=== PATIENT | male | born 1955 | race Caucasian/White ===

== ENCOUNTER 2020-06-04 16:42 | Outpatient (REF) | payer MEDICARE, SELFPAY ==
[2020-06-04 21:40] LABS: ALT 60 U/L (16-63); AST 30 U/L (15-37); Albumin 3.8 g/dL (3.4-5.0); Alkaline Phosphatase 73 U/L (46-116); Anion Gap 7.9 mmol/L (3-11); BUN 15 mg/dL (7-18); Bilirubin, Total 0.4 mg/dL (0.2-1.0); CO2 26.1 mmol/L (21.0-32.0); CREATININE 0.85 mg/dL (0.70-1.30); Chloride 105 mmol/L (98-107); Glucose 88 mg/dL (74-106); Sodium 139 mmol/L (136-145); Total Protein 7.4 g/dL (6.4-8.2)
[2020-06-04 21:50] LABS: Hemoglobin A1C 5.8 % (<5.7)
== END 2020-06-04 17:02 ==
LOC: NCHCN 16:42
PROVIDERS: Visit Provider Nurse Practitioner Family
DX: I10 Essential (primary) hypertension (principal); R73.09 Other abnormal glucose; E66.9 Obesity, unspecified
CPT/HCPCS: 80053; 83036

== ENCOUNTER 2020-06-18 21:37 | Outpatient (REF) | payer MEDICARE, SELFPAY ==
[2020-06-18 21:44] LABS: Anion Gap 5.4 mmol/L (3-11); BUN 19 mg/dL (7-18); CO2 28.6 mmol/L (21.0-32.0); CREATININE 0.93 mg/dL (0.70-1.30); Calcium 8.7 mg/dL (8.5-10.1); Chloride 105 mmol/L (98-107); Glucose 97 mg/dL (74-106); Potassium 4.4 mmol/L (3.5-5.1); Sodium 139 mmol/L (136-145)
== END 2020-06-18 21:57 ==
LOC: NCHCN 21:37
PROVIDERS: Visit Provider Nurse Practitioner Family
DX: I10 Essential (primary) hypertension (principal)
CPT/HCPCS: 80048

== ENCOUNTER 2020-10-01 17:34 | Outpatient (REF) | payer MEDICARE, SELFPAY ==
[2020-10-01 21:33] LABS: BUN 12 mg/dL (7-18); CREATININE 0.7 mg/dL (0.70-1.30); Calcium 8.8 mg/dL (8.5-10.1); Chloride 105 mmol/L (98-107); Glucose 83 mg/dL (74-106); Potassium 3.8 mmol/L (3.5-5.1); Sodium 141 mmol/L (136-145)
[2020-10-02 13:10] LABS: Vitamin D 25 Total 20.4 ng/ml (30-100)
== END 2020-10-01 17:35 | disposition home or self-care (01) ==
LOC: NCHCN 17:34
PROVIDERS: PCP Nurse Practitioner Family; Visit Provider Nurse Practitioner Family
DX: I10 Essential (primary) hypertension (principal); R53.83 Other fatigue
CPT/HCPCS: 80048; 82306

== ENCOUNTER 2020-10-22 16:46 | Outpatient (REF) | payer MEDICARE, SELFPAY ==
[2020-10-22 19:55] LABS: BUN 17 mg/dL (7-18); CREATININE 0.8 mg/dL (0.70-1.30); Chloride 102 mmol/L (98-107); Glucose 100 mg/dL (74-106); Sodium 137 mmol/L (136-145)
== END 2020-10-22 16:47 | disposition home or self-care (01) ==
LOC: NCHCN 16:46
PROVIDERS: PCP Nurse Practitioner Family; Visit Provider Nurse Practitioner Family
DX: I10 Essential (primary) hypertension (principal)
CPT/HCPCS: 80048

== ENCOUNTER 2020-11-16 16:15 | Outpatient (REF) | payer MEDICARE, SELFPAY ==
[2020-11-16 22:16] LABS: Vitamin D 25 Total 31.5 ng/ml (30-100)
== END 2020-11-16 16:16 | disposition home or self-care (01) ==
LOC: NCHCN 16:15
PROVIDERS: PCP Nurse Practitioner Family; Visit Provider Family Medicine
DX: E55.9 Vitamin D deficiency, unspecified (principal)
CPT/HCPCS: 82306

== ENCOUNTER 2020-12-08 18:16 | Outpatient (REF) | payer MEDICARE, SELFPAY ==
[2020-12-09 17:30] LABS: PSA, Screening 0.6 ng/mL (0.0-4.5)
[2020-12-10 09:53] LABS: HIV-1/2 Ag & Ab Screen Negative (Negative)
[2020-12-10 10:12] LABS: Hepatitis C Ab w Rflx HCV PCR Negative (Negative)
== END 2020-12-08 18:17 | disposition home or self-care (01) ==
LOC: NCHCN 18:16
PROVIDERS: PCP Nurse Practitioner Family; Visit Provider Nurse Practitioner Family
DX: Z11.3 Encounter for screening for infections with a predominantly sexual mode of transmission (principal); Z11.4 Encounter for screening for human immunodeficiency virus [HIV]; Z11.59 Encounter for screening for other viral diseases; Z12.5 Encounter for screening for malignant neoplasm of prostate
CPT/HCPCS: 84153; 86803; 87389

== ENCOUNTER 2021-07-13 15:52 | Outpatient (REF) | payer MEDICARE, SELFPAY ==
[2021-07-13 21:26] LABS: HCT 36.9 % (40.0-50.0); MCH 32.4 pg (27.0-33.0); MCHC 32.5 % (32.0-36.0); MCV 99.7 fL (80-95); Platelet Count 168 10^3/uL (130-400); RDW 13.1 % (11.8-14.1); RDW-SD 47.9 fL; WBC 5.59 10^3/uL (4.4-10.8)
[2021-07-14 09:55] LABS: Calculated LDL 155 mg/dL (<100); Cholesterol 216 mg/dL (<200); HDL Cholesterol 47 mg/dL (40-60); Triglyceride 70 mg/dL (<150)
[2021-07-15 00:55] LABS: Vitamin D 25 Total 35.1 ng/mL (30-100)
[2021-07-15 13:32] LABS: Ferritin 121 ng/mL (26-388)
[2021-07-15 22:38] LABS: Folate 13.2 ng/mL (See Note); Vitamin B12 441 pg/mL (211-911)
== END 2021-07-13 15:53 | disposition home or self-care (01) ==
LOC: NCHCN 15:52
PROVIDERS: PCP Nurse Practitioner Family; Visit Provider Nurse Practitioner Family
DX: R53.83 Other fatigue (principal); E78.5 Hyperlipidemia, unspecified; E55.9 Vitamin D deficiency, unspecified; D64.9 Anemia, unspecified
CPT/HCPCS: 80061; 82306; 85027; 82607; 82728; 82746

== ENCOUNTER 2022-02-03 16:32 | Outpatient (REF) | payer MEDICARE, SELFPAY ==
[2022-02-03 20:19] LABS: HCT 38.5 % (40.0-50.0); HGB 12.9 g/dL (13.5-17.5); MCH 32.5 pg (27.0-33.0); MCHC 33.5 % (32.0-36.0); MCV 97 fL (80-95); MPV 10.2 fL (8.0-11.0); Platelet Count 212 10^3/uL (130-400); RBC 3.97 10^6/uL (4.36-5.78); RDW 12.8 % (11.8-14.1); RDW-SD 46.2 fL; WBC 6.95 10^3/uL (4.4-10.8)
[2022-02-03 20:29] LABS: Iron 56 ug/dL (65-175); Total Iron Binding Capacity 311 ug/dL (250-450); Transferrin Sat 18 % (20-55)
[2022-02-03 20:56] LABS: Ferritin 203 ng/mL (26-388); Vitamin B12 474 pg/mL (193-986)
[2022-02-03 20:58] LABS: Folate > 20.0 ng/mL (8.6-20.0)
== END 2022-02-03 16:33 | disposition home or self-care (01) ==
LOC: NCHCN 16:32
PROVIDERS: PCP Nurse Practitioner Family; Visit Provider Nurse Practitioner Family
DX: D64.9 Anemia, unspecified (principal); R53.83 Other fatigue
CPT/HCPCS: 85027; 82607; 82728; 82746; 83540; 83550

== ENCOUNTER 2022-03-01 16:38 | Outpatient (REF) | payer MEDICARE, SELFPAY ==
[2022-03-01 21:03] LABS: Abs Immature Grans 0.01 10^3/uL (0.0-0.06); Absolute Basophil Count 0.06 10^3/uL (0.0-0.2); Absolute Eosinophil Count 0.26 10^3/uL (0.0-0.7); Absolute Lymphocyte Count 1.92 10^3/uL (1.2-3.4); Absolute Monocyte Count 0.54 10^3/uL (0.1-0.8); Absolute Neutrophil Count 2.11 10^3/uL (1.2-6.7); Basophils % 1.2; Eosinophils % 5.3; HCT 36.6 % (40.0-50.0); HGB 12.3 g/dL (13.5-17.5); Immature Grans % 0.2; Lymphocytes % 39.2; MCH 32.8 pg (27.0-33.0); MCHC 33.6 % (32.0-36.0); MCV 98 fL (80-95); MPV 10.7 fL (8.0-11.0); Neutrophils % 43.1; Platelet Count 170 10^3/uL (130-400); RBC 3.75 10^6/uL (4.36-5.78); RDW 13.2 % (11.8-14.1); RDW-SD 47.3 fL
[2022-03-01 21:09] LABS: Iron 67 ug/dL (65-175); Total Iron Binding Capacity 284 ug/dL (250-450); Transferrin Sat 24 % (20-55)
[2022-03-01 21:23] LABS: Ferritin 141 ng/mL (26-388)
[2022-03-02 10:44] LABS: Reticulocyte 1.5 % (0.5-2.4)
[2022-03-02 11:27] LABS: Folate 19.7 ng/mL (8.6-20.0); Vitamin B12 481 pg/mL (193-986)
== END 2022-03-01 16:39 | disposition home or self-care (01) ==
LOC: NCHCN 16:38
PROVIDERS: PCP Nurse Practitioner Family; Visit Provider Nurse Practitioner Family
DX: R53.83 Other fatigue (principal); D64.9 Anemia, unspecified
CPT/HCPCS: 85045; 82607; 82728; 82746; 83540; 83550; 85025

== ENCOUNTER 2022-05-05 21:13 | Outpatient (REF) | payer MEDICARE, SELFPAY ==
[2022-05-05 21:51] LABS: Abs Immature Grans 0.01 10^3/uL (0.0-0.06); Absolute Basophil Count 0.05 10^3/uL (0.0-0.2); Absolute Eosinophil Count 0.27 10^3/uL (0.0-0.7); Absolute Monocyte Count 0.59 10^3/uL (0.1-0.8); Absolute Neutrophil Count 3.18 10^3/uL (1.2-6.7); Basophils % 0.8; Eosinophils % 4.6; HCT 36.7 % (40.0-50.0); HGB 12.4 g/dL (13.5-17.5); Immature Grans % 0.2; Lymphocytes % 30.5; MCHC 33.8 % (32.0-36.0); MCV 98 fL (80-95); MPV 10.8 fL (8.0-11.0); Neutrophils % 53.9; Platelet Count 147 10^3/uL (130-400); RBC 3.76 10^6/uL (4.36-5.78); RDW 12.4 % (11.8-14.1); RDW-SD 44.8 fL
[2022-05-05 22:39] LABS: ALT 29 U/L (16-63); AST 25 U/L (15-37); Albumin 3.8 g/dL (3.4-5.0); Alkaline Phosphatase 63 U/L (46-116); Anion Gap 6.6 mmol/L (3-11); BUN 15 mg/dL (7-18); Bilirubin, Total 0.4 mg/dL (0.2-1.0); CO2 29.4 mmol/L (21.0-32.0); CREATININE 0.8 mg/dL (0.70-1.30); Calcium 8.6 mg/dL (8.5-10.1); Calculated LDL 145 mg/dL (<100); Chloride 106 mmol/L (98-107); Cholesterol 217 mg/dL (<200); Ferritin 298 ng/mL (26-388); Folate > 20.0 ng/mL (8.6-20.0); Glucose 84 mg/dL (74-106); HDL Cholesterol 52 mg/dL (40-60); Potassium 3.9 mmol/L (3.5-5.1); Sodium 142 mmol/L (136-145); Total Protein 7.7 g/dL (6.4-8.2); Triglyceride 104 mg/dL (<150); Vitamin B12 561 pg/mL (193-986)
== END 2022-05-05 21:14 | disposition home or self-care (01) ==
LOC: NCHCN 21:13
PROVIDERS: PCP Nurse Practitioner Family; Visit Provider Nurse Practitioner Family
DX: E78.5 Hyperlipidemia, unspecified (principal); D64.9 Anemia, unspecified
CPT/HCPCS: 80053; 80061; 82607; 82728; 82746; 85025

== ENCOUNTER 2022-12-26 12:41 | Outpatient (REF) | payer MEDICARE, SELFPAY ==
[2022-12-26 15:00] LABS: HCT 38.8 % (40.0-50.0); HGB 12.9 g/dL (13.5-17.5); MCH 32.7 pg (27.0-33.0); MCHC 33.2 % (32.0-36.0); MCV 99 fL (80-95); Platelet Count 185 10^3/uL (130-400); RBC 3.94 10^6/uL (4.36-5.78); RDW 12.5 % (11.8-14.1); RDW-SD 45.1 fL; WBC 4.37 10^3/uL (4.4-10.8)
[2022-12-26 15:20] LABS: ALT 44 U/L (16-63); AST 21 U/L (15-37); Albumin 3.7 g/dL (3.4-5.0); Alkaline Phosphatase 68 U/L (46-116); Anion Gap 4.8 mmol/L (3-11); BUN 20 mg/dL (7-18); Bilirubin, Total 0.3 mg/dL (0.2-1.0); CO2 32.2 mmol/L (21.0-32.0); Calcium 9.2 mg/dL (8.5-10.1); Calculated LDL 170 mg/dL (<100); Chloride 104 mmol/L (98-107); Cholesterol 242 mg/dL (<200); Estimated GFR 81.98 (mL/min/1.73m2); Glucose 136 mg/dL (74-106); HDL Cholesterol 57 mg/dL (40-60); Potassium 4.3 mmol/L (3.5-5.1); Sodium 141 mmol/L (136-145); TSH (W/Ref FT4) 2.26 uIU/mL (0.36-3.74); Total Protein 7.9 g/dL (6.4-8.2); Triglyceride 77 mg/dL (<150)
== END 2022-12-26 12:42 | disposition home or self-care (01) ==
LOC: NCHCN 12:41
PROVIDERS: PCP Nurse Practitioner Family; Visit Provider Family Medicine
DX: I10 Essential (primary) hypertension (principal); E78.5 Hyperlipidemia, unspecified; R53.83 Other fatigue; E66.9 Obesity, unspecified; F10.10 Alcohol abuse, uncomplicated; D64.9 Anemia, unspecified
CPT/HCPCS: 80053; 80061; 85027; 84443

== ENCOUNTER 2023-07-25 08:10 | Outpatient (REF) | payer MEDICARE, SELFPAY ==
--- OUTSIDE RECORDS SUMMARY | 2023-07-25 08:14 | XMS_ITS | CCD ---
Author Name Unknown Address [address] [place] [address] [id number] Organization Unknown Address [address] [place] [address] [phone] Care Team Providers Care Coding Machine Operator Name Role Phone INEZ MARTIN Attending Physician [phone] Vital Signs Unknown or Not Available. Allergies Unknown or Not Available. Procedures Unknown or Not Available. History of Immunizations Unknown or Not Available. Problems Unknown or Not Available. Results [facility] COVID RHEONIX* - Jennifer ect Date/Time: 12/17/2021 09:48 Test Name Code Test Result Test Units Test Ref Rang e Tier- 40361-9 SYMPTOMS N/A SARS COV2 RNA: 60951-8 NEGATIVE N/A REFERENCE RANGE: NEGAT Active Medications Unknown or Not Available. Medications Administered During Visit Unknown or Not Available. Encounters Encounter Diagnosis Diagnosis Code Start Date Exposure to SARS-CoV-2 [id number] Social History Smoking Status Code Start Date End Date Former smoker [id number] Patient Decision Aids Unknown or Not Available. Discharge Instructions You were admitted to [facility] on 12/17/2021 18:51 with a principal diagnosis of Contact with and (suspected) exposure to COVID-19 You had the following tests done:[facility] COVID RHEONIX* You were discharged from [facility] on 12/17/2021 18:51 Should you have any questions prior to discharge, please contact a member of your healthcare team. If you have left the hospital and have any questions, please contact your primary care physician. Chief Complaint and Reason For Visit Unknown or Not Available. Function Status Unknown or Not Available. Plan of Care Unknown or Not Available. Referral/Transition of Care Unknown or Not Available.
--- OUTSIDE RECORDS SUMMARY | 2023-07-25 08:14 | XMS_ITS | CCD ---
Author Name Unknown Address [address] [place] [address] [id number] Organization Unknown Address [address] [place] [address] [phone] Care Team Providers Care Guest Room Inspector Name Role Phone KUSH VYAS Attending Physician [phone] KUSH VYAS Rounding (Secondary) Physicia n [phone] Vital Signs Unknown or Not Available. Allergies Unknown or Not Available. Procedures Unknown or Not Available. History of Immunizations Unknown or Not Available. Problems Unknown or Not Available. Results Unknown or Not Available. Active Medications Unknown or Not Available. Medications Administered During Visit Unknown or Not Available. Encounters Encounter Diagnosis Diagnosis Code Start Date Metatarsalgia, left foot [id number] 022 Social History Smoking Status Code Start Date End Date Former smoker 5112346 Patient Decision Aids Unknown or Not Available. Discharge Instructions You were admitted to [facility] on 10/04/2021 15:56 with a principal diagnosis of Metatarsalgia, left foot You were discharged from [facility] on 10/04/2021 00:00 Should you have any questions prior to [...]
--- OUTSIDE RECORDS SUMMARY | 2023-07-25 08:14 | XMS_ITS | CCD ---
Author Name Unknown Address [address] [place] [address] [id number] Organization Unknown Address [address] [place] [address] [id number] Care Team Providers Care Medical Management Trainer Name Role Phone INEZ MARTIN Attending Physician [phone] Vital Signs Unknown or Not Available. Allergies Unknown or Not Available. Procedures Unknown or Not Available. History of Immunizations Unknown or Not Available. Problems Unknown or Not Available. Results [facility] COVID RHEONIX* - Jennifer ect Date/Time: 12/30/2021 10:04 Test Name Code Test Result Test Units Test Ref Rang e Tier- 05195-9 EXPOSURE N/A SARS COV2 RNA: 23342-2 NEGATIVE N/A REFERENCE RANGE: NEGAT Active Medications Unknown or Not Available. Medications Administered During Visit Unknown or Not Available. Encounters Encounter Diagnosis Diagnosis Code Start Date Exposure to SARS-CoV-2 [id number] Social History Smoking Status Code Start Date End Date Former smoker 0257798 Patient Decision Aids Unknown or Not Available. Discharge Instructions You were admitted to [facility] on 12/30/2021 16:15 with a principal diagnosis of Contact with and (suspected) exposure to COVID-19 You had the following tests done:EBENEZER COVID RHEONIX* You were discharged from [facility] on 12/30/2021 16:15 Should you have any questions prior to [...]
--- OUTSIDE RECORDS SUMMARY | 2023-07-25 08:14 | XMS_ITS | CCD ---
Author Name Unknown Address [address] [place] [address] [id number] Organization Unknown Address [address] [place] [address] [phone] Care Team Providers Care Storage Battery Inspector Name Role Phone JOHNY FALK Attending Physician [phone] Vital Signs Unknown or Not Available. Allergies Unknown or Not Available. Procedures Unknown or Not Available. History of Immunizations Unknown or Not Available. Problems Unknown or Not Available. Results Unknown or Not Available. Active Medications Unknown or Not Available. Medications Administered During Visit Unknown or Not Available. Encounters Encounter Diagnosis Diagnosis Code Start Date Pain in right wrist [id number] 02/11/2022 Social History Smoking Status Code Start Date End Date Former smoker 2732186 Patient Decision Aids Unknown or Not Available. Discharge Instructions You were admitted to [facility] on 02/11/2022 10:08 with a principal diagnosis of Pain in right wrist You were discharged from [facility] on 02/11/2022 10:09 Should you have any questions prior to [...]
--- OUTSIDE RECORDS SUMMARY | 2023-07-25 08:14 | XMS_ITS | CCD ---
Author Name Unknown Address [address] [place] [address] [phone] Organization Unknown Address [address] [place] [address] [phone] Care Team Providers Care Sample Steamer Name Role Phone INEZ MARTIN Attending Physician [phone] Vital Signs Unknown or Not Available. Allergies Unknown or Not Available. Procedures Unknown or Not Available. History of Immunizations Unknown or Not Available. Problems Unknown or Not Available. Results [facility] COVID RHEONIX* - Jennifer ect Date/Time: 09/20/2021 16:56 Test Name Code Test Result Test Units Test Ref Rang e Tier- SYMPTOMS N/A SARS COV2 RNA: 31098-1 NEGATIVE N/A REFERENCE RANGE: NEGAT Active Medications Unknown or Not Available. Medications Administered During Visit Unknown or Not Available. Encounters Encounter Diagnosis Diagnosis Code Start Date Exposure to SARS-CoV-2 [id number] Social History Smoking Status Code Start Date End Date Former smoker 2530383 Patient Decision Aids Unknown or Not Available. Discharge Instructions You were admitted to [facility] on 09/20/2021 10:58 with a principal diagnosis of Contact with and (suspected) exposure to COVID-19 You had the following tests done:EBENEZER COVID RHEONIX* You were discharged from [facility] on 09/20/2021 10:58 Should you have any questions prior to [...]
--- OUTSIDE RECORDS SUMMARY | 2023-07-25 08:14 | XMS_ITS | CCD ---
Author Name Unknown Address [address] [place] [address] [id number] Organization Unknown Address [address] [place] [address] [phone] Care Team Providers Care Machine Set Up Operator Paper Goods Name Role Phone INEZ MARTIN Attending Physician [phone] Vital Signs Unknown or Not Available. Allergies Unknown or Not Available. Procedures Unknown or Not Available. History of Immunizations Unknown or Not Available. Problems Unknown or Not Available. Results [facility] COVID [facility]* - Jennifer ect Date/Time: 09/06/2021 16:06 Test Name Code Test Result Test Units Test Ref Rang e Tier- EXPOSURE N/A SARS COV2 RNA: 62363-2 NEGATIVE N/A REFERENCE RANGE: NEGAT Active Medications Unknown or Not Available. Medications Administered During Visit Unknown or Not Available. Encounters Encounter Diagnosis Diagnosis Code Start Date Exposure to SARS-CoV-2 [id number] 2 Social History Smoking Status Code Start Date End Date Former smoker 5504304 Patient Decision Aids Unknown or Not Available. Discharge Instructions You were admitted to [facility] on 09/06/2021 12:19 with a principal diagnosis of Contact with and (suspected) exposure to COVID-19 You had the following tests done:EBENEZER COVID RHEONIX* You were discharged from [facility] on 09/06/2021 12:19 Should you have any questions prior to [...]
--- OUTSIDE RECORDS SUMMARY | 2023-07-25 08:15 | XMS_ITS | CCD ---
Author Name Unknown Address [address] [place] [address] [id number] Organization Unknown Address [address] [place] [address] [phone] Care Team Providers Care Truck Striker Name Role Phone KUSH VYAS Attending Physician [phone] KUSH VYAS Rounding (Secondary) Physicia n [phone] Vital Signs Unknown or Not Available. Allergies Unknown or Not Available. Procedures Unknown or Not Available. History of Immunizations Unknown or Not Available. Problems Unknown or Not Available. Results Unknown or Not Available. Active Medications Unknown or Not Available. Medications Administered During Visit Unknown or Not Available. Encounters Encounter Diagnosis Diagnosis Code Start Date Pain in left foot [id number] 08/11/2021 Social History Smoking Status Code Start Date End Date Former smoker [id number] Patient Decision Aids Unknown or Not Available. Discharge Instructions You were admitted to [facility] on 08/11/2021 09:21 with a principal diagnosis of Pain in left foot You were discharged from [facility] on 08/11/2021 00:00 Should you have any questions prior [...]
--- OUTSIDE RECORDS SUMMARY | 2023-07-25 08:15 | XMS_ITS | CCD ---
Author Name Unknown Address [address] [place] [address] [id number] Organization Unknown Address [address] [place] [address] [phone] Care Team Providers Care Grab Driver Name Role Phone KUSH VYAS Attending Physician [phone] Vital Signs Unknown or Not Available. Allergies Unknown or Not Available. Procedures Unknown or Not Available. History of Immunizations Unknown or Not Available. Problems Unknown or Not Available. Results Unknown or Not Available. Active Medications Unknown or Not Available. Medications Administered During Visit Unknown or Not Available. Encounters Encounter Diagnosis Diagnosis Code Start Date Pain in left foot O66585 07/01/2021 Social History Smoking Status Code Start Date End Date Former smoker 6039192 Patient Decision Aids Unknown or Not Available. Discharge Instructions You were admitted to [facility] on 07/01/2021 16:09 with a principal diagnosis of Pain in left foot You were discharged from [facility] on 07/01/2021 16:09 Should you have any questions prior to [...]
--- OUTSIDE RECORDS SUMMARY | 2023-07-25 08:15 | XMS_ITS | CCD ---
Author Name Unknown Address [address] [place] [address] [id number] Organization Unknown Address [address] [place] [address] [phone] Care Team Providers Care Shrimp Picker Name Role Phone KUSH VYAS Attending Physician [phone] KUSH VYAS Rounding (Secondary) Physicia n [phone] Vital Signs Unknown or Not Available. Allergies Unknown or Not Available. Procedures Unknown or Not Available. History of Immunizations Unknown or Not Available. Problems Unknown or Not Available. Results Unknown or Not Available. Active Medications Unknown or Not Available. Medications Administered During Visit Unknown or Not Available. Encounters Encounter Diagnosis Diagnosis Code Start Date Metatarsalgia, left foot M7742 021 Social History Smoking Status Code Start Date End Date Former smoker 7229763 Patient Decision Aids Unknown or Not Available. Discharge Instructions You were admitted to [facility] on 07/05/2021 12:29 with a principal diagnosis of Metatarsalgia, left foot You were discharged from [facility] on 07/05/2021 00:00 Should you have any questions prior [...]
--- OUTSIDE RECORDS SUMMARY | 2023-07-25 08:15 | XMS_ITS | CCD ---
Author Name Unknown Address [address] [place] [address] [phone] Organization Unknown Address [address] [place] [address] [phone] Care Team Providers Care Distribution Engineer Name Role Phone JOHNY FALK Attending Physician [phone] Vital Signs Unknown or Not Available. Allergies Unknown or Not Available. Procedures Unknown or Not Available. History of Immunizations Unknown or Not Available. Problems Unknown or Not Available. Results BASIC METABOLIC PANEL (BMP) - Collect Date/Time: 08/11/2021 11:39 Test Name Code Test Result Test Units Test Ref Rang e GLUCOSE 2345-7 105 mg/dL L=70 H=116 BUN 3094-0 21 mg/dL L=6 H=25 CREATININE 2160-0 0.83 mg/dL L=0.67 H=1.17 SODIUM SERUM 2951-2 136 mmol/L L=136 H=145 POTASSIUM SERUM 2823-3 3.9 mmol/L L=3.4 H=5 .2 CHLORIDE SERUM 2075-0 102 mmol/L L=96 H=110 CARBON DIOXIDE (CO2) 2028-9 29 mmol/L L=22 H=34 ANION GAP 18784-8 4.9 mmol/L CALCIUM SERUM 02600-5 9.1 mg/dL L=8.2 H=10. 2 AGE 65 years eGFR (non-Afr.Amer.) 12309-0 93 mL/min eGFR (Afr-Colombian) 82474-3 112 mL/min Active Medications Unknown or Not Available. Medications Administered During Visit Unknown or Not Available. Encounters Encounter Diagnosis Diagnosis Code Start Date Essential hypertension [id number] Social History Smoking Status Code Start Date End Date Former smoker 9654569 Patient Decision Aids Unknown or Not Available. Discharge Instructions You were admitted to [facility] on 08/11/2021 11:29 with a principal diagnosis of Essential (primary) hypertension You had the following tests done:BASIC METABOLIC PANEL (BMP) You were discharged from [facility] on 08/11/2021 11:29 Should you have any questions prior to [...]
--- OUTSIDE RECORDS SUMMARY | 2023-07-25 08:21 | XMS_ITS | Continuity of Care Document ---
Author Name Unknown Organization [facility] Address [address] [place] [address] Care Team Providers Care Kapok And Cotton Machine Operator Name Role Phone Michelle Cooper Primary Care Physician ( [phone] Encounter [facility] Date(s): 06/12/23 - 06/12/23 [facility] [address] [place] [address] Encounter Diagnosis Obstructive sleep apnea syndrome(Discharge Diagnosis) - 06/08/23 Insomnia(Discharge Diagnosis) - 06/08/23 Discharge Disposition: Home or Self Care Attending Physician: Yenny Lee CHILD CARE ASSOCIATE TEACHER Allergies, Adverse Reactions, Alerts Substance Reaction Severity Status BEE VENOM PROTEIN (HONEY BEE) Unknown Active sulfamethizole Unknown Active Assessment and Plan Future Appointments Immunizations Given and Recorded Vaccine Date Status Refusal Reason SARS-CoV-2 (COVID-19) mRNA-1273 vaccine 11/27/20 R ecorded SARS-CoV-2 (COVID-19) mRNA-1273 vaccine 10/30/20 R ecorded Medications acetaminophen 500 mg oral tablet Start Date: 05/18/22 Status: Ordered citalopram 20 mg oral tablet Start Date: 05/18/22 Status: Ordered doxepin 10 mg oral capsule 10 mg = 1 cap, Oral, every night at bedtime, # 30 cap, 11 Refill(s), Pharmacy: [id number] Start Date: 09/06/22 Status: Ordered doxepin 10 mg oral capsule Start Date: 05/18/22 Status: Ordered l-methylfolate 15 mg oral tablet Start Date: 05/18/22 Status: Ordered lisinopril-hydroCHLOROthiazide 20 mg-25 mg oral tablet Start Date: 05/18/22 Status: Ordered modafinil 200 mg oral tablet See Instructions, take 1/2 tablet twice daily, # 30 EA, 5 Refill(s), Pharmacy: [facility]) Start Date: 06/12/23 Status: Ordered NAC 600 mg oral capsule Start Date: 05/18/22 Status: Ordered omeprazole 20 mg oral delayed release capsule 20 mg = 1 cap, Oral, Daily Start Date: 05/18/22 Status: Ordered sertraline 100 mg oral tablet Start Date: 05/18/22 Status: Ordered Spiriva Respimat 60 ACT 2.5 mcg/inh inhalation aerosol Start Date: 05/18/22 Status: Ordered Problem List Condition Confirmation Course Effective Dates Status H ealth Status Informant Alcoholism Confirmed Active Dependence on enabling machine or device Confirmed Active Impotence Confirmed Active Gastroesophageal reflux disease without esophagitis Confirmed Active Hypertensive disorder Confirmed Active Insomnia Confirmed 03/08/19 Active Insomnia Confirmed Active Joint pain Confirmed Active Obstructive sleep apnea syndrome 1 Confirmed Active Seasonal affective disorder Confirmed Active 1BiPAP 18/10/4 cm Reliable Vital Signs Most recent to oldest [Reference Range]: 1 Peripheral Pulse Rate [60-100 bpm] 64 bp m (06/12/23 1:30 PM) Blood Pressure [90-140/60-90 mmHg] 139/6 7mmHg (06/12/23 1:30 PM) Weight 108.86 kg (06/12/23 1:30 PM) Weight Measured (lbs) 239.995 lb (06/12/23 1:30 PM) Height 172 cm (06/12/23 1:30 PM) Height/Length Measured (inches) 67.72 in ch (06/12/23 1:30 PM) BSA Measured 2.28 m2 (06/12/23 1:30 PM) Body Mass Index 36.8 kg/m2 (06/12/23 1:30 PM) Social History Social History Type Response Tobacco Former tobacco user Tobacco Use:. Sex Male Progress note * Melvin Maher M: PERFORM Event Display: Progress Note - Physician Authored Date: [id number] Physician Outpatient Note * Yenny Lee CHILD CARE ASSOCIATE TEACHER: PERFORM Event Display: Office Clinic Note Physician Authored Date: [id number] TOMAS ELLIOTT :1955 Age:67 years Sex:Male Visit Date:06/12/2023 Primary Care Physician: Michelle Cooper APRN History of Present Illness Fredi Elliott has a visit for insomnia and PILAR follow-up. ?? Fredi was last seen by me on 06/20/2022. He has a history of SAD, GERD, HTN, ED, alcoholism and PILAR. ?? PSG 12/12/2006 at [facility] (wt 258 lbs), AHI 37/hr, 02 debra 69%, PLMi 45/hr. Titration 11/17/09 (BMI 38.5), PLMi 43.3/hr, PLMai 2.1/hr, CPAP 10 cm was successful including in REM sleep. CPAP 10 cm recommended. ?? He was treated with CPAP for a period of time with residual symptoms despite normal AHI. He was then switched to BiPAP. He has most recently been on BiPAP cm. Oximetry 01/17/19 on BiPAP and room air with sp02 debra 90%. He was started on modafinil for residual sleepiness but this caused moodchange. At last visit he was using BiPAP??with great compliance and reduction in AHI.??He was taking doxepin 10 mg PRN and modafinil 100 mg sparingly. He was not sure doxepin helped at all so I suggested he not take it and instead work on CBTi and read the book I had previously recommended. ??Tomas says that his humidifier is not working. He says some nights it won't turn on at all and heat up and other times it will heat up. He took it to [facility] for an evaluation and they were supposed to order him a new humidifier but they never did. He has a replacement BiPAP through the recall. He is extremely unhappy with [facility] and says he never has a smooth transaction with them and they are not helpful. He wants to change DME providers immediately. He is sleeping from about 11 pm to 6 am. He still has a hard time falling asleep. He wakes 1-3 times a night from nothing specific??and it takes varying minutes to get back to sleep.??He feels pretty happy with his sleep currently. He thinks many nights he is getting about seven hours of sleep.??He is not taking doxepin any longer but still has some in case he needs it. ?? 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 He takes a full tablet and tolerates it well but it can worsen his sleep that night. ?? ESS today 02/18 COMPLIANCE DATA REVIEWED WITH PATIENT: Dates 05/13/23-06/11/23, Used 30/30 nights, average use 8??hrs and 2 minutes. 90th percentile pressure 15/10??cm, time in large air leak 26??minutes, AHI 1/hr. Physical Exam Vitals & Measurements HR:??64??(Peripheral)?? BP:??139/67?? SpO2:??99%?? HT:??172??cm?? WT:??108.86??kg?? BMI:??36.8?? BSA:??2.28?? GENERAL: answers questions appropriately, well groomed, obese. HEAD: normocephalic and atraumatic. EYES: non icteric LUNGS: CTA all velazquez. Good air movement throughout. CARDIO: RRR without murmur, gallop or thrill. NEURO: alert and oriented, normal gait. PYSCH: normal mood and affect. CUTANEOUS: no overt lesions or rashes.?? Clinic Assessment/Plan 1.??Obstructive sleep apnea syndrome??G47.33 PILAR with an AHI of 37/hr and 02 debra 69%. He failed CPAP (lack of symptomatic improvement). He is using BiPAP Imax 19 cm, Chirag 10 cm, PS min 4??cm, PS max 6 cm. He has excellent compliance and reduction in AHI. His humidifier is malfunctioning but he is not eligible foe a new machine until 04/2025.He may get one online (I showed him there is one on [employer] for $152) or try to keep using this one as some nights it works and others it doesn't. He is very unhappy with his current DME so [facility] to get him supplies as needed. 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 He tolerates this well and a refill was sent in today. An updated controlled drug contract was signed. He is advised to keep up with the routine maintenance of the machine and to clean/replace parts as needed. I will see him back in one year. He is asked to call our office for any sleep related questions or concerns. I provided greater than 30 minutes in the care of this patient, more than half the time was spent in [id number] counseling. 2.??Insomnia??G47.00 Taking doxepin 10 mg QHS PRN. He is rarely taking this (has not used since the spring)??and it doeshelp settle his mind and get him to sleep but it makes him groggy in the morning. He is feeling that currently he is sleeping well. NO change today. ?? Problem List/Past Medical History Ongoing Alcoholism Dependence on enabling machine or device Gastroesophageal reflux disease without esophagitis Hypertensive disorder Impotence Insomnia Insomnia Joint pain Obstructive sleep apnea syndrome Seasonal affective disorder Historical No qualifying data Medications What How Much When Instructions New modafinil (modafinil 200 mg oral tablet) See instructions Refills: 5 take 1/ 2 tablet twice daily ?? Pickup at [facility] ([facility]) Unchanged acetaminophen (acetaminophen 500 mg oral tablet) Unchanged acetylcysteine (NAC 600 mg oral capsule) Unchanged citalopram (citalopram 20 mg oral tablet) Unchanged doxepin (doxepin 10 mg oral capsule) Unchanged doxepin (doxepin 10 mg oral capsule) 1 Capsules Oral (given by mouth) Every night at bedtime Unchanged l-methylfolate (l-methylfolate 15 mg oral tablet) Unchanged lisinopril-hydroCHLOROthiazide (lisinopril-hydroCHLOROthiazide 20 mg- 25 mg oral tablet) Unchanged omeprazole (omeprazole 20 mg oral delayed release capsule) 1 Capsules Oral (given by mouth) Every day Unchanged sertraline (sertraline 100 mg oral tablet) Unchanged tiotropium (Spiriva Respimat 60 ACT 2.5 mcg/ inh inhalation aerosol) Pharmacy Information [facility] ([facility]): [address] [place], [place] [phone] Allergies BEE VENOM PROTEIN (HONEY BEE) sulfamethizole Social History Electronic Cigarette/Vaping Electronic Cigarette Use: Never. Tobacco Former tobacco user Tobacco Use:. Immunizations Vaccine Date Status SARS-CoV-2 (COVID-19) mRNA-2140 vaccine 11/27/2020 Recorded SARS-CoV-2 (COVID-19) mRNA-1273 vaccine 10/30/2020 Recorded Electronically Signed on 06/12/23 02:05 PM Yenny Lee NP Patient Care team information Care Team Personnel Name: Michelle Cooper APRN Position: No Access Member Role: Primary Care Physician Address: Address: [address] [id number]
[2023-07-25 14:48] LABS: Calculated LDL 145 mg/dL (<100); Cholesterol 225 mg/dL (<200); HDL Cholesterol 57 mg/dL (40-60); Triglyceride 118 mg/dL (<150)
== END 2023-07-25 08:11 | disposition home or self-care (01) ==
LOC: LBN 08:10
PROVIDERS: PCP Nurse Practitioner Family; Visit Provider Internal Medicine Gastroenterology
DX: E78.5 Hyperlipidemia, unspecified (principal)
CPT/HCPCS: 80061

== ENCOUNTER 2023-12-19 08:54 | Outpatient (REF) | payer MEDICARE, SELFPAY ==
[2023-12-19 14:35] LABS: Abs Immature Grans 0.02 10^3/uL (0.0-0.06); Absolute Basophil Count 0.04 10^3/uL (0.0-0.2); Absolute Eosinophil Count 0.23 10^3/uL (0.0-0.7); Absolute Lymphocyte Count 1.54 10^3/uL (1.2-3.4); Absolute Monocyte Count 0.65 10^3/uL (0.1-0.8); Absolute Neutrophil Count 3.26 10^3/uL (1.2-6.7); Basophils % 0.7; HGB 12.9 g/dL (13.5-17.5); Immature Grans % 0.3; Lymphocytes % 26.8; MCHC 33.1 % (32.0-36.0); MCV 100 fL (80-95); MPV 10.3 fL (8.0-11.0); Monocytes % 11.3; Neutrophils % 56.9; Platelet Count 172 10^3/uL (130-400); RBC 3.91 10^6/uL (4.36-5.78); RDW 12.8 % (11.8-14.1); RDW-SD 46.7 fL; WBC 5.74 10^3/uL (4.4-10.8)
[2023-12-19 14:59] LABS: Hemoglobin A1C 6.2 % (<5.7)
[2023-12-19 15:05] LABS: ALT 30 U/L (16-63); AST 23 U/L (15-37); Albumin 3.7 g/dL (3.4-5.0); Alkaline Phosphatase 59 U/L (46-116); Anion Gap 7.2 mmol/L (3-11); BUN 21 mg/dL (7-18); Bilirubin, Total 0.4 mg/dL (0.2-1.0); CO2 28.8 mmol/L (21.0-32.0); CREATININE 0.8 mg/dL (0.70-1.30); Calcium 8.9 mg/dL (8.5-10.1); Calculated LDL 81 mg/dL (<100); Chloride 108 mmol/L (98-107); Cholesterol 152 mg/dL (<200); Glucose 137 mg/dL (74-106); HDL Cholesterol 59 mg/dL (40-60); Potassium 4.1 mmol/L (3.5-5.1); Sodium 144 mmol/L (136-145); TSH (W/Ref FT4) 2.84 uIU/mL (0.36-3.74); Total Protein 7.4 g/dL (6.4-8.2); Triglyceride 61 mg/dL (<150)
[2023-12-20 18:56] LABS: Folate 22.7 ng/mL (See Note)
== END 2023-12-19 08:55 | disposition home or self-care (01) ==
LOC: NCHCN 08:54
PROVIDERS: PCP Nurse Practitioner Family; Visit Provider Family Medicine
DX: I10 Essential (primary) hypertension (principal); E78.5 Hyperlipidemia, unspecified; D64.9 Anemia, unspecified; R53.83 Other fatigue; R73.03 Prediabetes
CPT/HCPCS: 80053; 80061; 82607; 82746; 83036; 84443; 85025

== ENCOUNTER 2024-01-09 14:25 | Outpatient (REF) | payer MEDICARE, SELFPAY ==
[2024-01-09 15:41] LABS: Vitamin B12 506 pg/mL (193-986)
== END 2024-01-09 14:26 | disposition home or self-care (01) ==
LOC: NCHCN 14:25
PROVIDERS: PCP Nurse Practitioner Family; Visit Provider Family Medicine
DX: D53.9 Nutritional anemia, unspecified (principal)
CPT/HCPCS: 82607

== ENCOUNTER 2024-04-16 21:42 | Outpatient (REF) | payer MEDICARE, SELFPAY ==
--- OUTSIDE RECORDS SUMMARY | 2024-04-16 21:45 | XMS_ITS ---
Author Organization Unknown Address [address] [place] [address] [phone] Phone Care Team Providers Care Tripper Name Role Phone DILEEP MCCLAIN Attending Unavailable Results BASIC METABOLIC PANEL (BMP) - Collect Date/Time: 08/11/2021 11:39 [facility] ID: [id number] [address] [place], [place], [address] LOINC: 46984-4 Test Value Unit Reference Range Code Code System Flag GLUCOSE 105 mg/dL L=70 H=116 2345-7 LOINC BUN 21 mg/dL L=6 H=25 3094-0 LOINC CREATININE 0.83 mg/dL L=0.67 H=1.17 2160-0 LOINC SODIUM SERUM 136 mmol/L L=136 H=145 2951-2 LOINC POTASSIUM SERUM 3.9 mmol/L L=3.4 H=5.2 2823-3 LOINC CHLORIDE SERUM 102 mmol/L L=96 H=110 2075-0 LOINC CARBON DIOXIDE (CO2) 29 mmol/L L=22 H=34 2028-9 LOINC ANION GAP 4.9 mmol/L 87640-2 LOINC CALCIUM SERUM 9.1 mg/dL L=8.2 H=10.2 41324-5 LOINC AGE 65 years eGFR (non-Afr.Amer.) 93 mL/min 07510-5 LOINC eGFR (Afr-South Korean) 112 mL/min 95311-0 LOINC Social History Type Status Start Date End Date Code Code Syst em Smoking History Former smoker 0994148 SNOMED CT Sex Male Hospital Discharge Instructions Should you have any questions prior to discharge, please contact a member of your healthcare team. If you have left the hospital and have any questions, please contact your primary care physician. Reason For Referral No Data Found Plan of Treatment Exposure 04/05/2021 X-RAY 02/11/2022 EXPOSURE 12/30/2021 SYMPTOMS 12/17/2021 SYMPTOMS 09/20/2021 EXPOSURE 09/06/2021 EXPOSURE 09/01/2021 EXPOSURE 07/13/2021 Encounters Encounter Diagnosis Start Date Code Code Sys tem Essential hypertension 08/11/2021 [id number] RADHA D-CT Personal Care Team Section Performer Name Performer Role Active Date Inactive Da temi
--- OUTSIDE RECORDS SUMMARY | 2024-04-16 21:45 | XMS_ITS ---
Author Organization Unknown Address [address] [place] [address] [phone] Phone Care Team Providers Care Chief Marketing Officer Name Role Phone LILLIAM Villalpando Attending Unavailable DILEEP MCCLAIN Primary Unavailable Social History Type Status Start Date End Date Code Code Syst em Smoking History Former smoker 5194679 SNOMED CT Sex Male Hospital Discharge Instructions [...] Diagnosis Start Date Code Code Sys tem 08/11/2021 [id number] SNOMED-CT Personal Care Team Section Performer Name Performer Role Active Date Inactive Da te
--- OUTSIDE RECORDS SUMMARY | 2024-04-16 21:46 | XMS_ITS ---
Author Organization Unknown Address [address] [place] [address] [phone] Phone Care Team Providers Care Behavioral Health Associate Name Role Phone LILLIAM Villalpando Attending Unavailable DILEEP MCCLAIN Primary Unavailable Social History Type Status Start Date End Date Code Code Syst em Smoking History Former smoker 5573329 SNOMED CT Sex Male Hospital Discharge Instructions [...] Diagnosis Start Date Code Code Sys tem 10/04/2021 [id number] SNOMED-CT Personal Care Team Section Performer Name Performer Role Active Date Inactive Da te
--- OUTSIDE RECORDS SUMMARY | 2024-04-16 21:46 | XMS_ITS ---
Author Organization Unknown Address [address] [place] [address] [phone] Phone Care Team Providers Care Galvanizer Name Role Phone VERONICA Gr Attending Unavailable DILEEP MCCLAIN Primary Unavailable [facility] - Jennifer ect Date/Time: 09/01/2021 15:56 [facility] ID: [id number] [address] [place] [address], [id number] LOINC: 55837-8 Test Value Unit Reference Range Code Code System Flag Tier- EXPOSURE SARS COV2 RNA: NEGATIVE REFERENCE RANGE: NEGAT 44548-4 L OINC Social History Type Status Start Date End Date Code Code Syst em Smoking History Former smoker 5900327 SNOMED CT Sex Male Hospital Discharge Instructions [...] Diagnosis Start Date Code Code Sys tem Exposure to SARS-CoV-2 09/01/2021 932250477 SNOME D-CT Personal Care Team Section Performer Name Performer Role Active Date Inactive Da te
--- OUTSIDE RECORDS SUMMARY | 2024-04-16 21:46 | XMS_ITS ---
Author Organization Unknown Address [address] [place] [address] [phone] Phone Care Team Providers Care Casing Fluid Tender Name Role Phone VERONICA Gr Attending Unavailable DILEEP MCCLAIN Primary Unavailable [facility] - Jennifer ect Date/Time: 09/06/2021 16:06 [facility] ID: [id number] [address] [place], [place], [phone] LOINC: 37698-0 Test Value Unit Reference Range Code Code System Flag Tier- EXPOSURE SARS COV2 RNA: NEGATIVE REFERENCE RANGE: NEGAT 70740-6 L OINC Social History Type Status Start Date End Date Code Code Syst em Smoking History Former smoker 6283653 SNOMED CT Sex Male Hospital Discharge Instructions [...] Code Code Sys tem Exposure to SARS-CoV-2 09/06/2021 015824971 SNOME D-CT Personal Care Team Section Performer Name Performer Role Active Date Inactive Da te
--- OUTSIDE RECORDS SUMMARY | 2024-04-16 21:46 | XMS_ITS ---
Author Organization Unknown Address [address] [place] [address] [phone] Phone Care Team Providers Care Field Service Consultant Name Role Phone VERONICA Gr Attending Unavailable DILEEP MCCLAIN Primary Unavailable [facility] - Jennifer ect Date/Time: 09/20/2021 16:56 [facility] ID: [id number] [address] [place], [place], [phone] LOINC: 79637-6 Test Value Unit Reference Range Code Code System Flag Tier- SYMPTOMS SARS COV2 RNA: NEGATIVE REFERENCE RANGE: NEGAT 23108-0 L OINC Social History Type Status Start Date End Date Code Code Syst em Smoking History Former smoker 2239513 SNOMED CT Sex Male Hospital Discharge Instructions [...] Code Code Sys tem Exposure to SARS-CoV-2 09/20/2021 784917913 SNOME D-CT Personal Care Team Section Performer Name Performer Role Active Date Inactive Da te
--- OUTSIDE RECORDS SUMMARY | 2024-04-16 21:47 | XMS_ITS ---
Author Organization Unknown Address [address] [place] [address] [phone] Phone Care Team Providers Care Solvent Plant Operator Name Role Phone VERONICA Gr Attending Unavailable DILEEP MCCLAIN Primary Unavailable [facility] - Jennifer ect Date/Time: 11/22/2021 10:40 [facility] ID: [id number] [address] [place] [address], [id number] LOINC: 42262-0 Test Value Unit Reference Range Code Code System Flag Tier- SYMPTOMS 33161-4 LOINC SARS COV2 RNA: NEGATIVE REFERENCE RANGE: NEGAT 37074-2 L OINC Social History Type Status Start Date End Date Code Code Syst em Smoking History Former smoker 0931544 SNOMED CT Sex Male Hospital Discharge Instructions [...] Code Code Sys tem Exposure to SARS-CoV-2 11/22/2021 303499476 SNOME D-CT Personal Care Team Section Performer Name Performer Role Active Date Inactive Da te
--- OUTSIDE RECORDS SUMMARY | 2024-04-16 21:47 | XMS_ITS ---
Author Organization Unknown Address [address] [place] [address] [phone] Phone Care Team Providers Care Food Storeroom Clerk Name Role Phone VERONICA Gr Attending Unavailable DILEEP MCCLAIN Primary Unavailable [facility] - Jennifer ect Date/Time: 12/17/2021 09:48 [facility] ID: [id number] [address] [place] [address], [phone] LOINC: 66742-7 Test Value Unit Reference Range Code Code System Flag Tier- SYMPTOMS 92824-0 LOINC SARS COV2 RNA: NEGATIVE REFERENCE RANGE: NEGAT 54927-3 L OINC Social History Type Status Start Date End Date Code Code Syst em Smoking History Former smoker 6165800 SNOMED CT Sex Male Hospital Discharge Instructions [...] Code Code Sys tem Exposure to SARS-CoV-2 12/17/2021 050758059 SNOME D-CT Personal Care Team Section Performer Name Performer Role Active Date Inactive Da te
--- OUTSIDE RECORDS SUMMARY | 2024-04-16 21:47 | XMS_ITS ---
Author Organization Unknown Address [address] [place] [address] [phone] Phone Care Team Providers Care Early Childhood Education Instructor Name Role Phone DILEEP FRENCHILY Attending Unavailable Results XR WRIST 3V OR MORE RT* - Co mpleted: 02/11/2022 14:24 LOINC: RIGHT WRIST - 4 VIEWS:No obv ious acute fracture but there are multiple other findings. There is widening of the scapholunate distance consistent with disruption of the interosseous ligament at this level. There is also a degenerative subarticular cyst in the distal radius just at this level. Also calcification within the triangular fibrocartilage on the medial aspect of the wrist. Also irregular appearance of the triquetral bone, probably related to prior trauma. Hook of the hamate appears intact. Dictated by: LINH ROBISON MD Transcribed by: TEN 02/11/2218:12 D Friday, February 11, 2022 12:55:40 PM [id number] Electronically Reviewed and Signed By: LATRELL ROBISON MD 02/11/22 18:28 Copy for: DILEEP MCCLAIN via fax Copy for: [facility] HEALTH INFORMATION MGMT Social History Type Status Start Date End Date Code Code Syst em Smoking History Former smoker 0439659 SNOMED CT Sex Male Hospital Discharge Instructions [...] Diagnosis Start Date Code Code Sys tem Pain in right wrist 02/11/2022 SNOMED-C T Personal Care Team Section Performer Name Performer Role Active Date Inactive Da te
--- OUTSIDE RECORDS SUMMARY | 2024-04-16 21:47 | XMS_ITS ---
Author Organization Unknown Address [address] [place] [address] [phone] Phone Care Team Providers Care Train Announcer Name Role Phone VERONICA Gr Attending Unavailable DILEEP MCCLAIN Primary Unavailable Results [facility] - Jennifer ect Date/Time: 12/30/2021 10:04 [facility] ID: [id number] [address] [place] [address], [phone] LOINC: 51465-8 Test Value Unit Reference Range Code Code System Flag Tier- EXPOSURE 59809-5 LOINC SARS COV2 RNA: NEGATIVE REFERENCE RANGE: NEGAT 29205-2 L OINC Social History Type Status Start Date End Date Code Code Syst em Smoking History Former smoker 6885023 SNOMED CT Sex Male Hospital Discharge Instructions [...] Code Code Sys tem Exposure to SARS-CoV-2 12/30/2021 856303028 SNOME D-CT Personal Care Team Section Performer Name Performer Role Active Date Inactive Da te
--- OUTSIDE RECORDS SUMMARY | 2024-04-16 21:48 | XMS_ITS | Encounter Summary ---
Author Organization [facility] Address [address] [place] [address] Care Team Providers Care Water Server Name Role Phone Avery Finnegan MD Primary Care Provider [phone] Encounter Details Date Type Department Care Team (Late st Contact Info) Description 12/09/2020 Lab Requisition [facility] Pathology & Laboratory Medicine - [address] [address] Outr Resulting Lab, Provider Social History Tobacco Use Types Packs/Day Years Used Date Smoking Tobacco: Former Cigarettes Q uit: 01/22/1996 Smokeless Tobacco: Never Alcohol Use Standard Drinks/Week Comments No 0 (1 standard drink = 0.6 oz pure alcohol) prior hx overuse, dc 1 month ago Sex and Gender Information Value Date Recorded Sex Assigned at Not on file Gender Identity Not on file Sexual Orientation Not on file documented as of this encounter Plan of Treatment Not on file documented as of this encounter Goals Goal Patient Goal Type Associated Problems Recent Progress Patient-Stated? Author Blood Pressure < 140/90 Blood Pressure HTN (hypertension) 126/74(2015 14:57 EDT) No Pasha Garcia, RN LDLEXT < 160 Result Component Hyperlipidemia 151( 6 0:00 EST) No Pasha Garcia, JAYDEN documented as of this encounter Procedures Procedure Name Priority Date/Time Associated Diagnosis Comments HEPATITIS C AB W REFLEX TO HCV RNA BY PCR Routine 12/08/2020 16:45 EDT PSA TOTAL, DIAGNOSTIC Routine 12/08/2020 16:45 EDT documented in this encounter Results * PSA TOTAL, DIAGNOSTIC (12/08/2020 16:45 EDT) PSA 0.6 0.0 - 4.5 ng/mL 12/09/2020 17:25 EDT [facility] Blood VENOUS BLOOD / Unknown 12/08/2020 16:45 EDT 12/09/2020 16:13 EDT Narrative [facility] - 12/09/2020 17:25 EDT NOTE: Serum PSA concentration should not be interpreted as absolute evidence for the presence or absence of malignant disease. Assayed on Siemens I'mOKaur XPT using chemiluminescent technology.??Values obtained by using different assay methods cannot be used interchangeably. Provider Outr Resulting Lab CHEMISTRY & BLOOD GAS ORDERABLES Performing Organization Address City/[facility] Co de Phone Number [facility] [address] [place] [address] * HEPATITIS C AB W REFLEX TO HCV RNA BY PCR (12/08/2020 16:45 EDT) Hep C Antibody Negative Negative 12/10/2020 10:08 EDT [facility] Blood VENOUS BLOOD / Unknown 12/08/2020 16:45 EDT 12/09/2020 16:13 EDT Provider Outr Resulting Lab CHEMISTRY & BLOOD GAS ORDERABLES Performing Organization Address City/[facility] Co de Phone Number [facility] [address] [place] [address] documented in this encounter Visit Diagnoses Not on filedocumented in this encounter Care Teams Water Server Relationship Specialty Start Date End Date Avery Finnegan MD PCP - General 06/23/16 documented as of this encounter
--- OUTSIDE RECORDS SUMMARY | 2024-04-16 21:48 | XMS_ITS | Encounter Summary ---
Author Organization [facility] Address [address] [place] [address] Care Team Providers Care Policy Services Representative Name Role Phone Unavailable Primary Care Provider Unavailabl e Encounter Details Date Type Department Care Team (Latest Contact Info) Description 12/12/2006 19:48 EDT Hospital Encounter [address] [address] Racheal Sánchez MD [address] [place] [address] [address] [place] [phone] Discharge Disposition: Auto Discharge Social History Tobacco Use Types Packs/Day Years Used Date Smoking Tobacco: Never Assessed Sex and Gender Information Value Date Recorded Sex Assigned at Not on file Gender Identity Not on file Sexual Orientation Not on file documented as of this encounter Discharge Disposition Disposition Code Departure Means Destination Auto Discharge documented in this encounter Plan of Treatment Not on file documented as of this encounter Visit Diagnoses Not on filedocumented in this encounter
--- OUTSIDE RECORDS SUMMARY | 2024-04-16 21:48 | XMS_ITS | Encounter Summary ---
Author Organization [facility] [place] [address] Care Team Providers Care Microstrategy Architect Name Role Phone Mercedes Miles MD Primary Care Provider [phone] Reason for Visit * Auth/Cert (Routine) Specialty Diagnoses / Procedures Referred By Contac t Referred To Contact Diagnoses Chest pain, exertional Chest pain, exertional [R07.9] Procedures PRG CATH PLMT LEFT HEART CATH & ARTS W/INJ & ANGIO IMG S&I CARDIAC CATHETERIZATION CORONARY ANGIOGRAPHY; W LHC,POSSIBLE PCI (WRVU 5.6) Dustin Kenyon MD [facility] [place] [address] [facility] Referral ID Status Reason Start Date Expiration Date Visits Re quested Visits Authorized [id number] 1 1 Encounter Details Date Type Department Care Team (Late st Contact Info) Description 02/09/2024 11:30 AM EDT - 02/09/2024 12:30 PM EDT Surgery [place] [address] Dustin Kenyon MD [facility] [place] [address] CARDIAC CATHETERIZATION Social History Tobacco Use Types Packs/Day Years Used Date Smoking Tobacco: Former Cigarettes Q uit: 1979 Smokeless Tobacco: Former Quit: 1979 Alcohol Use Standard Drinks/Week Comments Not Currently 0 (1 standard drink = 0.6 oz pur e alcohol) DH IPV Inpatient Questions Answer Date Recorded Does Anyone Try to Keep You From Having Contact with Others or Doing Things Outside Your Home? no 02/09/2024 Feels Threatened by Someone no 01/26 Feels Unsafe at Home or Work/School no 02/09/2024 Physical Signs of Abuse Present no 02/09/2024 Sex and Gender Information Value Date Recorded Sex Assigned at Not on file Gender Identity Not on file Sexual Orientation Not on file documented as of this encounter Last Filed Vital Signs Vital Sign Reading Time Taken Comments Blood Pressure 157/87 02/09/2024 12:08 PM EDT Pulse 66 02/09/2024 12:08 PM EDT Temperature 36.7 ??C (98 ??F) 02/09/2024 12:08 PM EDT Respiratory Rate 14 02/09/2024 12:08 PM EDT Oxygen Saturation 100% 02/09/2024 12:08 PM EDT Inhaled Oxygen Concentration - - Weight 116.6 kg (257 lb) 02/09/2024 12:08 PM EDT Height 172.7 cm (5' 8) 02/09/2024 12:08 PM EDT Body Mass Index 39.08 02/09/2024 12:08 PM EDT documented in this encounter Discharge Instructions * Patient Instructions* Paulo Ramos MD - 02/09/2024 2:02 PM EDT Radial Access for Heart Cath Medications: Start amlodipine 5 mg daily. Start ranolazine 500 mg BID. Activity Try to avoid bending your wrist for the first 12-24 hours after the procedure to allow the artery to fully heal. Do not participate in active sports for 48 hours. Do not lift anything greater than 5 lbs. Catheter Insertion Area Care Take the dressing off of the catheter insertion site the morning following the procedure. Leave thesite open to air. If the site is oozing you may cover it with a band aid. You may take a shower if you wish. Look for signs of infection over the next several days. It is uncommon to have any visible blood at the site, any obvious bleeding is abnormal. A bruise around the wrist or small lump under the skin is normal: they generally disappear in 3-5 days. Expect some mild tenderness over the area where the catheter was inserted. You will notice this after the local anesthetic (numbing medicine) wears off. This should improve during the 24-48 hours after the procedure. You may use acetaminophen (tylenol) if needed. Contact your doctor if the discomfort worsens. Problems to Watch for If there is bright red blood flowing from the catheter insertion area: *stop what you are doing *hold pressure steadily on the area for 15 minutes *call for help *if the bleeding does not stop in 15 minutes call 911 for an ambulance. If there is swelling with black and blue color at the catheter insertion site, there may be bleeding inside. Contact the doctor if there is any increase in size. Look at the insertion site for the first few days at home. Signs of infection are: *redness *swelling *yellow, white, green or brown foul smelling drainage. *increased soreness If you think there is an infection, take your temperature. Then call your doctor. The limb on the side where you had your catheterization should look and feel normal in color, sensation, and temperature. If your hand or fingers become cool, pale, blue or change color contact your doctor. If you are having numbness or tingling in your fingers or hand contact your doctor. Follow-up: No future appointments. Your Inpatient Doctor: Dustin Kenyon MD Your Primary Care Provider: Mercedes Miles MD [phone] For questions regarding this document or issues relating to this hospitalization on the Medical Service, please contact your inpatient physician through the [facility] [employer] Maintenance Mechanic . Issues afterhours and on weekends will be handled by the Hospitalist staff on-call. documented in this encounter Medications at Time of Discharge Medication Sig Dispensed Refills Start Date End Date amLODIPine (Norvasc) 5 mg tablet Take 1 tablet by mouth daily. 90 tablet 3 02/09/2024 ranolazine ER (Ranexa) 500 mg ER 12 hr tablet Take 1 tablet by mouth 2 times daily. 180 tablet 3 02/10/2024 rosuvastatin (Crestor) 20 mg tabletIndications:Hyperli pidemia, unspecified hyperlipidemia type TAKE ONE TABLET BY MOUTH ONCE DAILY 90 tablet 1 01/04/2024 omeprazole (PriLOSEC) [address] capsule Take 20 mg by mouth. 05/18/2022 modafiniL (PROVIGIL) 200 mg Tablet as needed. 03/25/2022 tadalafiL (Cialis) 20 mg Tablet as needed. 04/01/2022 lisinopriL-hydrochlorothi azide (PRINZIDE;ZESTORETIC) 20-25 mg Tablet Take 1 tablet by mouth Daily. ibuprofen (AdviL) 200 mg Tablet Take 200 mg by mouth every 6 hours as needed for Pain. 04/03/2024 acetylcysteine (NAC ORAL) Take by mouth daily. 04/03/2024 MAGNESIUM CITRATE ORAL Take by mouth daily. 04/03/2024 ferrous sulfate (IRON ORAL) Take by mouth daily. 04/03/2024 ubiquinone (coenzyme Q10) 100 mg Capsule Take by mouth daily. 04/03/2024 VITAMIN K2 ORAL Take by mouth daily. 04/03/2024 Spiriva Respimat 2.5 mcg/actuation Mist 09/23/2021 diazePAM (Valium) 5 mg Tablet 03/08/2021 04/03/2024 multivitamin (THERAGRAN) Tablet Take 1 tablet by mouth daily. 04/03/2024 b complex vitamins Capsule Take 1 capsule by mouth daily. 04/03/2024 doxepin (Sinequan) 10 mg Capsule Take 10 mg by mouth nightly as needed. 10/28/2020 04/03/2024 cholecalciferol, Vitamin D3, 50 mcg (2,000 unit) Capsule Take 5,000 Units by mouth daily. 04/03/2024 albuteroL 90 mcg/actuation HFA Aerosol Inhaler Inhale 3 puffs into the lungs every 4 hours as needed. 06/17/2020 04/03/2024 documented as of this encounter H&P Notes * Dustin Kenyon MD - 02/09/2024 1:02 PM EDT Images from the original note were not included. Patient Name: Tomas Elliott Patient Age: 68 y.o. Birthdate: 1955 Admit date: 02/09/2024 Attending Physician: Dustin Kenyon MD Tomas Elliott is a 68 y.o. male referred for cardiac catheterization for evaluation of angina. Briefly,he has a history of hypertension, hyperlipidemia, known coronary artery disease. Over the course of the past few months, he has been experiencing chest heaviness and shortness of breath. Due to this, they were sent for Coronary CTA, which revealed high grade disease. After further discussion, they were sent for cardiac catheterization for further evaluation. There have not been any changes in health status since last seen in clinic. No intercurrent illnesses. Patient denies fevers, chills. Patient denies any history of bleeding issues and specifically denies hematochezia, melena, hematemesis, intraabdominal bleeding, intracranial bleeding. Denies any history of kidney disease or diabetes. Aspirin/clopidogrel/warfarin: none Diabetic medications: none NPO status: since yesterday Outpatient Medications Marked as Taking for the 02/09/24 encounter (Hospital Encounter) Medication Sig Dispense Refill rosuvastatin (Crestor) 20 mg tablet TAKE ONE TABLET BY MOUTH ONCE DAILY 90 tablet 1 omeprazole (PriLOSEC) [address] capsule Take 20 mg by mouth. modafiniL (PROVIGIL) 200 mg Tablet as needed. tadalafiL (Cialis) 20 mg Tablet as needed. ibuprofen (AdviL) 200 mg Tablet Take 200 mg by mouth every 6 hours as needed for Pain. acetylcysteine (NAC ORAL) Take by mouth daily. ferrous sulfate (IRON ORAL) Take by mouth daily. ubiquinone (coenzyme Q10) 100 mg Capsule Take by mouth daily. [DISCONTINUED] levomefolate calcium (L-METHYLFOLATE ORAL) Take by mouth daily. multivitamin (THERAGRAN) Tablet Take 1 tablet by mouth daily. b complex vitamins Capsule Take 1 capsule by mouth daily. doxepin (Sinequan) 10 mg Capsule Take 10 mg by mouth nightly as needed. cholecalciferol, Vitamin D3, 50 mcg (2,000 unit) Capsule Take 5,000 Units by mouth daily. lisinopriL-hydrochlorothiazide (PRINZIDE;ZESTORETIC) 20-25 mg Tablet Take 1 tablet by mouth Daily. BP 157/87 (BP Location (NBP): Left arm) Pulse 66 Temp 36.7 ??C (98 ??F) (Temporal) Resp 14 Ht 172.7 cm (5' 8) Wt 116.6 kg (257 lb) SpO2 100% BMI 39.08 kg/m?? PE NAD CV: RRR, S1 S2 physiologic, no murmurs, JVP estimated @ 5 cm H2O Pulm: Non-labored, CTAB, no w/r/r Abd: soft, NT, ND, +BS, no bruits Vasc: 2+ bilat radial, 2+ bilat DP pulses Extr: wwp, no edema ASA: 3: Patient with severe systemic disease Mallampati: III: only the base of the uvula can be seen Labs reviewed and notable for: Lab Results Component Value Date WBC 5.8 02/09/2024 HGB 12.9 (L) 02/09/2024 HCT 38.7 (L) 02/09/2024 MCV 98.5 (H) 02/09/2024 PLATELET 170 02/09/2024 Lab Results Component Value Date CREATININE 0.71 (L) 02/09/2024 BUN 15 02/09/2024 NA 139 02/09/2024 K 3.9 02/09/2024 CL 102 02/09/2024 CO2 27 02/09/2024 A/P 68 y.o. male here for cardiac catheterization for evaluation of angina. A discussion was held reviewing the benefits and attendant risks of diagnostic or therapeutic catheterization. The risks include, but are not limited to: stroke, , myocardial infarction, bleeding, limb loss, infection, dye reaction, vascular injury, arrhythmias. If an intervention is performed, risks would include the potential for vessel closure, need for emergency CABG, subacute closure, restenosis. After a discussion about the above, and having answered all questions posed, the patient was provided with a consent which was reviewed and signed. - Proceed as planned - Consent reviewed and signed - No obvious CI to DAPT - Sedation plan: moderate/conscious sedation - FULL CODE Dustin Kenyon MD 02/09/2024 1:02 PM documented in this encounter Plan of Treatment Not on file documented as of this encounter Procedures Procedure Name Priority Date/Time Associated Diagnosis Comments CARDIAC CATHETERIZATION Routine 02/09/20 24 1:57 PM EDT Chest pain, exertional POCT GLUCOSE Routine 02/09/2024 12:14 PM EDT HEMOGRAM Routine 02/09/2024 11:15 AM EDT Chest pain, exertional DIFFERENTIAL, AUTOMATED Routine 02/09/20 11:15 AM EDT Chest pain, exertional CBC (WITH DIFF) Routine 02/09/2024 11:15 AM EDT Chest pain, exertional BASIC METABOLIC PANEL Routine 02/09/2024 11:15 AM EDT Chest pain, exertional documented in this encounter Results * CARDIAC CATHETERIZATION (02/09/2024 1:57 PM EDT) Anatomical Region Laterality Modality Other Narrative 02/09/2024 2:22 PM EDT ?[facility] ? Cardiac Catheterization/Intervention Report ? Patient Name: Lexi, Tomas Coronado. ? Procedure Date: 02/09/2024 ? A #: [id number] ? Primary Physician: Dustin Kenyon ? Case #: [id number] ? File Name: [id number] ? Catheterization Order Number: [id number] ? [facility] ? Final Report [place], [place] ? Patient Name: ? Tomas D. Brgant ?ID#: ?[id number] ? : ?1955 ? Procedure Date: ? February 09, 2024 ?Case #: ? [id number] ? Room: ? 6 ? Case Physician: ? Dustin Kenyon MSafiaD. ? Start: ?13:47 ?Fellow: ? Paulo Richard, M.D. ?Admission: ??02/09/2024 ? Procedures: ?* Coronary Angiography ?* Left Heart Catheterization ? History ?Tomas Elliott is a 68 year old man. He has hypertension. The patient's ?smoking status is Never. Prior to the initiation of this procedure, the ?patient was designated as ASA Class II. The CSHA clinical frailty scale ?is 3: Managing Well. ? Diagnostic Tests: ?Prior Coronary Angiography: ? LV ejection fraction within 6 months is 65%. ?Electrocardiography: ? EKG was assessed by ECG. EKG was Normal. ?Stress or Imaging Studies: ? A cardiac CT angiogram was performed on 12/01/2023 and showed ? non-obstructive CAD. Cardiac calcium score was performed on ? 12/01/2023 and showed a calcium score of 358. ?Medications Prior to Procedure: ? Angiotensin Converting Enzyme Inhibitor, Aspirin and Statin. ? Indications for Diagnostic Cath: ?The priority of the diagnostic procedure was Urgent. 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 Chest pain symptom assessment ?was: Typical Angina. ? Technique: ?A 6 SLFr sheath was inserted in the right radial artery utilizing the ?Seldinger technique. The left coronary artery was injected utilizing a ?5Fr TIG 4.0 catheter. A 5Fr TIG 4.0 catheter was used to inject the right ?coronary artery. Left ventricular pressure was performed utilizing a 5Fr ?TIG 4.0 catheter. 6,000 units of heparin were administered. A total of ?50cc of Omnipaque were opened and 50cc of Omnipaque were administered. ?Radiation: Fluoro time was 1.6 minutes, dose area product was 15.30 ?Gy/cm2 and air kerma was 222 mGY. See the case log for additional ?details. ?The patient received the following medications prior to and during the ?procedure: ? Unfractionated Heparin. ? Hemodynamics: ?Left Heart Pressures ? Resting: ? Syst Diast ? EDP ?a ?v ? m ?Ao 120 ?? 68 ?91 ?LV 123 ? 18 ? Coronary Angiography: ?Dominance: Right ?Left Main ? The left main was normal, free of disease. ?Left Anterior Descending ? There was mild diffuse (<=25% stenosis) disease of the entire vessel ? segment of the left anterior descending artery (LAD). ?Left Circumflex ? There was mild diffuse (<=25% stenosis) disease of the entire vessel ? segment of the left circumflex artery (LCX). ?Right Coronary Artery ? There was mild diffuse (<=25% stenosis) disease of the entire vessel ? segment of the right coronary artery (RCA). ? Vascular Access: ?Vascular Access Management: ? Manual Compression of the right radial artery access site was ? performed. ? Conclusions: ?* Nonobstructive coronary artery disease ? Complications/Events: ?The patient had no complications during these procedures. ? Post Procedure Fluid Recommendations: ?IV fluid at 585 mL/hr for 2 hours for a total of 1,170 mL. These ?recommendations are made at the time of the procedure. Patient and ?provider preferences or a changing clinical situation may require ?modification of this regimen. ?The attending physician was present for the entire procedure. ?Dr. Dustin Kenyon M.D. was present during the moderate sedation ?intraservice time as documented by the sedation nurse. ??Case time = 00:08. ?Dr. Dustin Kenyon M.D. performed the coronary angiography and left ?heart catheterization. ? Dustin Kenyon M.D. ? Electronically Signed by: Dustin Kenyon M.D. ? Report Finalized: 02/09/2024 ??14:15 ? Procedure Note Dustin Kenyon, MD - 02/09/2024 [facility] Cardiac Catheterization/Intervention Report Patient Name: Tomas Elliott Procedure Date: 02/09/2024 A #: [id number] Primary Physician: Dustin Kenyon Case #: [id number] File Name: [id number] Catheterization Order Number: [id number] [facility] FinalReport [place], [place] Patient Name: Tomas Elliott ID#:[id number] :1955 Procedure Date: February 09, 2024 Case #: [id number] Room: 6 Case Physician: Dustin Kenyon M.D. Start: 13:47 Fellow: Paulo Ramos M.D. Admission:02/09/2024 Procedures: * Coronary Angiography * Left Heart Catheterization History Tomas Elliott is a 68 year old man. He has hypertension. Thepatient's smoking status is Never. Prior to the initiation of this procedure,the patient was designated as ASA Class II. The [facility] clinical frailtyscale is 3: Managing Well. Diagnostic Tests: Prior Coronary Angiography: LV ejection fraction within 6 months is 65%. Electrocardiography: EKG was assessed by ECG. EKG was Normal. Stress or Imaging Studies: A cardiac CT angiogram was performed on 12/01/2023 and showed non-obstructive CAD. Cardiac calcium score was performed on 12/01/2023 and showed a calcium score of 358. Medications Prior to Procedure: Angiotensin Converting Enzyme Inhibitor, Aspirin and Statin. Indications for Diagnostic Cath: The priority of the diagnostic procedure was Urgent. The indicationfor the biological lab technician visit is worsening angina. Chest pain symptomassessment was: Typical Angina. Technique: A 6 SLFr sheath was inserted in the right radial artery utilizingthe Seldinger technique. The left coronary artery was injected utilizinga 5Fr TIG 4.0 catheter. A 5Fr TIG 4.0 catheter was used to inject theright coronary artery. Left ventricular pressure was performed utilizing a5Fr TIG 4.0 catheter. 6,000 units of heparin were administered. A totalof 50cc of Omnipaque were opened and 50cc of Omnipaque wereadministered. Radiation: Fluoro time was 1.6 minutes, dose area product was 15.30 Gy/cm2 and air kerma was 222 mGY. See the case log for additional details. The patient received the following medications prior to and duringthe procedure: Unfractionated Heparin. Hemodynamics: Left Heart Pressures Resting: Syst Diast EDP a v m Ao 120 68 91 LV 123 18 Coronary Angiography: Dominance: Right Left Main The left main was normal, free of disease. Left Anterior Descending There was mild diffuse (<=25% stenosis) disease of the entirevessel segment of the left anterior descending artery (LAD). Left Circumflex There was mild diffuse (<=25% stenosis) disease of the entirevessel segment of the left circumflex artery (LCX). Right Coronary Artery There was mild diffuse (<=25% stenosis) disease of the entirevessel segment of the right coronary artery (RCA). Vascular Access: Vascular Access Management: Manual Compression of the right radial artery access site was performed. Conclusions: * Nonobstructive coronary artery disease Complications/Events: The patient had no complications during these procedures. Post Procedure Fluid Recommendations: IV fluid at 585 mL/hr for 2 hours for a total of 1,170 mL. These recommendations are made at the time of the procedure. Patient and provider preferences or a changing clinical situation may require modification of this regimen. The attending physician was present for the entire procedure. Dr. Dustin Kenyon M.D. was present during the moderate sedation intraservice time as documented by the sedation nurse. Case time =00:08. Dr. Dustin Kenyon M.D. performed the coronary angiography and left heart catheterization. Dustin Kenyon M.D. Electronically Signed by: Dustin Kenyon M.D. Report Finalized: 02/09/2024 14:15 Dustin Kenyon MD CARDIAC CATH ORDERAB LES * POCT Glucose (02/09/2024 12:14 PM EDT) Pathologist [facility] Glucose, POC 104 65 - 199 mg/dL [facility] Comment: Supplemental ranges: <140 mg/dL before meals <180 mg/dL all other times of the day Blood 02/09/2024 12:1 4 PM EDT 02/09/2024 12:14 PM EDT Dustin Kenyon MD POINT OF CARE TEST O RDERABLES [facility] [place] [address] * Differential, Automated (02/09/2024 11:15 AM EDT) [facility] Neutrophil % 57.3 % [facility] Neutrophil Absolute 3.33 1.70 - 6.10 x10(3)/[facility] Lymph % 29.4 % [facility] Lymphocytes Abs 1.7 0.9 - 3.2 x10(3)/[facility] Monocyte % 9.1 % [facility] Monocyte Abs 0.5 0.3 - 0.9 x10(3)/[facility] Eos % 3.1 % [facility] Eosinophils Abs 0.2 0.0 - 0.4 x10(3)/[facility] Basophil % 0.9 % [facility] Baso Absolute 0.0 0.0 - 0.1 x10(3)/[facility] Immature Gran % 0.20 % [facility] Comment: Immature granulocytes(IG's)percentage and absolute count will include metamyelocytes, myelocytes, and promyelocytes. Blood smears from CBCs yielding IG's will be scanned manually for concordance. If this scan disagrees with the automated IG or if promyelocytes are noted, a manual differential will be performed. Immature Gran Absolute 0.01 0.00 - 0.04 x10(3)/mcL [facility] Blood 02/09/2024 11:1 5 AM EDT 02/09/2024 11:53 AM EDT Narrative Resulting Agency Comment Spec In Lab Dustin Kenyon MD HEMATOLOGY ORDERABLE S [facility] [place] [address] * (ABNORMAL) Hemogram (02/09/2024 11:15 AM EDT) White Blood Cell 5.8 4.0 - 9.5 x10(3)/ L [facility] Red Blood Cell 3.93(L) 4.58 - 5.54 x10(6)/[facility] Hemoglobin 12.9(L) 13.7 - 16.5 g/dL [facility] Hematocrit 38.7(L) 40.5 - 48.5 % [facility] Mean Cell Volume 98.5(H) 82.9 - 93.1 fL [facility] Mean Cell Hemoglobin 32.8(H) 27.5 - 32.1 pg [facility] Mean Cell Hemoglobin Concentration 33.3 32.0 - 35.7 g/dL [facility] Platelet 170 145 - 357 x10(3)/ L [facility] RDW Standard Deviation 45.2(H) 36.0 - 45.0 [facility] RDW coefficient of variation 12.3 11.4 - 13.8 % [facility] Mean Platelet Volume 10.0 7.6 - 12.9 [facility] NRBC% auto 0.0 % [facility] NRBC Absolute 0.000 0.000 - 0.000 x10(3)/ L [facility] Blood 02/09/2024 11:1 5 AM EDT 02/09/2024 11:53 AM EDT Narrative Resulting Agency Comment Spec In Lab Dustin Kenyon MD HEMATOLOGY ORDERABLE S [facility] [place] [address] * (ABNORMAL) Basic Metabolic Panel (non-fasting) (02/09/2024 11:15 AM EDT) Glucose 101 65 - 199 mg/dL [facility] Comment:Diabetes: >=200 mg/d L plus symptoms Blood Urea Nitrogen 15 10 - 20 mg/dL [facility] Creatinine 0.71(L) 0.80 - 1.50 mg/dL [facility] Sodium 139 135 - 145 mmol/L [facility] Potassium 3.9 3.5 - 5.0 mmol/L [facility] Comment: Please note: ??Patients with WBC >100,000 may have falsely elevated Potassium levels. ??For accurate Potassium quantification in these patients send serum separator tube (gold top) for subsequent determinations. ??Contact the Clinical Chemistry Laboratory if there are any questions. Chloride 102 98 - 107 mmol/L [facility] Carbon Dioxide 27 22 - 31 mmol/L [facility] Anion Gap 10 5 - 15 mmol/L [facility] Calcium 9.3 8.5 - 10.5 mg/dL [facility] Est Glomerular Filtration Rate 99 >=60 mL/min/1. 73 m?? [facility] Comment: This patient's estimated GFR was calculated using the 2020 CKD-EPI equation. The estimated GFR can vary from the measured GFR by up to 30% in the absence of rapidly changing kidney function. Assessment of the estimated GFR is not appropriate when creatinine concentrations are rapidly changing. For clinical situations in which a more precise estimate of GFR is necessary, consider alternative methods of GFR estimation such as a 24-hour urine creatinine clearance. Assignment of CKD stage 1-5 for patients with an eGFR near the transition point between stages may be based on clinical assessment of muscle mass and symptoms in addition to eGFR. Blood 02/09/2024 11:1 5 AM EDT 02/09/2024 11:53 AM EDT Narrative Resulting Agency Comment Spec In Lab Dustin Kenyon MD CHEMISTRY ORDERABLES [facility] [place] [address] documented in this encounter Visit Diagnoses Diagnosis Chest pain, exertional Chest pain, unspecified Chest pain, exertional Chest pain, unspecified documented in this encounter Administered Medications Inactive Administered Medications - up to 3 most recent administrations Medication Order MAR Action Action Date Dose Rate Site fentaNYL (pf) (50 mcg/mL) multi-dose injection PRN, Starting on Mon02/09/24 at 1346, Until Mon02/09/24 at 1357, Intra-Operative (Intra-Procedure), Routine Given 02/09/2024 1:52 PM EDT 25 mcg Given 02/09/2024 1:46 PM EDT 25 mcg heparin (porcine) (1,000 units/mL) injection PRN, Starting on Mon02/09/24 at 1350, Until Mon02/09/24 at 1357, Intra-Operative (Intra-Procedure), Routine Given 02/09/2024 1:50 PM EDT 6,000 Units midazolam (pf) (Versed) (1 mg/mL) injection PRN, Starting on Mon02/09/24 at 1346, Until Mon02/09/24 at 1357, Intra-Operative (Intra-Procedure), Routine Given 02/09/2024 1:52 PM EDT 1 mg Given 02/09/2024 1:46 PM EDT 1 mg nitroGLYcerin 100 mcg/mL intracoronary dilution PRN, Starting on Mon02/09/24 at 1347, Until Mon02/09/24 at 1357, Intra-Operative (Intra-Procedure), Routine Given 02/09/2024 1:47 PM EDT 150 mcg sodium chloride 0.9% infusion 200 mL/hr, Intravenous, CONTINUOUS, Starting on Mon02/09/24 at 1215, Until Mon02/09/24 at 1357, Cath (Day of Procedure) New Bag 02/09/2024 12:19 PM EDT 200 mL/hr 200 mL/hr sodium chloride 0.9% infusion 125 mL/hr, Intravenous, CONTINUOUS, Starting on Mon02/09/24 at 1430, Until Mon02/09/24 at 1629, Recovery (Recovery-Hospital Unit) New Bag 02/09/2024 2:58 PM EDT 125 mL/hr 125 mL /hr verapamiL (Isoptin) (2.5 mg/mL) injection PRN, Starting on Mon02/09/24 at 1347, Until Mon02/09/24 at 1357, Administer over 2 Minutes, Intra-Operative (Intra-Procedure) Given 02/09/2024 1:47 PM EDT 2.5 mg documented in this encounter Active and Recently Administered Medications Times are shown in EDT. Scheduled Medication Order 02/07/2024 02/08/2024 02/09/2024 ranolazine ER (Ranexa) tablet 500 mg 500 mg, Oral, 2 TIMES DAILY, First dose on 02/10/24 at 0900, Until Discontinued, DO NOT CRUSH OR OPEN. Baseline EKG required before administration., Routine, Has baseline EKG been obtained? Yes Continuous Medication Order 02/07/2024 02/08/2024 02/09/2024 sodium chloride 0.9% infusion (CANCELED) 200 mL/hr, Intravenous, CONTINUOUS, Starting on Mon02/09/24 at 1215, Until Mon02/09/24 at 1357, Cath (Day of Procedure) 1219 (New Bag - Prov ider: Michelle Tobar RN) sodium chloride 0.9% infusion 125 mL/hr, Intravenous, CONTINUOUS, Starting on Mon02/09/24 at 1430, Until Mon02/09/24 at 1629, Recovery (Recovery-Hospital Unit) 1458 (New Bag - Prov ider: Lawrence Cortes RN) PRN Medication Order 02/07/2024 02/08/2024 02/09/2024 fentaNYL (PF) (50 mcg/mL) injection 25 mcg 25 mcg, Intravenous, EVERY 30 MIN PRN, Starting on Mon02/09/24 at 1407, Until Mon02/09/24 at 1706, Pain, sheath removal, Maximum of 4 doses while in Cath Recovery Unit, Cath (Recovery-Hospital Unit), Routine fentaNYL (pf) (50 mcg/mL) multi-dose injection (CANCELED) PRN, Starting on Mon02/09/24 at 1346, Until Mon02/09/24 at 1357, Intra-Operative (Intra-Procedure), Routine 1346 (Given - Provid er: Jessica Stephens RN)1352 (Given - Provider: Jessica Stephens RN) heparin (porcine) (1,000 units/mL) injection (CANCELED) PRN, Starting on Mon02/09/24 at 1350, Until Mon02/09/24 at 1357, Intra-Operative (Intra-Procedure), Routine 1350 (Given - Provid er: Jessica Stephens RN) midazolam (pf) (Versed) (1 mg/mL) injection 1 mg 1 mg, Intravenous, EVERY 1 HOUR PRN, Starting on Mon02/09/24 at 1407, Until Mon02/09/24 at 1706, For sheath removal, Maximum of 2 doses while in Cath Recovery Unit, Cath (Recovery-Hospital Unit), Routine midazolam (pf) (Versed) (1 mg/mL) injection (CANCELED) PRN, Starting on Mon02/09/24 at 1346, Until Mon02/09/24 at 1357, Intra-Operative (Intra-Procedure), Routine 134 (Given - Provid er: Jessica Stephens RN)1352 (Given - Provider: Jessica Stephens RN) nitroGLYcerin 100 mcg/mL intracoronary dilution (CANCELED) PRN, Starting on Mon02/09/24 at 1347, Until Mon02/09/24 at 1357, Intra-Operative (Intra-Procedure), Routine 134 (Given - Provid er: Jessica Stephens RN) verapamiL (Isoptin) (2.5 mg/mL) injection (CANCELED) PRN, Starting on Mon02/09/24 at 1347, Until Mon02/09/24 at 1357, Administer over 2 Minutes, Intra-Operative (Intra-Procedure) 1347 (Given - Provid er: Dustin Kenyon MD) documented in this encounter Care Teams Microstrategy Architect Relationship Specialty Start Date End Date Mercedes Miles MD [address] [place] [phone] PCP - General Family Medicine 07/24/23 documented as of this encounter
--- OUTSIDE RECORDS SUMMARY | 2024-04-16 21:48 | XMS_ITS | Encounter Summary ---
Author Organization [facility] Address [address] [place] [address] Care Team Providers Care District Sales Leader Name Role Phone Unavailable Primary Care Provider Unavailabl e Encounter Details Date Type Department Care Team (Late st Contact Info) Description 03/07/2007 Before PRISM Converted Visit (Maple) [facility] - Maple conversion [address], [place] [id number] Racheal Sánchez MD [address] [place] [address], [address] [place] [address] Social History Tobacco Use Types Packs/Day Years Used Date Smoking Tobacco: Never Assessed Sex and Gender Information Value Date Recorded Sex Assigned at Not on file Gender Identity Not on file Sexual Orientation Not on file documented as of this encounter Progress Notes * Racheal Sánchez - 07/03/2010 6639 EST PROGRESS/FOLLOWUP NOTE - 03/07/2007 [facility] PROBLEM Mr. Elliott returns in followup for obstructive sleep apnea after undergoing a CPAP titration. The results of the CPAP titration were reviewed and discussed with him. SUBJECTIVE He had a resolution of obstructive sleep apnea with normal breathing and oxygen saturation on CPAP.Sleep was improved when compared with the diagnostic study. PLMs were apparent. Mask fit was somewhat difficult in that he appeared to be between a medium and a large mask. He now has an M series CPAP machine set at 11 with a full face mask large and a heated humidifier from [facility]. He is trying to use it every night but finds it obnoxious in that the machine is loud and that he hates it. As a result hesometimes goes without using it. He does have trouble falling asleep at night which has been a persistent problem for him over many years and he is taking Ambien 10 mg each night which does help and would like a renewal of this. He also acknowledges a low level of depression for some years now and volunteers that he did not like antidepressant therapy. He has tried to block out the CPAP noise with ear plugs but this makes it worse. When he has used the CPAP all night he does feel better when he wakes in the morning and is less sleepy during the daytime but he feels just as tired and fatigued. We reevaluated mask fit today and confirmed that the ResMed Ultra Mirage large fits best and gave him some recommendations regarding placement. We lent him the AutoSet CPAP machine which will collectinformation regarding mask leak and optimal pressure and he will return this in one week. I renewedhis prescription for Ambien 10 mg p.o., q.h.s. and he will take this at lights out instead of one hour before lights out. I also scheduled him to see Dr. Connie Perez, PhD for cognitive behavioral therapy to address insomnia issues, low level depressive symptoms as well as for CPAP desensitization. He will followup with me after one week of using the AutoSet CPAP machine. This was a 25 minute visit of which the majority was spent in education and discussion. Signed by Racheal Sánchez MD 03/18/2007 07:58 Caro Sánchez MDBoard Certified in Pulmonary and Sleep MedicineScarolina Sánchez MD Racheal Sánchez MD Board Certified in Pulmonary and Sleep Medicine -Racheal Sánchez MD -[place] Job ID: [id number] Doc ID: [id number] cc: Shiv Henley MD Job ID: [id number] Doc ID: [id number] cc: Shiv Henley MD documented in this encounter Plan of Treatment Not on file documented as of this encounter Visit Diagnoses Not on filedocumented in this encounter
--- OUTSIDE RECORDS SUMMARY | 2024-04-16 21:48 | XMS_ITS | Encounter Summary ---
Author Organization [facility] Address [address] [place] [id number] Care Team Providers Care Document Coordinator Name Role Phone Unavailable Primary Care Provider Unavailabl e Encounter Details Date Type Department Care Team (Late st Contact Info) Description 03/24/2010 Abstract Used for ABSTRACTING Data [phone] None, Provider Social History Tobacco Use Types Packs/Day [...]
--- OUTSIDE RECORDS SUMMARY | 2024-04-16 21:48 | XMS_ITS | Encounter Summary ---
Author Organization [facility] Address [address] [place] [address] Care Team Providers Care Retirement Plan Specialist Name Role Phone Unavailable Primary Care Provider Unavailabl e Encounter Details Date Type Department Care Team (Late st Contact Info) Description 01/30/2007 Results Only [facility] - Maple conversion [address] [place] [address] Unknown, Provider, Social History Tobacco Use Types Packs/Day Years Used Date Smoking Tobacco: Never Assessed Sex and Gender Information Value Date Recorded Sex Assigned at Not on file Gender Identity Not on file Sexual Orientation Not on file documented as of this encounter Plan of Treatment Not on file documented as of this encounter Procedures Procedure Name Priority Date/Time Associated Diagnosis Comments TESTOSTERONE, TOTAL AND FREE Routine 01/30/2007 7:32 EDT documented in this encounter Results * TOTAL & FREE TESTOSTERONE (01/30/2007 7:32 EDT) Sex Hormone Binding Globulin 22.2 13 - 71 nmol/L [facility] Testosterone, Total 246 241 - 827 ng/dL [facility] Testosterone, Free 5.9 5.0 - 24.0 ng/dl [facility] Comment: Test not recommended in patients with plasma protein abnormalities. 01/30/2007 7:32 EDT 01/30/2007 22:36 EDT Provider Unknown CHEMISTRY & BLOOD GA S ORDERABLES [facility] [address] [place] [address] documented in this encounter Visit Diagnoses Not on filedocumented in this encounter
--- OUTSIDE RECORDS SUMMARY | 2024-04-16 21:48 | XMS_ITS | Encounter Summary ---
Author Organization [facility] [place] [address] Care Team Providers Care Attorney At Law Name Role Phone Mercedes Miles MD Primary Care Provider Reason for Visit * Reason Comments Medication Refill Encounter Details Date Type Department Care Team (Late st Contact Info) Description 01/04/2024 Refill Cardiology at [address] [phone] Dustin Kenyon MD [facility] [place] [address] Medication Refill Social History Tobacco Use Types Packs/Day Years Used Date Smoking Tobacco: Former Cigarettes Q uit: 1979 Smokeless Tobacco: Former Quit: 1979 Alcohol Use Standard Drinks/Week Comments Not Currently 0 (1 standard drink = 0.6 oz pur e alcohol) Sex and Gender Information Value Date Recorded Sex Assigned at Not on file Gender Identity Not on file Sexual Orientation Not on file documented as of this encounter Plan of Treatment Not on file documented as of this encounter Visit Diagnoses Diagnosis Hyperlipidemia, unspecified hyperlipidemia type documented in this encounter Care Teams Attorney At Law Relationship Specialty Start Date End Date Mercedes Miles MD [address] [place] [id number] PCP - General Family Medicine 07/24/23 documented as of this encounter
--- OUTSIDE RECORDS SUMMARY | 2024-04-16 21:48 | XMS_ITS | Encounter Summary ---
Author Organization [facility] Address [address] [place] [address] Care Team Providers Care Automotive Leasing Sales Representative Name Role Phone Matty Mancilla MD Primary Care Provider Reason for Referral * Consult, Test and Treat (Routine/Next Available) - Closed Specialty Diagnoses / Procedures Referred By Contac t Referred To Contact Gastroenterology Diagnoses Rectal bleed Screen for colon cancer Procedures COLONOSCOPY Matty Mancilla MD [address] [place] [phone] Dustin Warner MD [address] [place] [address] [address] [place] [address] Referral ID Status Reason Start Date Expiration Date Visits Re quested Visits Authorized [id number] Closed 01/22/2016 1 1 * Consult (Routine/Next Available) - Closed Specialty Diagnoses / Procedures Referred By Contac t Referred To Contact Allergy and Immunology Diagnoses Food hypersensitivity Bee sting allergy Matty Mancilla MD [address] [place] [phone] López Pollard MD [address] [place] [phone] Referral ID Status Reason Start Date Expiration Date V isits Requested Visits Authorized [id number] Closed Specialty Services Required 01/22/2016 1 1 Question Answer Reason for Request: 1. bee sting allergy 2. ?food allergy Comments Allergy [place] Reason for Visit * Reason Comments New Patient Visit [facility]. from Dr. Agustin johnson Diabetes Pre-diabetes - Natasha rned about recent lab results. See scans Allergy Testing [place] - [place] part of family, pt believes bee stings/honey Blood in stool Gastroesophageal Reflux Stopped taking P rilosec Encounter Details Date Type Department Care Team (Late st Contact Info) Description 01/22/2016 15:00 EDT Office Visit [facility] [address] [facility] [address] [place], [place] [id number] Matty Mancilla MD [address] [place] [address] [address] [place] [phone] Essential hypertension with goal blood pressure less than 140/90 (Primary Dx); Bee sting allergy; Food hypersensitivity; Obstructive sleep apnea; Bilateral edema of lower extremity; Rectal bleed; Screen for colon cancer Social History Tobacco Use Types Packs/Day Years [...] Sign Reading Time Taken Comments Blood Pressure 126/74 01/22/2016 1457 EDT Pulse 68 01/22/2016 1457 EDT Temperature 36.7 ??C (98 ??F) 01/22/2016 1457 EDT Respiratory Rate - - Oxygen Saturation - - Inhaled Oxygen Concentration - - Weight 113.9 kg (251 lb) 01/22/2016 1457 EDT Height 171.5 cm (5' 7.5) 01/22/2016 1457 EDT Body Mass Index 38.73 01/22/2016 1457 EDT documented in this encounter Progress Notes * Matty Mancilla - 01/23/2016 0930 EDT REASON FOR VISIT: Initial patient visit. SUBJECTIVE: A 60-year-old generally active and in good health. Is here for initial visit. Previously had been a patient at the [facility]. He is relocating as primary care physician is nearing fpc. MEDICAL HISTORY: Reviewed with the patient and generally has enjoyed good health, but he does have several concerns. He does have a somewhat longstanding hypertension. However, well controlled with a combination of lisinopril, hydrochlorothiazide. He is tolerating this well and blood pressure under good control by his estimation and also evaluation today. He also has had a history of GERD intermittently and will take Prilosec intermittently. We did discuss other agents such as H2 blockers as needed. However, currently not taking anything regularly. Also discussed treating with diet and activity and positioning. Other concern is blood in stool. This is a longstanding, has been present much of his adult life, generally spotting toilet tissue, water, none recently. No acute pain. He has had a history of hemorrhoids and he ended up requiring surgery in the past. No acute symptoms now. He says it has been similar interval since last colonoscopy and was interested in updating this. No other acute GI complaints noted. No significant change in appetite, quality of stool, otherwise. Other issue is concerns over allergies. Notes some difficulty with certain foods such as potatoes, tomatoes and does have a general sense of malaise, flushing, although not clear that there is a discrete skin reaction. In the past, also had had a similar episode with associated throat and respiratory symptoms with BEE STING. He has an EpiPen available. At this point, he does not need a refill of t his. Other issues include a history of alcoholism which he readily acknowledges, but generally doing well. Has been abstinent for a couple of months now. Has had what sounds like intermittent severe flares of this. He does note a pattern of binge drinking and difficulty with control when he does drink. At this point, generally not interested in meetings or prolonged formal treatment. Has been usually able to manage this well on his own. He has gone through withdrawals in the past, but not recently. In the past, it looks as though he has been treated with benzodiazepines as an outpatient for withdrawal, but none recently. He is not asking for any new medicine refills today. Otherwise, no significant history of drug use. He does not smoke. REVIEW OF SYSTEMS: No acute cold, flu or febrile constitutional symptoms. No acute eye or ENT complaints. No chest, cardiac, any new GI or genitourinary complaints. No hematologic, endocrine, mental health, neurologic or orthopedic concerns. Current medicines were reviewed. Of note, he does take a number of supplements to reduce cardiovascular risks -- his intention. PAST MEDICAL HISTORY: As noted, significant for hypertension, depression, alcoholism, GERD and sleep apnea. PAST SURGICAL HISTORY: Hemorrhoid, femur fracture, anal fissure and inguinal and umbilical hernia. FAMILY HISTORY: Significant for brother with heart disease and 2 stents, father with schizophrenia,some type of brain tumor and grandparents with heart disease. SOCIAL: As noted. Nonsmoker, had smoked, but quit 20 years ago. History of alcoholism currently. Nodrug use. The patient works in [employer]. Lives in [place] with girlfriend. He does have 2 older children. OBJECTIVE: Blood pressure 126/74, pulse 68, temp 98. General: Alert, articulate, lucid. Head, ear, nose, throat exam: He has a moderate amount of cerumen, but not occluded. TMs appear normal. Pupils equal and reactive to light. Extraocular movements intact. Mouth and throat exam normal. Neck: No lymphadenopathy, supple, no thyromegaly, 2+ carotids, no bruit. Chest clear to auscultation. Cardiovascular: Regular rate and rhythm, no murmur. Abdomen: Positive bowel sounds, soft, nontender. Upper extremity: Normal pulses. Lower extremity: Normal dorsalis pedis, posterior tibial pulses. Skin exam: No obvious rash. ASSESSMENT: PROBLEM 1: Hypertension, well controlled. PLAN: 1. Continue lisinopril, hydrochlorothiazide, new prescriptions given. Will plan on continuing same. 2. Labs reviewed from 3 months ago at [facility], generally appears to be doing well. He will be due for recheck in 3 months, 6-month interval. PROBLEM 2: History of intermittent gastroesophageal reflux disease, concur with plan to try and manage THIS symptomatically. PLAN: 1. Discussed nonpharmacologic treatment of reflux. 2. May consider H2 ricco and if breakthrough pain, may return to Prilosec. PROBLEM 3: History of intermittent rectal bleeding, which sounds like an external cause, but given likely length since recent screening, I did recommend colonoscopy. Also encouraged high fiber diet, plenty of fluids in diet to help mitigate irritation in rectal area with stool passage. PLAN: Colonoscopy referral. PROBLEM 4: Question allergies, possible food allergies. The patient quite interested in allergy referral. Today's exam benign with any allergic like symptomatology or physical exam findings. PLAN: Allergy referral. PROBLEM 5: Alcoholism, currently doing well. The patient encouraged. PLAN: Continue current treatment. Follow up as needed. PROBLEM 6: Sleep apnea, on BiPAP. PLAN: Continue same. Will likely need to follow up as needed at [facility] or [facility] regarding this. PROBLEM 7: Mild extremity edema consistent with venous stasis. Somewhat longstanding, no acute change. PLAN: Discussed elevation, consider compression stockings, further evaluation if this should increase. PROBLEM 8: Health maintenance. PLAN: Discussed further evaluation including prostate exam. I did offer this today. He deferred, but will plan on doing this at followup visit. He also continues on aspirin which is reasonable given family history of heart disease and discussed vitamin supplements and that at least greatest benefitin terms of ensuring adequate vitamins is from healthy food, particularly healthy fresh food including particularly fruits and vegetables, limited evidence regarding vitamins. PLAN: 1. Colonoscopy. 2. Follow up in 3 months for recheck, sooner as needed. ADDENDUM: The patient does have a history of episodic depression, particularly seasonal affective disorder. He manages this generally by taking Wellbutrin 150 mg a day in the fall and winter months, comes off during the summer. Currently, off this. This was reviewed and regimen seems reasonable. Discussed possibly the wellbutrin once a day suggest 150 mg XL version if this works. We will address t his as needed. documented in this encounter Plan of Treatment Scheduled Orders Name Type Priority Associated Diagnoses Orde r Schedule COLONOSCOPY GI Routine Rectal bleed Screen for colon cancer Ordered: 01/22/2016 Scheduled Referrals Name Type Priority Associated Diagnoses Orde r Schedule AMB CONS/FOLLOW UP ALLERGY Outpatient Referral Routine Food Hypersensitivity Bee Sting Allergy Ordered: 01/22/2016 documented as of this encounter Visit Diagnoses Diagnosis Essential hypertension with goal blood pressure less than 140/90- Primary Bee sting allergy Allergy to insects and arachnids Food hypersensitivity Other adverse food reactions, not elsewhere classified Obstructive sleep apnea Obstructive sleep apnea (adult) (pediatric) Bilateral edema of lower extremity Edema Rectal bleed Hemorrhage of rectum and anus Screen for colon cancer Special screening for malignant neoplasms, colon documented in this encounter Discontinued Medications Medication Sig Discontinue Reason Start Date End Da te lisinopril (PRINIVIL, ZESTRIL) 20 mg tablet Take 20 mg by mouth daily. Duplicate Therapy 01/22/2016 aspirin chewable 81 mg tablet Take 81 mg by mouth daily. Duplicate Therapy 01/22/2016 lisinopril (PRINIVIL, ZESTRIL) 20 mg tablet Take 1 Tab by mouth daily. 06/26/2011 01/22/2016 diazepam (VALIUM) 10 mg tablet Take 10 mg by mouth every 12 hours as needed. 01/23/2016 DIAZepam (VALIUM) 5 mg tablet Take 1 Tab by mouth every 6 hours as needed for Anxiety (every 4-6 hours per CIWA scale). 06/26/2011 01/23/2016 omeprazole (PRILOSEC) 20 mg capsule Take 20 mg by mouth as needed. 01/23/2016 zolpidem (AMBIEN) 10 mg tablet Take 10 mg by mouth at bedtime as needed. 01/23/2016 buPROPion (WELLBUTRIN) 100 mg tablet Take 150 mg by mouth 2 times daily. Order modification 01/23/2016 documented as of this encounter Historical Medications * This list may reflect changes made after this encounter. Medication Sig Dispensed Refills Start Date End Date buPROPion (WELLBUTRIN) 100 mg tablet Take 1.5 Tabs by mouth daily. 01/23/2016 PHYTONADIONE (VITAMIN K) 100 mcg tablet Take 100 mcg by mouth daily. tocopheryl acetate (VITAMIN E) 200 unit capsule Take 100 Units by mouth daily. Coenzyme Q10 100 mg capsule Take by mouth. B-Complex with Vitamin C tablet Take 1 Tab by mouth daily. ascorbic acid, vitamin C, (VITAMIN C) 500 mg tablet Take 2,000 mg by mouth daily. sildenafil citrate (VIAGRA) 50 mg tablet Take 50 mg by mouth as needed for Erectile Dysfunction. tadalafil (CIALIS) 20 mg tablet Take 10 mg by mouth daily. lisinopril-hydrochloroth iazide (PRINZIDE, ZESTORETIC) 20-25 mg per tablet Take 1 Tab by mouth daily. buPROPion (WELLBUTRIN) 100 mg tablet Take 150 mg by mouth 2 times daily. 01/23/2016 omeprazole (PRILOSEC) 20 mg capsule Take 20 mg by mouth as needed. 01/23/2016 added in this encounter Care Teams Automotive Leasing Sales Representative Relationship Specialty Start Date End Date Matty Mancilla MD [address] [place] [address] PCP - General 11/16/15 06/20/16 documented as of this encounter
--- OUTSIDE RECORDS SUMMARY | 2024-04-16 21:48 | XMS_ITS | Clinical Summary ---
Author Organization [facility] Address [address] [place] [address] Care Team Providers Care Laboratory Worker Name Role Phone Avery Finnegan MD Primary Care Provider [phone] Allergies Active Allergy Reactions Criticality Noted Date Comments Sulfa (Sulfonamide Antibiotics) 05/30 Medications Medication Sig Dispensed Refills Start Date End Date Status aspirin 81 mg EC tablet Take 1 Tab by mouth daily. 30 Tab 0 06/26/2011 Active lisinopril-hydrochlor othiazide (PRINZIDE, ZESTORETIC) 20-25 mg per tablet Take 1 Tab by mouth daily. Active tadalafil (CIALIS) 20 mg tablet Take 10 mg by mouth daily. Active sildenafil citrate (VIAGRA) 50 mg tablet Take 50 mg by mouth as needed for Erectile Dysfunction. Active ascorbic acid, vitamin C, (VITAMIN C) 500 mg tablet Take 2,000 mg by mouth daily. Active B-Complex with Vitamin C tablet Take 1 Tab by mouth daily. Active Coenzyme Q10 100 mg capsule Take by mouth. Active tocopheryl acetate (VITAMIN E) 200 unit capsule Take 100 Units by mouth daily. Active PHYTONADIONE (VITAMIN K) 100 mcg tablet Take 100 mcg by mouth daily. Active buPROPion (WELLBUTRIN) 100 mg tablet Take 1.5 Tabs by mouth daily. 01/23/2016 Active Active Problems Problem Noted Date Diagnosed Date Depression 01/23/2016 Overview: SAD variant Bilateral edema of lower extremity 01/22/2016 Gastroesophageal reflux disease without esophagi tis 01/22/2016 HTN (hypertension) 12/24/2015 Hyperlipidemia 12/24/2015 Obstructive sleep apnea 12/24/2015 Overview: BIPAP Erectile dysfunction 12/24/2015 Internal hemorrhoids 12/24/2015 H/O vasectomy 12/24/2015 Overview: 01/07 Immunizations Name Administration Dates Next Due Tdap Vaccine =>7YO IM 02/05/2008 Surgical History Surgery Date Site/Laterality Comments HEMORRHOID SURGERY 2001 FRACTURE SURGERY 1979 femur ANUS SURGERY fissure HERNIA REPAIR 2001 bilat inguinal, umbilical Medical History Medical History Date Comments Palpitations occasional; nega tive stress test Borderline hypertension Depression Alcohol abuse Family History Medical History Relation Comments Heart Disease Brother CAD with stents in 2 brothers Unknown Father brain, schizophr amna Heart Disease Maternal Grandfather Heart Disease Mother High Blood Pressure Mother *Other(comment) Other sleep apnea- gra ndmother Heart Disease Paternal Grandfather Relation Status Comments Brother Father Maternal Grandfather Mother Other Paternal Grandfather Social History Tobacco Use Types Packs/Day Years [...] on file Sexual Orientation Not on file Obstetrics History Last Filed Vital Signs Vital Sign Reading Time Taken Comments Blood Pressure 126/74 01/22/2016 1457 EDT Pulse 68 01/22/2016 1457 EDT Temperature 36.7 ??C (98 ??F) 01/22/2016 1457 EDT Respiratory Rate 16 06/26/2011 1527 EDT Oxygen Saturation 100% 06/26/2011 1527 EDT Inhaled Oxygen Concentration - - Weight 113.9 kg (251 lb) 01/22/2016 1457 EDT Height 171.5 cm (5' 7.5) 01/22/2016 1457 EDT Body Mass Index 38.73 01/22/2016 1457 EDT Plan of Treatment Health Maintenance Due Date Last Done Comments RSV Immunization ( o r 60+ Years) (1 - 1-dose 60+ series) 2014 Fall Risk Screening 12/27/2019 COVID-19 Vaccine (2022-24 season) 2023 Colonoscopy (Colon Cancer Screening) Discontinued 08/2006 Colorectal Cancer Screening Discontinued Hepatitis C Screen Completed 12/08/2020 Cologuard (Colon Cancer Screening) Discontinued FIT Test (Colon Cancer Screening) Discontinued Sigmoidoscopy (Colon Cancer Screening) Discontinued Goals Goal Patient Goal Type Associated Problems Recent Progress Patient-Stated? Author Blood Pressure < 140/90 Blood Pressure HTN (hypertension) 126/74(2015 14:57 EDT) No Pasha Garcia RN LDLEXT < 160 Result Component Hyperlipidemia 151( 6 0:00 EST) No Pasha Garcia RN Procedures Procedure Name Priority Date/Time Associated Diagnosis Comments HEPATITIS C AB W REFLEX TO HCV RNA BY PCR Routine 12/08/2020 16:45 EDT from Last 3 Months or Most Recently Relevant to Health Maintenance Results * HEPATITIS C AB W REFLEX TO HCV RNA BY PCR (12/08/2020 16:45 EDT) Hep C Antibody Negative Negative 12/10/2020 10:08 EDT [facility] Blood VENOUS BLOOD / Unknown 12/08/2020 16:45 EDT 12/09/2020 16:13 EDT Provider Outr Resulting Lab CHEMISTRY & BLOOD GAS ORDERABLES [facility] [address] [place] [address] from Last 3 Months or Most Recently Relevant to Health Maintenance Care Teams Laboratory Worker Relationship Specialty Start Date End Date Avery Finnegan MD PCP - General 06/23/16
--- OUTSIDE RECORDS SUMMARY | 2024-04-16 21:48 | XMS_ITS | Encounter Summary ---
Author Organization [facility] Address [address] [place] [id number] Care Team Providers Care Drivematic Machine Operator Name Role Phone Unavailable Primary Care Provider Unavailabl e Encounter Details Date Type Department Care Team (Late st Contact Info) Description 12/24/2008 Orders Only [facility] - [address] [phone] Unknown, Provider, Social History Tobacco Use Types Packs/Day Years Used Date Smoking Tobacco: Never Assessed Sex and Gender Information Value Date Recorded Sex Assigned at Not on file Gender Identity Not on file Sexual Orientation Not on file documented as of this encounter Plan of Treatment Not on file documented as of this encounter Procedures Procedure Name Priority Date/Time Associated Diagnosis Comments HEP A,B,C PROFILE Routine 12/24/2008 16: 38 EDT documented in this encounter Results * HEPATITIS A,B,C PROFILE- [facility] USE ONLY (12/24/2008 16:38 EDT) Hepatitis B Surface Ag Negative Reference Range: ??Negative [facility] Hepatitis B Surface Ab Negative Reference Range: ??Negative Interpretati on depends on clinical setting. [facility] Hep B Core Ab Negative Reference Range: ??Negative Interpretati on depends on clinical setting. [facility] Hep A Antibody Negative Reference Range: ??Negative [facility] Hepatitis C Ab Negative Reference Range: ??Negative [facility] Blood specimen (specimen) 12/24/2008 16:38 EDT 12/24/2008 21:34 EDT Provider Unknown CHEMISTRY & BLOOD GA S ORDERABLES Performing Organization Address City/State/[facility] Co de Phone Number [facility] [address] [place] [address] documented in this encounter Visit Diagnoses Not on filedocumented in this encounter
--- OUTSIDE RECORDS SUMMARY | 2024-04-16 21:48 | XMS_ITS | Encounter Summary ---
Author Organization [facility] [place] [address] Care Team Providers Care Stores Laborer Name Role Phone Mercedes Miles MD Primary Care Provider [phone] Reason for Visit * Auth/Cert (Routine) Specialty Diagnoses / Procedures Referred By Contac t Referred To Contact Diagnoses Chest pain, exertional Chest pain, exertional [R07.9] Procedures PRG CATH PLMT LEFT HEART CATH & ARTS W/INJ & ANGIO IMG S&I CARDIAC CATHETERIZATION CORONARY ANGIOGRAPHY; W LHC,POSSIBLE PCI (WRVU 5.6) Dustin Kenyon MD [facility] [place] [address] [facility] Referral ID Status Reason Start Date Expiration Date Visits Re quested Visits Authorized [id number] 1 1 Encounter Details Date Type Department Care Team (Latest Contact Info) Description 02/09/2024 10:48 AM EDT - 02/09/2024 5:35 PM EDT Hospital Encounter [place] [address] Dustin Kenyon MD [facility] [place] [address] Chest pain, exertional Discharge Disposition: Home Social History Tobacco Use Types Packs/Day Years [...] Sign Reading Time Taken Comments Blood Pressure 126/68 02/09/2024 5:15 PM EDT Pulse 69 02/09/2024 3:15 PM EDT Temperature 36.5 ??C (97.7 ??F) 02/09/2024 5:15 PM ED T Respiratory Rate 15 02/09/2024 5:15 PM EDT Oxygen Saturation 100% 02/09/2024 5:15 PM EDT Inhaled Oxygen Concentration - - [...] Your Primary Care Provider: Mercedes Miles MD [phone] For questions regarding this document or issues relating to this hospitalization on the Medical Service, please contact your inpatient physician through the [facility] Wrong Address Clerk . Issues afterhours and on weekends will [...] Associated Diagnosis Comments CARDIAC CATHETERIZATION Routine 02/09/20 1:57 PM EDT Chest pain, exertional POCT [...] Modality Other Narrative 02/09/2024 2:22 PM EDT ?[facility] ? Cardiac Catheterization/Intervention Report ? Patient Name: Tomas Elliott. ? Procedure Date: 02/09/2024 ? A #: [id number] ? Primary Physician: Dustin Kenyon ? Case #: [id number] ? File Name: [id number] ? Catheterization Order Number: [id number] ? [facility] ? Final Report [place], [place] ? Patient Name: ? Tomas D. Brgant ?ID#: ?[id number] ? : ?1955 ? Procedure Date: ? February 09, 2024 ?Case #: ? [id number] ? Room: ? 6 ? Case Physician: ? Dustin Kenyon M.D. ? Start: ?13:47 ?Fellow: ? Paulo Richard, [...] procedure was Urgent. 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 Chest pain symptom [...] angiography and left ?heart catheterization. ? Dustin Kenyon, M.D. ? Electronically Signed by: Dustin Kenyon, M.D. ? Report Finalized: 02/09/2024 ??14:15 ? Procedure Note Dustin Kenyon MD - 02/09/2024 [facility] Cardiac Catheterization/Intervention Report Patient Name: Tomas Elliott Procedure Date: 02/09/2024 A #: [id number] Primary Physician: Dustin Kenyon Case #: [id number] File Name: [id number] Catheterization Order Number: [id number] [facility] FinalReport [place], [place] Patient Name: Tomas Elliott ID#:[id number] :1955 Procedure Date: February 09, 2024 Case #: [id number] Room: 6 Case Physician: Dustin Kenyon M.D. Start: 13:47 Fellow: Paulo Ramos M.D. Admission:02/09/2024 Procedures: * Coronary Angiography * Left Heart Catheterization History Tomas Elliott is a 68 year old man. He has hypertension. Thepatient's smoking status is Never. Prior to the initiation of this procedure,the patient was designated as ASA Class II. The [facility] clinical frailtyscale is 3: Managing Well. Diagnostic [...] diagnostic procedure was Urgent. 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 Chest pain symptomassessment [...] POCT Glucose (02/09/2024 12:14 PM EDT) Pathologist [facility] Glucose, POC 104 65 - 199 mg/dL [facility] Comment: Supplemental ranges: <140 mg/dL before meals <180 mg/dL all other times of the day Blood 02/09/2024 12:1 4 PM EDT 02/09/2024 12:14 PM EDT Dustin Kenyon MD POINT OF CARE TEST O RDERABLES Performing Organization Address City/State/[facility] Co de Phone Number [facility] [place] [address] * Differential, Automated (02/09/2024 11:15 AM EDT) [facility] Neutrophil % 57.3 % [facility] Neutrophil Absolute 3.33 1.70 - 6.10 x10(3)/[facility] Lymph % 29.4 % [facility] Lymphocytes Abs 1.7 0.9 - 3.2 x10(3)/[facility] Monocyte % 9.1 % [facility] Monocyte Abs 0.5 0.3 - 0.9 x10(3)/[facility] Eos % 3.1 % [facility] Eosinophils Abs 0.2 0.0 - 0.4 x10(3)/[facility] Basophil % 0.9 % [facility] Baso Absolute 0.0 0.0 - 0.1 x10(3)/[facility] Immature Gran % 0.20 % [facility] Comment: Immature granulocytes(IG's)percentage and absolute count will include metamyelocytes, myelocytes, and promyelocytes. Blood smears from CBCs yielding IG's will be scanned manually for concordance. If this scan disagrees with the automated IG or if promyelocytes are noted, a manual differential will be performed. Immature Gran Absolute 0.01 0.00 - 0.04 x10(3)/mcL [facility] Blood 02/09/2024 11:1 5 AM EDT 02/09/2024 11:53 AM EDT Narrative Resulting Agency Comment Spec In Lab Dustin Kenyon MD HEMATOLOGY ORDERABLE S [facility] [place] [address] * (ABNORMAL) Hemogram (02/09/2024 11:15 AM EDT) White Blood Cell 5.8 4.0 - 9.5 x10(3)/[facility] Red Blood Cell 3.93(L) 4.58 - 5.54 x10(6)/[facility] Hemoglobin 12.9(L) 13.7 - 16.5 g/dL [facility] Hematocrit 38.7(L) 40.5 - 48.5 % [facility] Mean Cell Volume 98.5(H) 82.9 - 93.1 [facility] Mean Cell Hemoglobin 32.8(H) 27.5 - 32.1 pg [facility] Mean Cell Hemoglobin Concentration 33.3 32.0 - 35.7 g/dL [facility] Platelet 170 145 - 357 x10(3)/[facility] RDW Standard Deviation 45.2(H) 36.0 - 45.0 [facility] RDW coefficient of variation 12.3 11.4 - 13.8 % [facility] Mean Platelet Volume 10.0 7.6 - 12.9 [facility] NRBC% auto 0.0 % [facility] NRBC Absolute 0.000 0.000 - 0.000 x10(3)/[facility] Blood 02/09/2024 11:1 5 AM EDT 02/09/2024 11:53 AM EDT Narrative Resulting Agency Comment Spec In Lab Dustin Kenyon MD HEMATOLOGY ORDERABLE S [facility] [place] [address] * (ABNORMAL) Basic Metabolic Panel (non-fasting) (02/09/2024 11:15 AM EDT) Glucose 101 65 - 199 mg/dL [facility] Comment:Diabetes: >=200 mg/d L plus symptoms Blood Urea Nitrogen 15 10 - 20 mg/dL [facility] Creatinine 0.71(L) 0.80 - 1.50 mg/dL [facility] Sodium 139 135 - 145 mmol/L [facility] Potassium 3.9 3.5 - 5.0 mmol/L [facility] Comment: Please note: ??Patients with WBC >100,000 may have falsely elevated Potassium levels. ??For accurate Potassium quantification in these patients send serum separator tube (gold top) for subsequent determinations. ??Contact the Clinical Chemistry Laboratory if there are any questions. Chloride 102 98 - 107 mmol/L [facility] Carbon Dioxide 27 22 - 31 mmol/L [facility] Anion Gap 10 5 - 15 mmol/L [facility] Calcium 9.3 8.5 - 10.5 mg/dL [facility] Est Glomerular Filtration Rate 99 >=60 mL/min/1. 73 m?? [facility] Comment: This patient's estimated GFR [...] In Lab Dustin Kenyon MD CHEMISTRY ORDERABLES [facility] [place] [address] documented in this encounter Visit Diagnoses Diagnosis Chest pain, exertional Chest pain, unspecified Chest pain, exertional Chest pain, unspecified documented in this encounter Administered Medications Inactive Administered Medications - up to 3 most recent administrations Medication Order MAR Action Action Date Dose Rate Site sodium chloride 0.9% infusion 200 mL/hr, Intravenous, CONTINUOUS, Starting on Mon02/09/24 at 1215, Until Mon02/09/24 at 1357, Cath (Day of Procedure) New Bag 02/09/2024 12:19 PM EDT 200 mL/hr 200 mL/hr sodium chloride 0.9% infusion 125 mL/hr, Intravenous, CONTINUOUS, Starting on Mon02/09/24 at 1430, Until Mon02/09/24 at 1629, Recovery (Recovery-Hospital Unit) New Bag 02/09/2024 2:58 PM EDT 125 mL/hr 125 mL /hr documented in this encounter Active and Recently Administered Medications Times are shown in EDT. Scheduled Medication Order 02/07/2024 02/08/2024 02/09/2024 ranolazine ER (Ranexa) tablet 500 mg 500 mg, Oral, 2 TIMES DAILY, First dose on Mon02/10/24 at 0900, Until Discontinued, DO NOT CRUSH OR OPEN. Baseline EKG required before administration., Routine, Has baseline EKG been obtained? Yes Continuous Medication Order 02/07/2024 02/08/2024 02/09/2024 sodium chloride 0.9% infusion (CANCELED) 200 mL/hr, Intravenous, CONTINUOUS, Starting on Mon02/09/24 at 1215, Until Mon02/09/24 at 1357, Cath (Day of Procedure) 1219 (New Bag - Prov ider: Michelle oTbar RN) sodium chloride 0.9% infusion 125 mL/hr, Intravenous, CONTINUOUS, Starting on Mon02/09/24 at 1430, Until Mon02/09/24 at 1629, Recovery (Recovery-Hospital Unit) 1458 ([facility] - Prov ider: Lawrence Cortes RN) PRN [...] Until Mon02/09/24 at 1357, Intra-Operative (Intra-Procedure), Routine 1347 (Given - Provid er: Jessica Stephens RN) verapamiL (Isoptin) (2.5 mg/mL) injection (CANCELED) PRN, Starting on Mon02/09/24 at 1347, Until Mon02/09/24 at 1357, Administer over 2 Minutes, Intra-Operative (Intra-Procedure) 1347 (Given - Provid er: Dustin Kenyon MD) documented in this encounter Care Teams Stores Laborer Relationship Specialty Start Date End Date Mercedes Miles MD [address] [place] [address] PCP - General Family Medicine 07/24/23 documented as of this encounter
--- OUTSIDE RECORDS SUMMARY | 2024-04-16 21:48 | XMS_ITS | Encounter Summary ---
[facility] [address] Care Team Providers Care Records Administrator Name Role Phone Mercedes Miles MD Primary Care Provider [phone] Encounter Details Date Type Department Care Team (Latest Contact Info) Description 04/03/2024 Travel Social History Tobacco Use Types Packs/Day Years [...] on filedocumented in this encounter Care Teams Records Administrator Relationship Specialty Start Date End Date Mercedes Miles MD [address] [place] [address] PCP - General Family Medicine 07/24/23 documented as of this encounter
--- OUTSIDE RECORDS SUMMARY | 2024-04-16 21:48 | XMS_ITS | Encounter Summary ---
Author Organization [facility] Address [facility] [place] [address] Care Team Providers Care Oxygen Equipment Aide Name Role Phone Mercedes Miles MD Primary Care Provider [phone] Encounter Details Date Type Department Care Team (Late st Contact Info) Description 01/18/2024 Telephone Cardiology at [address] [phone] Pauline Ordoñez RN Social History Tobacco Use Types Packs/Day Years [...] on file documented as of this encounter Miscellaneous Notes * Telephone Encounter - Pauline Ordoñez RN - 01/18/2024 5:19 PM EDT Return call to patient who has some questions about upcoming Cardiac Cath scheduled with Dr. Kenyon on 02/09/24. He understands the Cardiac cath will be able to identify areas of occulusion in his arteries and stents will be placed if indicated. He will be able to speak with surgical team in [facility] prior to his Cardiac cath and will be able to have all his concerns addressed at the time he signs surgical consent. Understands he will need to have someone drive him after his Cardiac cath and he will need to make plans to stay overnight - especially if stents are placed. He feels comfortable with information provided and will call if he has further questions or concerns. He is happy to speak with Dr. Kenyon - but states his questions at this time were answered to his satisfaction today. Patient knows how to contact Cardiology office and understands he may do so at any time with further questions or concerns. Forwarded to Dr. Kenyon. Pauline Ordoñez RN, BSN Ambulatory Cardiology Department Covering Interventional Cardiology documented in this encounter Plan of Treatment Not on file documented as of this encounter Visit Diagnoses Not on filedocumented in this encounter Care Teams Oxygen Equipment Aide Relationship Specialty Start Date End Date Mercedes Miles MD [address] [place] [address] PCP - General Family Medicine 07/24/23 documented as of this encounter
--- OUTSIDE RECORDS SUMMARY | 2024-04-16 21:48 | XMS_ITS | Encounter Summary ---
Author Organization [facility] Address [address] [place] [address] Care Team Providers Care Buncher Operator Name Role Phone Avery Finnegan MD Primary Care Provider [phone] Encounter Details Date Type Department Care Team (Late st Contact Info) Description 12/20/2023 Lab Requisition [facility] Pathology & Laboratory Medicine - [address] [address] Outr Resulting Lab, Provider Social History Tobacco [...] Procedure Name Priority Date/Time Associated Diagnosis Comments FOLATE Routine 12/19/2023 8:26 EDT documented in this encounter Results * FOLATE (12/19/2023 8:26 EDT) Folate 22.7 See Note ng/mL 12/20/2023 18:51 EDT [facility] Comment: Reference Ranges for Folate: Deficient: ?< 3.4 ng/mL Indeterminate: ??3.4 - 5.4 ng/mL Normal: ? > 5.4 ng/mL The results of this assay can be falsely elevated due to the consumption of Biotin. Blood VENOUS BLOOD / Unknown 12/19/2023 8:26 EDT 12/20/2023 17:35 EDT Provider Outr Resulting Lab CHEMISTRY & BLOOD GAS ORDERABLES Performing Organization Address City/State/[facility] Co de Phone Number [facility] [address] [place] [address] documented in this encounter Visit Diagnoses Not on filedocumented in this encounter Care Teams Buncher Operator Relationship Specialty Start Date End Date Avery Finnegan MD PCP - General 06/23/16 documented as of this encounter
--- OUTSIDE RECORDS SUMMARY | 2024-04-16 21:48 | XMS_ITS | Encounter Summary ---
Author Organization [facility] [place] [address] Care Team Providers Care Sales Promotion Director Name Role Phone Mercedes Miles MD Primary Care Provider [phone] Encounter Details Date Type Department Care Team (Late st Contact Info) Description 01/16/2024 Telephone Cardiology at [address] [phone] Pauline Ordoñez RN Social History Tobacco Use [...] encounter Miscellaneous Notes * Telephone Encounter - Dustin Kenyon MD - 01/18/2024 8:02 AM EDT Attempted to reach pt, left VM. WIll call back to discuss cath. Orders placed. * Telephone Encounter - Pauline Ordoñez RN - 01/16/2024 11:48 AM EDT Return call to patient. He was seen his PCP since his last conversation with Dr. Kenyon and has started that he continues to have chest pressure so would like to proceed with scheduling of Cardiac cath at this time. Patient said he continues to have chest pressure with exertion. He has a few questions and would appreciat a quick discussion with Dr. Donaldson. Patient can be reached at Patient knows how to contact Cardiology office and understands they may do so at any time with further questions or concerns.\ Pauline Ordoñez RN, BSN Ambulatory Cardiology Department Covering Interventional team. documented in this encounter Plan of Treatment Not on file documented as of this encounter Visit Diagnoses Not on filedocumented in this encounter Care Teams Sales Promotion Director Relationship Specialty Start Date End Date Mercedes Miles MD [address] [place] [address] PCP - General Family Medicine 07/24/23 documented as of this encounter
--- OUTSIDE RECORDS SUMMARY | 2024-04-16 21:48 | XMS_ITS | Encounter Summary ---
Author Organization [facility] Address [address] [place] [address] Care Team Providers Care Design Project Manager Name Role Phone Unavailable Primary Care Provider Unavailabl e Encounter Details Date Type Department Care Team (Late st Contact Info) Description 11/10/2006 Before PRISM Converted Visit (Maple) [facility] - Maple conversion [address] [place], [place] [address] Racheal Sánchez MD [address] [place] [address], [address] [place] [address] Social History Tobacco Use Types Packs/Day Years Used Date Smoking Tobacco: Never Assessed Sex and Gender Information Value Date Recorded Sex Assigned at Not on file Gender Identity Not on file Sexual Orientation Not on file documented as of this encounter Consult Notes * Racheal Sánchez - 06/30/2009 1152 EST CONSULTATION - 11/10/2006 [facility] REQUESTING PROVIDER Shiv Henley MD HPI A 50-year-old man referred in consultation because of concern of obstructive sleep apnea. Mr. Elliott has snored for many years and over the past few years his partner has noted thathe has pauses in his breathing while sleeping and he has also woken up gasping on occasion. He typically gets into bed at 11 p.m. and has some difficulty falling asleep taking between 15 minutes and 45 minutes to fall asleep generally because of ???thinking about things.?? He sleeps restlessly tossing and turning, waking frequently but briefly, and wakes in the morning at 640 a.m. and has a hard time getting going. He gets up once to go to the bathroom. He has rare sleep paralysis and hypnagogic hallucinations. When he wakes in the morning he is tired and fatigued and has a poorenergy throughout the day. [place] sleepiness scale score is 16/24. He has on several occasion,found himself falling asleep while driving and he also has sleepiness which causes difficulty at work. On the weekends if he is not actively doing something he may take a 2 to 3 hour nap in the early afternoon. He has intermittent nasal congestion and complains of a chronic postnasal drip. He thinks that he probably broke his nose playingbaMoya Okrugaetball when he was younger but there is no history of surgery to the nose or the airway. He has intermittent heartburn, rare RLS symptoms, no night sweats, cataplexy,dream enacting behavior, bruxism, somnambulism or morning headache. PAST MEDICAL HISTORY 1. Occasional palpitations or racing heart with a negative stress test by report. 2. Borderline hypertension. 3. Depression. PAST SURGICAL HISTORY 1. Hernia in 2001. 2. Hemorrhoid surgery in 2001. 3. Broken femur with repair in 1979. ALLERGIES No known drug allergies. CURRENT MEDICATIONS Aspirin. SUBSTANCE USE Former smoker, no alcohol since June 2006. Previously heavy drinker by his report. No caffeine. SOCIAL HISTORY He is partnered who he lives with. 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 FAMILY HISTORY He thinks his grandmother had sleep apnea. Mother with heart disease. ROS Significant for postnasal drip, fatigue and cough. Please see chart for further details. OBJECTIVE Pleasant man, conversant. Heightis 5 feet, 9 inches, weight is 258 pounds, BMI is 38, blood pressure 140/80, pulse is 60, neck circumference is 17 ?? inches. Posterior pharynx shows a mallampati II airway with a low lying soft palate, 1+ lateral narrowingmicrognathia, teeth intact. Left nasal passage is narrowed. Neck is supple without adenopathy. Thyroid is normal. Lungs are clear throughout. Heart is regular without murmur, rubs or gallops. Abdomen is soft and nontender. Extremities show trace pedal edema. Neurologically grossly intact. walks without difficulty. Affect is normal. ASSESSMENT + PLAN 1. Probable obstructive sleep apnea given his description of breathing at night combined with obesity and neck circumference. I did explain obstructive sleep apnea as well as treatment with CPAP. He has been scheduled for a diagnostic polysomnogram and will be split if he meets criteria. Sleeping medicine is available given his previous difficulties with sleep onset. I briefly discussed weight loss as an important treatment component and mentioned surgery as a 2nd line option to CPAP. He will follow up with me after the study. Obstructive sleep apnea likely accounts for the patients daytime sleepiness and fatigue. 2. Chronic postnasal drip. He does not give a history of seasonal allergies. He also appears to have an anatomical narrowing of the left nasal passage. I did gavehim samples of Nasacort AQ for trial.He may benefit from ENT evaluation if this continues to be problematic. 3. Sleep onset issues. Obesity. Signed by Racheal Sánchez MD 11/13/2006 11:03 Caro Sánchez MDBoard Certified in Pulmonary and Sleep MedicineScarolina Sánchez MD Racheal Sánchez MD Board Certified in Pulmonary and Sleep Medicine D: - Racheal Sánchez MD A - rebeca Job ID: [id number] Document ID: [id number] cc: Shiv Henley MD documented in this encounter Plan of Treatment Not on file documented as of this encounter Visit Diagnoses Not on filedocumented in this encounter
--- OUTSIDE RECORDS SUMMARY | 2024-04-16 21:48 | XMS_ITS | Encounter Summary ---
Author Organization [facility] Address [address] [place] [address] Care Team Providers Care Revenue Cycle Manager Name Role Phone Unavailable Primary Care Provider Unavailabl e Encounter Details Date Type Department Care Team (Late st Contact Info) Description 03/07/2007 12:26 EDT Hospital Encounter [facility] [address] [place] [address] Racheal Sánchez MD [address] [place] [address] [address] [place] [phone] Social History Tobacco Use Types Packs/Day Years [...] 6 0:00 EST) No Pasha Garcia RN documented as of this encounter Visit Diagnoses Not on filedocumented in this encounter
--- OUTSIDE RECORDS SUMMARY | 2024-04-16 21:48 | XMS_ITS | Encounter Summary ---
Author Organization [facility] Address [address] [place] [address] Care Team Providers Care Panel Beater Name Role Phone Unavailable Primary Care Provider Unavailabl e Encounter Details Date Type Department Care Team (Late st Contact Info) Description 01/25/2002 7:24 EDT - 01/25/2002 11:59 EDT Hospital Encounter [address] [address] Nba Henley MD [address] [place] [address] Discharge Disposition: Auto Discharge Social History Tobacco [...]
--- OUTSIDE RECORDS SUMMARY | 2024-04-16 21:48 | XMS_ITS | Encounter Summary ---
Author Organization [facility] Address [address] [place] [address] Care Team Providers Care Warehouse Shipping Associate Name Role Phone Unavailable Primary Care Provider Unavailabl e Encounter Details Date Type Department Care Team (Latest Contact Info) Description 11/10/2006 9:15 EDT - 11/10/2006 11:59 EDT Hospital Encounter [address] [address] Racheal Sánchez MD [address] [place] [address] [address] [place] [phone] Discharge Disposition: Auto Discharge Social History Tobacco [...]
--- OUTSIDE RECORDS SUMMARY | 2024-04-16 21:48 | XMS_ITS | Encounter Summary ---
Author Organization [facility] Address [address] [place] [address] Care Team Providers Care Hair Clipper Power Name Role Phone Unavailable Primary Care Provider Unavailabl e Encounter Details Date Type Department Care Team (Latest Contact Info) Description 12/29/2006 9:04 EDT - 12/29/2006 11:59 EDT Hospital Encounter [address] [address] Racheal Sánchez MD [address] [place] [address] [address] [place] [id number] Discharge Disposition: Auto Discharge Social History Tobacco Use Types Packs/Day Years Used Date Smoking Tobacco: Never Assessed Sex and Gender Information Value Date Recorded Sex Assigned at Not on file Gender Identity Not on file Sexual Orientation Not on file documented as of this encounter Discharge Disposition Disposition Code Departure Means Destination Auto Discharge documented in this encounter Progress Notes * Racheal Sánchez - 12/29/2006 0000 EDT [facility] PROGRESS/FOLLOWUP NOTE - 12/29/2006 Lexi returns in follow up after having a diagnostic polysomnogram. The results of the polysomnogram were reviewed and discussed with him. He has a moderate degree of obstructive sleep apnea, worse in the supine position with events associated with oxygen desaturations and sleep fragmentation. Mouth breathing was evident on the study, and the patient does have a deviated nasal septum, as well aschronic nasal stuffiness. He did not try using the Nasacort AQ which I gave him at the last visit, but will try it for five or six days to see if there is any improvement. The nasal stuffiness is most likely related to anatomic narrowing. The patient continues to be sleepy and tired and this degree of sleep apnea likely accounts for this. He has been scheduled for a CPAP titration with follow up. He is currently working on weight loss. Signed by Racheal Sánchez MD 01/08/2007 09:53 Caro Sánchez MDBoard Certified in Pulmonary and Sleep MedicineScarolina Sánchez MD Dewey Sánchez MD Certified in Pulmonary and Sleep Medicine D: - Racheal Sánchez MD T: 10:00 A - lbr Job ID: [id number] Document ID: [id number] cc: Shiv Henley MD documented in this encounter Plan of Treatment Not on file documented as of this encounter Visit Diagnoses Not on filedocumented in this encounter
--- OUTSIDE RECORDS SUMMARY | 2024-04-16 21:48 | XMS_ITS | Encounter Summary ---
Author Organization [facility] Address [address] [place] [address] Care Team Providers Care Coal Tower Operator Name Role Phone Unavailable Primary Care Provider Unavailabl e Encounter Details Date Type Department Care Team (Late st Contact Info) Description 12/12/2006 Before PRISM Converted Visit ([facility]) [facility] [address] [place] [address] Racheal Sánchez MD [address] [place] [address], [address] [place] [id number] Social History Tobacco Use Types Packs/Day Years Used Date Smoking Tobacco: Never Assessed Sex and Gender Information Value Date Recorded Sex Assigned at Not on file Gender Identity Not on file Sexual Orientation Not on file documented as of this encounter Miscellaneous Notes * Study - Racheal Sánchez - 07/03/20092014 EST [facility] SERVICE DATE: 12/12/2006 OVERNIGHT DIAGNOSTIC POLYSOMNOGRAM Study # [id number] Date of Service: December 12, 2006 Requesting Provider: Racheal Sánchez MD CLINICAL HISTORY A 50-year-old man with sleep onset difficulties, loud snoring and witnessed apneas and daytime hypersomnia. MEDICATIONS Aspirin, multivitamin and fish oil. WEIGHT 258 pounds. TECHNICAL DESCRIPTION An overnight polysomnogram was performed on the night of 12/12/2006 attended by a trained staff technologist. Monitoring channels included: EEG channels C2/A2, C4/A1, O2/A1, O1/A2; left and right EOG; submental EMG; bilateral anterior tibialis EMG; thoracic and abdominal respiratory effort and snoring by piezo-electric transducers; airflow by nasal cannula pressure and oral thermocouple; pulseoximetry; single lead EKG; body position. Selective review of events of interest are available fromvideo recording. PATIENT'S SUBJECTIVE DESCRIPTION On the night prior to the PSG the patient estimated sleep time at 7 hours. He drank no caffeine, noalcohol and did not nap although he was quite sleepy. On the night of the PSG the patient slept better than at home which he attributed to Ambien. FINDINGS 1. Sleep: patient slept 321 minutes out of 458 minutes in bed. Sleep onset latency was prolonged at60 minutes and the patient awoke after 45 minutes of sleep and was unable to fall back to sleep andhence Ambien 10 mg was given. The patient fell asleep after approximately one hour and after that point there was minimal time awake. Sleep efficiency was 70%. Sleep stage distribution is mildly abnormal with stage I 5.6%, SII 79.8%, SIII 0.3% and REM 14.3%. Sleep is fragmented with an arousal index of 14 arousals per hour related to respiratory events. 2. Breathing: This study is limited because of poor flow signal most likely related to mouth breathing. The patient however does demonstrate obstructive sleep apnea which is positional in nature witha total AHI estimated at 25, a supine AHI estimated at 37 and a lateral AHI estimated at 13. Respiratory events occurred equally frequently in REM and NREM sleep. Events do cause oxygen desaturationsas well as some sleep fragmentation. 3. Oxygen saturation: The average oxygen saturation in NREM sleep was 94% and in REM sleep was 90%.Martin saturation was 69%. The desaturation index is elevated at 27 desaturations per hour. 4. Cardiac: Sinus rhythm with an average heart rate of 71. 5. Movement/Position: patient slept 167 minutes in the supine position, 139 minute in the lateral position and 15 minutes in the prone position. PLMs occur throughout the night particularly in two one-hour blocks with a leg movement index of 45 per hour in sleep. IMPRESSION sleep apnea most prominent in the supine position and less prominent when in the lateral position. Events do cause desaturations and sleep fragmentation. Air flow signal was poor however during this study which was likely related to mouth breathing. PLAN: The patient is scheduled to follow up with me. Treatment is recommended. Signed by Racheal Sánchez MD 12/28/2006 14:24 Caro Sánchez MDBoard Certified in Pulmonary and Sleep MedicineScarolina Sánchez MD Racheal Sánchez MD Board Certified in Pulmonary and Sleep Medicine - Racheal Sánchez MD P - rebeca Job ID: [id number] Document ID: [id number] cc: Shiv Henley MD documented in this encounter Plan of Treatment Not on file documented as of this encounter Visit Diagnoses Not on filedocumented in this encounter
--- OUTSIDE RECORDS SUMMARY | 2024-04-16 21:48 | XMS_ITS | Encounter Summary ---
Author Organization [facility] Address [facility] [place] [address] Care Team Providers Care Fiberglass Auto Body Repairer Name Role Phone Mercedes Miles MD Primary Care Provider [phone] Encounter Details Date Type Department Care Team (Late st Contact Info) Description 04/03/2024 11:40 AM EDT Office Visit Cardiology at [address] [phone] Dustin Kenyon MD [facility] [place] [address] Chest pain, exertional Social History Tobacco Use Types Packs/Day Years Used Date Smoking Tobacco: Former Cigarettes Q uit: 1979 Smokeless Tobacco: Former Quit: 1979 Alcohol Use Standard Drinks/Week Comments Not Currently 0 (1 standard drink = 0.6 oz pur e alcohol) [facility] Inpatient Questions Answer Date Recorded Does Anyone [...] Sign Reading Time Taken Comments Blood Pressure 115/70 04/03/2024 11:39 AM EDT Pulse 60 04/03/2024 11:39 AM EDT Temperature - - Respiratory Rate - - Oxygen Saturation 99% 04/03/2024 11: 39 AM EDT Inhaled Oxygen Concentration - - Weight 114.2 kg (251 lb 11.2 oz) 2023 11:39 AM EDT Height 172.7 cm (5' 8) 04/03/2024 11:3 9 AM EDT Body Mass Index 38.27 04/03/2024 11:39 AM EDT documented in this encounter Progress Notes * Dustin Kenyon MD - 04/03/2024 11:40 AM EDT Images from the original note were not included. [facility] [place] [address] [place] [address] Referring Provider: Mercedes Miles MD [address] [place] [id number] Reason for Consultation / Chief Complaint: chest pain Past Cardiac History and Relevant Comorbidities: Hypertension Hyperlipidemia Diabetes Chest pain Obstructive sleep apnea on CPAP Thymolipoma status post resection HPI: Tomas Elliott is a 68 y.o. male with history of the above cardiovascular issues who presents for evaluation of his cardiovascular disease. Tomas is feeling much better at this time. He notes that while he still gets a little bit of anginawhile exercising on the treadmill, this is markedly improved on treatment with ranolazine and amlodipine. He denies any significant side effects from the medications aside from mild lower extremity edema that is attributed to the amlodipine. He is able to exercise more and feels like he is breathing better. Despite this, he would like to minimize his pill burden as much as possible. No syncope, PND orthopnea. 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 Chest pain, exertional R07.9 Social History: Social History Tobacco Use Smoking status: Former Current packs/day: 0.00 Types: Cigarettes Quit date: 1979 Years since quittin.6 Smokeless tobacco: Former Quit date: 1979 Vaping Use Vaping status: Never Used Substance Use Topics Alcohol use: Not Currently Drug use: Never Family History: Notable family history of coronary disease ALLERGIES: Allergies Allergen Reactions Adhesive Other (See Comments) Swelling at local site w/ adhesive/latex glues Bee Venom Protein (Honey Bee) Codeine Hcl Other (See Comments) Has nightmares MEDICATIONS: Current Outpatient Medications: amLODIPine (Norvasc) 5 mg tablet, Take 1 tablet by mouth daily., Disp: 90 tablet, Rfl: 3 ranolazine ER (Ranexa) 500 mg ER 12 hr tablet, Take 1 tablet by mouth 2 times daily., Disp: 180 tablet, Rfl: 3 rosuvastatin (Crestor) 20 mg tablet, TAKE ONE TABLET BY MOUTH ONCE DAILY, Disp: 90 tablet, Rfl: 1 omeprazole (PriLOSEC) [address] capsule, Take 20 mg by mouth., Disp: , Rfl: modafiniL (PROVIGIL) 200 mg Tablet, as needed., Disp: , Rfl: tadalafiL (Cialis) 20 mg Tablet, as needed., Disp: , Rfl: lisinopriL-hydrochlorothiazide (PRINZIDE;ZESTORETIC) 20-25 mg Tablet, Take 1 tablet by mouth Daily., Disp: , Rfl: ibuprofen (AdviL) 200 mg Tablet, Take 200 mg by mouth every 6 hours as needed for Pain., Disp: , Rfl: acetylcysteine (NAC ORAL), Take by mouth daily., Disp: , Rfl: MAGNESIUM CITRATE ORAL, Take by mouth daily., Disp: , Rfl: ferrous sulfate (IRON ORAL), Take by mouth daily., Disp: , Rfl: ubiquinone (coenzyme Q10) 100 mg Capsule, Take by mouth daily., Disp: , Rfl: VITAMIN K2 ORAL, Take by mouth daily., Disp: , Rfl: Spiriva Respimat 2.5 mcg/actuation Mist, , Disp: , Rfl: diazePAM (Valium) 5 mg Tablet, , Disp: , Rfl: multivitamin (THERAGRAN) Tablet, Take 1 tablet by mouth daily., Disp: , Rfl: b complex vitamins Capsule, Take 1 capsule by mouth daily., Disp: , Rfl: doxepin (Sinequan) 10 mg Capsule, Take 10 mg by mouth nightly as needed., Disp: , Rfl: cholecalciferol, Vitamin D3, 50 mcg (2,000 unit) Capsule, Take 5,000 Units by mouth daily., Disp: ,Rfl: albuteroL 90 mcg/actuation HFA Aerosol Inhaler, Inhale 3 puffs into the lungs every 4 hours as needed., Disp: , Rfl: ROS: As per HPI, otherwise the remainder of the ROS was either non-pertinent or negative. PHYSICAL EXAM: Vitals: 04/03/24 1139 BP: 115/70 Pulse: 60 SpO2: 99% Weight: 114.2 kg (251 lb 11.2 oz) Height: 172.7 cm (5' 8) Constitutional: In general, alert and oriented X 3 Eyes: No scleral icterus or pale conjunctiva; no corneal arcus Ears, Nose, mouth, throat: no epistaxis; no visible thyromegaly Respiratory: Clear to auscultation bilaterally, Normal intensity of breath sounds with good air entry bilaterally GI: No abdominal tenderness to palpation; + bowel sounds; no rigidity or guarding Cardiovascular: RRR. S1 and S2 are normal and unobscured. No S3 or S4 appreciated. There are no audible murmurs. Carotid upstroke is normal with no audible carotid bruits. JVP was at 5cm H2O above the RA. Skin: No visible rashes or bruises Neuro: Non-focal. Moves all extremities without limitation. Gait is normal CN nerves not examined. Psych: Mood appropriate. Thought process is linear Extremity: RLE:No LE edema LLE: No LE edema RUE: 2+ radial pulse LUE: 2+ radial pulse DIAGNOSTIC TESTS (I have personally reviewed the following images/tracings and the following is my own assessment): DIAGNOSTIC TESTS (I have personally reviewed the following images/tracings and the following is my own assessment): Results EKG 2021: Sinus bradycardia, otherwise normal Remote Cardiac Monitoring TTE 2023: Normal biventricular systolic function, EF 57%, normal RV, normal valves Coronary Angiography / Catheterization 2023: Mild nonobstructive disease Stress Testing Vascular Studies Other Imaging Studies CTA 2023: Three-vessel atherosclerotic plaque, predominantly in the RCA, CAD RADS 2/P3, coronary calcium score 388 SPECT MPI 2020: Achieved 7 METS, no evidence of ischemia or scar, normal systolic LV function. Anterior mediastinal mass noted atherosclerotic disease noted Labs / Reports Reviewed: Last 3 wbc, hgb, hct plt Recent Labs 02/09/24 1115 WBC 5.8 HGB 12.9* HCT 38.7* PLATELET 170 Last 3 Lytes Recent Labs 02/09/24 1115 12/14/23 0812 NA 139 -- K 3.9 -- CL 102 -- CO2 27 -- BUN 15 -- CREATININE 0.71* 0.71* Last 3 ProBNP, Trop, CK No results for input(s): CK, TROPONINT, PROBNP in the last 168 hours. Last 3 Lipids Recent Labs 12/14/23 0812 CHLPL 148 HDL 53 LDLCHOL 80 TRIG 76 A/P: Tomas Elliott is a 68 y.o. male who presents for evaluation of the following cardiovascular issues: Microvascular angina/small vessel disease: We discussed that management of this is predominantly based on improving his symptoms. I advised that he is welcome to look at possibly reducing or eliminating either the amlodipine or ranolazine to see if he can come off of them. Ultimately, I advised that he is doing well, and should focus on lifestyle changes including diet and exercise. 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 Recommend continuing high-dose Crestor. Hypertension: Blood pressures under good control at this time, continue current therapy. Hyperlipidemia: Goal LDL is less than 70, recheck lipids in 1 year. Palpitations: Resolved Recommendations: 1: Continue current therapy (patient free to try reducing doses or cutting out amlodipine/ranolazine) 2: Follow-up 1 year Dustin Kenyon MD 04/03/2024 11:59 AM documented in this encounter Plan of Treatment Not on file documented as of this encounter Visit Diagnoses Diagnosis Chest pain, exertional Chest pain, unspecified documented in this encounter Care Teams Fiberglass Auto Body Repairer Relationship Specialty Start Date End Date Mercedes Miles MD [address] [place] [id number] PCP - General Family Medicine 07/24/23 documented as of this encounter
--- OUTSIDE RECORDS SUMMARY | 2024-04-16 21:48 | XMS_ITS | Clinical Summary ---
Author Organization [facility] Address [facility] [place] [address] Care Team Providers Care Account Executive [employer] Name Role Phone Mercedes Miles MD Primary Care Provider [phone] Allergies Active Allergy Reactions Criticality Noted Date Comments Adhesive Other (See Comments) 04/10/2013 Swelling at local site w/ adhesive/latex glues Bee Venom Protein (Honey Bee) 09/28/2023 Codeine Hcl Other (See Comments) 02/09/2024 Has nightmares Medications Medication Sig Dispensed Refills Start Date End Date Status lisinopriL-hydrochlorot hiazide (PRINZIDE;ZESTORETIC) 20-25 mg Tablet Take 1 tablet by mouth Daily. Active modafiniL (PROVIGIL) 200 mg Tablet as needed. 03/25/2022 Active tadalafiL (Cialis) 20 mg Tablet as needed. 04/01/2022 Active omeprazole (PriLOSEC) [address] capsule Take 20 mg by mouth. 05/18/2022 Active rosuvastatin (Crestor) 20 mg tabletIndications:Hyper lipidemia, unspecified hyperlipidemia type TAKE ONE TABLET BY MOUTH ONCE DAILY 90 tablet 1 01/04/2024 Active amLODIPine (Norvasc) 5 mg tablet Take 1 tablet by mouth daily. 90 tablet 3 02/09/2024 Active ranolazine ER (Ranexa) 500 mg ER 12 hr tablet Take 1 tablet by mouth 2 times daily. 180 tablet 3 02/10/2024 Active Active Problems Problem Noted Date Diagnosed Date Chest pain, exertional 04/21/2022 Overview (04/21/2022): Images from the original note were not included. Treadmill Stress 09/25/2020: [employer] Stress 10/09/2020: FINDINGS: No fixed or reversible perfusion defects are present. Functional analysis: Myocardial function: There is normal wall motion and wall thickening. Left ventricular ejection fraction: 61 % (normal greater than 50%) INCIDENTAL CT FINDINGS: There is a lobular anterior mediastinal soft tissue mass. IMPRESSION No ischemia or scar. Left ventricular function is normal. An anterior mediastinal mass is present. This finding is nonspecific and possible etiologies include a thymoma, teratoma and lymphoma. This has been reported to the team at the [facility]. 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 Mediastinal mass 11/02/2020 Overview (11/02/2020): Added automatically from request for surgery [id number] Penile fracture 04/11/2013 Encounters Date Type Department Care Team Description 04/03/2024 11:40 AM EDT Office Visit Cardiology at [address] [phone] Dustin Kenyon MD Chest pain, exertional 04/03/2024 Travel 02/22/2024 Telephone Cardiology at [address] [phone] Alba Nicolas RN Advice Only (PDE5 Inhibitor) 02/09/2024 11:30 AM EDT - 02/09/2024 12:30 PM EDT Surgery [place] [address] Dustin Kenyon MD CARDIAC CATHETERIZATION 02/09/2024 10:48 AM EDT - 02/09/2024 5:35 PM EDT Hospital Encounter [facility] [place] [address] Dustin Kenyon MD Chest pain, exertional Discharge Disposition: Home 01/18/2024 Telephone Cardiology at [address] [phone] Pauline Ordoñez RN 01/18/2024 Orders Only Cardiology at [address] [phone] Dustin Kenyon MD Chest pain, exertional 01/16/2024 Telephone Cardiology at [address] [phone] Pauline Ordoñez, RN from Last 3 Months Social History Tobacco Use Types Packs/Day Years Used Date Smoking Tobacco: Former Cigarettes Q uit: 1979 Smokeless Tobacco: Former Quit: 1979 Alcohol Use Standard Drinks/Week Comments Not Currently 0 (1 standard drink = 0.6 oz pur e alcohol) [facility] Inpatient Questions Answer Date Recorded Does Anyone [...] on file Sexual Orientation Not on file Last Filed Vital Signs Vital Sign Reading Time Taken Comments Blood Pressure 115/70 04/03/2024 11:39 AM EDT Pulse 60 04/03/2024 11:39 AM EDT Temperature 36.5 ??C (97.7 ??F) 02/09/2024 5:15 PM ED T Respiratory Rate 15 02/09/2024 5:15 PM EDT Oxygen Saturation 99% 04/03/2024 11: 39 AM EDT Inhaled Oxygen Concentration - - Weight 114.2 kg (251 lb 11.2 oz) 2023 11:39 AM EDT Height 172.7 cm (5' 8) 04/03/2024 11:3 9 AM EDT Body Mass Index 38.27 04/03/2024 11:39 AM EDT Plan of Treatment Health Maintenance Due Date Last Done Comments CT Colonography 1955 FIT DNA 1955 FIT 1955 Sigmoidoscopy 1955 Pneumoccocal Vaccine: 65+ (1 of 2 - PCV) 1960 DM Hemoglobin A1c 1964 DM Opthalmology Exam 1964 DM Urine Microalbumin yearly 1964 Hepatitis C Screening 1972 Tdap adult 1973 Tetanus vaccine 1973 Zoster vaccine (1 of 2) 2004 Advance Directive 2009 Covid-19 Vaccine (3 - 2022-2 4 season) 2023 11/27/2020, 10/30/2020 Influenza (Flu) vaccine (1 o f 1 - Influenza standard series) 04/28/2024 DM Creatinine yearly 02/08/2025 02/09/2024, 12/14/2023, 07/19/2021, Additional history exists Colonoscopy 04/05/2031 04/05/2021, 04/05/2021 Colorectal Cancer Screening 04/05/2031 Sigmoidoscopy (10 year) with FIT yearly 04/05/2031 04/05/2021, 04/05/2021 AAA Screen Completed 12/21/2020 Lipid Screening Discontinued 12/14/2023 Diabetes Screening (HgbA1C o r Glucose) Discontinued 02/09/2024 Procedures Procedure Name Priority Date/Time Associated Diagnosis Comments CARDIAC CATHETERIZATION Routine 02/09/2024 1:57 PM EDT Chest pain, exertional POCT GLUCOSE Routine 02/09/2024 12:14 PM EDT DIFFERENTIAL, AUTOMATED Routine 02/09/2024 11:15 AM EDT Chest pain, exertional HEMOGRAM Routine 02/09/2024 11:15 AM EDT Chest pain, exertional BASIC METABOLIC PANEL Routine 02/09/2024 11:15 AM EDT Chest pain, exertional CBC (WITH DIFF) Routine 02/09/2024 11:15 AM EDT Chest pain, exertional LIPID PANEL (REFLEX DIRECT LDL) Routine 12/14/2023 8:12 AM EDT Hyperlipidemia, unspecified hyperlipidemia type COLONOSCOPY Routine 04/05/2021 4:07 PM EDT US ULTRASOUND AAA SCREENING Routine 12/21/2020 3:29 PM EDT Former smoker from Last 3 Months or Most Recently Relevant to Health Maintenance Results * CARDIAC CATHETERIZATION (02/09/2024 1:57 PM EDT) Anatomical Region Laterality Modality Other Narrative 02/09/2024 2:22 PM EDT ?[facility] ? Cardiac Catheterization/Intervention Report ? Patient Name: Javon Lopez. ? Procedure Date: 02/09/2024 ? A #: [id number] ? Primary Physician: Dustin Kenyon S ? Case #: [id number] ? File Name: [id number] ? Catheterization Order Number: [id number] ? [facility] ? Final Report [place], [place] ? Patient Name: ? Javon D. Brgant ?ID#: ?[id number] ? : ?1955 ? Procedure Date: ? February 09, 2024 ?Case #: ? [id number] ? Room: ? 6 ? Case Physician: ? Dustin Kenyon M.D. ? Start: ?13:47 ?Fellow: ? Paulo Ramos M.D. ?Admission: ??02/09/2024 ? Procedures: ?* Coronary Angiography ?* Left Heart Catheterization ? History ?Javon Lopez is a 68 year old man. He [...] procedure was Urgent. 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 Chest pain symptom [...] Procedure Note Dustin Kenyon MD - 02/09/[address] [facility] Cardiac Catheterization/Intervention Report Patient Name: Javon Lopez Procedure Date: 02/09/2024 A #: [id number] Primary Physician: Dustin Kenyon Case #: [id number] File Name: [id number] Catheterization Order Number: [id number] [facility] FinalReport [place], [place] Patient Name: Javon Lopez ID#:[id number] :1955 Procedure Date: February 09, 2024 Case #: [id number] Room: 6 Case Physician: Dustin Kenyon M.D. Start: 13:47 Fellow: Paulo Ramos M.D. Admission:02/09/2024 Procedures: * Coronary Angiography * Left Heart Catheterization History Jaovn Lopez is a 68 year old man. He has hypertension. Thepatient's smoking status is Never. Prior to the initiation of this procedure,the patient was designated as ASA Class II. The [facility] clinical frailtyscale is 3: Managing Well. Diagnostic [...] diagnostic procedure was Urgent. 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 Chest pain symptomassessment [...] POCT Glucose (02/09/2024 12:14 PM EDT) Pathologist [facility] Glucose, POC 104 65 - 199 mg/dL [facility] Comment: Supplemental ranges: <140 mg/dL before meals <180 mg/dL all other times of the day Blood 02/09/2024 12:1 4 PM EDT 02/09/2024 12:14 PM EDT Dustin Kenyon MD POINT OF CARE TEST O RDERABLES [facility] [place] [address] * (ABNORMAL) Hemogram (02/09/2024 11:15 AM EDT) [facility] White Blood Cell 5.8 4.0 - 9.5 x10(3)/mc L [facility] Red Blood Cell 3.93(L) 4.58 - 5.54 x10(6)/mc L [facility] Hemoglobin 12.9(L) 13.7 - 16.5 g/dL [facility] Hematocrit 38.7(L) 40.5 - 48.5 % [facility] Mean Cell Volume 98.5(H) 82.9 - 93.1 [facility] Mean Cell Hemoglobin 32.8(H) 27.5 - 32.1 pg [facility] Mean Cell Hemoglobin Concentration 33.3 32.0 - 35.7 g/dL [facility] Platelet 170 145 - 357 x10(3)/mc L [facility] RDW Standard Deviation 45.2(H) 36.0 - 45.0 [facility] RDW coefficient of variation 12.3 11.4 - 13.8 % [facility] Mean Platelet Volume 10.0 7.6 - 12.9 [facility] NRBC% auto 0.0 % [facility] NRBC Absolute 0.000 0.000 - 0.000 x10(3)/mc L [facility] Blood 02/09/2024 11:1 5 AM EDT 02/09/2024 11:53 AM EDT Narrative Resulting Agency Comment Spec In Lab Dustin Kenyon MD HEMATOLOGY ORDERABLE S [facility] [place] [address] * Differential, Automated (02/09/2024 11:15 AM EDT) Neutrophil % 57.3 % [facility] Neutrophil Absolute 3.33 1.70 - 6.10 x10(3)/[facility] Lymph % 29.4 % [facility] Lymphocytes Abs 1.7 0.9 - 3.2 x10(3)/[facility] Monocyte % 9.1 % [facility] Monocyte Abs 0.5 0.3 - 0.9 x10(3)/[facility] Eos % 3.1 % [facility] Eosinophils Abs 0.2 0.0 - 0.4 x10(3)/[facility] Basophil % 0.9 % [facility] Baso Absolute 0.0 0.0 - 0.1 x10(3)/[facility] Immature Gran % 0.20 % [facility] Comment: Immature granulocytes(IG's)percentage and absolute count will include metamyelocytes, myelocytes, and promyelocytes. Blood smears from CBCs yielding IG's will be scanned manually for concordance. If this scan disagrees with the automated IG or if promyelocytes are noted, a manual differential will be performed. Immature Gran Absolute 0.01 0.00 - 0.04 x10(3)/[facility] Blood 02/09/2024 11:1 5 AM EDT 02/09/2024 11:53 AM EDT Narrative Resulting Agency Comment Spec In Lab Dustin Kenyon MD HEMATOLOGY ORDERABLE S [facility] [place] [address] * (ABNORMAL) Basic Metabolic Panel (non-fasting) (02/09/2024 11:15 AM EDT) Glucose 101 65 - 199 mg/dL [facility] Comment:Diabetes: >=200 mg/d L plus symptoms Blood Urea Nitrogen 15 10 - 20 mg/dL [facility] Creatinine 0.71(L) 0.80 - 1.50 mg/dL [facility] Sodium 139 135 - 145 mmol/L [facility] Potassium 3.9 3.5 - 5.0 mmol/L [facility] Comment: Please note: ??Patients with WBC >100,000 may have falsely elevated Potassium levels. ??For accurate Potassium quantification in these patients send serum separator tube (gold top) for subsequent determinations. ??Contact the Clinical Chemistry Laboratory if there are any questions. Chloride 102 98 - 107 mmol/L [facility] Carbon Dioxide 27 22 - 31 mmol/L [facility] Anion Gap 10 5 - 15 mmol/L [facility] Calcium 9.3 8.5 - 10.5 mg/dL [facility] Est Glomerular Filtration Rate 99 >=60 mL/min/1. 73 m?? [facility] Comment: This patient's estimated GFR [...] In Lab Dustin Kenyon MD CHEMISTRY ORDERABLES [facility] [place] [address] * Lipid Panel (Reflex Direct LDL) (12/14/2023 8:12 AM EDT) [facility] Signature Cholesterol, Total 148 mg/dL [facility] Comment: Desirable: ? <200 mg/dL Borderline High: 200-239 mg/dL Higher: ?>jt=362 mg/dL Triglyceride 76 mg/dL [facility] Comment: Normal: ?<150 mg/dL Borderline High: 150-199 mg/dL High: ?200-499 mg/dL Very High: ? >uo=880 mg/dL HDL Cholesterol 53 mg/dL [facility] Comment: Females: High Risk: <50 mg/dL Males: High Risk: <40 mg/dL LDL Cholesterol 80 mg/dL [facility] Comment: Desirable: ? <100 mg/dL Above Desirable: 100-129 mg/dL Borderline High: 130-159 mg/dL High: ?160-189 mg/dL Very High: ? >en=974 mg/dL Lipid Interpretation See Note [facility] Comment: It is important to review the results of your lipid panel with your health care provider. You can compare your lipid results to the ranges below and whether they are in the desirable range. These ranges are only meant to be used for people without known cardiac disease, history of stroke, or peripheral vascular disease (blockages in the leg arteries or diabetes). If ??you have one of these conditions, your desirable LDL-C (bad cholesterol) will likely be even lower. ACC/AHA Guidelines (most recently Salomón schaefer al. [facility] 05/31/22): For individuals with atherosclerotic cardiovascular disease (ASCVD)or LDL >uw=308 mg/dL, use a high-intensity statin (40-80 mg atorvastatin or 20-40 mg rosuvastatin with goal >or=50% LDL reduction) For individuals with diabetes, age 40-75 without ASCVD, moderate-intensity statin (goal 30-49% LDL reduction); consider high intensity statin for those with increased risk. For adults without diabetes or ASCVD, aged 40-75 with LDL 70-189 mg/dL, estimate 10 year ASCVD risk with smartphrase .ASCVDRISK or Dynamed Decisions. If 10 year risk is 7.5%-19.9% (intermediate risk), consider moderate intensity statin based on risk enhancers and patient preference. Consider coronary artery calcium test (CT) if there is concern regarding the benefit of a statin. If ten year risk is >or=20%, initiate high-intensity statin. Evaluate for secondary causes of triglycerides >500 mg/dL or LDL >190 mg/dL. Lifestyle modification is a critical component of ASCVD risk reduction. If not reaching LDL goals on maximally tolerated statin, consider ezetimibe and/or a PCSK9 inhibitor: Target for primary prevention: LDL<100 Target for those with ASCVD or diabetes and 10-year risk >or=20%: LDL<70 Target for those with very high risk ASCVD: LDL<55 (Very high risk being the presence of 2 or more of: recent acute coronary syndrome, past myocardial infarction, ischemic stroke, symptomatic peripheral artery disease) Blood 12/14/2023 8:12 AM EDT 12/14/2023 8:15 AM EDT Narrative Resulting Agency Comment Spec In Lab Dustin Kenyon MD CHEMISTRY ORDERABLES [facility] [place] [address] * COLONOSCOPY (04/05/2021 4:07 PM EDT) COLONOSCOPY [facility] ___ Procedure Date: 04/05/2021 4:07 PM ? Patient Name: Javon Lopez ? Date of : 1955 ? Age: 65 ? Order #: [id number] ? Instrument Name: [id number] ? ___ Procedure: ? Colonoscopy Indications: ? Hematochezia, (history of hemorrhoids ? and hemorrhoidectomy in 2000); ? personal history of colon polyps Providers: ? Marilynn Mondragon MD, Donovan Lovelace, ? RN, Marlena Allen Referring MD: ?Michelle Cooper Medicines: ? Midazolam 5 mg IV, Fentanyl 150 ? micrograms IV Complications: ? No immediate complications. ___ Procedure: ? The procedure, indications, benefits, ? risks and alternatives were explained ? to the patient. Specifically ? discussed were potential ? complications including, but not ? limited to, bleeding, perforation, ? infection, missing a cancer, and ? adverse medication reactions. The ? patient was placed in the left ? lateral decubitus position, and a ? digital rectal exam was performed. ? The Colonoscope was inserted in the ? anus and under direct visualization, ? advanced to the cecum, identified by ? appendiceal orifice and ileocecal ? valve. Careful inspection was made as ? the colonoscope was withdrawn. The ? colonoscopy was performed without ? difficulty. The patient tolerated the ? procedure well. The quality of the ? bowel preparation was good. The ? quality of the bowel preparation was ? evaluated using the BBPS ([place] ? Bowel Preparation Scale) with scores ? of: Right Colon = 2 (minor amount of ? residual staining, small fragments of ? stool and/or opaque liquid, but ? mucosa seen well), Transverse Colon = ? 2 (minor amount of residual staining, ? small fragments of stool and/or ? opaque liquid, but mucosa seen well) ? and Left Colon = 2 (minor amount of ? residual staining, small fragments of ? stool and/or opaque liquid, but ? mucosa seen well). The total BBPS ? score equals 6. ? Findings: ? The perianal and digital rectal examinations were ? normal. ? Two sessile polyps were found in the ascending colon. ? The polyps were 3 to 4 mm in size. These polyps were ? removed with a cold snare. Resection and retrieval ? were complete. ? A 4 mm polyp was found in the transverse colon. The ? polyp was sessile. The polyp was removed with a cold ? snare. Resection and retrieval were complete. ? A single large-mouthed diverticulum was found in the ? ascending colon. ? Non-bleeding internal hemorrhoids were found during ? retroflexion. The hemorrhoids were moderate with ? likely prolapse. ? Moderate Sedation: ? Moderate (conscious) sedation was administered by the ? endoscopy nurse and supervised by the endoscopist. ? The following parameters were monitored: oxygen ? saturation, heart rate, blood pressure, and response ? to care. ? I was present during the intraservice time as ? documented by the sedation RN. Impression: ?- Two 3 to 4 mm polyps in the ? ascending colon, removed with a cold ? snare. Resected and retrieved. ? - One 4 mm polyp in the transverse ? colon, removed with a cold snare. ? Resected and retrieved. ? - Diverticulosis in the ascending ? colon. ? - Non-bleeding internal hemorrhoids. ? This is the cause of bleeding with ? bowel movements. Recommendation: ?- High fiber diet ? - Await pathology results. ? - Repeat colonoscopy for surveillance ? based on pathology results. ? - Return to referring physician for ? consideration of referral to GI ? clinic and colorectal surgery. ? Attending Participation: ? I personally performed the entire procedure. ? _ Marilynn Mondragon MD 04/05/2021 5:20:32 PM Number of Addenda: 0 Note Initiated On: 04/05/2021 4:07 PM PROVATION 04/05/2021 4:07 PM EDT Michelle Cooper APRN GENERAL SURGICAL ORD ERABLES PROVATION * US AAA Screening (12/21/2020 3:29 PM EDT) Anatomical Region Laterality Modality Chest, Abdomen Ultrasound 12/21/2020 3:09 PM EDT Impressions 12/21/2020 3:39 PM EDT 1. No aneurysmal dilation of the abdominal aorta. 2. Dense, calcified atherosclerotic plaque of the distal aorta. Thank you for letting us participate in the care of this patient. ??If you are a health care provider and have any questions regarding this report, please contact the number below. ??For patients who have questions please contact the health adult caregiver that requested your imaging first. ?Charli Frank, Staff Physician Electronically Signed Final Report ?? 12/21/2020 03:39 pm Narrative 12/21/2020 3:39 PM EDT Aorta ? (Signed Final 12/21/2020 03:39 pm) PATIENT INFO: ID #: ? [id number] ?: ??[birth year] (64 yrs)(M) Name: ? JAVON Ivonne JESSICA ? Visit Date: 12/21/2020 03:09 pm PERFORMED BY: Performed By: ? Sho MA, Bea Attending: ?Charli Frank MD Referred By: ?MICHELLE COOPER Location: ? [place] SERVICE(S) PROVIDED: UAORTA - AAA Screening - [id number] INDICATIONS: FORMER SMOKER; AAA SCREENING ------ AORTA: ------ Measurements (cm): Proximal ? AP: ?? 2.6 ?TV: ?? 2.3 Mid ?AP: ?? 2.4 ?TV: ?? 2.0 Distal ? AP: ?? 1.9 ?TV: ?? 2.0 Rt Iliac ? AP: ?? 1.4 ?TV: ?? 1.5 Lt Iliac ? AP: ?? 1.4 ?TV: ?? 1.5 Comment: ?No focal aneurysm. Limited visualzation of the ? proximal portion of the aorta due to overlying bowel ? gas. Diffuse plaque seen in the mid-distal portion ? of the aorta. Procedure Note Charli Frank MD - 12/21/2020 Aorta (Signed Final 12/21/2020 03:39 pm) PATIENT INFO: ID #: [id number] : [birth year] (64 yrs)(M) Name: JAVON LOPEZ Visit Date: 12/21/2020 03:09 pm PERFORMED BY: Performed By: Bea Berkowitz RDMS Attending: Charli Frank MD Referred By: MICHELLE COOPER Location: [place] SERVICE(S) PROVIDED: UAORTA - AAA Screening - [id number] INDICATIONS: FORMER SMOKER; AAA SCREENING ------ AORTA: ------ Measurements (cm): Proximal AP: 2.6 TV: 2.3 Mid AP: 2.4 TV: 2.0 Distal AP: 1.9 TV: 2.0 Rt Iliac AP: 1.4 TV: 1.5 Lt Iliac AP: 1.4 TV: 1.5 Comment: No focal aneurysm. Limited visualzation of the proximal portion of the aorta due to overlying bowel gas. Diffuse plaque seen in the mid-distal portion of the aorta. IMPRESSION 1. No aneurysmal dilation of the abdominal aorta. 2. Dense, calcified atherosclerotic plaque of the distal aorta. Thank you for letting us participate in the care of this patient. If you are a health care provider and have any questions regarding this report, please contact the number below. For patients who have questions please contact the health adult caregiver that requested your imaging first. Charli Frank, Staff Physician Electronically Signed Final Report 12/21/2020 03:39 pm Michelle De Santiago Allison SEARCH MANAGER IMG US GEN ORDERABLE S from Last 3 Months or Most Recently Relevant to Health Maintenance Advance Directives * Attempt Cardiopulmonary Resuscitation - Inpatient (Latest Code Status on File) Date Activated Date Inactivated Comments 02/09/2024 1:02 PM 02/09/2024 7:35 PM Question Answer Comments Code Status decision made by: Patient * Attempt Cardiopulmonary Resuscitation - Inpatient Date Activated Date Inactivated Comments 11/25/2020 3:08 PM 11/26/2020 3:35 PM Question Answer Comments Code Status decision made by: Patient Care Teams Account Executive [employer]usiness Relationship Specialty Start Date End Date Mercedes Miles MD [address] [place] [id number] PCP - General Family Medicine 07/24/23
--- OUTSIDE RECORDS SUMMARY | 2024-04-16 21:48 | XMS_ITS | Encounter Summary ---
Author Organization [facility] Address [address] [place] [address] Care Team Providers Care Solution Lead Name Role Phone Matty Mancilla MD Primary Care Provider Reason for Visit * Reason Onset Date Comments Medications Refill 03/18/2016 Encounter Details Date Type Department Care Team (Late st Contact Info) Description 03/18/2016 Telephone [facility] Family Medicine [address] [place] [address] Matty Mancilla MD [address] [place] [address] [address] [place] [address] Medications Refill Social History Tobacco Use Types Packs/Day [...] encounter Miscellaneous Notes * Telephone Encounter - Analisa Genao RN - 03/18/2016 7008 EDT Patient got upset, said he had spoken with Matty Mancilla MD about this already. Stated yeah, Idon't have any money to come in for a visit. Thanks, bye, and hung up the phone. * Telephone Encounter - Matty Mancilla - 03/18/2016 1533 EDT He needs at least some type of visit to review this. These are medications that need to be used cautiously and I am uncomfortable using these at the same time. Also would need an office visit before we could rx controlled medications Seen once and use of these meds came up along with many other issues at the visit. Mu understandingwas that he was not taking them at the time * Telephone Encounter - Karin Vargas - 03/18/2016 1330 EDT Pt is calling asking for valium (not sure of dose) and zolpidem 10 mg and pt takes 1/2 tablet - he discussed with Dr. Mancilla and pt feels he needs to have these two. Very stressful right now - pt has no health insurance any longer and he has a bill here and does not feel that he can schedule an appt right now. Pt uses [facility] in [place]. documented in this encounter Plan of Treatment Not on file documented as of this encounter Visit Diagnoses Not on filedocumented in this encounter Care Teams Solution Lead Relationship Specialty Start Date End Date Matty Mancilla MD [address] [place] [address] PCP - General 11/16/15 06/20/16 documented as of this encounter
--- OUTSIDE RECORDS SUMMARY | 2024-04-16 21:48 | XMS_ITS | Encounter Summary ---
Author Organization [facility] Address [address] [place] [id number] Care Team Providers Care Circuit Rider Name Role Phone Matty Mancilla MD Primary Care Provider Encounter Details Date Type Department Care Team (Late st Contact Info) Description 12/24/[address] [place] [address] Pasha Garcia RN Social History Tobacco Use Types Packs/Day Years Used Date Smoking Tobacco: Never Assessed Sex and Gender Information Value Date Recorded Sex Assigned at Not on file Gender Identity Not on file Sexual Orientation Not on file documented as of this encounter Plan of Treatment Not on file documented as of this encounter Procedures Procedure Name Priority Date/Time Associated Diagnosis Comments PROTEIN, TOTAL, RANDOM, URINE Routine 11/03/2015 COMPLETE BLOOD COUNT Routine 11/03/2015 TSH Routine 11/03/2015 PSA TOTAL, DIAGNOSTIC Routine 11/03/2015 HEMOGLOBIN A1C Routine 11/03/2015 LIPID PROFILE (INCLUDES CHOLESTEROL, TRIGLYCERIDES, HDL, LDL) Routine 11/03/2015 BASIC METABOLIC PANEL (BMP) Routine 11/03/2015 documented in this encounter Results * HEMAGRAM (11/03/2015) HCT, External 44 POINT OF CARE MCH, External 32.3 POINT OF CARE MCV, External 99 POINT OF CARE MCHC, External 32.6 POINT OF CARE Hemoglobin, External 14.3 POINT OF CARE WBC, External 4.8 POINT OF CARE RBC, External 4.42 POINT OF CARE PLT, External 207 POINT OF CARE RDW-CV, External POINT OF CARE Blood specimen (specimen) 11/03/2015 Historical Provider HEMATOLOGY & PF4 ORDERABLES POINT OF CARE * BASIC METABOLIC PANEL (11/03/2015) GFR, Calculated, External 97 POINT OF CARE Glucose, Serum, External 121 POINT OF CARE Calculated Calcium, External 8.6 POINT OF CARE BUN, External 17 POINT OF CARE Calcium, External POINT OF CARE Chloride, External 100 POINT OF CARE CO2, External 32 POINT OF CARE Creatinine, External 0.81 POINT OF CARE Fasting?, External POINT OF CARE Potassium, External 4.3 POINT OF CARE Sodium, External 138 POINT OF CARE Blood specimen (specimen) 11/03/2015 Historical Provider CHEMISTRY & BLOOD GAS ORDERABLES Performing Organization Address [facility] Co de Phone Number POINT OF CARE * PSA (11/03/2015) PSA 0.56 POINT OF CARE Blood specimen (specimen) 11/03/2015 Historical Provider CHEMISTRY & BLOOD GAS ORDERABLES Performing Organization Address City/[facility]/ZIP Co de Phone Number POINT OF CARE * TSH (11/03/2015) TSH, External 2.34 POINT OF CARE Blood specimen (specimen) 11/03/2015 Historical Provider CHEMISTRY & BLOOD GAS ORDERABLES Performing Organization Address [facility] Co de Phone Number POINT OF CARE * HEMOGLOBIN A1C (11/03/2015) Hemoglobin A1C, External 6.2 POINT OF CARE Est Avg Glucose, External 120 POINT OF CARE Blood specimen (specimen) 11/03/2015 Historical Provider CHEMISTRY & BLOOD GAS ORDERABLES Performing Organization Address City/[facility]/ZIP Co de Phone Number POINT OF CARE * TOTAL PROTEIN, URINE RANDOM (11/03/2015) Tot Prot,Ur Random, External 7.9 POINT OF CARE Total Protein, 24 Hour Calc, External POINT OF CARE Urine specimen (specimen) 11/03/2015 Historical Provider URINALYSIS ORDERA BLES Performing Organization Address City/[facility] Co de Phone Number POINT OF CARE * LIPID PROFILE (INCLUDES CHOLESTEROL, TRIGLYCERIDES, HDL, LDL) (11/03/2015) Cholesterol, External 231 POINT OF CARE Triglycerides, External 111 POINT OF CARE HDL, External 58 POINT OF CARE LDL, External 151 POINT OF CARE Chol/HDL Ratio, External 40 POINT OF CARE Fasting?, External POINT OF CARE Blood specimen (specimen) 11/03/2015 Historical Provider CHEMISTRY & BLOOD GAS ORDERABLES Performing Organization Address [facility] Co de Phone Number POINT OF CARE documented in this encounter Visit Diagnoses Not on filedocumented in this encounter Care Teams Circuit Rider Relationship Specialty Start Date End Date Matty Mancilla MD [address] [place] [address] PCP - General 11/16/15 06/20/16 documented as of this encounter
--- OUTSIDE RECORDS SUMMARY | 2024-04-16 21:48 | XMS_ITS | Encounter Summary ---
Author Organization [facility] Address [address] [place] [address] Care Team Providers Care Quality Control Tester Name Role Phone Avery Finnegan MD Primary Care Provider [phone] Encounter Details Date Type Department Care Team (Late st Contact Info) Description 12/09/2020 Lab Requisition [facility] Pathology & Laboratory Medicine - [address] [address] Outr Resulting Lab, Provider Social History Tobacco [...] (hypertension) 126/74(2015 14:57 EDT) No Pasha Garcia, JAYDEN LDLEXT < 160 Result Component Hyperlipidemia 151( 6 0:00 EST) No Pasha Garcia, JAYDEN documented as of this encounter Procedures Procedure Name Priority Date/Time Associated Diagnosis Comments HIV 1/2 ANTIGEN AND ANTIBODY, 4TH GENERATION Routine 12/08/2020 16:45 EDT documented in this encounter Results * HIV 1/2 ANTIGEN AND ANTIBODY, 4TH GENERATION (12/08/2020 16:45 EDT) HIV 1 and 2 Antibody/p24 Antigen, 4th Generation Negative Negative 12/10/2020 9:48 EDT [facility] Comment: If acute HIV-1 infection is suspected in a high risk ??patient, submit plasma specimen for HIV-1 RNA quantitation test. Fourth Generation assay performed on the [employer]. Blood VENOUS BLOOD / Unknown 12/08/2020 16:45 EDT 12/09/2020 16:14 EDT Provider Outr Resulting Lab IMMUNOLOGY A ND SEROLOGY ORDERABLES [facility] [address] [place] [address] documented in this encounter Visit Diagnoses Not on filedocumented in this encounter Care Teams Quality Control Tester Relationship Specialty Start Date End Date Avery Finnegan MD PCP - General 06/23/16 documented as of this encounter
--- OUTSIDE RECORDS SUMMARY | 2024-04-16 21:48 | XMS_ITS | Encounter Summary ---
Author Organization [facility] Address [address] [place] [address] Care Team Providers Care Windows Server Engineer Name Role Phone Avery Finnegan MD Primary Care Provider [phone] Encounter Details Date Type Department Care Team (Late st Contact Info) Description 07/15/2021 Lab Requisition [facility] Pathology & Laboratory Medicine - [address] [address] Outr Resulting Lab, Provider Social History Tobacco [...] Priority Date/Time Associated Diagnosis Comments FOLATE Routine 07/13/2021 15:40 EST VITAMIN B12 Routine 07/13/2021 15:40 EST documented in this encounter Results * FOLATE (07/13/2021 15:40 EST) Folate 13.2 See Note ng/mL 07/15/2021 22:32 EST [facility] Comment: Reference Ranges for Folate: Deficient: ?< 3.4 ng/mL Indeterminate: ??3.4 - 5.4 ng/mL Normal: ? > 5.4 ng/mL The results of this assay can be falsely elevated due to the consumption of Biotin. Blood VENOUS BLOOD / Unknown 07/13/2021 15:40 EST 07/15/2021 21:06 EST Provider Outr Resulting Lab CHEMISTRY & BLOOD GAS ORDERABLES Performing Organization Address City/[facility] Co de Phone Number [facility] [address] [place] [address] * VITAMIN B12 (07/13/2021 15:40 EST) Vitamin B12 441 211 - 911 pg/mL 07/15/2021 22:33 EST [facility] Blood VENOUS BLOOD / Unknown 07/13/2021 15:40 EST 07/15/2021 21:06 EST Provider Outr Resulting Lab CHEMISTRY & BLOOD GAS ORDERABLES Performing Organization Address City/[facility] Co de Phone Number [facility] [address] [place] [address] documented in this encounter Visit Diagnoses Not on filedocumented in this encounter Care Teams Windows Server Engineer Relationship Specialty Start Date End Date Avery Finnegan MD PCP - General 06/23/16 documented as of this encounter
--- OUTSIDE RECORDS SUMMARY | 2024-04-16 21:48 | XMS_ITS | Encounter Summary ---
Author Organization [facility] Address [address] [place] [address] Care Team Providers Care Welder Plasma Arc Name Role Phone Unavailable Primary Care Provider Unavailabl e Encounter Details Date Type Department Care Team (Late st Contact Info) Description 03/13/2001 12:21 EDT Hospital Encounter [facility] - Other [address] [place] [id number] Tash Muñoz MD [address] [place] [address] [address] [place] [address] Unknown, ProviderMD Social History Tobacco Use Types Packs/Day Years [...] Garcia RN documented as of this encounter Procedures Procedure Name Priority Date/Time Associated Diagnosis Comments SURGICAL PATHOLOGY Routine 03/13/2001 0:00 EDT documented in this encounter Results * SURGICAL PATHOLOGY (03/13/2001 0:00 EDT) Pathology Report: SURGICAL PATHOLOGY REPORT Reports generated via electronic interface contain original data; however they are lacking the format of the original report. Caution should be taken when reading/interpretin g unformatted reports. Name: ? JAVON LOPEZ ? Accession #: ? [id number] ? : ? 1955 (Age: 45) ??M ? Collect Date: ? 03/13/2001 ? Location: ? [facility] ? Receive Date: ? 03/15/2001 ? Provider: TASH MUÑOZ MD Copy to: TYRONE ZHU MD ? Final Pathologic Diagnosis: ? Anus, hemorrhoidectomy: - Anal mucosa with prominent dilated vasculature and thrombosis consistent with hemorrhoid. Document reviewed and electronically signed by: NATHANIEL JETER MD Report ??Date: 03/19/2001 16:51 By the signature above, the attending physician certifies that he/she has personally conducted a gross and/or microscopic examination of the described specimens and rendered or confirmed the above diagnosis. Specimen(s) Received: ? Hemorrhoids Clinical History: ? Symptomatic anal fissures, symptomatic hemorrhoids; lateral internal Sphincterectomy, hemorrhoidectomy Gross Description: ? Received in formalin labelled Lexi are two, irregular, tucker-white, hyperemic soft tissue measuring 1.6 x 1.5 x 1.2 cm, and 2.6 x 2.6 x 0.8 cm. These two fragments of soft tissue are partially covered by tucker-white mucosa while the remaining portion appears hemorrhagic. ??Serial sectioning reveals spongy cut surfaces filled with clotted blood. Human Performance Consultant sections are submitted as (A1) and (A2). ??(Dr. Mai)/psychiatric End of Report [facility] 03/13/2001 03/15/2001 11: 59 EDT Tash Muñoz MD PATHOLOGY ORDERABLES [facility] [address] [place] [address] documented in this encounter Visit Diagnoses Not on filedocumented in this encounter
--- OUTSIDE RECORDS SUMMARY | 2024-04-16 21:48 | XMS_ITS ---
Author Organization Unknown Address [address] [place] [phone] Phone Care Team Providers Care Supervisor Brine Name Role Phone VERONICA WILEY MD Attending Unavailable Results [facility] - Colle ct Date/Time: 04/05/2021 11:11 [facility] ID: [id number] - [id number] [address] [place], [place], [address] LOINC: 66188-7 Test Value Unit Reference Range Code Code System Flag SOURCE= Anterior nasal Tier- EXPOSURE SARS COV2 RNA: NEGATIVE REFERENCE RAN GE: NEGAT 52858-8 LOINC Social History Type Status Start Date End Date Code Code Syst em Smoking History Former smoker [id number] SNOMED CT Sex Male Hospital Discharge Instructions [...] Code Code Sys tem Exposure to SARS-CoV-2 04/05/2021 245444934 SNOME D-CT Personal Care Team Section Performer Name Performer Role Active Date Inactive Da te
--- OUTSIDE RECORDS SUMMARY | 2024-04-16 21:48 | XMS_ITS | Referral Summary ---
Author Organization [facility] Address [address] [place] [address] Care Team Providers Care Orthopedic Technician Name Role Phone Avery Finnegan MD Primary Care Provider [phone] Allergies Active Allergy Reactions Criticality Noted Date [...] Next Due Tdap Vaccine =>7YO IM 02/05/2008 Social History Tobacco Use Types Packs/Day Years [...] 38.73 01/22/2016 1457 EDT Plan of Treatment Not on file Goals Goal Patient Goal Type Associated Problems Recent Progress Patient-Stated? Author Blood Pressure < 140/90 Blood Pressure HTN (hypertension) 126/74(2015 14:57 EDT) No Pasha Garcia, JAYDEN LDLEXT < 160 Result Component Hyperlipidemia 151( 6 0:00 EST) No Pasha Garcia, intelligence senior sergeant Procedure Name Priority Date/Time Associated Diagnosis Comments HEPATITIS C AB W REFLEX TO HCV RNA BY PCR Routine 12/08/2020 16:45 EDT from Last 3 Months or Most Recently Relevant to Health Maintenance Results * HEPATITIS C AB W REFLEX TO HCV RNA BY PCR (12/08/2020 16:45 EDT) Hep C Antibody Negative Negative 12/10/2020 10:08 EDT [facility] Blood VENOUS BLOOD / Unknown 12/08/2020 16:45 EDT 12/09/2020 16:13 EDT Provider Outr Resulting Lab CHEMISTRY & BLOOD GAS ORDERABLES [facility] [address] [place] [address] from Last 3 Months or Most Recently Relevant to Health Maintenance Care Teams Orthopedic Technician Relationship Specialty Start Date End Date Avery Finnegan MD PCP - General 06/23/16
--- OUTSIDE RECORDS SUMMARY | 2024-04-16 21:48 | XMS_ITS | Encounter Summary ---
Author Organization [facility] Address [address] [place] [address] Care Team Providers Care Supervisory Examiner Name Role Phone Tyron Wilcox MD Primary Care Provider [phone] Reason for Visit * Reason Comments Act 1 Clearance Encounter Details Date Type Department Care Team (Late st Contact Info) Description 06/26/2011 15:25 EDT - 06/26/2011 16:46 EDT Emergency [facility] Emergency Department - [facility] [address] [place] [address] Laura Riggs, [place] [address] [facility] [address] [place], [place] [address] Emergency, MD Juliann Alcohol abuse Discharge Disposition: Home or Self Care Social History Tobacco Use Types Packs/Day Years Used Date Smoking Tobacco: Never Assessed Sex and Gender Information Value Date Recorded Sex Assigned at Not on file Gender Identity Not on file Sexual Orientation Not on file documented as of this encounter Last Filed Vital Signs Vital Sign Reading Time Taken Comments Blood Pressure 136/85 06/26/2011 1527 EDT Pulse 84 06/26/2011 1527 EDT Temperature 36.8 ??C (98.2 ??F) 06/26/2011 1527 EDT Respiratory Rate 16 06/26/2011 1527 EDT Oxygen Saturation 100% 06/26/2011 1527 EDT Inhaled Oxygen Concentration - - Weight - - Height - - Body Mass Index - - documented in this encounter Discharge Instructions * Attachments The following attachments cannot be sent through Care Everywhere. * ALCOHOL DETOXIFICATION AND WITHDRAWAL: AFTER YOUR VISIT (WOLOF) documented in this encounter Medications at Time of Discharge Medication Sig Dispensed Refills Start Date End Date aspirin 81 mg EC tablet Take 1 Tab by mouth daily. 30 Tab 0 06/26/2011 aspirin chewable 81 mg tablet Take 81 mg by mouth daily. 01/22/2016 diazepam (VALIUM) 10 mg tablet Take 10 mg by mouth every 12 hours as needed. 01/23/2016 DIAZepam (VALIUM) 5 mg tablet Take 1 Tab by mouth every 6 hours as needed for Anxiety (every 4-6 hours per CIWA scale). 10 Tab 0 06/26/2011 01/23/2016 lisinopril (PRINIVIL, ZESTRIL) 20 mg tablet Take 20 mg by mouth daily. 01/22/2016 lisinopril (PRINIVIL, ZESTRIL) 20 mg tablet Take 1 Tab by mouth daily. 30 Tab 0 06/26/2011 01/22/2016 zolpidem (AMBIEN) 10 mg tablet Take 10 mg by mouth at bedtime as needed. 01/23/2016 documented as of this encounter Ordered Prescriptions Prescription Sig Dispensed Refills Start Date End Da te aspirin 81 mg EC tablet Take 1 Tab by mouth daily. 30 Tab 0 06/26/2011 lisinopril (PRINIVIL, ZESTRIL) 20 mg tablet Take 1 Tab by mouth daily. 30 Tab 0 06/26/2011 01/22/2016 DIAZepam (VALIUM) 5 mg tablet Take 1 Tab by mouth every 6 hours as needed for Anxiety (every 4-6 hours per CIWA scale). 10 Tab 0 06/26/2011 01/23/2016 documented in this encounter Discharge Disposition Disposition Code Departure Means Destination Home or Self Care Car Home documented in this encounter ED Notes * Laura Riggs - 06/26/2011 2240 EDT DOS: 06/26/2011 Chief Complaint Patient presents with ??? Act 1 Clearance The patient is a 55 y.o. male who presents today with Act 1 Clearance HPI Comments: Patient with h/o chronic alcohol intake ready to go to [facility]. No h/o seizures. Patient drinks daily- usually 4 Foster Lagers a day. Has had one today. Usually takes Zestril 20 mg, baby asa, valium as needed. [facility] took his meds because they were in a pill box so patient needs further medications. Thinks his cholesterol may be a little high. Non-smoker. Family h/o CAD- in their 70s/80s. The history is provided by the patient. Act 1 Clearance Primary symptoms include somnolence. Primary symptoms include no confusion, no loss of consciousness, no seizures, no agitation, no delusions, no hallucinations, no violence and no intoxication. Thisis a chronic problem. The current episode started 6 to 12 hours ago. The problem has not changed since onset.Suspected agents include alcohol. Pertinent negatives include no nausea and no vomiting. Associated medical issues do not include addiction treatment or withdrawal syndrome. Review of Systems Constitutional: Negative. Respiratory: Negative. Cardiovascular: Negative. Gastrointestinal: Negative for nausea and vomiting. Neurological: Negative. Negative for seizures and loss of consciousness. Psychiatric/Behavioral: Negative for hallucinations, confusion and agitation. Past Medical History Diagnosis Date ??? Palpitations occasional; negative stress test ??? Borderline hypertension ??? Depression Past Surgical History Procedure Date ??? Hernia repair 2001 ??? Hemorrhoid surgery 2001 ??? Fracture surgery 1979 femur Allergies Allergen Reactions ??? Sulfa (Sulfonamide Antibiotics) History Substance Use Topics ??? Smoking status: Not on file ??? Smokeless tobacco: Not on file ??? Alcohol Use: Not on file Family History Problem Relation Age of Onset ??? Heart Disease Mother ??? * Other sleep apnea- grandmother Vital Signs Temp: 36.8 ??C (98.2 ??F) Temp src: Tympanic Pulse: 84 Resp: 16 SpO2: 100 % BP: 136/85 mmHg BP Device: BP Machine Patient Position: Sitting BP Cuff Location: Left arm O2 Device: None (Room air) Physical Exam Constitutional: He appears well-developed and well-nourished. Neck: Normal range of motion. Cardiovascular: Normal rate and regular rhythm. Pulmonary/Chest: Effort normal. Neurological: Reviewed CIWA scale: less than 8. No tremors Radiology orders: None Procedures ED Course: A medical screening exam was performed and history obtained. Patient is ready for [facility]. No current symptoms of withdrawal. Patient prescribed Diazepam starter kit and #10 for CIWA protocol through[facility]. Also prescribed Zestril 20 mg and aspirin 81 mg to continue during [facility]. Disposition: Discharged The patient's pain was managed to an adequate level weighing risk vs. benefit of further medications. Upon departure from the Emergency Department, the patient's pain was 0 on a zero to ten scale. Condition at departure from the Emergency Department: Stable Discharge Prescriptions New Prescriptions ASPIRIN 81 MG EC TABLET Take 1 Tab by mouth daily. DIAZEPAM (VALIUM) 5 MG TABLET Take 1 Tab by mouth every 6 hours as needed for Anxiety (every 4-6 hours per CIWA scale). LISINOPRIL (PRINIVIL, ZESTRIL) 20 MG TABLET Take 1 Tab by mouth daily. MDM Number of Diagnoses or Management Options Alcohol abuse: Diagnosis management comments: 3 1. Alcohol abuse PCP: Tyron Wilcox MD 06/26/2011 22:47 * Julia Gonzales - 06/26/2011 1535 EDT TCALL: TOMAS LOPEZ [birth year] [facility] REFERS PT TO ED FOR EVAL. CC: ETOH DETOX (GMD) * Toro Jack RN - 06/26/2011 1526 EDT Pt here with brother. Has [facility] bed, needs clearance. A&O. Skin warm & dry. Respirations unlabored. NAD. documented in this encounter Miscellaneous Notes * Scanned Note-Null - Quality Control Microbiology Supervisor, Scan - 06/30/2011 0750 EDT documented in this encounter Plan of Treatment Not on file documented as of this encounter Visit Diagnoses Diagnosis Alcohol abuse Alcohol abuse, unspecified documented in this encounter Administered Medications Inactive Administered Medications - up to 3 most recent administrations Medication Order MAR Action Action Date Dose Rate Site DIAZepam 5 mg Tab STARTER PACK 1 Package, oral, NOW X1, 1 dose, On 06/26/11 at 1700, STAT Given 06/26/2011 16:45 EDT 1 Package documented in this encounter Historical Medications * This list may reflect changes made after this encounter. Medication Sig Dispensed Refills Start Date End Date diazepam (VALIUM) 10 mg tablet Take 10 mg by mouth every 12 hours as needed. 01/23/2016 zolpidem (AMBIEN) 10 mg tablet Take 10 mg by mouth at bedtime as needed. 01/23/2016 aspirin chewable 81 mg tablet Take 81 mg by mouth daily. 01/22/2016 lisinopril (PRINIVIL, ZESTRIL) 20 mg tablet Take 20 mg by mouth daily. 01/22/2016 added in this encounter Active and Recently Administered Medications Times are shown in EDT. Scheduled Medication Order 06/24/2011 06/25/2011 06/26/2011 DIAZepam 5 mg Tab STARTER PACK (COMPLETED) 1 Package, oral, NOW X1, 1 dose, On 06/26/11 at 1700, STAT 1645 (Given - Provid er: Milo Beck) documented in this encounter Care Teams Supervisory Examiner Relationship Specialty Start Date End Date Tyron Wilcox MD [address] [place] [id number] PCP - General 06/26/11 11/15/15 documented as of this encounter
--- OUTSIDE RECORDS SUMMARY | 2024-04-16 21:48 | XMS_ITS | Encounter Summary ---
[place] [address] Care Team Providers Care Wood Barker Name Role Phone Mercedes Miles MD Primary Care Provider [phone] Reason for Visit * Reason Onset Date Comments Advice Only 02/22/2024 PDE5 Inhibitor Encounter Details Date Type Department Care Team (Late st Contact Info) Description 02/22/2024 Telephone Cardiology at [address] [phone] Alba Nicolas fiber optics technician Only (PDE5 Inhibitor) Social History Tobacco Use Types Packs/Day Years Used Date Smoking Tobacco: Former Cigarettes Q uit: 1979 Smokeless Tobacco: Former Quit: 1979 Alcohol Use Standard Drinks/Week Comments Not Currently 0 (1 standard drink = 0.6 oz pur e alcohol) [facility] Inpatient Questions Answer Date Recorded [...] encounter Miscellaneous Notes * Telephone Encounter - Alba Nicolas RN - 02/22/2024 1:17 PM EDT I spoke with Nurse Howell and relayed Dr. Kenyon's message. -Alba Nicolas RN * Telephone Encounter - Alba Nicolas RN - 02/22/2024 10:56 AM EDT Nurse Lynda from Tomas's primary care office called. His PCP would like to confirm with cardiology if it's safe for him to take Viagra. -Alba Nicolas RN documented in this encounter Plan of Treatment Not on file documented as of this encounter Visit Diagnoses Not on filedocumented in this encounter Care Teams Wood Barker Relationship Specialty Start Date End Date Mercedes Miles MD [address] [place] [address] PCP - General Family Medicine 07/24/23 documented as of this encounter
--- OUTSIDE RECORDS SUMMARY | 2024-04-16 21:48 | XMS_ITS | Encounter Summary ---
Author Organization [facility] Address [facility] [place] [address] Care Team Providers Care Vp Production Name Role Phone Mercedes Miles MD Primary Care Provider [phone] Encounter Details Date Type Department Care Team (Late st Contact Info) Description 01/18/2024 Orders Only Cardiology at [address] [phone] [facility] [place] [address] Chest pain, exertional Social History Tobacco Use [...] on file documented as of this encounter Results * (ABNORMAL) Basic Metabolic Panel (non-fasting) (02/09/2024 11:15 AM EDT) Glucose 101 65 - 199 mg/dL [facility] Comment:Diabetes: >=200 mg/d L plus symptoms Blood Urea Nitrogen 15 10 - 20 mg/dL [facility] Creatinine 0.71(L) 0.80 - 1.50 mg/dL [facility] Sodium 139 135 - 145 mmol/L [facility] Potassium 3.9 3.5 - 5.0 mmol/L [facility] Comment: Please note: ??Patients with WBC >100,000 may have falsely elevated Potassium levels. ??For accurate Potassium quantification in these patients send serum separator tube (gold top) for subsequent determinations. ??Contact the Clinical Chemistry Laboratory if there are any questions. Chloride 102 98 - 107 mmol/L [facility] Carbon Dioxide 27 22 - 31 mmol/L [facility] Anion Gap 10 5 - 15 mmol/L [facility] Calcium 9.3 8.5 - 10.5 mg/dL [facility] Est Glomerular Filtration Rate 99 >=60 mL/min/1. 73 m?? [facility] Comment: This patient's estimated GFR was [...] In Lab Dustin Kenyon MD CHEMISTRY ORDERABLES Performing Organization Address City/State/[facility] Co de Phone Number [facility] [place] [address] documented in this encounter Visit Diagnoses Diagnosis Chest pain, exertional Chest pain, unspecified documented in this encounter Care Teams Vp Production Relationship Specialty Start Date End Date Mercedes Miles MD [address] [place] [address] PCP - General Family Medicine 07/24/23 documented as of this encounter
--- OUTSIDE RECORDS SUMMARY | 2024-04-16 21:49 | XMS_ITS | Encounter Summary ---
Author Organization [facility] Address [facility] sandra [place] [id number] Care Team Providers Care Gelatin Dynamite Packing Operator Name Role Phone Michelle Cooper APRN Primary Care Provider [phone] Reason for Referral * Consultation (Routine) - Closed Specialty Diagnoses / Procedures Referred By Contac t Referred To Contact Cardiology Diagnoses Exertional chest pain ONGOING EXERTIONAL CP ASSOCIATED W/SOB AND LE EDEMA. PMH SIGNIFICANT FOR HTN, HYPERLIPIDEMIA, PREDM, OBESITY, PILAR, COPD, ANEMIA. NM STRESS TEST 09/2020 NEG FOR ISCHEMIA W/NORMAL LV FUNCTION STARTED ON SPIRIVA, SX UNCHANGED. LAST SEEN 04/22/22-Michelle Akhtar APRN [address] [place] [address] [facility] [place] [address] Referral ID Status Reason Start Date Expiration Date V isits Requested Visits Authorized [id number] Closed Consult, Test & Treat 07/10/2023 07/09/2024 1 1 Encounter Details Date Type Department Care Team (Latest Contact Info) Description 07/10/2023 Transcribe Orders eDH Incoming Referrals [phone] Michelle Cooper APRN [address] [place], [place] [id number] Exertional chest pain Social History Tobacco Use Types Packs/Day Years [...] as of this encounter Plan of Treatment Scheduled Referrals Name Type Priority Associated Diagnoses Order Schedule Referral to Cardiology Outpatient Referral Routine Exertional chest pain Ordered: 07/10/2023 documented as of this encounter Visit Diagnoses Diagnosis Exertional chest pain Chest pain, unspecified documented in this encounter Care Teams Gelatin Dynamite Packing Operator Relationship Specialty Start Date End Date Michelle Cooper APRN [address] [place] [address] PCP - General Family Medicine 09/25/20 07/23/23 documented as of this encounter
--- OUTSIDE RECORDS SUMMARY | 2024-04-16 21:49 | XMS_ITS | Encounter Summary ---
[place] [address] Care Team Providers Care Foreign Service Teacher Name Role Phone Mercedes Miles MD Primary Care Provider [phone] Reason for Visit * Reason Onset Date Comments Medication Refill 10/10/2023 Rosuvastatin Encounter Details Date Type Department Care Team (Late st Contact Info) Description 10/10/2023 Telephone Cardiology at [address] [phone] Alba Nicolas RN Medication Refill (Rosuvastatin) Social History Tobacco Use Types Packs/Day Years [...] Telephone Encounter - Alba Nicolas RN - 10/11/2023 1:20 PM EST Patient states he would like the rosuvastatin refilled. Poor telephone connection. -Alba Nicolas RN * Telephone Encounter - Alba Nicolas RN - 10/10/2023 1:34 PM EST Tomas called, requesting a medication refill be sent to [facility]. He did not state which medication he needs refilled. Called back and left vm with callback number, requesting he also please state the name of the medication. -Alba Nicolas RN documented in this encounter Plan of Treatment Not on file documented as of this encounter Visit Diagnoses Not on filedocumented in this encounter Care Teams Foreign Service Teacher Relationship Specialty Start Date End Date Mercedes Miles MD [address] [place] [id number] PCP - General Family Medicine 07/24/23 documented as of this encounter
--- OUTSIDE RECORDS SUMMARY | 2024-04-16 21:49 | XMS_ITS | Encounter Summary ---
[place] [address] Care Team Providers Care Chart Writer Name Role Phone Mercedes Miles MD Primary Care Provider [phone] Encounter Details Date Type Department Care Team (Latest Contact Info) Description 09/28/2023 Travel Social History Tobacco Use Types Packs/Day [...] on filedocumented in this encounter Care Teams Chart Writer Relationship Specialty Start Date End Date Mercedes Miles MD [address] [place] [id number] PCP - General Family Medicine 07/24/23 documented as of this encounter
--- OUTSIDE RECORDS SUMMARY | 2024-04-16 21:49 | XMS_ITS | Encounter Summary ---
Author Organization [place] [address] Care Team Providers Care Payroll Clerk Name Role Phone Michelle Cooper APRN Primary Care Provider Encounter Details Date Type Department Care Team (Late st Contact Info) Description 01/14/2021 [place] [phone] Mona Bear Social History Tobacco Use Types Packs/Day Years [...] as of this encounter Progress Notes * Mona Bear - 01/14/2021 2:55 PM EDT I faxed the patient's pharmacy receipt for his Spiriva Respimat to [facility]. This is so that the programmay see his out of pocket expense and appeal his previous denial. documented in this encounter Plan of Treatment Not on file documented as of this encounter Visit Diagnoses Not on filedocumented in this encounter Care Teams Payroll Clerk Relationship Specialty Start Date End Date Michelle Cooper APRN [address] [place] [address] PCP - General Family Medicine 09/25/20 07/23/23 documented as of this encounter
--- OUTSIDE RECORDS SUMMARY | 2024-04-16 21:49 | XMS_ITS | Encounter Summary ---
Author Organization [facility] Address [facility] [address] Care Team Providers Care Electrical Maintenance Technician Name Role Phone Michelle Cooper APRN Primary Care Provider [phone] Reason for Visit * Reason Comments Follow-up Encounter Details Date Type Department Care Team (Late st Contact Info) Description 07/19/2021 9:15 AM EST Office Visit [place] [address] Taj Mccullough MD [facility] [place] [address] History of thymectomy Social History Tobacco Use Types Packs/Day Years [...] Sign Reading Time Taken Comments Blood Pressure 128/78 07/19/2021 9:00 AM EST Pulse 56 07/19/2021 9:00 AM EST Temperature 35.9 ??C (96.6 ??F) 07/19/2021 9:00 AM ES T Respiratory Rate 17 07/19/2021 9:00 AM EST Oxygen Saturation 97% 07/19/2021 9:00 AM EST Inhaled Oxygen Concentration - - Weight 114.3 kg (252 lb) 07/19/2021 9:00 AM EST Height 176.5 cm (5' 9.49) 07/19/2021 9:00 AM ES T Body Mass Index 36.69 07/19/2021 9:00 AM EST documented in this encounter Progress Notes * Taj Mccullough MD - 07/19/2021 9:15 AM EST Thoracic surgery follow-up visit Chief complaint: Follow-up robotic thymectomy History of present illness: Mr. Elliott is a 65-year-old man initially referred to me for an anterior mediastinal mass. He underwent thoracoscopic robotic assisted thymectomy on November 25, 2020. 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 His recovery was otherwise uneventful and I last saw him on December 21 for a scheduled postoperative visit. At that time I recommended a 6-month follow-up CT scan due to the unusual nature of this benign tumor, and he comes in today having completed this study. He notes mild numbness associated with his incision sites but is otherwise happy with his progress. He does complain of persistent acid reflux which was present prior to surgery. Current Outpatient Medications on File Prior to Visit Medication Sig Dispense Refill ??? diazePAM (Valium) 5 mg Tablet ??? oxyCODONE (Roxicodone) 5 mg Tablet Take 1 tablet by mouth every 12 hours. 10 tablet 0 ??? acetaminophen (Tylenol) 500 mg Tablet Take 2 tablets by mouth every 6 hours. 30 tablet 1 ??? oxyCODONE (Roxicodone) 5 mg Tablet Take 1 tablet by mouth every 4 hours as needed for Pain (Forpain not controlled by Tylenol and Ibuprofen). 10 tablet 0 ??? senna (Senokot) 8.6 mg Tablet Take 1 tablet by mouth every evening. 10 tablet 0 ??? multivitamin (THERAGRAN) Tablet Take 1 tablet by mouth daily. ??? b complex vitamins Capsule Take 1 capsule by mouth daily. ??? doxepin (Sinequan) 10 mg Capsule Take 10 mg by mouth nightly as needed. ??? cholecalciferol, Vitamin D3, (cholecalciferol, Vitamin D3,) 50 mcg (2,000 unit) Capsule Take bymouth daily. ??? omeprazole (PriLOSEC) 20 mg Capsule, Delayed Release(E.C.) Take 20 mg by mouth daily. ??? albuteroL 90 mcg/actuation HFA Aerosol Inhaler Inhale 3 puffs into the lungs every 4 hours as needed. ??? lisinopriL-hydrochlorothiazide (PRINZIDE;ZESTORETIC) 20-25 mg Tablet Take 1 tablet by mouth Daily. Current Facility-Administered Medications on File Prior to Visit Medication Dose Route Frequency Provider Last Rate Last Admin ??? [COMPLETED] iohexoL (Omnipaque) (350 mg/mL) solution 0-200 mL 0-200 mL Intravenous Once PRN Brian Wong MD 60 mL at 07/19/21 0815 ??? oxyCODONE (Roxicodone) tablet 5 mg 5 mg Oral Q12H PRN Jostin Rosales PA BP 128/78 (Patient Position: Sitting) Pulse 56 Temp 35.9 ??C (96.6 ??F) (Temporal) Resp 17 Ht 176.5 cm (5' 9.49) Wt 114.3 kg (252 lb) SpO2 97% BMI 36.69 kg/m?? Physical exam: He appears well. His breathing is not labored. His lungs are clear. His heart is regular. His abdomen is nontender and nondistended. Imaging: I reviewed with the patient his contrast chest CT dated July 19. This demonstrates complete removal of the anterior mediastinal contents without any evidence of recurrent disease. The excursion of the diaphragms is symmetric. His small hiatal hernia is stable. Assessment: 65-year-old man with a resected thymolipoma. 6-month follow-up chest CT demonstrates noevidence of residual or recurrent anterior mediastinal mass, and I advised him that this was a benign tumor with minimal resection potential. I advised him that his reflux symptoms would potentially improve with lifestyle modification and weight loss. He will return to see me as needed. Plan: Return to thoracic surgery clinic as needed only TAJ MCCULLOUGH MD documented in this encounter Plan of Treatment Not on file documented as of this encounter Visit Diagnoses Diagnosis History of thymectomy documented in this encounter Care Teams Electrical Maintenance Technician Relationship Specialty Start Date End Date Michelle Cooper APRN [address] [place] [address] PCP - General Family Medicine 09/25/20 07/23/23 documented as of this encounter
--- OUTSIDE RECORDS SUMMARY | 2024-04-16 21:49 | XMS_ITS | Encounter Summary ---
[place] [address] Care Team Providers Care Leakage Tester Name Role Phone Michelle Cooper APRN Primary Care Provider [phone] Encounter Details Date Type Department Care Team (Late st Contact Info) Description 03/25/2021 Telephone [place] [phone] Alba Carvajal Social History Tobacco Use Types Packs/Day Years [...] Miscellaneous Notes * Telephone Encounter - Alba Carvajal - 03/25/2021 9:13 AM EDT Tomas Elliott [id number] Diagnosis/Indication: rectal bleeding 1. Have you ever had a/an Colonoscopy before? Yes: Date 4 years at [facility] If yes, did you have any problems with the procedure? No What type of sedation was used: Other: Unknown 2. Do you take any blood thinners or have you been diagnosed with a bleeding disorder that increases your risk of bleeding with procedures? No 3. Do you have a Pacemaker or Defibrillator device? No 4. Are you a diabetic? No 5. Do you have any Allergies to Eggs, Latex or Medications? Yes: EDH 6. Do you take any Oral Iron Supplements (Including multi-vitamins)? Yes (Multivitamin) 7. Do you have a history of three or more abdominal surgeries? No 8. Have you had a problem with sedation or anesthesia? No 9. Do you use a c-pap machine or oxygen tank? Other: By-PAP 10. Do you take prescription narcotic pain medications, including suboxone or methodone? No 11. Do you have a preference regarding the gender of your provider? No Preference 12. Is there any other information you would like to us to note for the provider and nursing team who will perform your case? No 13. Say to patient: You must have a responsible green party who will drive you to your procedure, stay [place] for the entire duration of your procedure, and drive you home from your procedure? *Please Verify the height and weight, and adjust if height and/or weight have changed* Estimated body mass index is 39.05 kg/m?? as calculated from the following: Height as of 12/21/20: 172.7 cm (5' 8). Weight as of 12/21/20: 116.5 kg (256 lb 12.8 oz). *Delete if not needed* Height: 5'8 Weight: 248 BMI: 37.7 Age:65 y.o. documented in this encounter Plan of Treatment Not on file documented as of this encounter Visit Diagnoses Not on filedocumented in this encounter Care Teams Leakage Tester Relationship Specialty Start Date End Date Michelle Cooper APRN [address] [place] [address] PCP - General Family Medicine 09/25/20 07/23/23 documented as of this encounter
--- OUTSIDE RECORDS SUMMARY | 2024-04-16 21:49 | XMS_ITS | Encounter Summary ---
Author Organization [facility] [place] [address] Care Team Providers Care Injection Molder Name Role Phone Leigha Cooperily Anyi PRITCHETT Primary Care Provider [phone] Encounter Details Date Type Department Care Team (Late st Contact Info) Description 12/11/2020 Telephone [place] [phone] Rosario Shafer, RN Social History Tobacco Use Types Packs/Day [...] encounter Miscellaneous Notes * Telephone Encounter - Rosario Shafer RN - 12/11/2020 10:05 AM EDT Thoracic Surgery Nursing Post-operative Follow up: ?? Hx: s/p R VATS robotic thymectomy on 11/25/2020, discharged home on 11/27/20. ?? POD#: 16 Patient phoned today to report some discomfort in the surgical area. He was essentially pain free after surgery, but reports fixing a tire and it seems he has had discomfort since then. He reports it is about 3/10 and is not severe. No difficulty breathing. He is using tylenol intermittently and I have also suggested he try a heating pad as it sounds possible that this is muscular in nature. Hewill call if anything changes. He is otherwise doing very well.? Plan: RTC on 12/21/2020 CXR 12/21/2020 at customer service receptionist area 3L at 12:[address] Mccullough 12/21/2020 at customer service receptionist area 3K at 1:15 pm ?? Tomas Elliott is aware of appointments and know to call with any questions or concerns. documented in this encounter Plan of Treatment Not on file documented as of this encounter Visit Diagnoses Not on filedocumented in this encounter Care Teams Injection Molder Relationship Specialty Start Date End Date Michelle Cooper APRN [address] [place] [address] PCP - General Family Medicine 09/25/20 07/23/23 documented as of this encounter
--- OUTSIDE RECORDS SUMMARY | 2024-04-16 21:49 | XMS_ITS | Encounter Summary ---
[facility] Organization [facility] [place] [address] Care Team Providers Care Branch Sales And Service Representative Name Role Phone Allison Michelle Anyi PRITCHETT Primary Care Provider [phone] Encounter Details Date Type Department Care Team (Latest Contact Info) Description 12/21/2021 12:00 PM EDT - 12/21/2021 4:08 PM EDT Hospital En[place] [address] Angelita Wright MD [facility] [place] [address] Discharge Disposition: Home Social History Tobacco Use [...] Sign Reading Time Taken Comments Blood Pressure 148/81 12/21/2021 3:45 PM EDT Pulse 62 12/21/2021 12:35 PM EDT Temperature 36.4 ??C (97.5 ??F) 12/21/2021 3:30 PM ED T Respiratory Rate 18 12/21/2021 3:45 PM EDT Oxygen Saturation 97% 12/21/2021 3:45 PM EDT Inhaled Oxygen Concentration - - Weight 111.6 kg (246 lb) 12/21/2021 12:35 PM EDT Height 172.7 cm (5' 8) 12/21/2021 12:35 PM EDT Body Mass Index 37.4 12/21/2021 12:35 PM EDT documented in this encounter Discharge Instructions * Patient Instructions* Kamlesh Shultz MD - 12/21/2021 2:23 PM EDT DIVISION OF COLON & RECTAL SURGERY Anorectal Surgery Patient Post-operative Discharge Instructions Wound Care You may leave the dressing intact today and remove it tomorrow morning. If you need to move your bowels, the dressing may be removed sooner. Expect some drainage - this may be residual pus, or may be a small amount of blood or mucus - this is normal / expected. Please use fluffy 4x4 gauze to absorb any drainage and keep your bottom dry. You may shower or soak, whichever makes you more comfortable. if you have a lot of swelling, try sitting on an ice-pack (frozen pea's work well). You may sit on a pillow but do not sit on donut cushions as it spreads the buttocks. If you are having increased discomfort you may perform sitz bath A sitz bath instruction instructions: Soak your buttocks in plain warm tapwater for 15 minutes 4X/day. Pain medications Please take [id number] pain medications for post-operative discomfort.(Please continue to take these scheduled for the first 3 to 4 days to decrease discomfort) Acetaminophen (Tylenol) 1000 mg by mouth every 6 hours. Ibuprofen (Motrin/Advil) 400-600 mg by mouth every 6 hours with food & plenty of liquids. You may alternate these medications every 3 hours; example: Tylenol at 12pm, Ibuprofen at 3pm, Tylenol at 6pm, Ibuprofen at 9 pm. If a narcotic is prescribed use it sparingly and try to discontinue it as soon as possible Avoid getting constipated Drink lots of water and fluids (over 2 liters per day). Each morning please take MiraLax 1 capful in a large glass of water please continue this for the first 1 to 2 weeks to aid in bowel movements If you do not have a bowel movement in 48 hours then take 60 cc of Milk of Magnesia every 12 hours until you have a bowel movement. If you do not have a bowel movement after 2 doses of Milk of Magnesia please call (see below). You may restart a daily fiber supplement (such as Citrucel or BeneFiber), one heaping tablespoon in8 oz. of water. However initially this may give you too much bulk and I would recommend waiting 1 to 2 weeks, as you wean your MiraLAX/laxatives you can replace this with fiber 4. When to call Fever > 101.5 F worsening pain active bleeding, passing blood clots difficulty/inability to pass urine (urinary retention) or stool (constipation) any other worrisome condition or question during regular work hours call the Surgery Clinic at after hours / nights / weekends / holidays: call and ask for the General Surgery Resident doctor On-Call. Follow-up. You will have a post-operative follow-up appointment with your Surgical Team scheduled. If you have any questions, please call . Future Appointments Date Time Provider Department Center 01/17/2022 11:30 AM Angelita Wright MD [facility] Divison of Colon and Rectal Surgery, [place] [address] documented in this encounter Medications at Time of Discharge Medication Sig Dispensed Refills Start Date End Date lisinopriL-hydrochlorot hiazide (PRINZIDE;ZESTORETIC) 20-25 mg Tablet Take 1 tablet by mouth Daily. oxyCODONE (Roxicodone) 5 mg Tablet Take 1 tablet by mouth every 4 hours as needed for Pain. 20 tablet 12/21/2021 12/27/2021 Spiriva Respimat 2.5 mcg/actuation Mist 09/23/2021 FLUoxetine (PROzac) 20 mg Capsule Take 20 mg by mouth daily. 04/25/2022 diazePAM (Valium) 5 mg Tablet 03/08/2021 04/03/2024 senna (Senokot) 8.6 mg Tablet Take 1 tablet by mouth every evening. 10 tablet 11/26/2020 04/25/2022 multivitamin (THERAGRAN) Tablet Take 1 tablet by mouth daily. 04/03/2024 b complex vitamins Capsule Take 1 capsule by mouth daily. 04/03/2024 doxepin (Sinequan) 10 mg Capsule Take 10 mg by mouth nightly as needed. 10/28/2020 04/03/2024 cholecalciferol, Vitamin D3, 50 mcg (2,000 unit) Capsule Take 5,000 Units by mouth daily. 04/03/2024 omeprazole (PriLOSEC) 20 mg Capsule, Delayed Release(E.C.) Take 20 mg by mouth daily. 04/25/2022 albuteroL 90 mcg/actuation HFA Aerosol Inhaler Inhale 3 puffs into the lungs every 4 hours as needed. 06/17/2020 04/03/2024 documented as of this encounter Progress Notes * Izabel Florez RN - 12/21/2021 3:55 PM EDT Patient alert and oriented, vital signs stable. Reviewed discharge instructions; patient and sisterMarna verbalized understanding. Copy of instruction sheet with contact numbers for questions/concerns. Pain assessment documented. Patient escorted out of department via wheelchair with PAPER SALES REPRESENTATIVE. documented in this encounter Miscellaneous Notes * Op Note - Angelita Wright MD - 12/21/2021 1:23 PM EDT [facility] Operative Note Patient Name: Tomas Elliott : [id number] MR#: [id number] Case Date: 12/21/2021 Surgeon: Surgeon(s) and Role: * Angelita Wright MD - Primary Preoperative diagnosis: hemorroids Postoperative diagnosis: hemorroids Procedure(s) (LRB): HEMORRHOIDECTOMY, INTERNAL & EXTERNAL, COMPLEX (WRVU 6.73) (N/A) Anesthesia: General Estimated Blood Loss: 10 cc Specimens removed during surgery: Order Name Source Comment Collection Info Order Time SPECIMEN TO PATHOLOGY OR23 hemorroids hemorrhoids - perm excision No 12/21/2021 2:04 PM Time specimen removed from patient: 1:50 PM Number of tissue samples (in container) 2 Biospecimen to store? No Drains: * No LDAs found * Surgical Closure: Primary Closure - skin incision is completely closed without any wires, ni, drains or other devices Disposition: awakened from anesthesia, extubated and taken to the recovery room in a stable condition, having suffered no apparent untoward event. Condition: doing well without problems (Please see the Surgical Encounter Summary for any Implant and Specimen details pertinent to this patient.) HPI/Surgical Indications: Pleasant 65-year-old man with ongoing bleeding and prolapsing hemorrhoids. Plans are for surgical intervention Procedure Description: The patient was brought to the operating room where general anesthesia was induced. The patient was flipped into a well-padded prone position, and the buttocks taped apart. Theperineum was sterilely prepped and draped in standard fashion. A formal timeout was performed including identification of the patient and team, all safety concerns were addressed and plan to move forward with surgery. Findings: 2 large internal and external hemorrhoid columns, right anterior and left posterior lateral The perianal skin and external hemorrhoids were evaluated, the internal hemorrhoid columns were evaluated with insertion of a Anderson anoscope into the anal canal this allowed for procedure planning was performed. The operative findings are noted above. A perianal field block was performed using 20 mL 0.75% Marcaine in a controlled fashion. The symptomatic internal and external hemorrhoids located in the right anterior and left posterior lateral positions were incised in the following similar manner, beginning with the right anterior hemorrhoid. The hemorrhoid was grasped with a forcep, and the external perianal skin was pulled laterally so as to create a placido shape. The hemorrhoid was then excised using combination of sharp dissection, Bovie electrocautery, and the LigaSure. Initiating with sharp dissection, an incision was made and the hemorrhoid column was from the internal sphincter from external to internal, taking great care to preserve the underlying sphincter fibers at all times. Then using a combination of Bovie electrocautery the hemorrhoid column was excised to the base, a 3-0 Vicryl suture was used to first suture ligate the base and facilitate total excision of the hemorrhoid. The hemorrhoid was then passed off the operative field to be sent to pathology. Any bleeding left from the excision was meticulously controlled with Bovie electrocautery. A 3-0 Vicryl suture was used to close the defect in a running locked fashion in the internal component, followed by transitioning to a 3-0 chromic suture at thedentate line, a running locked closure was performed completing the external closure. The other external and internal hemorrhoid columns were excised in similar fashion. The patient was evaluated at the end of the procedure with no evidence of bleeding. The patient wasplaced supine, extubated and transferred to recovery without complications. Estimated blood loss was 10 mL. I was present and scrubbed for the entire duration of the operation. Surgical Infection Prevention Bundle Used? N/A Attestation: Case Date: 12/21/2021 I performed this procedure without the involvement of a resident. Angelita Wright MD 12/21/2021 documented in this encounter Plan of Treatment Not on file documented as of this encounter Procedures Procedure Name Priority Date/Time Associated Diagnosis Comments SPECIMEN TO PATHOLOGY Routine 12/21/2021 2:04 PM EDT SURGICAL PATHOLOGY REPORT Routine 12/21/2021 1:50 PM EDT Hemorrhoidectomy, Int/Ext, Complx ([id number]) 12/21/2021 12:56 PM EDT hemorroids POCT GLUCOSE Routine 12/21/2021 12:15 PM EDT documented in this encounter Results * Specimen to Pathology (12/21/2021 2:04 PM EDT) AP Specimen 12/21/2021 2:04 PM EDT 12/21/2021 2:04 PM EDT Narrative [facility] - 12/21/2021 2:04 PM EDT Specimen requisition ordered. ??Separate Pathology report to follow Angelita Wright MD PATHOLOGY/CYTOLOGY O RDERABLES [facility] [place] [address] * Surgical Pathology Report (12/21/2021 1:50 PM EDT) Final Diagnosis [id number] ? Location: [facility]; [facility]; A The signing pathologist has (i) examined the relevant preparation(s) for the specimen(s) and (ii) rendered or confirmed the diagnosis(es). . ?Surgical Pathology DIAGNOSIS A - Hemorrhoids - perm, excision: Squamous ??and rectal glandular ??junction epithelium with marked subepithelial vascular proliferation and congestion, consistent with ?hemorrhoid. Electronically signed by: ?Naz Membreno MD Verified: ??01/03/2022 17:45 ??Pathologist Performed at: ??-[facility] Dept. of Pathology, [place], [place] SPECIMEN(S) SUBMITTED A - Hemorrhoids - perm, excision (2) CLINICAL INFORMATION Hemorrhoids SPECIMEN PROCESSING A - Labeled/Fixative: Hemorrhoids, fresh. Quantity/Size: ??Two, 3.5 x 1.7 x 1.7 cm; 1.3 x 1.2 x 0.7 cm. Tissue Description: Intact, polypoid portions of pink-red mucosa with underlying, congested vasculature. Sections/Processi ng: Serially sectioned. Shot Fireman sections in 1 cassette labeled A1. ??njrs 01/03/2022 5:45 PM EDT [facility] ANAL STRUCTURE / Unknown 12/21/2021 1:50 PM EDT 12/21/2021 1:50 PM EDT Angelita Wright MD PATHOLOGY/CYTOLOGY O RDERAALEX [facility] [place] [address] * POCT Glucose (12/21/2021 12:15 PM EDT) Glucose, POC 99 65 - 199 mg/dL [facility] Comment: Supplemental ranges: <140 mg/dL before meals <180 mg/dL all other times of the day Blood 12/21/2021 12:1 5 PM EDT 12/21/2021 12:15 PM EDT Angelita Wright MD POINT OF CARE TEST O RDERABLES [facility] [place] [address] documented in this encounter Visit Diagnoses Not on filedocumented in this encounter Administered Medications Inactive Administered Medications - up to 3 most recent administrations Medication Order MAR Action Action Date Dose Rate Site acetaminophen (Tylenol) tablet 1,000 mg 1,000 mg, Oral, ONCE, 1 dose, On Mon12/21/21 at 1230, Maximum dose of acetaminophen is 4000 mg from all sources in 24 hours. When ordered for pain, acetaminophen should be given even when other ordered pain medications are indicated. , Day of Surgery (Day of Procedure), Routine Given 12/21/2021 12:42 PM EDT 1,000 mg fentaNYL (pf) (50 mcg/mL) multi-dose injection 50 mcg 50 mcg, Intravenous, EVERY 5 MIN PRN, Starting on Mon12/21/21 at 1401, Until Mon12/21/21 at 1555, Pain, Moderate to severe pain (6-10 out of 10), Hold for respiratory rate less than 10 per minute. Maximum dose 200 mcg over one hour, including OR administration. If ordered with HYDROmorphone or morphine, give HYDROmorphone or morphine first and use fentaNYL for breakthrough pain., PACU Recovery, Routine Given 12/21/2021 3:15 PM EDT 50 mcg Given 12/21/2021 3:02 PM EDT 50 mcg Given 12/21/2021 2:37 PM EDT 50 mcg oxyCODONE (Roxicodone) 5 mg tablet 1 dose, Starting on Mon12/21/21 at 1419, Until Mon12/21/21 at 1423, IZABEL FLOREZ: cabinet override oxyCODONE (Roxicodone) tablet 5 mg 5 mg, Oral, EVERY 4 HOURS PRN, Starting on Mon12/21/21 at 1425, Until Mon12/21/21 at 1808, Pain, May repeat once in 30 minutes if ineffective., Routine Given 12/21/2021 3:18 PM EDT 5 mg Given 12/21/2021 2:23 PM EDT 5 mg documented in this encounter Active and Recently Administered Medications Times are shown in EDT. Scheduled Medication Order 12/19/2021 12/20/2021 12/21/2021 acetaminophen (Tylenol) tablet 1,000 mg (COMPLETED) 1,000 mg, Oral, ONCE, 1 dose, On Mon12/21/21 at 1230, Maximum dose of acetaminophen is 4000 mg from all sources in 24 hours. When ordered for pain, acetaminophen should be given even when other ordered pain medications are indicated. , Day of Surgery (Day of Procedure), Routine 1242 (Given - Provid er: Michelle Gayle RN) ketorolac (Toradol) (15 mg/mL) injection 15 mg 15 mg, Intravenous, EVERY 6 HOURS, 20 doses, First dose on Mon12/21/21 at 1445, Last dose on Mon12/26/21 at 0845, Routine 1445 (Due) PRN Medication Order 12/19/2021 12/20/2021 12/21/2021 acetaminophen (Tylenol) tablet 650 mg 650 mg, Oral, EVERY 4 HOURS PRN, Starting on Mon12/21/21 at 1425, Until Mon12/21/21 at 1808, Pain, Maximum dose of acetaminophen is 4000 mg from all sources in 24 hours. When ordered for pain, acetaminophen should be given even when other ordered pain medications are indicated. , Routine fentaNYL (pf) (50 mcg/mL) multi-dose injection 50 mcg (CANCELED)(Linked Group 1) 50 mcg, Intravenous, EVERY 5 MIN PRN, Starting on Mon12/21/21 at 1401, Until Mon12/21/21 at 1555, Pain, Moderate to severe pain (6-10 out of 10), Hold for respiratory rate less than 10 per minute. Maximum dose 200 mcg over one hour, including OR administration. If ordered with HYDROmorphone or morphine, give HYDROmorphone or morphine first and use fentaNYL for breakthrough pain., PACU Recovery, Routine 1423 (See Alternativ e - Provider: Izabel Florez RN)1437 (Given - Provider: Izabel Florez RN)1502 (Given - Provider: Izabel Florez RN)1515 (Given - Provider: Izabel Florez RN) oxyCODONE (Roxicodone) tablet 5 mg 5 mg, Oral, EVERY 4 HOURS PRN, Starting on 12/21/21 at 1425, Until 12/21/21 at 1808, Pain, May repeat once in 30 minutes if ineffective., Routine 1423 (Given - Provid er: Izabel Florez RN)1518 (Given - Provider: Izabel Florez RN) Linked Groups Order Group 1: fentaNYL (pf) (50 mcg/mL) multi-dose injection 25 mcg (CANCELED) 25 mcg, Intravenous, EVERY 5 MIN PRN, Starting on e 12/21/21 at 1401, Until 12/21/21 at 1555, Pain, Mild to moderate pain (1-5 out of 10), Hold for respiratory rate less than 10 per minute. Maximum dose 200 mcg over one hour, including OR administration. If ordered with HYDROmorphone or morphine, give HYDROmorphone or morphine first and use fentaNYL for breakthrough pain., PACU Recovery, Routine Or fentaNYL (pf) (50 mcg/mL) multi-dose injection 50 mcg (CANCELED)Jump to med 50 mcg, Intravenous, EVERY 5 MIN PRN, Starting on 12/21/21 at 1401, Until 12/21/21 at 1555, Pain, Moderate to severe pain (6-10 out of 10), Hold for respiratory rate less than 10 per minute. Maximum dose 200 mcg over one hour, including OR administration. If ordered with HYDROmorphone or morphine, give HYDROmorphone or morphine first and use fentaNYL for breakthrough pain., PACU Recovery, Routine documented in this encounter Care Teams Branch Sales And Service Representative Relationship Specialty Start Date End Date Michelle Cooper APRN [address] [place] [address] PCP - General Family Medicine 09/25/20 07/23/23 documented as of this encounter
--- OUTSIDE RECORDS SUMMARY | 2024-04-16 21:49 | XMS_ITS | Encounter Summary ---
[place] [address] Care Team Providers Care Soil Expert Name Role Phone Mercedes Miles MD Primary Care Provider [phone] Encounter Details Date Type Department Care Team (Latest Contact Info) Description 12/13/2023 Travel Social History Tobacco Use Types Packs/Day [...] on filedocumented in this encounter Care Teams Soil Expert Relationship Specialty Start Date End Date Mercedes Miles MD [address] [place] [id number] PCP - General Family Medicine 07/24/23 documented as of this encounter
--- OUTSIDE RECORDS SUMMARY | 2024-04-16 21:49 | XMS_ITS | Encounter Summary ---
Author Organization [facility] [place] [address] Care Team Providers Care Paper Cone Maker Name Role Phone Michelle Cooper APRN Primary Care Provider [phone] Reason for Referral * Consultation (Routine) - Closed Specialty Diagnoses / Procedures Referred By Contac t Referred To Contact Cardiology Diagnoses Exertional chest pain Ongoing exertional chest pain Michelle Cooper APRN [address] [place] [address] [facility] [address] [place] [phone] Referral ID Status Reason Start Date Expiration Date V isits Requested Visits Authorized [id number] Closed Consult, Test & Treat 03/04/2022 03/04/2023 1 1 Encounter Details Date Type Department Care Team (Latest Contact Info) Description 03/04/2022 Transcribe Orders eDH Incoming Referrals [phone] Michelle Cooper APRN [address] [place], [place] [id number] Exertional chest pain Social History Tobacco Use [...] Outpatient Referral Routine Exertional chest pain Ordered: 03/04/2022 documented as of this encounter Visit Diagnoses Diagnosis Exertional chest pain Chest pain, unspecified documented in this encounter Care Teams Paper Cone Maker Relationship Specialty Start Date End Date Michelle Cooper APRN [address] [place] [id number] PCP - General Family Medicine 09/25/20 07/23/23 documented as of this encounter
--- OUTSIDE RECORDS SUMMARY | 2024-04-16 21:49 | XMS_ITS | Encounter Summary ---
Author Organization [facility] [place] [address] Care Team Providers Care Review Specialist Name Role Phone Michelle Cooper APRN Primary Care Provider [phone] Encounter Details Date Type Department Care Team (Late st Contact Info) Description 07/18/2023 Telephone Cardiology at [address] [id number] Dustin Kenyon MD [facility] [place] [address] Social History Tobacco Use Types Packs/Day Years [...] of this encounter Plan of Treatment Scheduled Orders Name Type Priority Associated Diagnoses Orde r Schedule Lipid Panel (Reflex Direct LDL) Lab Routine Hyperlipidemia, unspecified hyperlipidemia type Expected: 07/18/2023, Expires: 07/17/2024 documented as of this encounter Visit Diagnoses Diagnosis Hyperlipidemia, unspecified hyperlipidemia type documented in this encounter Care Teams Review Specialist Relationship Specialty Start Date End Date Michelle Cooper APRN [address] [place] [address] PCP - General Family Medicine 09/25/20 07/23/23 documented as of this encounter
--- OUTSIDE RECORDS SUMMARY | 2024-04-16 21:49 | XMS_ITS | Encounter Summary ---
Author Organization [facility] [place] [address] Care Team Providers Care Modular Home Crew Member Name Role Phone Michelle Cooper APRN Primary Care Provider [phone] Reason for Referral * Diagnostic Test (Routine) - Closed Specialty Diagnoses / Procedures Referred By Contac t Referred To Contact Radiology Diagnoses Mediastinal mass Procedures CT Chest w Contrast Taj Mccullough MD [facility] [place] [address] [facility] [place] [address] Referral ID Status Reason Start Date Expiration Date V isits Requested Visits Authorized [id number] Closed Specialty Service Requested 12/21/2020 06/22/2022 1 1 Reason for Visit * Diagnostic Test (Routine) - Closed Specialty Diagnoses / Procedures Referred By Contac t Referred To Contact Radiology Diagnoses Mediastinal mass Procedures CT Chest w Contrast Taj Mccullough MD [facility] [place] [address] [facility] [place] [address] Referral ID Status Reason Start Date Expiration Date V isits Requested Visits Authorized [id number] Closed Specialty Service Requested 12/21/2020 06/22/2022 1 1 Encounter Details Date Type Department Care Team (Latest Contact Info) Description 07/19/2021 7:12 AM EST - 07/19/2021 11:59 PM EST Hospital Encounter CT Scan at [facility] [place] [address] Taj Mccullough MD [facility] [address] [place] [address] Mediastinal mass Discharge Disposition: Home Social History Tobacco Use [...] on file documented as of this encounter Medications at Time of Discharge Medication Sig Dispensed Refills Start Date End Date lisinopriL-hydrochloro thiazide (PRINZIDE;ZESTORETIC) 20-25 mg Tablet Take 1 tablet by mouth Daily. diazePAM (Valium) 5 mg Tablet 03/08/2021 04/03/2024 oxyCODONE (Roxicodone) 5 mg Tablet Take 1 tablet by mouth every 12 hours. 10 tablet 12/22/2020 12/21/2021 acetaminophen (Tylenol) 500 mg Tablet Take 2 tablets by mouth every 6 hours. 30 tablet 1 11/26/2020 12/21/2021 oxyCODONE (Roxicodone) 5 mg Tablet Take 1 tablet by mouth every 4 hours as needed for Pain (For pain not controlled by Tylenol and Ibuprofen). 10 tablet 11/26/2020 10/04/2021 senna (Senokot) 8.6 mg Tablet Take 1 [...] 06/17/2020 04/03/2024 documented as of this encounter Plan of Treatment Not on file documented as of this encounter Procedures Procedure Name Priority Date/Time Associated Diagnosis Comments CT CHEST W CONTRAST Routine 07/19/2021 8 :15 AM EST Mediastinal mass documented in this encounter Results * CT Chest w Contrast (07/19/2021 8:15 AM EST) Anatomical Region Laterality Modality Chest Computed Tomogra phy 07/19/2021 8:33 AM EST Impressions 07/19/2021 10:39 AM EST Expected postoperative changes in the anterior mediastinum. No suspicious pulmonary lesion or lymphadenopathy. Bilateral nondisplaced, incompletely healed rib fractures. Thank you for letting us participate in the care of this patient. ??If you are a health care provider and have any questions regarding this report, please contact the number below. ??For patients who have questions please contact the health nursing care attendant that requested your imaging first. ? 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 Mild bibasilar atelectases/scarring. Airways: Central and segmental airways are patent. Pleura: No effusion. Lymph nodes: No abnormal enlargement of lymph nodes. Heart and vasculature: Normal size of the heart. No pericardial effusion. Mild coronary artery atherosclerotic calcification. Mediastinum: Postoperative changes in the anterior mediastinum as expected. No residual mass lesion. Lower neck: No acute pathology. Limited upper abdomen: No interval change. Skeleton: Incompletely healed fracture at the lateral aspect of the seventh rib on the right. Incompletely healed fractures at the costochondral junction of the fourth and fifth rib on the left. Prominent thoracic spine osteophytes as before. 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 Mild bibasilar atelectases/scarring. Airways: Central and segmental airways are patent. Pleura: No effusion. Lymph nodes: No abnormal enlargement of lymph nodes. Heart and vasculature: Normal size of the heart. No pericardial effusion.Mild coronary artery atherosclerotic calcification. Mediastinum: Postoperative changes in the anterior mediastinum asexpected. No residual mass lesion. Lower neck: No acute pathology. Limited upper abdomen: No interval change. Skeleton: Incompletely healed fracture at the lateral aspect of theseventh rib on the right. Incompletely healed fractures at the costochondral junctionof the fourth and fifth rib on the left. Prominent thoracic spine osteophytesas before. IMPRESSION Expected postoperative changes in the anterior mediastinum. No suspicious pulmonary lesion or lymphadenopathy. Bilateral nondisplaced, incompletely healed rib fractures. Thank you for letting us participate in the care of this patient. If youare a health care provider and have any questions regarding this report,please contact the number below. For patients who have questions please contactthe health nursing care attendant that requested your imaging first. Electronically signed by: Erin Kessler MD, [facility] ([phone]), at 07/19/2021 10:39 AM Taj Mccullough MD IMG CT ORDERABLE S documented in this encounter Visit Diagnoses Diagnosis Mediastinal mass Swelling, mass, or lump in chest documented in this encounter Administered Medications Inactive Administered Medications - up to 3 most recent administrations Medication Order MAR Action Action Date Dose Rate Site iohexoL (Omnipaque) (350 mg/mL) solution 0-200 mL 0-200 mL, Intravenous, ONCE PRN, 1 dose, Starting on Mon07/19/21 at 0815, Until Mon07/19/21 at 0815, Per Protocol, Warning Vesicant/Irritant Medication , Radiology Contrast, Routine Given 07/19/2021 8:15 AM EST 60 mLs documented in this encounter Care Teams Modular Home Crew Member Relationship Specialty Start Date End Date Michelle Cooper APRN [address] [place] [address] PCP - General Family Medicine 09/25/20 07/23/23 documented as of this encounter
--- OUTSIDE RECORDS SUMMARY | 2024-04-16 21:49 | XMS_ITS | Encounter Summary ---
[place] [address] Care Team Providers Care Spring Intern Name Role Phone Michelle Cooper APRN Primary Care Provider [phone] Encounter Details Date Type Department Care Team (Latest Contact Info) Description 07/19/2021 7:15 AM EST Laboratory Appointment Lab [address] [place] [address] Mediastinal mass Social History Tobacco Use Types Packs/Day Years [...] Procedure Name Priority Date/Time Associated Diagnosis Comments HC CREATININE STAT 07/19/2021 7:02 AM EST Mediastinal mass documented in this encounter Results * Creatinine (07/19/2021 7:02 AM EST) Creatinine 0.88 0.80 - 1.50 mg/dL [facility] Est Glomerular Filtration Rate 90 >=60 mL/min/1. 73 m?? [facility] Comment: This patient? s estimated glomerular filtration rate (eGFR) is between 90 mL/min/1.73 m2 (patients with less muscle mass per kg body weight) and 104 mL/min/1.73 m2 (patients with more muscle mass per kg body weight) as determined by the CKD-EPI equation. Assessment of eGFR is not appropriate when creatinine concentrations are rapidly changing. For clinical decisions where creatinine clearance will affect therapy, a 24-hour urine creatinine clearance may be advised. Assignment of CKD stage 1 - 5 for patients with an eGFR near the transition point between stages may be based on clinical assessment of muscle mass and symptoms in addition to eGFR. Blood 07/19/2021 7:02 AM EST 07/19/2021 7:11 AM EST Narrative Resulting Agency Comment Spec In Lab Taj Mccullough MD CHEMISTRY ORDERA BLES [facility] [place] [address] documented in this encounter Visit Diagnoses Diagnosis Mediastinal mass Swelling, mass, or lump in chest documented in this encounter Care Teams Spring Intern Relationship Specialty Start Date End Date Michelle Cooper APRN [address] [place] [address] PCP - General Family Medicine 09/25/20 07/23/23 documented as of this encounter
--- OUTSIDE RECORDS SUMMARY | 2024-04-16 21:49 | XMS_ITS | Encounter Summary ---
[place] [address] Care Team Providers Care Strategy Director Name Role Phone Michelle Cooper APRN Primary Care Provider Encounter Details Date Type Department Care Team (Late st Contact Info) Description 11/01/2021 9:00 AM EST TH Visit (TeleHealth) [place] [address] Social History Tobacco Use Types Packs/Day Years [...] on filedocumented in this encounter Care Teams Strategy Director Relationship Specialty Start Date End Date Michelle Cooper APRN [address] [place] [address] PCP - General Family Medicine 09/25/20 07/23/23 documented as of this encounter
--- OUTSIDE RECORDS SUMMARY | 2024-04-16 21:49 | XMS_ITS | Encounter Summary ---
Author Organization [facility] [place] [address] Care Team Providers Care Artist Manager Name Role Phone Mercedes Miles MD Primary Care Provider [phone] Encounter Details Date Type Department Care Team (Late st Contact Info) Description 07/17/2023 Orders Only Cardiology at [address] [address] Kimberly Kenyon MD [facility] [place] [address] Hyperlipidemia, unspecified hyperlipidemia type Social History Tobacco Use Types Packs/Day Years [...] as of this encounter Miscellaneous Notes * Addendum Note - Kimberly Kenyon MD - 07/17/2023 3:21 PM ESTAddended by: KIMBERLY KENYON on: 07/24/2023 12:18 PM Modules accepted: Orders documented in this encounter Plan of Treatment Not on file documented as of this encounter Results * Lipid Panel (Reflex Direct LDL) (12/14/2023 8:12 AM EDT) [facility] Signature Cholesterol, Total 148 mg/dL [facility] Comment: Desirable: ? <200 mg/dL Borderline High: 200-239 mg/dL Higher: ?>us=995 mg/dL Triglyceride 76 mg/dL [facility] Comment: Normal: ?<150 mg/dL Borderline High: 150-199 mg/dL High: ?200-499 mg/dL Very High: ? >ap=833 mg/dL HDL Cholesterol 53 mg/dL [facility] Comment: Females: High Risk: <50 mg/dL Males: High Risk: <40 mg/dL LDL Cholesterol 80 mg/dL [facility] Comment: Desirable: ? <100 mg/dL Above Desirable: 100-129 mg/dL Borderline High: 130-159 mg/dL High: ?160-189 mg/dL Very High: ? >it=677 mg/dL Lipid Interpretation See Note [facility] Comment: It is important to [...] even lower. ACC/AHA Guidelines (most recently Salomón et al. [facility] 05/31/22): For individuals with atherosclerotic cardiovascular disease (ASCVD)or LDL >zr=739 mg/dL, use a high-intensity statin (40-80 mg [...] Narrative Resulting Agency Comment Spec In Lab Kimberly Kenyon MD CHEMISTRY ORDERABLES [facility] [place] [address] documented in this encounter Visit Diagnoses Diagnosis Hyperlipidemia, unspecified hyperlipidemia type documented in this encounter Care Teams Artist Manager Relationship Specialty Start Date End Date Mercedes Miles MD [address] [place] [id number] PCP - General Family Medicine 07/24/23 documented as of this encounter
--- OUTSIDE RECORDS SUMMARY | 2024-04-16 21:49 | XMS_ITS | Encounter Summary ---
Author Organization [facility] Address [facility] [place] [address] Care Team Providers Care Nuclear Equipment Test Engineer Name Role Phone Michelle Cooper APRN Primary Care Provider [phone] Reason for Visit * Reason Onset Date Comments Follow Up Surgery 01/12/2022 Encounter Details Date Type Department Care Team (Late st Contact Info) Description 01/12/2022 Telephone [place] [id number] Zofia Paz PA [facility] [place] [address] Follow Up Surgery Social History Tobacco Use Types Packs/Day Years [...] encounter Miscellaneous Notes * Telephone Encounter - Zofia Paz PA - 01/12/2022 12:19 PM EDT HPI: Tomas Elliott is a pleasant 66 year old male with long history of symptomatic hemorrhoids s/p several hemorrhoidectomies, most recently on 12/[address] Angelita Wright of the right anterior and left lateral hemorrhoid columns. I called him today for interval follow up. Operative findings: 2 large internal and external hemorrhoid columns, right anterior and left posterior lateral Patient reports that he is overall doing well. He is 3 weeks s/p his surgery. Initially after discharge, patient was experiencing painful urination and difficulty emptying his bladder. Dr. Wright called patient directly and discussed that is expected to have urination changes following a hemorrhoidectomy a male. He reports that this has resolved. He reports persistent bleeding and anorectal pain with bowel movements, but this has improved since his surgery. He is taking Advil as needed for pain control. Denies changes in his bowel control. He denies fevers, chills, swelling, drainage/discharge per rectum. Bowel habits 1-2 BM/day, currently taking miralax and colace. He reports intermittent straining with bowel movements. He will be transitioning back to psyllium husk later today. Assessment: Tomas Elliott is a pleasant 66 year old male with long history of symptomatic hemorrhoids s/p right anterior and left lateral hemorrhoidectomy by Dr. Angelita Wright on 12/21. Tomas is doing wellfor the expected recovery. We discussed the importance of keeping his stools soft and easy to pass to avoid recurrence/exacerbation of hemorrhoidal symptoms. We also discussed limiting extended time on the commode. We discussed that he should continue to improve over the next few weeks. If he has any concerns or new symptoms, he will call or return to clinic for further evaluation. He is appreciative of my phone call and very thankful to Dr. Wright. Zofia Paz PA-C Division of Colon and Rectal Surgery ?? documented in this encounter Plan of Treatment Not on file documented as of this encounter Visit Diagnoses Diagnosis Rectal bleeding Hemorrhage of rectum and anus Prolapsed internal hemorrhoids, grade 2 documented in this encounter Care Teams Nuclear Equipment Test Engineer Relationship Specialty Start Date End Date Michelle Cooper APRN [address] [place] [address] PCP - General Family Medicine 09/25/20 07/23/23 documented as of this encounter
--- OUTSIDE RECORDS SUMMARY | 2024-04-16 21:49 | XMS_ITS | Encounter Summary ---
Author Organization [facility] Address [facility] [place] [address] Care Team Providers Care Printer Slotter Operator Name Role Phone Michelle Cooper APRN Primary Care Provider [phone] Reason for Visit * Consultation (Routine) - Closed Specialty Diagnoses / Procedures Referred By Contac t Referred To Contact Cardiology Diagnoses Exertional chest pain Ongoing exertional chest pain Michelle Cooper APRN [address] [place] [address] [facility] Card[facility] [address] [place] [phone] Referral ID Status Reason Start Date Expiration Date V isits Requested Visits Authorized [id number] Closed Consult, Test & Treat 03/04/2022 03/04/2023 1 1 Encounter Details Date Type Department Care Team (Latest Contact Info) Description 04/22/2022 2:00 PM EDT Office Visit Cardiology at [address] [address] Dustin Kenyon MD [facility] [place] [address] Hypertension, unspecified type; Hyperlipidemia, unspecified hyperlipidemia type; Obstructive sleep apnea; Chest pain, exertional Social History Tobacco Use [...] Sign Reading Time Taken Comments Blood Pressure 136/70 04/22/2022 2:42 PM EDT Pulse 56 04/22/2022 2:42 PM EDT Temperature - - Respiratory Rate - - Oxygen Saturation 100% 04/22/2022 2:42 PM EDT Inhaled Oxygen Concentration - - Weight 113.5 kg (250 lb 3.2 oz) 04/22/2022 2:42 PM EDT Height 172.7 cm (5' 8) 04/22/2022 2:42 PM EDT R eported Body Mass Index 38.04 04/22/2022 2:42 PM EDT documented in this encounter Progress Notes * Dustin Kenyon MD - 04/22/2022 2:00 PM EDT Images from the original note were not included. [facility] [place] [address] Referring Provider: Michelle Cooper APRN [address] [place] [id number] Reason for Consultation / Chief Complaint: chest pain Past Cardiac History and Relevant Comorbidities: Hypertension Hyperlipidemia Diabetes Chest pain Obstructive sleep apnea Thymolipoma status post resection HPI: Tomas Elliott is a 66 y.o. male with history of the above cardiovascular issues who presents for evaluation of his cardiovascular disease. Tomas is doing reasonably well at this time. He does note that over the course of the past few years, he has been experiencing chest discomfort with exertion. Specifically he notes that riding his bike up hills tends to bring on symptoms and they are relieved by rest. He has notable associated dyspnea on exertion. No syncope and no palpitations. He notes that he is trying to eat well and increase his intake of plants as well as doing his best to limit saturated fats. He denies any major changesin his weight. Other Past Medical History: Patient Active Problem List Diagnosis Code ??? Penile fracture S39.840A ??? Mediastinal mass J98.59 ??? Obstructive sleep apnea G47.33 ??? Lung disease J98.4 ??? Hypertension I10 ??? Hyperlipidemia E78.5 ??? Diabetes mellitus E11.9 ??? Depression F32.A ??? Anxiety F41.9 ??? Alcohol abuse F10.10 ??? Vitamin D deficiency E55.9 ??? Rectal bleeding K62.5 ??? Prolapsed internal hemorrhoids, grade 2 K64.1 ??? 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 Chest pain, exertional R07.9 Social History: Social History Tobacco Use ??? Smoking status: Former Smoker Quit date: 1979 Years since quittin.6 ??? Smokeless tobacco: Former User Quit date: 1979 Vaping Use ??? Vaping Use: Never used Substance Use Topics ??? Alcohol use: Not Currently ??? Drug use: Never Family History: No family history on file. ALLERGIES: Allergies Allergen Reactions ??? Adhesive Other (See Comments) Swelling at local site w/ adhesive/latex glues MEDICATIONS: Current Outpatient Medications: ??? modafiniL (PROVIGIL) 200 mg Tablet, daily., Disp: , Rfl: ??? tadalafiL (Cialis) 20 mg Tablet, as needed., Disp: , Rfl: ??? ibuprofen (AdviL) 200 mg Tablet, Take 200 mg by mouth every 6 hours as needed for Pain., Disp: , Rfl: ??? levomefolate calcium (L-METHYLFOLATE ORAL), Take by mouth daily., Disp: , Rfl: ??? acetylcysteine (NAC ORAL), Take by mouth daily., Disp: , Rfl: ??? MAGNESIUM CITRATE ORAL, Take by mouth daily., Disp: , Rfl: ??? ferrous sulfate (IRON ORAL), Take by mouth daily., Disp: , Rfl: ??? vitamin E acetate (VITAMIN E ORAL), Take by mouth daily., Disp: , Rfl: ??? ubiquinone (coenzyme Q10) 100 mg Capsule, Take by mouth daily., Disp: , Rfl: ??? VITAMIN K2 ORAL, Take by mouth daily., Disp: , Rfl: ??? diazePAM (Valium) 5 mg Tablet, , Disp: , Rfl: ??? multivitamin (THERAGRAN) Tablet, Take 1 tablet by mouth daily., Disp: , Rfl: ??? b complex vitamins Capsule, Take 1 capsule by mouth daily., Disp: , Rfl: ??? doxepin (Sinequan) 10 mg Capsule, Take 10 mg by mouth nightly as needed., Disp: , Rfl: ??? cholecalciferol, Vitamin D3, 50 mcg (2,000 unit) Capsule, Take by mouth daily., Disp: , Rfl: ??? albuteroL 90 mcg/actuation HFA Aerosol Inhaler, Inhale 3 puffs into the lungs every 4 hours as needed., Disp: , Rfl: ??? lisinopriL-hydrochlorothiazide (PRINZIDE;ZESTORETIC) 20-25 mg Tablet, Take 1 tablet by mouth Daily., Disp: , Rfl: ??? rosuvastatin (Crestor) 20 mg Tablet, Take 1 tablet by mouth daily., Disp: 90 tablet, Rfl: 3 ??? oxyCODONE (Roxicodone) 5 mg Tablet, Take 1 tablet by mouth every 6 hours as needed for Pain forup to 10 doses. (Patient not taking: Reported on 04/22/2022), Disp: 10 tablet, Rfl: 0 ??? Spiriva Respimat 2.5 mcg/actuation Mist, , Disp: , Rfl: ??? FLUoxetine (PROzac) 20 mg Capsule, Take 20 mg by mouth daily., Disp: , Rfl: ??? senna (Senokot) 8.6 mg Tablet, Take 1 tablet by mouth every evening. (Patient not taking: Reported on 04/22/2022), Disp: 10 tablet, Rfl: 0 ??? omeprazole (PriLOSEC) 20 mg Capsule, Delayed Release(E.C.), Take 20 mg by mouth daily., Disp: ,Rfl: ROS: As per HPI, otherwise the remainder of the ROS was either non-pertinent or negative. PHYSICAL EXAM: Vitals: 04/22/22 1442 BP: 136/70 Patient Position: Sitting Pulse: 56 SpO2: 100% Weight: 113.5 kg (250 lb 3.2 oz) Height: 172.7 cm (5' 8) Constitutional: [...] and the following is my own assessment): SPECT MPI 2020: Achieved 7 METS, no evidence of ischemia or scar, normal systolic LV function. Anterior mediastinal mass noted atherosclerotic disease noted Labs / Reports Reviewed: Last 3 wbc, hgb, hct plt No results for input(s): WBC, HGB, HCT, PLATELET in the last 7068 hours. Last 3 Lytes Recent Labs 07/19/21 0702 CREATININE 0.88 Last 3 ProBNP, Trop, CK No results for input(s): CK, TROPONINT, PROBNP in the last 168 hours. Last 3 Lipids No results for input(s): CHLPL, HDL, LDLCHOL, LDLDIRECT, TRIG in the last 7068 hours. A/P: Tomas Elliott is a 66 y.o. male who presents for evaluation of the following cardiovascular issues: 1. Chest discomfort: We discussed possibilities in the differential for his chest discomfort. I advised that it is certainly possible that his chest pain represents angina, and that his stress test could potentially be a false negative. Advised that the chance of this happening is under 5%, howeverif we wanted to, it would be reasonable to pursue an anatomic test (either CT angiography or coronary angiography). I did note that given the chronicity of his symptoms and the lack of progression, that any invasive treatment such as stenting (with no burden of ischemia noted on stress testing) would purely be for symptom relief and would not have a proven mortality benefit. Advised that adequatemedical therapy would have a mortality benefit. In light of all this, he and I agreed that it was reasonable to defer further testing at this time. After extensive discussion, he will start a statin.We will defer aspirin for now. 2. Hypertension: Blood pressures under reasonable control. Defer further up escalation in therapy 3. Hyperlipidemia: Start high intensity statin therapy Recommendations: 1: Defer further ischemia testing 2: Start Rosuvastatin 20mg 3: f/u in 1y Dustin Kenyon MD 04/25/2022 8:10 AM documented in this encounter Plan of Treatment Not on file documented as of this encounter Procedures Procedure Name Priority Date/Time Associated Diagnosis Comments EKG 12-LEAD Routine 04/22/2022 2:56 PM EDT Hypertension, unspecified type Hyperlipidemia, unspecified hyperlipidemia type Obstructive sleep apnea Chest pain, exertional documented in this encounter Results * EKG 12 Lead (04/22/2022 2:56 PM EDT) Ventricular rate 59 BPM MUSE SYSTEM Atrial Rate 59 BPM MUSE SYSTEM P-R Interval 192 ms MUSE SYSTEM QRS Duration 106 ms MUSE SYSTEM Q-T Interval 404 ms MUSE SYSTEM QTC Calculated (Bezet) 399 ms MUSE SYSTEM Calculated P [place] 41 degrees MUSE SYSTEM Calculated R [place] 23 degrees MUSE SYSTEM Calculated T [place] 1 degrees MUSE SYSTEM INTERPRETATION Sinus bradycardia Otherwise normal ECG No previous ECGs available Confirmed by MD Nataly, [place] ([id number]) on 04/27/2022 3:12:04 PM MUSE SYSTEM 04/22/2022 2:56 PM EDT 04/27/2022 3:12 PM EDT Dustin Kenyon MD ECG ORDERABLES MUSE SYSTEM documented in this encounter Visit Diagnoses Diagnosis Hypertension, unspecified type Hyperlipidemia, unspecified hyperlipidemia type Obstructive sleep apnea Obstructive sleep apnea (adult) (pediatric) Chest pain, exertional Chest pain, unspecified documented in this encounter Care Teams Printer Slotter Operator Relationship Specialty Start Date End Date Michelle Cooper APRN [address] [place] [address] PCP - General Family Medicine 09/25/20 07/23/23 documented as of this encounter
--- OUTSIDE RECORDS SUMMARY | 2024-04-16 21:49 | XMS_ITS | Encounter Summary ---
Author Organization [facility] Address [facility] [place] [address] Care Team Providers Care Transporter Radiology Name Role Phone Mercedes Miles MD Primary Care Provider [phone] Reason for Visit * Reason Onset Date Comments Medication Refill 10/11/2023 Rosuvastatin Encounter Details Date Type Department Care Team (Late st Contact Info) Description 10/11/2023 Refill Cardiology at [address] [address] Dustin Kenyon MD [facility] [place] [address] Medication Refill (Rosuvastatin) Social History Tobacco Use [...] type documented in this encounter Care Teams Transporter Radiology Relationship Specialty Start Date End Date Mercedes Miles MD [address] [place] [id number] PCP - General Family Medicine 07/24/23 documented as of this encounter
--- OUTSIDE RECORDS SUMMARY | 2024-04-16 21:49 | XMS_ITS | Encounter Summary ---
Author Organization [place] [address] Care Team Providers Care Patient Intake Coordinator Name Role Phone Mercedes Miles MD Primary Care Provider Reason for Referral * Diagnostic Test (Routine) - Closed Specialty Diagnoses / Procedures Referred By Contac t Referred To Contact Radiology Diagnoses Chest pain, exertional Procedures CT Angiogram Coronary Arteries Dustin Kenyon MD [facility] [place] [address] [facility] [place] [address] Referral ID Status Reason Start Date Expiration Date V isits Requested Visits Authorized [id number] Closed Specialty Service Requested 10/04/2023 04/03/2025 1 1 Encounter Details Date Type Department Care Team (Late st Contact Info) Description 10/03/2023 Telephone Cardiology at [address] [address] Pauline Ordoñez RN Social History Tobacco Use [...] Telephone Encounter - Dustin Kenyon MD - 10/04/2023 8:41 AM EST Spoke to Tomas, discussed nml TTE and reviewed suboptimal lipid panel. Recommended either CTA or cath. He wishes to pursue CTA as he is still having significant angina. * Telephone Encounter - Pauline Ordoñez RN - 10/03/2023 11:10 AM EST Return call to patient in response to his message regarding questions for Dr. Kenyon following his visit on 09/28/23. Patient calling about lab results- states he had Lipid panel done in June. Explained that we do not have that- agreed that I would contact PCP office to inquire as he had labs there. Also, has not been contacted about TTE results- and is anxious about a plan to address his continued chest pain going forward. Patient did say that it is fine to communicate via phone- [phone] or through the [employer] portal. Mr. Elliott understands I will forward his concerns to Dr. Kenyon and either he or the staff willget back to him Verbalized his understanding and agreement to this plan. I have contacted PCP office- they have lipid panel report from 07/26/23 and will Fax to this office Patient knows how to contact Cardiology office and understands he may do so at any time with further questions or concerns.\ Pauline Ordoñez RN, BSN Ambulatory Cardiology Department Covering for Alba Nicolas RN documented in this encounter Plan of Treatment Not on file documented as of this encounter Results * CT Angiogram Coronary Arteries (12/14/2023 9:43 AM EDT) XM Radio Signature WORKSTATION ID [id number] DH RAD Anatomical Region Laterality Modality Cardiac Computed Tomogra phy Impressions 12/15/2023 3:51 PM EDT Coronary calcium score of 388, consistent with severe atherosclerotic plaque burden and 72%-ile rank based on age, race/ethnicity, and gender. There is breathing motion artifact on the coronary CT arteriogram. In addition, the image noise is increased due to the patient's body habitus. Three-vessel atherosclerotic plaque, predominantly in the right coronary artery. Within the above limitations the maximal narrowing is less than 50%. CAD RADS 2/P3 I have personally reviewed the image(s) and the resident's interpretation and agree with the findings, Erin Kessler MD at 12/15/2023 3:51 PM Thank you for letting us participate in the care of this patient. ??If you are a health care provider and have any questions regarding this report, please contact the number below. ??For patients who have questions please contact the health rn wound care that requested your imaging first. ? Electronically signed by: Erin Kessler MD, [facility] ([phone]), at 12/15/2023 3:51 PM Narrative 12/15/2023 3:51 PM EDT EXAMINATION: CT ANGIOGRAM CORONARY ARTERIES CLINICAL HISTORY: CAD screening, asymptomatic, 10yr CHD risk > 20%; Worsening chest pain, some typical and atypical features, multiple risk factors 120 COMPARISON: 07/19/[address] TECHNIQUE: 3 mm thick axial contiguous sections through the heart were obtained via ECG-gated axial mode acquisition without intravenous contrast. After time bolus, 0.625 mm thick axial contiguous sections were obtained through the heart via ECG-gated helical acquisition during intravenous administration of 121 cc Omnipaque 350. Post-processing was performed on an independent computer workstation including curved multiplanar reformats, coronary calcium scoring, and 3D reconstructions. FINDINGS: Coronary calcium score: Left main: ??Agatston score: 0 Left anterior descending: ??Agatston score: 79 Left circumflex: ??Agatston score: 2 Right coronary: ??Agatston score: 307 TOTAL: ??Agatston score: 388 Atherosclerotic plaque burden, based on Agatston score: Severe Percentile rank, based on age, race/ethnicity, and gender: 72%-ile. Reference: Emanuel RL, Vladimir H, Edwin R, et al. ??Distribution of coronary artery calcium by race, gender, and age: results from the Multi-Ethnic Study of Atherosclerosis (RODRIGUEZ). Circulation. 2006;113(1):30-37. Coronary arteries: Right dominant coronary circulation. Left main: Normal origin. No demonstrable plaque or stenosis. Left anterior descending: Several foci of plaque in the proximal LAD with luminal narrowing by 25-<50%. Diagonal branches: No demonstrable plaque or stenosis. Left Circumflex: Minimal calcified plaque in the proximal circumflex artery with luminal narrowing of less than 25%. Obtuse marginal branches: No demonstrable plaque or stenosis. Right coronary: Normal origin. Scattered plaque in the proximal to mid right coronary artery. Focal circumferential calcified plaque in the mid RCA (suspected luminal narrowing is less than 50%). Posterior descending: No demonstrable plaque or stenosis. Posterolateral branch: No demonstrable plaque or stenosis. Cardiac chambers: No significant findings. Great vessels: No significant findings. Pulmonary parenchyma, airways, pleura: No significant findings. Upper abdomen: No significant findings Skeletal Structures: No significant findings. Procedure Note Erin Ogden MD - 12/15/2023 EXAMINATION: CT ANGIOGRAM CORONARY ARTERIES CLINICAL HISTORY: CAD screening, asymptomatic, 10yr CHD risk > 20%;Worsening chest pain, some typical and atypical features, multiple risk factors 120 COMPARISON: 07/19/[address] TECHNIQUE: 3 mm thick axial contiguous sections through the heart wereobtained via ECG-gated axial mode acquisition without intravenous contrast. Aftertime bolus, 0.625 mm thick axial contiguous sections were obtained through theheart via ECG-gated helical acquisition during intravenous administration of 121cc Omnipaque 350. Post-processing was performed on an independent computer workstation including curved multiplanar reformats, coronary calciumscoring, and 3D reconstructions. FINDINGS: Coronary calcium score: Left main: Agatston score: 0 Left anterior descending: Agatston score: 79 Left circumflex: Agatston score: 2 Right coronary: Agatston score: 307 TOTAL: Agatston score: 388 Atherosclerotic plaque burden, based on Agatston score: Severe Percentile rank, based on age, race/ethnicity, and gender: 72%-ile. Reference: Emanuel RL, Vladimir H, Edwin R, et al. ??Distribution ofcoronary artery calcium by race, gender, and age: results from the Multi-EthnicStudy of Atherosclerosis (RODRIGUEZ). Circulation. 2006;113(1):30-37. Coronary arteries: Right dominant coronary circulation. Left main: Normal origin. No demonstrable plaque or stenosis. Left anterior descending: Several foci of plaque in the proximal LADwith luminal narrowing by 25-<50%. Diagonal branches: No demonstrable plaque or stenosis. Left Circumflex: Minimal calcified plaque in the proximal circumflexartery with luminal narrowing of less than 25%. Obtuse marginal branches: No demonstrable plaque or stenosis. Right coronary: Normal origin. Scattered plaque in the proximal to midright coronary artery. Focal circumferential calcified plaque in the mid RCA (suspected luminal narrowing is less than 50%). Posterior descending: No demonstrable plaque or stenosis. Posterolateral branch: No demonstrable plaque or stenosis. Cardiac chambers: No significant findings. Great vessels: No significant findings. Pulmonary parenchyma, airways, pleura: No significant findings. Upper abdomen: No significant findings Skeletal Structures: No significant findings. IMPRESSION Coronary calcium score of 388, consistent with severe atheroscleroticplaque burden and 72%-ile rank based on age, race/ethnicity, and gender. There is breathing motion artifact on the coronary CT arteriogram. In addition, the image noise is increased due to the patient's bodyhabitus. Three-vessel atherosclerotic plaque, predominantly in the right coronaryartery. Within the above limitations the maximal narrowing is less than 50%. CAD RADS 2/P3 I have personally reviewed the image(s) and the resident's interpretationand agree with the findings, Erin Kessler MD at 12/15/2023 3:51PM Thank you for letting us participate in the care of this patient. If youare a health care provider and have any questions regarding this report,please contact the number below. For patients who have questions please contactthe health rn wound care that requested your imaging first. Electronically signed by: Erin Kessler MD, [facility] ([phone]), at 12/15/2023 3:51 PM Dustin Kenyon MD IMG CT ORDERABLES documented in this encounter Visit Diagnoses Diagnosis Chest pain, exertional Chest pain, unspecified Chest pain, exertional Chest pain, unspecified documented in this encounter Care Teams Patient Intake Coordinator Relationship Specialty Start Date End Date Mercedes Miles MD [address] [place] [address] PCP - General Family Medicine 07/24/23 documented as of this encounter
--- OUTSIDE RECORDS SUMMARY | 2024-04-16 21:49 | XMS_ITS | Encounter Summary ---
[place] [address] Care Team Providers Care Product Engineer Name Role Phone Johny Cooper APRN Primary Care Provider Reason for Referral * - Closed Specialty Diagnoses / Procedures Referred By Sofieac t Referred To Contact Diagnoses Former smoker Procedures US AAA Screening Johny Cooper APRN [address] [place] [address] [facility] [place] [address] Referral ID Status Reason Start Date Expiration Date Visits Re quested Visits Authorized [id number] Closed 12/09/2020 12/09/2021 1 1 Reason for Visit * - Closed Specialty Diagnoses / Procedures Referred By Jhonny baer Referred To Contact Diagnoses Former smoker Procedures US AAA Screening Johny Cooper APRN [address] [place] [address] [facility] [place] [address] Referral ID Status Reason Start Date Expiration Date Visits Re quested Visits Authorized [id number] Closed 12/09/2020 12/09/2021 1 1 Encounter Details Date Type Department Care Team (Latest Contact Info) Description 12/21/2020 3:00 PM EDT - 12/21/2020 11:59 PM EDT Hospital [place] [address] Johny Cooper APRN [address] [place] [address] Former smoker Discharge Disposition: Home Social History Tobacco Use [...] Tablet Take 1 tablet by mouth Daily. acetaminophen (Tylenol) 500 mg Tablet Take 2 [...] Procedure Name Priority Date/Time Associated Diagnosis Comments US ULTRASOUND AAA SCREENING Routine 12/21/2020 3:29 PM EDT Former smoker documented in this encounter Results * US AAA Screening (12/21/2020 3:29 PM [...] who have questions please contact the health home care liaison that requested your imaging first. ?Charli Frank, Staff Physician Electronically Signed Final Report ?? 12/21/2020 03:39 pm Narrative 12/21/2020 3:39 PM EDT Aorta ? (Signed Final 12/21/2020 03:39 pm) PATIENT INFO: ID #: ? [id number] ?: ??[birth year] (64 yrs)(M) Name: ? TOMAS ELLIOTT ? Visit Date: 12/21/2020 03:09 pm PERFORMED BY: Performed By: ? Bea Berkowitz RDMS Attending: ?Charli Frank MD Referred By: ?JOHNY ALEGRENO Location: ? [place] SERVICE(S) PROVIDED: UAORTA - AAA Screening - [id number] ?[id number] INDICATIONS: FORMER SMOKER; AAA SCREENING ------ AORTA: [...] 12/21/2020 03:39 pm) PATIENT INFO: ID #: [id number] : 53 (64 yrs)(M) Name: TOMAS ELLIOTT Visit Date: 12/21/2020 03:09 pm PERFORMED BY: Performed By: Bea Berkowitz RDMS Attending: Charli Frank MD Referred By: JOHNY COOPER Location: [place] SERVICE(S) PROVIDED: UAORTA - AAA Screening - [id number] INDICATIONS: FORMER SMOKER; AAA SCREENING ------ AORTA: [...] who have questions please contact the health home care liaison that requested your imaging first. Charli Frank, Staff Physician Electronically Signed Final Report 12/21/2020 03:39 pm Johny Cooper CH[employer] IMG US GEN ORDERABLE S documented in this encounter Visit Diagnoses Diagnosis Former smoker Personal history of tobacco use, presenting hazards to health documented in this encounter Care Teams Product Engineer Relationship Specialty Start Date End Date Johny Cooper APRN [address] [place] [address] PCP - General Family Medicine 09/25/20 07/23/23 documented as of this encounter
--- OUTSIDE RECORDS SUMMARY | 2024-04-16 21:49 | XMS_ITS | Encounter Summary ---
Author Organization Formerly [facility] [place] [address] Care Team Providers Care Ciaio Lumite Injector Name Role Phone Mercedes Miles MD Primary Care Provider [phone] Encounter Details Date Type Department Care Team (Late st Contact Info) Description 10/04/2023 Telephone Cardiology at [address] [phone] Dustin Kenyon MD [facility] [place] [address] Social History Tobacco Use Types Packs/Day Years [...] Encounter - Dustin Kenyon MD - 10/04/2023 11:31 AM EST ----- Message from Rayna Dupont sent at 10/04/2023 11:11 AM EST ----- Regarding: CT Labs Good Morning, I just received a call from CT requesting a lab order be placed. They will need a Creatinine or BMPprior to the CT Scan on 11/07. Thank you, Rayna documented in this encounter Plan of Treatment Not on file documented as of this encounter Results * (ABNORMAL) Creatinine (12/14/2023 8:12 AM EDT) Creatinine 0.71(L) 0.80 - 1.50 mg/dL [facility] Est Glomerular Filtration Rate 100 >=60 mL/min/1. 73 m?? [facility] Comment: This patient's estimated [...] and symptoms in addition to eGFR. Blood 12/14/2023 8:12 AM EDT 12/14/2023 8:15 AM EDT Narrative Resulting Agency Comment Spec In Lab Dustin Kenyon MD CHEMISTRY ORDERABLES Performing Organization Address City/State/[facility] Co de Phone Number [facility] [place] [address] documented in this encounter Visit Diagnoses Diagnosis Hypertension, unspecified type documented in this encounter Care Teams Ciaio Lumite Injector Relationship Specialty Start Date End Date Mercedes Miles MD [address] [place] [id number] PCP - General Family Medicine 07/24/23 documented as of this encounter
--- OUTSIDE RECORDS SUMMARY | 2024-04-16 21:49 | XMS_ITS | Encounter Summary ---
Author Organization [facility] Address [facility] [place] [address] Care Team Providers Care Archives Director Name Role Phone Allison Michelle Anyi PRITCHETT Primary Care Provider [phone] Encounter Details Date Type Department Care Team (Late st Contact Info) Description 12/21/2021 1:00 PM EDT - 12/21/2021 2:54 PM EDT Surgery [place] [phone] Angelita Wright MD [facility] [place] [address] HEMORRHOIDECTOMY, INTERNAL & EXTERNAL, COMPLEX (WRVU 6.73) Social History Tobacco Use Types Packs/Day Years [...] Sign Reading Time Taken Comments Blood Pressure 133/81 12/21/2021 2:45 PM EDT Pulse 62 12/21/2021 12:35 PM EDT Temperature 36.1 ??C (97 ??F) 12/21/2021 12:35 PM EDT Respiratory Rate 18 12/21/2021 2:45 PM EDT Oxygen Saturation 96% 12/21/2021 2:45 PM EDT Inhaled Oxygen Concentration - - [...] 15 minutes 4X/day. Pain medications Please take cflu-fth-thbntly pain medications for post-operative discomfort.(Please continue to [...] Center 01/17/2022 11:30 AM Angelita Wright MD [facility] Divison of Colon and Rectal Surgery, [place] [address] documented in this encounter Medications at Time [...] escorted out of department via wheelchair with EMPLOYMENT CLERK. documented in this encounter Miscellaneous Notes * Op Note - Angelita Wright MD - 12/21/2021 1:23 PM EDT [facility] Operative Note Patient Name: Tomas Elliott : [id number] MR#: [id number] Case Date: 12/21/2021 Surgeon: Surgeon(s) and Role: [...] 12/21/2021 1:50 PM EDT Hemorrhoidectomy, Int/Ext, Complx ([id number]) 12/21/2021 12:56 PM EDT hemorroids POCT GLUCOSE Routine 12/21/2021 12:15 PM EDT documented in this encounter Results * Specimen to Pathology (12/21/2021 2:04 PM EDT) AP Specimen 12/21/2021 2:04 PM EDT 12/21/2021 2:04 PM EDT Narrative [facility] - 12/21/2021 2:04 PM EDT Specimen requisition ordered. ??Separate Pathology report to follow Angelita Wright MD PATHOLOGY/CYTOLOGY O RDERABLES [facility] [place] [address] * Surgical Pathology Report (12/21/2021 1:50 PM EDT) Final Diagnosis [id number] ? Location: SD; SD40; A The signing pathologist has (i) examined the relevant preparation(s) for the specimen(s) and (ii) rendered or confirmed the diagnosis(es). . ?Surgical Pathology DIAGNOSIS A - Hemorrhoids - perm, excision: Squamous ??and rectal glandular ??junction epithelium with marked subepithelial vascular proliferation and congestion, consistent with ?hemorrhoid. Electronically signed by: ?Naz Membreno MD Verified: ??01/03/2022 17:45 ??Pathologist Performed at: ??-[facility] Dept. of Pathology, [place], [place] SPECIMEN(S) SUBMITTED A - Hemorrhoids - perm, excision (2) CLINICAL INFORMATION Hemorrhoids SPECIMEN PROCESSING A - Labeled/Fixative: Hemorrhoids, fresh. Quantity/Size: ??Two, 3.5 x 1.7 x 1.7 cm; 1.3 x 1.2 x 0.7 cm. Tissue Description: Intact, polypoid portions of pink-red mucosa with underlying, congested vasculature. Sections/Processi ng: Serially sectioned. Clerical Methods Analyst sections in 1 cassette labeled A1. ??njrs 01/03/2022 5:45 PM EDT [facility] ANAL STRUCTURE / Unknown 12/21/2021 1:50 PM EDT 12/21/2021 1:50 PM EDT Angelita Wright MD PATHOLOGY/CYTOLOGY O RDERABLES [facility] [place] [address] * POCT Glucose (12/21/2021 12:15 PM EDT) Pathologist [facility] Glucose, POC 99 65 - 199 mg/dL [facility] Comment: Supplemental ranges: <140 mg/dL before meals <180 mg/dL all other times of the day Blood 12/21/2021 12:1 5 PM EDT 12/21/2021 12:15 PM EDT Angelita Wright MD POINT OF CARE TEST O RDERABLES [facility] [place] [address] documented in this encounter Visit Diagnoses Not [...] at 1419, Until Mon12/21/21 at 1423, IZABEL FLOREZ.: cabinet override oxyCODONE (Roxicodone) tablet 5 mg [...] Oral, EVERY 4 HOURS PRN, Starting on e 12/21/21 at 1425, Until 12/21/21 at 1808, [...] Routine documented in this encounter Care Teams Archives Director Relationship Specialty Start Date End Date Michelle Cooper APRN [address] [place] [address] PCP - General Family Medicine 09/25/20 07/23/23 documented as of this encounter
--- OUTSIDE RECORDS SUMMARY | 2024-04-16 21:49 | XMS_ITS | Encounter Summary ---
[place] [address] Care Team Providers Care Machine Group Leader Name Role Phone Michelle Cooper APRN Primary Care Provider Encounter Details Date Type Department Care Team (Late st Contact Info) Description 12/22/2020 Orders [place] [phone] Yuridia Bass, RN Social History Tobacco Use Types Packs/Day [...] on filedocumented in this encounter Care Teams Machine Group Leader Relationship Specialty Start Date End Date Michelle Cooper APRN [address] [place] [address] PCP - General Family Medicine 09/25/20 07/23/23 documented as of this encounter
--- OUTSIDE RECORDS SUMMARY | 2024-04-16 21:49 | XMS_ITS | Encounter Summary ---
Author Organization [facility] [place] [address] Care Team Providers Care Conference Planning Manager Name Role Phone Mercedes Miles MD Primary Care Provider [phone] Encounter Details Date Type Department Care Team (Late st Contact Info) Description 12/18/2023 Telephone Cardiology at [address] [phone] Dustin Kenyon MD [facility] [place] [address] Social History Tobacco Use Types Packs/Day Years [...] Telephone Encounter - Dustin Kenyon MD - 12/18/2023 4:06 PM EDT Discussed CTA results w pt. He wishes to defer cath at this time. Will continue current secondary prevention and f/u in 3 months. Dustin Kenyon MD documented in this encounter Plan of Treatment Not on file documented as of this encounter Visit Diagnoses Not on filedocumented in this encounter Care Teams Conference Planning Manager Relationship Specialty Start Date End Date Mercedes Miles MD [address] [place] [address] PCP - General Family Medicine 07/24/23 documented as of this encounter
--- OUTSIDE RECORDS SUMMARY | 2024-04-16 21:49 | XMS_ITS | Encounter Summary ---
Author Organization [facility] Address [facility] [place] [address] Care Team Providers Care Shell Reprint Operator Name Role Phone Michelle Cooper APRN Primary Care Provider [phone] Reason for Visit * Reason Comments Establish Care * Consultation (Routine) - Closed Specialty Diagnoses / Procedures Referred By Contsai t Referred To Contact Colon and Rectal Surgery / General Surgery Diagnoses Hemorrhoids Michelle Cooper APRN [address] [place] [address] [facility] Gen Surgery [address] [place] [address] Referral ID Status Reason Start Date Expiration Date Visits Re quested Visits Authorized [id number] Closed 07/27/2021 07/27/2022 1 1 Encounter Details Date Type Department Care Team (Late st Contact Info) Description 10/04/2021 10:00 AM EST Office [place] [phone] Angelita Wright MD [facility] [place] [address] Rectal bleeding; Prolapsed internal hemorrhoids, grade 2; Chronic anal fissure; Obstructive sleep apnea Social History Tobacco Use Types Packs/Day Years [...] Sign Reading Time Taken Comments Blood Pressure - - Pulse - - Temperature - - Respiratory Rate - - Oxygen Saturation - - Inhaled Oxygen Concentration - - Weight 113.9 kg (251 lb) 10/04/2021 10:04 AM EST Height 176.5 cm (5' 9.49) 10/04/2021 10:[address] Body Mass Index 36.55 10/04/2021 10:04 AM EST documented in this encounter Patient Instructions * Patient Instructions* Zofia Paz PA - 10/04/2021 11:51 AM EST Calvin Marin. It was great to meet you today. Based on our discussion during today's visit, these are the next steps going forward: Limit time on commode. If you are having sensation of incomplete evacuation, stand up and wait for next bowel movement. Limit straining. This can cause hemorrhoid to engorge and this contributes to sensation of rectal fullness and pressure. Increase fiber intake. Using psyllium husk daily can greatly improve consistency of stools and limit amount of straining and time spent on the commode. We will schedule outpatient hemorrhoidectomy. documented in this encounter Progress Notes * Angelita Wright MD - 10/04/2021 10:00 AM EST Colorectal Surgery Outpatient Consultation ~ Division of Colon and Rectal Surgery ~ [facility] PCP Michelle Cooper APRN. Gastroenterology: Marilynn Mondragon MD HPI: Tomas Elliott is a pleasant 65 y.o. male who we were asked to see by Dr. Cooper regarding symptomatic anorectal disease. Patient underwent colonoscopy 04/05/2021, some small polyps were removed 3tubular adenomas and identification of large internal hemorrhoids. Patient has a known history of anemia and was referred for consultation regarding management of hemorrhoids. He has history of anemia secondary to intermittent rectal bleeding, no iron supplementation. 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 He has history of intermittent bleeding hemorrhoids since adolescence. Prior hemorrhoidectomy performed in 2006. Patient reports intermittent bleeding with bowel movements, often occurring at the endof the stool and on the toilet paper. He reports spending 20 minutes on the commode at a time due to sensation of incomplete evacuation. Intermittent prolapse sensation, but reports that it spontaneously reduces when he stands. He states that he has used psyllium husk and metamucil in the past, butis not using fiber consistently. He reports the last time he used psyllium, he had urgency in his bowel movements. His bowel habits vary greatly from small hard stools, to large soft voluminous stools. There is no correlation with food intake. Has 1 BM daily. Denies pain during bowel movements. Does report history of sticky stools while on sertraline, but reports that this went away when he stopped taking sertraline. Denies fever, chills, abdominal pain, weight loss, gross hematuria, pneumaturia. Does report significant fatigue. Review of Systems Constitutional: Positive for malaise/fatigue. Respiratory: Positive for cough, shortness of breath and wheezing. Genitourinary: Negative. Gastrointestinal: Positive for other (rectal bleeding). HENT: Negative. Psychiatric/Behavioral: Positive for depression, insomnia and physiological symptoms of anxiety. The patient has insomnia. Hematologic/Lymphatic: Negative. Allergic/Immunologic: Negative. Musculoskeletal: Negative. Endocrine: Negative. Cardiovascular: Negative. Neurological: Negative. Skin: Negative. COREFO Responses 10/03/2021 Incontinence Scale 25 Social Impact Scale 19.44 Frequency Scale 0 Stool Releated Aspects 83.33 Medication Scale 8.33 Total COREFO Score 25.96 The COREFO questionnaire is a validated questionnaire with 27 questions to assess colorectal functional outcome. Patients are asked to consider the two week period prior before filling out the questionnaire. Category scores range from zero to 100. A total score is calculated from the categories above, also ranging from zero to 100. A higher score represents an increased level of functional disturbance. Past medical history: Past Medical History: Diagnosis Date ??? Alcohol abuse ??? Anxiety ??? 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 Depression ??? Diabetes mellitus ??? Hyperlipidemia ??? Hypertension ??? Lung disease ??? Mediastinal mass ??? Obstructive sleep apnea ??? Prolapsed internal hemorrhoids, grade 2 ??? Rectal bleeding ??? Vitamin D deficiency Past surgical history: Past Surgical History: Procedure Laterality Date ??? FEMUR SURGERY ??? HEMORRHOID SURGERY ??? HERNIA REPAIR ??? PRO BRONCHOSCOPY, DIAGNOSTIC N/A 11/25/2020 BRONCHOSCOPY, DIAGNOSTIC (WRVU 2.78) performed by Taj Mccullough MD at [facility] MAIN OR ??? PRO COLONOSCOPY, REMV LESN, SNARE N/A 04/05/2021 COLONOSCOPY, POLYPECTOMY, REMOVAL LESION BY SNARE (WRVU 4.67) performed by Marilynn Mondragon MD at [facility] ENDOSCOPY ? ? PRO INJECTION ANES AGENT &/ STEROID INTERCOSTAL NERVE EA ADDL LEVEL Right 11/25/2020 NERVE BLOCK, INTERCOSTAL NERVE, MULTIPLE (WRVU 1.68) [facility] ??? PRO THYMECTOMY, RADICAL MEDIAST DISSSEC Right 11/25/2020 @ROBOTIC THYMECTOMY W/ RAD. MEDIASTINAL DISSECTION (WRVU 23.48) performed by Taj Mccullough MD at [facility] MAIN OR Allergies: Adhesive Medications: reviewed in the electronic medical record. Current Outpatient Medications on File Prior to Visit Medication Sig Dispense Refill ??? Spiriva Respimat 2.5 mcg/actuation Mist ??? FLUoxetine (PROzac) 20 mg Capsule Take 20 mg by mouth daily. ??? diazePAM (Valium) 5 mg Tablet ??? oxyCODONE (Roxicodone) 5 mg Tablet Take 1 tablet by mouth every 12 hours. 10 tablet 0 ??? acetaminophen (Tylenol) 500 mg Tablet Take 2 tablets by mouth every 6 hours. 30 tablet 1 ??? senna (Senokot) 8.6 mg Tablet Take 1 tablet by mouth every evening. 10 tablet 0 ??? [DISCONTINUED] oxyCODONE (Roxicodone) 5 mg Tablet Take 1 tablet by mouth every 4 hours as needed for Pain (For pain not controlled by Tylenol and Ibuprofen). 10 tablet 0 ??? multivitamin (THERAGRAN) Tablet [...] Frequency Provider Last Rate Last Admin ??? oxyCODONE (Roxicodone) tablet 5 mg 5 mg Oral Q12H PRN Jostni Rosales PA Social history: reports that he quit smoking about 42 years ago. He quit smokeless tobacco use about 42 years ago. He reports previous alcohol use. He reports that he does not use drugs. Family medical history: History reviewed. No pertinent family history. Patient denies a family history of: colorectal cancer, colorectal polyps, diverticular disease, Crohn disease and ulcerative colitis. Patient admits a family history of: none Vital Signs Last value Range last 24hrs Temperature Temp: -- Heart Rate Heart Rate: -- Blood Pressure BP: -- Respiratory Rate Resp: -- SpO2 SpO2: -- Pertinent Lab Data: No results for input(s): WBC, HGB, HCT, PLATELET, PT, INR, PTT in the last 72 hours. No results for input(s): NA, K, CL, CO2, BUN, CREATININE, GLUCOSE, CALCIUM, MAGNESIUM, PHOS in the last 72 hours. No results for input(s): CRP in the last 72 hours. Physical Exam: Body mass index is 36.55 kg/m??. General Appearance: well developed and well nourished Neuro: awake, alert and oriented to person, place and time no acute distress Psych: appropriate mood and affect Eyes: extra ocular muscles intact, pupils equally reactive to light and accomodation ENT: neck supple, no lyphadenopathy noted CV: regular rate and rhythm Resp: non-labored without adventitous sounds on auscultation Lymph: no edema noted Abdomen: soft, non-tender, and not distended, no masses or organomegaly Ext: no cyanosis The patient was examined in the left lateral decubitus position with Axel assisting. The perianal skin is normal without evidence of eternal hemorrhoids. Evidence of chronic fissure at the anterior midline. The anus is closed. Anal tone at rest is mildly decreased. Squeeze tone is mildly decreased. Normal relaxation with valsalva. There are no masses. There is no gross blood. There is no tenderness to palpation. Anoscopy: The well lubricated anoscope was inserted into the anal canal and the entire anal canal and distal rectum were inspected. Findings include: large non- bleeding internal hemorrhoid in the left lateral column, otherwise normal mucosa. Endoscopy: reviewed. Colonoscopy 04/05/2021 Path: reviewed. 3 tubular adenoma Impression/Plan: Tomas Elliott is a pleasant 65 y.o. male who we were asked to see by Dr. Cooper regarding symptomatic anorectal disease. Patient has evidence of large grade III internal hemorrhoidslocated in the left anterior position.These are too large to perform rubber band ligation. Due to anemia and ongoing prolapse with significant bleeding a formal hemorrhoidectomy is recommended. At the visit, we discussed risks and benefits of performing surgery, specifically including risk ofbleeding, infection, and post-operative pain. Risks of anesthesia also discussed, including cardiovascular, pulmonary, and kidney problems. Patient understands plan and recommendations and would liketo proceed with surgery. At the visit, we also discussed importance of anal hygiene including limiting time on commode, limiting straining, and increasing fiber intake. Since he has used psyllium in the past with success, recommend taking psyllium on a consistent basis Based on our discussion during today's visit, these are the next steps going forward: 1. Limit time on commode. If you are having sensation of incomplete evacuation, stand up and wait for next bowel movement. 2. Limit straining. This can cause hemorrhoid to engorge and this contributes to sensation of rectal fullness and pressure. 3. Increase fiber intake. Using psyllium husk daily can greatly improve consistency of stools and limit amount of straining and time spent on the commode. 4. We will schedule outpatient hemorrhoidectomy. Patient seen with Zofia Paz PA-C. I have seen the patient in person and reviewed the general surgery resident's above history and I agree with the details as written. The assessment and plan were formulated in discussion with me and I agree with them as documented. Pertinent History: Large grade 3 prolapsing hemorrhoids with bleeding and anemia Major issues addressed: #1 Bowel hygiene avoid sitting and straining #2 Large grade 3 prolapsing hemorrhoids recommend formal hemorrhoidectomy Plan: Agree with plans as documented including: Operative checklist: Surgeon: Dr. Wright Location: , Position: Prone Procedure: Hemorrhoidectomy Length: 1 hour Antibiotics: Not necessary Outpatient pain medication: Should sign consent Surgical consent: Signed Angelita Wright MD, MS, FACS, FASCRS Chief, Division of Colon and Rectal Surgery [facility] Pager [phone] Angelita Wright MD, MS, FACS, FASCRS Chief, Div. of Colon and Rectal Surgery [facility] Pager [phone] documented in this encounter Plan of Treatment Scheduled Orders Name Type Priority Associated Diagnoses Orde r Schedule EKG 12 Lead ECG Routine Obstructive sleep apnea One Time for 1 Occurrences starting 10/04/2021 until 10/04/2021 documented as of this encounter Visit Diagnoses Diagnosis Rectal bleeding Hemorrhage of rectum and anus Prolapsed internal hemorrhoids, grade 2 Chronic anal fissure Anal fissure Obstructive sleep apnea Obstructive sleep apnea (adult) (pediatric) documented in this encounter Care Teams Shell Reprint Operator Relationship Specialty Start Date End Date Michelle Cooper APRN [address] [place] [address] PCP - General Family Medicine 09/25/20 07/23/23 documented as of this encounter
--- OUTSIDE RECORDS SUMMARY | 2024-04-16 21:49 | XMS_ITS | Encounter Summary ---
Author Organization [facility] [place] [address] Care Team Providers Care Navy Airspace Officer Name Role Phone Mercedes Miles MD Primary Care Provider [phone] Reason for Referral * Diagnostic Test (Routine) - Closed Specialty Diagnoses / Procedures Referred By Jhonny t Referred To Contact Cardiology Diagnoses Chest pain, exertional Procedures Echocardiogram Transthoracic Kimberly Kenyon MD [facility] [place] [address] [facility] [place] [address] Referral ID Status Reason Start Date Expiration Date V isits Requested Visits Authorized [id number] Closed Specialty Service Requested 09/28/2023 09/27/2024 1 1 Reason for Visit * Consultation (Routine) - [...] SEEN 04/22/22-Michelle Akhtar APRN [address] [place] [address] Kimberly Kenyon MD [facility] [place] [address] Referral ID Status Reason Start Date Expiration Date V isits Requested Visits Authorized [id number] Closed Consult, Test & Treat 07/10/2023 07/09/2024 1 1 Encounter Details Date Type Department Care Team (Late st Contact Info) Description 09/28/2023 10:40 AM EST Office Visit Cardiology at [address] [place] [address] Kimberly Kenyon MD [facility] [address] [place] [address] Chest pain, exertional Social History Tobacco Use [...] Sign Reading Time Taken Comments Blood Pressure 139/71 09/28/2023 10:32 AM EST Pulse 68 09/28/2023 10:32 AM EST Temperature - - Respiratory Rate - - Oxygen Saturation 100% 09/28/2023 10:32 AM EST Inhaled Oxygen Concentration - - Weight 117 kg (258 lb) 09/28/2023 10:32 AM EST Height 172.7 cm (5' 8) 09/28/2023 10:32 AM EST Body Mass Index 39.23 09/28/2023 10:32 AM EST documented in this encounter Progress Notes * Kimberly Kenyon MD - 09/28/2023 10:40 AM EST Images from the original note were not included. [facility] [place] [address] Referring Provider: Michelle Cooper APRN [address] [place] [address] Reason for Consultation / Chief Complaint: chest pain Past Cardiac History and Relevant Comorbidities: Hypertension Hyperlipidemia Diabetes Chest pain Obstructive sleep apnea Thymolipoma status post resection HPI: Javon Lopez is a 67 y.o. male with history of the above cardiovascular issues who presents for evaluation of his cardiovascular disease. Javon is still feeling poorly. He notes persistent dyspnea with exertion and chest tightness if he exerts himself too much. He notes that he gets short of breath walking up stairs. He also notes thathe is chronically fatigued. He currently takes modafinil for this. He believes that it is likely his heart that is causing this. He did not start taking the statin because he was concerned about sideeffects. He is interested in further testing. He denies any orthopnea, PND or significant changes in his weight. He tries to eat a healthy diet, however he does enjoy a Western diet. He notes bilateral lower extremity edema. No syncope. He does note occasional episodes of palpitations. His chest dis comfort is brought on by exertion and relieved by rest. Other Past Medical History: Patient Active Problem [...] Social History Tobacco Use Smoking status: Former Types: Cigarettes Quit date: 1979 Years since quittin.1 Smokeless tobacco: Former Quit date: 1979 Vaping Use Vaping Use: Never used Substance Use Topics Alcohol use: Not Currently Drug use: Never Family History: Notable family history of coronary disease ALLERGIES: Allergies Allergen Reactions Adhesive Other (See Comments) Swelling at local site w/ adhesive/latex glues Bee Venom Protein (Honey Bee) Sulfamethizole MEDICATIONS: Current Outpatient Medications: omeprazole (PriLOSEC) [address] capsule, Take 20 mg by mouth., Disp: , Rfl: modafiniL (PROVIGIL) 200 mg Tablet, as needed., Disp: , Rfl: tadalafiL (Cialis) 20 mg Tablet, as needed., Disp: , Rfl: ibuprofen (AdviL) 200 mg Tablet, Take 200 mg by mouth every 6 hours as needed for Pain., Disp: , Rfl: doxepin (Sinequan) 10 mg Capsule, Take 10 mg by mouth nightly as needed., Disp: , Rfl: cholecalciferol, Vitamin D3, 50 mcg (2,000 unit) Capsule, Take 5,000 Units by mouth daily., Disp: ,Rfl: lisinopriL-hydrochlorothiazide (PRINZIDE;ZESTORETIC) 20-25 mg Tablet, Take 1 tablet by mouth Daily., Disp: , Rfl: rosuvastatin (Crestor) 20 mg Tablet, Take 0.5 tablets by mouth daily. (Patient not taking: Reportedon 09/28/2023), Disp: 45 tablet, Rfl: 3 levomefolate calcium (L-METHYLFOLATE ORAL), Take by mouth daily., Disp: , Rfl: acetylcysteine (NAC ORAL), Take by mouth daily., Disp: , Rfl: MAGNESIUM CITRATE ORAL, Take by mouth daily., Disp: , Rfl: ferrous sulfate (IRON ORAL), Take by mouth daily., Disp: , Rfl: vitamin E acetate (VITAMIN E ORAL), Take [...] capsule by mouth daily., Disp: , Rfl: albuteroL 90 mcg/actuation HFA Aerosol Inhaler, Inhale 3 puffs into the lungs every 4 hours as needed., Disp: , Rfl: ROS: As per HPI, otherwise the remainder of the ROS was either non-pertinent or negative. PHYSICAL EXAM: Vitals: 09/28/23 1032 BP: 139/71 BP Location (NBP): Left arm Patient Position: Sitting BP Cuff Sizes: Adult (25-34 cm) Pulse: 68 SpO2: 100% Weight: 117 kg (258 lb) Height: 172.7 cm (5' 8) Constitutional: In [...] the last 7068 hours. Last 3 Lytes No results for input(s): NA, K, CL, CO2, BUN, CREATININE in the last 7068 hours. Last 3 ProBNP, Trop, CK No results for input(s): CK, TROPONINT, PROBNP in the last 168 hours. Last 3 Lipids No results for input(s): CHLPL, HDL, LDLCHOL, LDLDIRECT, TRIG in the last 7068 hours. A/P: Javon Lopez is a 67 y.o. male who presents for evaluation of the following cardiovascular issues: Chest discomfort: Prior nuclear stress test demonstrated no defects. Advised that it is reasonable to pursue a further structural evaluation with a transthoracic echo. Given concerns surrounding typical angina and a possible false negative nuclear stress test and the patient was coronary disease noted on CT scan, I advised that it would be reasonable to pursue cardiac catheterization if transthoracic echo is unrevealing at this time. Hypertension: Blood pressures under reasonable control. Defer further up escalation in therapy Hyperlipidemia: Start high intensity statin therapy Palpitations: Reasonable to consider a Zio patch in the future after coronary/structural workup completed. Recommendations: 1: TTE at this time, if no evidence of structural heart dz, proceed to cath 2: Start Rosuvastatin 20mg 3: f/u in 6m Kimberly Kenyon MD 09/28/2023 10:53 AM documented in this encounter Plan of Treatment Not on file documented as of this encounter Results * ECHO COMPLETE (09/28/2023 12:58 PM EST) EF 57 HEARTLAB SYSTEM Anatomical Region Laterality Modality Cardiac Other 09/28/2023 12:0 1 PM EST Narrative 09/28/2023 2:28 PM EST 1 [place] [address] ? Echocardiogram Report Name: JAVON LOPEZ ? Study Date: 09/28/2023 12:01 PMBP: 139/70 mmHg ? Patient Location: : 1955 ? Height: 173 cm ? Account: [id number] Age: 67 yrs ? Weight: 114 kg Gender: Male ?BSA: 2.3 m2 Ordering Physician: KIMBERLY KENYON Referring Physician: KIMBERLY KENYON Performed By: Juany Mak Reason For Study: Chest pain, exertional History: Chest pain Interpreting Fellow: Abby Riggs. Exam Location: [facility]. Interpretation Summary - Normal left ventricular wall thickness, cavity size, systolic and diastolic function. LVEF is 57% by Murguia's biplane. There are no segmental wall motion abnormalities. - Normal right ventricular size and systolic function. - Normal atrial size. - There is no hemodynamically significant valvular disease. - There is no prior echocardiogram available for comparison. Procedure Complete-41230. Satisfactory quality. There is sinus bradycardia. There is normal sinus rhythm. Left Ventricle Left ventricle is of normal size. Wall thickness is normal. There is no ventricular septal defect. Left ventricular systolic function is normal. The left ventricular ejection fraction is 57% by Murguia's biplane. There are no segmental wall motion abnormalities. Right Ventricle The right ventricle is of normal size. Right ventricular systolic function is normal. Left Atrium The left atrium is normal. There is no evidence for a patent foramen ovale. Right Atrium The right atrium is mildly dilated. Aortic Valve The aortic valve is structurally and functionally normal. The aortic valve is tricuspid. There is no aortic stenosis. There is no aortic regurgitation. Mitral Valve The mitral valve is structurally and functionally normal. There is trace mitral regurgitation. Tricuspid Valve The tricuspid valve is structurally and functionally normal. There is trace tricuspid regurgitation. Pulmonic Valve The pulmonic valve appears to be structurally and functionally normal. Great Arteries The diameter at the level of the sinuses of Valsalva is 3.8 cm. The ascending aorta is not well visualized. The pulmonary artery is not well visualized. Venous Inferior vena cava is normal in size. Inferior vena cava collapse greater than 50% with respiration. Pericardium/Pleural There is no pericardial effusion. A pericardial fat pad is present. Hemodynamics Pulmonary artery hypertension could not be assessed due to inadequate tricuspid regurgitation jet. Left ventricular diastolic function is normal. Ejection Fraction ?2D Measurements ? Volumes EF(MOD-bp): 56.7 % ?IVSd: 1.1 cm ? LAV(MOD- bp) Indexed: ?LVIDd: 5.2 cm ?LVIDs: 3.9 cm ?27.0 ml/m2 ?LVPWd: 0.87 cm ? RA A4Cs_phl: 17.9 cm2 ?LV mass(C)d: 189.9 grams ? EDV(MOD- bp) Indexed: ?LV mass(C)dI: 84.1 grams/m2 ?71.3 ml/m2 ?Ao root diam: 3.8 cm ? ESV(MOD-bp) Indexed: ?Ao root diam index: 1.7 ?30.9 ml/m2 ?LVOT diam: 2.1 cm ?SV(LVOT): 80.7 ml ?TAPSE_phl: 2.5 cm ? SI(LVOT): 35.8 ml/m2 Doppler LV V1 VTI: 23.1 cm Ao V2 VTI: 26.7 cm Ao Max: 126.2 cm/sec Ao valve max: 6.4 mmHg Ao valve mean: 3.3 mmHg MV E max rahul: 93.1 cm/sec MV A max rahul: 67.7 cm/sec MV E/A: 1.4 MV dec time: 0.18 sec Lat Peak E' Rahul: 11.9 cm/sec E/ e' (lat): 7.8 Med Peak E' Rahul: 10.5 cm/sec E/e' (med): 8.9 E/e' Average: 8.4 KADI(I,D): 3.0 cm2 Dimensionless index Aov: 0.86 I ?WMSI = 1.00 ? % Normal = 100 ?Segments ??Size X - Cannot ?2 - ?4 - ?1-2 ? small Interpret ?1 - Normal ?? Hypokinetic 3 - Akinetic Dyskinetic ?? 3-5 ? moderate 5 - ? 6-14 ?large Aneurysmal ?15-16 ?? diffuse Procedure Note Bernardino Lassiter MD - 09/28/2023 1 [place] [address] Echocardiogram Report Name: JAVON LOPEZ Study Date: 2:01 PMBP: 139/70 mmHg Patient Location: : 1955 Height: 173 cm Account: [id number] Age: 67 yrs Weight: 114 kg Gender: Male BSA: 2.3 m2 Ordering Physician: KIMBERLY KENYON Referring Physician: KIMBERLY KENYON Performed By: Juany Mak Reason For Study: Chest pain, exertional History: Chest pain Interpreting Fellow: Abby Riggs. Exam Location: [facility]. Interpretation Summary - Normal left ventricular wall thickness, cavity size, systolic anddiastolic function. LVEF is 57% by Murguia's biplane. There are no segmental wallmotion abnormalities. - Normal right ventricular size and systolic function. - Normal atrial size. - There is no hemodynamically significant valvular disease. - There is no prior echocardiogram available for comparison. Procedure Complete-[id number]. Satisfactory quality. There is sinus bradycardia. There isnormal sinus rhythm. Left Ventricle Left ventricle is of normal size. Wall thickness is normal. There is no ventricular septal defect. Left ventricular systolic function is normal.The left ventricular ejection fraction is 57% by Murguia's biplane. There are nosegmental wall motion abnormalities. Right Ventricle The right ventricle is of normal size. Right ventricular systolic functionis normal. Left Atrium The left atrium is normal. There is no evidence for a patent foramenovale. Right Atrium The right atrium is mildly dilated. Aortic Valve The aortic valve is structurally and functionally normal. The aortic valveis tricuspid. There is no aortic stenosis. There is no aorticregurgitation. Mitral Valve The mitral valve is structurally and functionally normal. There is tracemitral regurgitation. Tricuspid Valve The tricuspid valve is structurally and functionally normal. There istrace tricuspid regurgitation. Pulmonic Valve The pulmonic valve appears to be structurally and functionally normal. Great Arteries The diameter at the level of the sinuses of Valsalva is 3.8 cm. Theascending aorta is not well visualized. The pulmonary artery is not wellvisualized. Venous Inferior vena cava is normal in size. Inferior vena cava collapse greaterthan 50% with respiration. Pericardium/Pleural There is no pericardial effusion. A pericardial fat pad is present. Hemodynamics Pulmonary artery hypertension could not be assessed due to inadequatetricuspid regurgitation jet. Left ventricular diastolic function is normal. Ejection Fraction 2D Measurements Volumes EF(MOD-bp): 56.7 % IVSd: 1.1 cm LAV(MOD-bp)Indexed: LVIDd: 5.2 cm LVIDs: 3.9 cm 27.0 ml/m2 LVPWd: 0.87 cm RA A4Cs_phl: 17.9cm2 LV mass(C)d: 189.9 grams EDV(MOD-bp)Indexed: LV mass(C)dI: 84.1 grams/m2 71.3 ml/m2 Ao root diam: 3.8 cm ESV(MOD-bp)Indexed: Ao root diam index: 1.7 30.9 ml/m2 LVOT diam: 2.1 cm SV(LVOT): 80.7ml TAPSE_phl: 2.5 cm SI(LVOT): 35.8ml/m2 Doppler LV V1 VTI: 23.1 cm Ao V2 VTI: 26.7 cm Ao Max: 126.2 cm/sec Ao valve max: 6.4 mmHg Ao valve mean: 3.3 mmHg MV E max rahul: 93.1 cm/sec MV A max rahul: 67.7 cm/sec MV E/A: 1.4 MV dec time: 0.18 sec Lat Peak E' Rahul: 11.9 cm/sec E/ e' (lat): 7.8 Med Peak E' Rahul: 10.5 cm/sec E/e' (med): 8.9 E/e' Average: 8.4 KADI(I,D): 3.0 cm2 Dimensionless index Aov: 0.86 I WMSI = 1.00 % Normal = 100 SegmentsSize X - Cannot 2 - 4 - 1-2small Interpret 1 - Normal Hypokinetic 3 - Akinetic Dyskinetic 3-5moderate 5 - 6-14large Aneurysmal 15-16diffuse Kimberly Kenyon MD ECHO ORDERABLES documented in this encounter Visit Diagnoses Diagnosis Chest pain, exertional Chest pain, unspecified Chest pain, exertional Chest pain, unspecified documented in this encounter Care Teams [employer] Relationship Specialty Start Date End Date Mercedes Miles MD [address] [place] [address] PCP - General Family Medicine 07/24/23 documented as of this encounter
--- OUTSIDE RECORDS SUMMARY | 2024-04-16 21:49 | XMS_ITS | Encounter Summary ---
[place] [address] Care Team Providers Care Senior Ssis Developer Name Role Phone Michelle Cooper APRN Primary Care Provider [phone] Reason for Visit * Reason Onset Date Comments Medication Refill 12/22/2020 Encounter Details Date Type Department Care Team (Late st Contact Info) Description 12/22/2020 Refill [place] [address] Yuridia Bass, RN Social History Tobacco Use [...] on filedocumented in this encounter Care Teams Senior Ssis Developer Relationship Specialty Start Date End Date Michelle Cooper APRN [address] [place] [address] PCP - General Family Medicine 09/25/20 07/23/23 documented as of this encounter
--- OUTSIDE RECORDS SUMMARY | 2024-04-16 21:49 | XMS_ITS | Encounter Summary ---
Author Organization [facility] Address [facility] [place] [address] Care Team Providers Care Warp Placer Name Role Phone Mercedes Miles MD Primary Care Provider [phone] Encounter Details Date Type Department Care Team (Late st Contact Info) Description 10/04/2023 Orders Only Cardiology at [address] [address] Dustin Kenyon MD [facility] [place] [address] Hypertension, unspecified type Social History Tobacco Use Types Packs/Day [...] as of this encounter Visit Diagnoses Diagnosis Hypertension, unspecified type documented in this encounter Care Teams Warp Placer Relationship Specialty Start Date End Date Mercedes Miles MD [address] [place] [id number] PCP - General Family Medicine 07/24/23 documented as of this encounter
--- OUTSIDE RECORDS SUMMARY | 2024-04-16 21:49 | XMS_ITS | Encounter Summary ---
Author Organization [facility] [address] Care Team Providers Care Pairing Machine Operator Name Role Phone Michelle Cooper APRN Primary Care Provider [phone] Encounter Details Date Type Department Care Team (Late st Contact Info) Description 12/16/2020 Notes [place] [id number] Mona Bear Social History Tobacco Use Types [...] encounter Progress Notes * Mona Bear - 12/16/2020 9:45 AM EDT I sent the application for assistance with Spiriva Respimat to for their signature and prescription. I will follow through with the remainder of the application once everything is returned tome. documented in this encounter Plan of Treatment Not on file documented as of this encounter Visit Diagnoses Not on filedocumented in this encounter Care Teams Pairing Machine Operator Relationship Specialty Start Date End Date Michelle Cooper APRN [address] [place] [address] PCP - General Family Medicine 09/25/20 07/23/23 documented as of this encounter
--- OUTSIDE RECORDS SUMMARY | 2024-04-16 21:49 | XMS_ITS | Encounter Summary ---
Author Organization [facility] Address [facility] [place] [address] Care Team Providers Care Tobacco Sieve Operator Name Role Phone Michelle Cooper Anyi PRITCHETT Primary Care Provider [phone] Encounter Details Date Type Department Care Team (Late st Contact Info) Description 11/01/2021 7:35 AM EST Anesthesia [place] [phone] Waleska Lopez MD [facility] DR [place] [address] Anesthesia Record Procedure Summary Procedure Name Responsible Anesthesiologist Anesthesia Start Time Anesthesia Stop Time MYD-H VIDEO VISIT NEW Events No events on file. Meds * Agents No agents on file. * Blood No blood administrations on file. Lines, Drains, and Airways Type Details Placement Removal Incision 12/21/21; 1322; post erior; perirectal 12/21/21 1322 by Raheem Chowdary RN documented in this encounter Social History Tobacco Use Types Packs/Day Years [...] on file documented as of this encounter OR Notes * Anesthesia Preprocedure Evaluation - Waleska Lopez MD - 11/01/2021 9:14 AM EST Pre-Anesthesia Evaluation for: Tomas Elliott a 65 y.o. male. * No procedures listed * Patient Active Problem List Diagnosis Date Noted ??? Obstructive sleep apnea 10/04/2021 ??? Lung disease 10/04/2021 ??? Hypertension 10/04/2021 ??? Hyperlipidemia 10/04/2021 ??? Diabetes mellitus 10/04/2021 ??? Depression 10/04/2021 ??? Anxiety 10/04/2021 ??? Alcohol abuse 10/04/2021 ??? Vitamin D deficiency 10/04/2021 ??? Rectal bleeding 10/04/2021 ??? Prolapsed internal hemorrhoids, grade 2 10/04/2021 ??? 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 Mediastinal mass 11/02/2020 ??? Penile fracture 04/11/2013 Past Medical History: Diagnosis Date ??? Alcohol abuse ??? Anxiety ??? 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 Depression ??? Diabetes mellitus ??? Hyperlipidemia ??? Hypertension ??? Lung disease ??? Mediastinal mass ??? Obstructive sleep apnea ??? Prolapsed internal hemorrhoids, grade 2 ??? Rectal bleeding ??? Vitamin D deficiency Past Surgical History: Procedure Laterality Date ??? FEMUR SURGERY ??? HEMORRHOID SURGERY ??? HERNIA REPAIR ??? PRO BRONCHOSCOPY, DIAGNOSTIC N/A 11/25/2020 BRONCHOSCOPY, DIAGNOSTIC (WRVU 2.78) performed by Taj Mccullough MD at [facility] MAIN OR ??? PRO COLONOSCOPY, REMV LESN, SNARE N/A 04/05/2021 COLONOSCOPY, POLYPECTOMY, REMOVAL LESION BY SNARE (WRVU 4.67) performed by Marilynn Mondragon MD at [facility] ENDOSCOPY ? ? PRO INJECTION ANES AGENT &/ STEROID INTERCOSTAL NERVE EA ADDL LEVEL Right 11/25/2020 NERVE BLOCK, INTERCOSTAL NERVE, MULTIPLE (WRVU 1.68) performed by Taj Mccullough MD at [facility] OR ??? PRO THYMECTOMY, RADICAL MEDIAST DISSSEC Right 11/25/2020 @ROBOTIC THYMECTOMY W/ RAD. MEDIASTINAL DISSECTION (WRVU 23.48) performed by Taj Mccullough MD at [facility] MAIN OR Social History Tobacco Use ??? Smoking status: Former Smoker Quit date: 1979 Years since quittin.2 ??? Smokeless tobacco: Former User Quit date: 1979 Substance Use Topics ??? Alcohol use: Not Currently Social History Substance and Sexual Activity Drug Use Never Allergies Allergen Reactions ??? Adhesive Other (See Comments) Swelling at local site Medications: MAR and/or home medications have been reviewed. Physical Exam: Preprocedure Vitals Current as of 11/01/21 0914 No BP, pulse, respiration, SpO2, or temperature recorded. Height: Weight: BMI: IBW: Anesthesia Physical Exam Last Filed Perioperative Cognitive Screening None Anesthesia Plan Anesthesia Screening Note: Date and Time of Entry: 11/01/2021 9:15 AM Entered By: Waleska Lopez MD Reason for Evaluation: Surgeon Request Hx of Anesthesia Problem: Surgeon Request Other Reason: Patient unclear about reason for visit Screening Visit Type: Telephone Call Additional/Outside Records Requested? Did not request medical information from outside organization. Findings, Assessment and Plan: 65 year old with a PMH significant for elevated BMI (37), HTN (controlled with meds <130s systolic; diastolic runs in the 70s), PILAR (on BiPAP), HLD, pre-diabetes (nomeds), depression (SAD - on prozac but may be discontinued prior to surgery), anxiety, alcohol use,and COPD (quit smoking 20 years ago; takes albuterol and spirovent) who presents hemorrhoidectomy and EUA. 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 Can walk 20 steps (on his stairwell). 2020: Stress test: The patient was then exercised to 7.0 METS to a peak heart rate of 148 bpm which is 95 % of the maximum predicted heart rate. 26 mCi of technetium-99m sestamibi was then administered intravenously and the patient was exercised for one and one half additional minutes. Images of the heart were then again obtained with SPECT reconstruction. ?? A low dose CT scan was acquired for the purpose of attenuation correction. ?? COMPARISON: None ?? FINDINGS: No fixed or reversible perfusion defects are present. Myocardial function: There is normal wall motion and wall thickening. Left ventricular ejection fraction: 61 % (normal greater than 50%) He denies any issues with anesthesia for his thymectomy. He has no questions and was very happy with his previous anesthetic care. He is concerned about post operative pain (previous hemorrhoid surgery was very painful). We discussed the importance of using inhalers prior to his scheduled surgery. His questions were answered. documented in this encounter Plan of Treatment Not on file documented as of this encounter Visit Diagnoses Not on filedocumented in this encounter Care Teams Tobacco Sieve Operator Relationship Specialty Start Date End Date Michelle Cooper APRN [address] [place] [address] PCP - General Family Medicine 09/25/20 07/23/23 documented as of this encounter
--- OUTSIDE RECORDS SUMMARY | 2024-04-16 21:49 | XMS_ITS | Encounter Summary ---
[facility] [place] [address] Care Team Providers Care Blast Furnace Checker Name Role Phone Michelle Cooper APRN Primary Care Provider [phone] Reason for Visit * Reason Onset Date Comments Other 07/20/2021 Pt requesting ap mnt clarification Encounter Details Date Type Department Care Team (Late st Contact Info) Description 07/20/2021 [place] [phone] Bea Lee RN Other (Pt requesting apmnt clarification) Social History Tobacco Use Types Packs/Day Years [...] encounter Miscellaneous Notes * Telephone Encounter - Bea Lee RN - 07/20/2021 9:42 AM EST I have received a VM from Pt. Pt states: Am I supposed to have a f/u scheduled with pulmonary?. I have reached out to Dr. 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 (we referred him to thoracic surgery right after we saw the initial CT result). If he wishes to follow up with us for his COPD, we can see him whenever (no urgency about it unless he's symptomatic). But if he wants to follow up with his PCP for his COPD, that's good too. Dr. Silva I have informed Pt that he feels he would like to still be followed by Pulmonary it would be in hisbest interest to schedule an appointment for mid next year, but to call scheduling sydni as we are booking out into ~December 2021. Pt verbally expressed understanding of this information and did not have any further questions at this time. Bea Lee RN Department of Pulmonary 5C, [facility] / Pager: [phone] documented in this encounter Plan of Treatment Not on file documented as of this encounter Visit Diagnoses Not on filedocumented in this encounter Care Teams Blast Furnace Checker Relationship Specialty Start Date End Date Michelle Cooper APRN [address] [place] [address] PCP - General Family Medicine 09/25/20 07/23/23 documented as of this encounter
--- OUTSIDE RECORDS SUMMARY | 2024-04-16 21:49 | XMS_ITS | Encounter Summary ---
Author [facility] [place] [address] Care Team Providers Care Insulation Worker Interior Surface Name Role Phone Michelle Cooper APRN Primary Care Provider [phone] Reason for Visit * Reason Onset Date Comments Other 01/12/2021 Regarding Spiriv a Encounter Details Date Type Department Care Team (Late st Contact Info) Description 01/12/2021 [place] [phone] Bea Lee RN Other (Regarding Spiriva) Social History Tobacco Use Types Packs/Day Years [...] Telephone Encounter - Bea Lee RN - 01/12/2021 4:04 PM EDT Tomas has called to inform us that he has been denied assistance for the Spiriva Respimat inhaler. I have reached back out to [employer], the following is there response: yes, he can appeal though. I finally goy through yesterday. he needs to have a print out from thepharmacy showing how much the inhaler would cost him out of pocket. once they have the goins quote they will reevaluate his application- [place] I have provided Pt with this information. Pt agrees to obtain the requested documents and will fax them to me. I have agreed to then send them along to [employer]. Bea Lee RN Department of Pulmonary 5C, [facility] [place] Pager: [phone] documented in this encounter Plan of Treatment Not on file documented as of this encounter Visit Diagnoses Not on filedocumented in this encounter Care Teams Insulation Worker Interior Surface Relationship Specialty Start Date End Date Michelle Cooper, YARELY [address] [place] [address] PCP - General Family Medicine 09/25/20 07/23/23 documented as of this encounter
--- OUTSIDE RECORDS SUMMARY | 2024-04-16 21:49 | XMS_ITS | Encounter Summary ---
[place] [address] Care Team Providers Care Life Trainer Name Role Phone Michelle Cooper Anyi PRITCHETT Primary Care Provider [phone] Encounter Details Date Type Department Care Team (Late st Contact Info) Description 12/27/2021 Telephone [place] [phone] Maddie Camara, RN Social History Tobacco Use Types Packs/Day [...] encounter Miscellaneous Notes * Telephone Encounter - Maddie Camara RN - 12/27/2021 12:51 PM EDT Nursing Triage - Phone Note CALLER: Patient to the general surgery clinic Learning Needs Assessment Reviewed: Yes CHIEF COMPLAINT: I am still having pain and would like another refill ? PERTINENT PAST SURGICAL HISTORY: Pt is s/p Surgeon: Surgeon(s) and Role: * Angelita Wright MD - Primary ?? Preoperative diagnosis: hemorroids ?? Postoperative diagnosis: hemorroids ?? Procedure(s) (LRB): HEMORRHOIDECTOMY, INTERNAL & EXTERNAL, COMPLEX (WRVU 6.73) (N/A) ? Anesthesia: General ?? Estimated Blood Loss: 10 cc ?? NURSING ASSESSMENT: PT is complaining about continued rectal pain. Pt reports that he takes Ibuprofen /tylenol together as prescribed Q 6 hrs , as this works best for him. He takes 2 , 5 mg tablets in the morning and then 1 tab every 6 hrs until bedtime when he goes to bed and does not get up to take pain meds. He will continue this pattern and try to wean off the oxycodone. INTERVENTION/PLAN/ FOLLOW UP: Disposition:Patient to continue to monitor from home. Teaching:I reviewed the signs and symptoms of infection (fever of 101, spreading redness that is hot to the touch, purulent drainage, severe persistent pain) and instructed the patient to continue tomonitor. (enter in other pt specific instructions) Patient able to verbalize teaching plan: Y/ Worsening symptoms:If you develop fever of 101, spreading redness, purulent drainage, severe prolonged pain, prolonged nausea and vomiting, please call ([phone] during daytime and [phone] at night/weekends) and/or go to the ED for evaluation. If you are bleeding and cannot get it to stop,have chest pain or breathing difficulties please go to the closest ED or call 911 for assistance. Patient able to verbalize worsening symptom plan: Y/ Resource in decision making: Caden MARIE PCP: Michelle Cooper APRN documented in this encounter Plan of Treatment Not on file documented as of this encounter Visit Diagnoses Not on filedocumented in this encounter Care Teams Life Trainer Relationship Specialty Start Date End Date Michelle Cooper APRN [address] [place] [address] PCP - General Family Medicine 09/25/20 07/23/23 documented as of this encounter
--- OUTSIDE RECORDS SUMMARY | 2024-04-16 21:49 | XMS_ITS | Encounter Summary ---
[place] [address] Care Team Providers Care Supervisor Pigment Making Name Role Phone Mercedes Miles MD Primary Care Provider [phone] Reason for Referral * Diagnostic Test (Routine) - Closed Specialty Diagnoses / Procedures Referred By Sofieac t Referred To Contact Radiology Diagnoses Chest pain, exertional Procedures CT Angiogram Coronary Arteries Dustin Kenyon MD [facility] [place] [address] [facility] [place] [address] Referral ID Status Reason Start Date Expiration Date V isits Requested Visits Authorized [id number] Closed Specialty Service Requested 10/04/2023 04/03/2025 1 1 Reason for Visit * Diagnostic Test (Routine) - Closed Specialty Diagnoses / Procedures Referred By Contsai t Referred To Contact Radiology Diagnoses Chest pain, exertional Procedures CT Angiogram Coronary Arteries Dustin Kenyon MD [facility] [place] [address] [facility] [place] [address] Referral ID Status Reason Start Date Expiration Date V isits Requested Visits Authorized [id number] Closed Specialty Service Requested 10/04/2023 04/03/2025 1 1 Encounter Details Date Type Department Care Team (Latest Contact Info) Description 12/14/2023 8:58 AM EDT - 12/14/2023 11:59 PM EDT Hospital Encounter CT Scan at [facility] [place] [address] Dustin Kenyon MD [facility] [place] [address] Chest pain, exertional Discharge Disposition: Home Social [...] Sig Dispensed Refills Start Date End Date omeprazole (PriLOSEC) [address] capsule Take 20 mg by mouth. 05/18/2022 modafiniL (PROVIGIL) 200 mg Tablet as needed. 03/25/2022 tadalafiL (Cialis) 20 mg Tablet as needed. 04/01/2022 lisinopriL-hydrochlorothi azide (PRINZIDE;ZESTORETIC) 20-25 mg Tablet Take 1 tablet by mouth Daily. rosuvastatin (Crestor) 20 mg tabletIndications:Hyperli pidemia, unspecified hyperlipidemia type Take 1 tablet by mouth daily. 90 tablet 1 10/11/2023 01/04/2024 ibuprofen (AdviL) 200 mg Tablet Take 200 mg by mouth every 6 hours as needed for Pain. 04/03/2024 levomefolate calcium (L-METHYLFOLATE ORAL) Take by mouth daily. 02/09/2024 acetylcysteine (NAC ORAL) Take by mouth daily. 04/03/2024 MAGNESIUM CITRATE ORAL Take by mouth daily. 04/03/2024 ferrous sulfate (IRON ORAL) Take by mouth daily. 04/03/2024 vitamin E acetate (VITAMIN E ORAL) Take by mouth daily. 02/09/2024 ubiquinone (coenzyme Q10) 100 mg Capsule Take by mouth daily. 04/03/2024 VITAMIN K2 ORAL Take by mouth daily. 04/03/2024 Spiriva Respimat 2.5 mcg/actuation Mist 09/23/2021 08/07/202 4 diazePAM (Valium) 5 mg Tablet 03/08/2021 04/03/2024 [...] Name Priority Date/Time Associated Diagnosis Comments CT ANGIOGRAM CORONARY ARTERIES Routine 12/14/2023 9:43 AM EDT Chest pain, exertional documented in this encounter Results * CT Angiogram Coronary Arteries (12/14/2023 9:43 AM EDT) [employer] WORKSTATION ID [id number] RAD Anatomical Region Laterality Modality Cardiac Computed [...] who have questions please contact the health career technical counselor that requested your imaging first. ? Electronically signed by: Erin Kessler MD, [facility] ([phone]), at 12/15/2023 3:51 PM Narrative 12/15/2023 3:51 [...] race/ethnicity, and gender: 72%-ile. Reference: Emanuel RL, Gilbert H, Edwin R, et al. ??Distribution of [...] race/ethnicity, and gender: 72%-ile. Reference: Emanuel RL, Gilbert H, Edwin R, et al. ??Distribution ofcoronary [...] patients who have questions please contactthe health career technical counselor that requested your imaging first. Dustin Kenyon MD IM CT ORDERABLES documented in this encounter Visit Diagnoses Diagnosis Chest pain, exertional Chest pain, unspecified documented in this encounter Administered Medications Inactive Administered Medications - up to 3 most recent administrations Medication Order MAR Action Action Date Dose Rate Site iohexoL (Omnipaque) (350 mg/mL) solution 0-200 mL 0-200 mL, Intravenous, ONCE PRN, 1 dose, Starting on Chloe 12/14/23 at 0940, Until Chloe 12/14/23 at 0940, Per Protocol, Warning Vesicant/Irritant Medication , Radiology Contrast, Routine Given 12/14/2023 9:40 AM EDT 121 mLs documented in this encounter Care Teams Supervisor Pigment Making Relationship Specialty Start Date End Date Mercedes Miles MD [address] [place] [address] PCP - General Family Medicine 07/24/23 documented as of this encounter
--- OUTSIDE RECORDS SUMMARY | 2024-04-16 21:49 | XMS_ITS | Encounter Summary ---
Author Organization [facility] Address [facility] [place] [address] Care Team Providers Care Optimization Consultant Name Role Phone Michelle Cooper APRN Primary Care Provider [phone] Encounter Details Date Type Department Care Team (Latest Contact Info) Description 12/21/2020 12:16 PM EDT - 12/21/2020 2:59 PM EDT Hospital Encounter XRay at [address] [place] [address] Mediastinal mass Discharge Disposition: Home Social History [...] Procedure Name Priority Date/Time Associated Diagnosis Comments XR CHEST PA AND LATERAL Routine 12/21/2020 12:28 PM EDT Mediastinal mass documented in this encounter Results * XR Chest PA & Lateral (Generic) (12/21/2020 12:28 PM EDT) Anatomical Region Laterality Modality Chest N/A Digital Radiogra phy Impressions 12/21/2020 12:51 PM EDT Blunting of posterior costophrenic angles compatible with trace effusions. Thank you for letting us participate in the care of this patient. ??If you are a health care provider and have any questions regarding this report, please contact the number below. ??For patients who have questions please contact the health caretaker grounds that requested your imaging first. ? Narrative 12/21/2020 12:51 PM EDT EXAMINATION: XR CHEST PA AND LATERAL (GENERIC) CLINICAL HISTORY: Anterior mediastinal mass s/p Thymectomy TECHNIQUE: PA and lateral views of the chest. COMPARISON: 11/26/2020. FINDINGS: The lungs appear clear. Blunting of posterior costophrenic angles consistent with trace residual effusions. The cardiomediastinal silhouette, zohreh, and pulmonary vessels are within normal limits. No interval osseous findings are seen. Procedure Note Anisha Tracy MD - 12/21/2020 EXAMINATION: XR CHEST PA AND LATERAL (GENERIC) CLINICAL HISTORY: Anterior mediastinal mass s/p Thymectomy TECHNIQUE: PA and lateral views of the chest. COMPARISON: 11/26/2020. FINDINGS: The lungs appear clear. Blunting of posterior costophrenicangles consistent with trace residual effusions. The cardiomediastinalsilhouette, zohreh, and pulmonary vessels are within normal limits. No intervalosseous findings are seen. IMPRESSION Blunting of posterior costophrenic angles compatible with trace effusions. Thank you for letting us participate in the care of this patient. If youare a health care provider and have any questions regarding this report,please contact the number below. For patients who have questions please contactthe health caretaker grounds that requested your imaging first. Taj Mccullough MD IMG DX ORDERABLE S documented in this encounter Visit Diagnoses Diagnosis Mediastinal mass Swelling, mass, or lump in chest documented in this encounter Care Teams Optimization Consultant Relationship Specialty Start Date End Date Michelle Cooper APRN [address] [place] [address] PCP - General Family Medicine 09/25/20 07/23/23 documented as of this encounter
--- OUTSIDE RECORDS SUMMARY | 2024-04-16 21:49 | XMS_ITS | Encounter Summary ---
Author Organization [facility] Address [facility] [place] [address] Care Team Providers Care Middle School Band Teacher Name Role Phone AllisonMichelle APRN Primary Care Provider [phone] Reason for Visit * Reason Onset Date Comments Medication Refill 12/27/2021 Encounter Details Date Type Department Care Team (Late st Contact Info) Description 12/27/2021 Refill [place] [address] Zofia Paz PA [facility] [place] [address] History of hemorrhoidectomy Social History Tobacco Use Types Packs/Day Years [...] Telephone Encounter - Zofia Paz PA - 12/27/2021 12:47 PM EDT Refill oxycodone 5 mg q6h prn, third refill since 12/21. Okay per Dr. Wright documented in this encounter Plan of Treatment Not on file documented as of this encounter Visit Diagnoses Diagnosis History of hemorrhoidectomy Other postprocedural status documented in this encounter Care Teams Middle School Band Teacher Relationship Specialty Start Date End Date Michelle Cooper APRN [address] [place] [address] PCP - General Family Medicine 09/25/20 07/23/23 documented as of this encounter
--- OUTSIDE RECORDS SUMMARY | 2024-04-16 21:49 | XMS_ITS | Encounter Summary ---
Author Organization [facility] [place] [address] Care Team Providers Care Japanese Tutor Name Role Phone Allison, Michelle Anyi PRITCHETT Primary Care Provider [phone] Encounter Details Date Type Department Care Team (Late st Contact Info) Description 12/25/2021 Telephone [place] [phone] Kamlesh Shultz MD [facility] [place] [address] Social History Tobacco Use Types Packs/Day Years [...] encounter Miscellaneous Notes * Telephone Encounter - Kamlesh Shultz MD - 12/25/2021 8:27 AM EDT I called the patient at 8:27 AM. Tomas Elliott is a 65 y.o. male who is s/p hemorrhoidectomy with Dr. Wright on 12/21/21. They are calling in regards to continued need for pain medications. Tomas has been doing overall well since his surgery and he denies fevers, chills, abnormal drainage per rectum. He has been having bowel movements without straining/constipation. He has been using tylenol and ibuprofen and has been trying to taper the amount of oxycodone he is taking daily. Last night he tried to not take any oxycodone before bed but then this morning had increased pain. He is almost out of the oxycodone and isworried that his pharmacy would not be open on Monday. I discussed with the patient that I would order 10 more tablets of 5mg oxycodone to his pharmacy ([facility] in [place], [place]). I advised him that his pain should be improving every day and that if it is not continuing to do so through the weekend/by Monday that he should call back for further evaluation. Tomas Elliott agrees with this plan. This note will be routed to the provider mentioned above. Kamlesh Shultz MD documented in this encounter Plan of Treatment Not on file documented as of this encounter Visit Diagnoses Not on filedocumented in this encounter Care Teams Japanese Tutor Relationship Specialty Start Date End Date Michelle Cooper APRN [address] [place] [address] PCP - General Family Medicine 09/25/20 07/23/23 documented as of this encounter
--- OUTSIDE RECORDS SUMMARY | 2024-04-16 21:49 | XMS_ITS | Encounter Summary ---
Author Organization [facility] [place] [address] Care Team Providers Care Hose Handler Name Role Phone Michelle Cooper Anyi PRITCHETT Primary Care Provider [phone] Encounter Details Date Type Department Care Team (Late st Contact Info) Description 04/25/2022 Refill Cardiology at [address] [phone] Cameron Chavez RN Social History Tobacco Use Types Packs/Day [...] encounter Miscellaneous Notes * Addendum Note - Cameron Chavez RN - 04/25/2022 3:35 PM EDTAddended by: CAMERON CHAVEZ on: 04/25/2022 03:35 PM Modules accepted: Orders * Telephone Encounter - Cameron Chavez RN - 04/25/2022 3:29 PM EDT Images from the original note were not included. Dustin Kenyon MD Shields, Thomas A, RN Caller: Unspecified (Today, 11:36 AM) Sure if he'd like to cut the pills in half and try that I'm okay with it. Thanks! E Appreciate Dr. Kenyon's review and his note above. Call returned to Mr. Elliott. Pleasant connection via cell. Pleased with Dr. Kenyon's review and his response. Will try to split the tablets inhalf and take 10 mg daily. Commits to calling this office with any need, concern, or question. Dose adjusted accordingly in the Outpatient record. ( No print prescription to allow for update within the Epic record , without generating a new prescription to local pharmacy). Lele Chavez RNintrusion analyst Team Nurse [facility] Ambulatory Cardiology * Telephone Encounter - Cameron Chavez RN - 04/25/2022 11:36 AM EDT Appreciate VM prompt from Mr. Elliott. Recounts recent new patient visit with Dr. Kenyon 04/22/2022. In brief - prescribed Rosuvastatin 20 mg at that visit. Has since done his own research. Asks that Dr. Kenyon reconsider starting him at a dose of 10 mg Rosuvastatin daily - until his next blood work and follow up. Run that by him. Sorry to be a pain, but I'm not excited about taking these medicines. Note routed to Dr. Kenyon as requested. Lele Chavez RNintrusion analyst Team Nurse [facility] Ambulatory Cardiology documented in this encounter Plan of Treatment Not on file documented as of this encounter Visit Diagnoses Not on filedocumented in this encounter Care Teams Hose Handler Relationship Specialty Start Date End Date Michelle Cooper APRN [address] [place] [address] PCP - General Family Medicine 09/25/20 07/23/23 documented as of this encounter
--- OUTSIDE RECORDS SUMMARY | 2024-04-16 21:49 | XMS_ITS | Encounter Summary ---
[place] [address] Care Team Providers Care Pecan Picker Name Role Phone Leigha Cooperily Anyi PRITCHETT Primary Care Provider [phone] Reason for Referral * Diagnostic Test (Routine) - Closed Specialty Diagnoses / Procedures Referred By Contsai t Referred To Contact Radiology Diagnoses Mediastinal mass Procedures CT Chest w Contrast Taj Mccullough MD [facility] [place] [address] [facility] [place] [address] Referral ID Status Reason Start Date Expiration Date V isits Requested Visits Authorized [id number] Closed Specialty Service Requested 12/21/2020 06/22/2022 1 1 Reason for Visit * Reason Comments Follow-up Encounter Details Date Type Department Care Team (Late st Contact Info) Description 12/21/2020 1:30 PM EDT Office Visit [place] [address] Taj Mccullough MD [facility] [place] [address] Mediastinal mass; Lipoma, unspecified site Social History Tobacco Use Types Packs/Day Years [...] Sign Reading Time Taken Comments Blood Pressure 132/72 12/21/2020 1:22 PM EDT Pulse 58 12/21/2020 1:22 PM EDT Temperature 36.1 ??C (97 ??F) 12/21/2020 1:22 PM EDT Respiratory Rate 16 12/21/2020 1:22 PM EDT Oxygen Saturation 98% 12/21/2020 1:22 PM EDT Inhaled Oxygen Concentration - - Weight 116.5 kg (256 lb 12.8 oz) 12/21/2020 1:22 PM EDT Height 172.7 cm (5' 8) 12/21/2020 1:22 PM EDT Body Mass Index 39.05 12/21/2020 1:22 PM EDT documented in this encounter Patient Instructions * Patient Instructions* Yuridia Bass RN - 12/21/2020 1:30 PM EDT Thank you for visiting Dr. Mccullough in clinic 12/21/20 Dr. Mccullough would like to see you back in clinic in 6 months with a recent CT scan of your chestwith IV contrast. You will receive a letter in the mail/ receive a call to schedule this appointment. ?? Exercise each day for 30 minutes or longer. Daily aerobic exercise for at least 30 minutes will help improve your endurance and improve the breathing capacity of your lungs. This means that you are breathing hard, your heart is beating fast and that you are sweating. Examples of this include walking, biking, swimming, and using a treadmill or stationary bike. Please call Thoracic surgery at with any questions or concerns. documented in this encounter Progress Notes * Akosua Saini APRN - 12/21/2020 1:30 PM EDT Thoracic Surgery Attending Outpatient Follow Up Note Taj Mccullough MD [place], [place] [address] FAX: Chief complaint: Follow up robotic thymectomy HPI: Tomas Elliott is a 64 y.o. male who is s/p robot assisted, Right VATs thymectomy on 11/25/20. He presents today in follow up and reports he is recovering well from surgery. He states that he is still having right chest pain from surgery and reports feeling like a horse kicked me there. He endorses that his swallowing feels much better after surgery. However, he reports that he is unable tosleep well because his pain is aggravated when he is in prone position and trying to sleep. He alsoendorses numbness on the dermatome where his port incisions are present. He reports that he is walking and exercising 30 minutes a day. He denies f/c/n/v/SOB/CP. Medications: Current Outpatient Medications on File Prior to Visit Medication Sig Dispense Refill ??? acetaminophen (Tylenol) 500 mg Tablet Take [...] Tablet Take 1 tablet by mouth Daily. No current facility-administered medications on file prior to visit. Physical Exam: There were no vitals taken for this visit. General Appearance: Alert, cooperative, no distress, appears stated age Nk: Supple, symmetrical, trachea midline, no adenopathy; thyroid: not enlarged, symmetric, no tenderness/mass/nodules; no carotid bruit or JVD Lungs: Clear to auscultation bilaterally, respirations unlabored, no wheezes, crackles or ronchi. Heart: Regular rate and rhythm, S1 and S2 normal, no murmur, rub, or gallop Abdomen: Soft, non-tender, bowel sounds active all four quadrants, no masses, no organomegaly Extremities: Extremities normal, atraumatic, no cyanosis or edema Wound/Incision: Clean, dry, intact, with evidence of good wound healing Imaging: I have independently visualized the following studies: CXR (12/21/20): Blunting of posterior costophrenic angles compatible with trace effusions. Assessment: Tomas Elliott is a 64 y.o. male s/p robot assisted, Right VATs thymectomy for thymolipoma. He is currently recovering well after surgery. He does endorse pain which is preventing him from getting a good night sleep. Unfortunately, he is unable to take motrin due to history of GI bleed and he reports the tylenol has not controlled his pain as well. Plan: 1. Pain Control: Rx Oxycodone 5 mg PO 10 tables q12 PRN. 2. RTC in [address] Chest+ 3. Call with any questions or concerns CYNTHIA Morataya 12/21/20 Thoracic Surgery [facility] * Taj Mccullough MD - 12/21/2020 1:30 PM EDT Thoracic surgery Hospital check I saw and examined Mr. Elliott with CYNTHIA Arce, and agree with his findings, assessment and plan. In brief: Chief complaint: Follow-up robotic thymectomy History of present illness: Mr. Elliott is a 64-year-old man who underwent thoracoscopic robotic assisted thymectomy on November 25. He comes in today for scheduled follow-up. He continues to have some right-sided chest pain but is otherwise doing well. Current Outpatient Medications on File Prior to Visit Medication Sig Dispense Refill ??? acetaminophen (Tylenol) 500 mg Tablet Take [...] Take 20 mg by mouth daily. ??? lisinopriL-hydrochlorothiazide (PRINZIDE;ZESTORETIC) 20-25 mg Tablet Take 1 tablet by mouth Daily. ??? albuteroL 90 mcg/actuation HFA Aerosol Inhaler Inhale 3 puffs into the lungs every 4 hours as needed. No current facility-administered medications on file prior to visit. BP 132/72 Pulse 58 Temp 36.1 ??C (97 ??F) (Temporal) Resp 16 Ht 172.7 cm (5' 8) Wt 116.5kg (256 lb 12.8 oz) SpO2 98% BMI 39.05 kg/m?? Physical exam: He appears comfortable. He is alert, oriented and in no distress. His lungs are clear and his incisions have healed well. Imaging: A chest x-ray demonstrated normal excursion of diaphragms bilaterally, with trace bilateral pleural effusions Pathology: The resected thymus contained evidence of a thymolipoma Assessment: 64-year-old man referred to me for a mediastinal mass, with a thymectomy consistent with a thymolipoma. No evidence of malignancy was seen. I advised the patient that because of the unusual nature of this diagnosis that a final CT scan in 6 months was indicated to ensure complete resection of the mass of concern. In addition, he was provided with an additional 10 5 mg oxycodone tablet. Plan: Return to clinic in 6 months for IV contrast chest CT TAJ MCCULLOUGH MD documented in this encounter Plan of Treatment Not on file documented as of this encounter Results * CT Chest w [...] have questions please contact the health career center director that requested your imaging first. ? Electronically signed by: Erin Kessler MD, [facility] ([phone]), at 07/19/2021 10:39 AM Narrative 07/19/2021 10:39 [...] who have questions please contactthe health career center director that requested your imaging first. Taj Mccullough MD IMG CT ORDERABLE S * Creatinine (07/19/2021 7:02 AM EST) Creatinine 0.88 0.80 - 1.50 mg/dL [facility] Est Glomerular Filtration Rate 90 >=60 mL/min/1. 73 m?? [facility] Comment: This patient? s estimated glomerular [...] Lab Taj Mccullough MD CHEMISTRY ORDERA BLES [facility] [place] [address] documented in this encounter Visit Diagnoses Diagnosis Mediastinal mass Swelling, mass, or lump in chest Lipoma, unspecified site Mediastinal mass Swelling, mass, or lump in chest documented in this encounter Care Teams Pecan Picker Relationship Specialty Start Date End Date Michelle Cooper APRN [address] [place] [address] PCP - General Family Medicine 09/25/20 07/23/23 documented as of this encounter
--- OUTSIDE RECORDS SUMMARY | 2024-04-16 21:49 | XMS_ITS | Encounter Summary ---
[place] [address] Care Team Providers Care Mall Plant Caretaker Name Role Phone Michelle Cooper APRN Primary Care Provider [phone] Reason for Visit * Reason Onset Date Comments Other 12/10/2020 f/u to Spiriva R espimat Encounter Details Date Type Department Care Team (Late st Contact Info) Description 12/10/2020 [place] [address] Bea Lee RN Other (f/u to Spiriva Respimat) Social History Tobacco Use Types Packs/Day Years [...] Telephone Encounter - Bea Lee RN - 12/10/2020 11:42 AM EDT I have called Tomas in regards to obtaining the Spiriva Respimat. Pt tells me that he has filled out the MAP application and is waiting for a reply from the MAP department. Pt also tells me that he reached out to PCP if anything could be done to help with the cost of the inhaler. PCP wrote a RX andsent [facility], which he was informed as a resident of [place] he can get acheaper rate than through mail order Part D insurance. Pts plan is to go to the pharmacy today and flower buncher or picker the Spiriva. I have requested that he send us amessage back if he does use it and let us know how things are going after a couple days. Pt agrees to this plan and will update us as agreed. Bea Lee RN Department of Pulmonary 5C, [facility] / Pager: [phone] documented in this encounter Plan of Treatment Not on file documented as of this encounter Visit Diagnoses Not on filedocumented in this encounter Care Teams Mall Plant Caretaker Relationship Specialty Start Date End Date Michelle Cooper APRN [address] [place] [address] PCP - General Family Medicine 09/25/20 07/23/23 documented as of this encounter
--- OUTSIDE RECORDS SUMMARY | 2024-04-16 21:49 | XMS_ITS | Encounter Summary ---
Author Organization [facility] Address [facility] [place] [address] Care Team Providers Care Anatomic Pathology Assistant Name Role Phone Allison, Michelle Anyi PRITCHETT Primary Care Provider [phone] Encounter Details Date Type Department Care Team (Latest Contact Info) Description 04/05/2021 2:16 PM EDT - 04/05/2021 5:58 PM EDT Hospital En[place] [address] Marilynn Mondragon MD [facility] [place] [address] Discharge Disposition: Home Social History Tobacco Use [...] Sign Reading Time Taken Comments Blood Pressure 131/73 04/05/2021 5:30 PM EDT Pulse 67 04/05/2021 5:05 PM EDT Temperature - - Respiratory Rate 16 04/05/2021 5:30 PM EDT Oxygen Saturation 97% 04/05/2021 5:35 PM EDT Inhaled Oxygen Concentration - - Weight 111.1 kg (245 lb) 04/05/2021 3:36 PM EDT Height - - Body Mass Index 37.25 12/21/2020 1:22 PM EDT documented in this encounter Discharge Instructions * Discharge Instructions* Shiv Fernandez, RN - 04/05/2021 5:40 PM EDT Colonoscopy: What to Expect at Home Your Recovery Your doctor will talk to you about when you will need your next colonoscopy. Your doctor can help you decide how often you need to be checked. This will depend on the results of your test and your risk for colorectal cancer. After the test, you may be bloated or have gas pains. You may need to pass gas. If a biopsy was done or a polyp was removed, you may have streaks of blood in your stool (feces) for a few days. Problems such as heavy rectal bleeding may not occur until several weeks after the test. This isn't common. But it can happen after polyps are removed. This care sheet gives you a general idea about how long it will take for you to recover. But each person recovers at a different pace. Follow the steps below to get better as quickly as possible. How can you care for yourself at home? Activity Rest when you feel tired. ?? You can do your normal activities when it feels okay to do so. Diet ?? Follow your doctor's directions for eating. ?? Unless your doctor has told you not to, drink plenty of fluids. This helps to replace the fluidsthat were lost during the colon prep. ?? Do not drink alcohol. Medicines ?? Your doctor will tell you if and when you can restart your medicines. He or she will also give you instructions about taking any new medicines. ?? If you take blood thinners, such as warfarin (Coumadin), clopidogrel (Plavix), or aspirin, be sure to talk to your doctor. He or she will tell you if and when to start taking those medicines again. Make sure that you understand exactly what your doctor wants you to do. ?? If polyps were removed or a biopsy was done during the test, your doctor may tell you not to take aspirin or other anti-inflammatory medicines for a few days. These include ibuprofen (Advil, Motrin) and naproxen (Aleve). Other instructions ?? For your safety, do not drive or operate machinery until the medicine wears off and you can think clearly. Your doctor may tell you not to drive or operate machinery until the day after your test. ?? Do not sign legal documents or make major decisions until the medicine wears off and you can think clearly. The anesthesia can make it hard for you to fully understand what you are agreeing to. Additional Information for Sedation Patients For patients who received sedation: ?? You may have received medications before and/or during your procedure which effects your judgement and reaction time. ?? Do not drive, operate machinery, drink alcoholic beverages or make important decisions for 24 hours. ?? Be careful on stairs as you may be unsteady on your feet. ?? You may eat a regular diet as tolerated. ?? Do not smoke if you are alone. ?? IV site: Slight redness or tenderness is normal, you can use a warm compress if you would like. If tenderness and/or redness increase or if foul drainage occurs, please contact your Doctor. Please call [phone] before 8pm Mon-Fri with problems, questions or concerns. If you call after 8pm or on weekends, call the Hospital at [phone] and ask to speak to the Shelf Drier Operator engineering production liaison and the foot press operator will contact that person for you. When should you call for help? Call 911 anytime you think you may need emergency care. For example, call if: ?? You passed out (lost consciousness). ?? You pass maroon or bloody stools. ?? You have trouble breathing. Call your doctor now or seek immediate medical care if: ?? You have pain that does not get better after you take pain medicine. ?? You are sick to your stomach or cannot drink fluids. ?? You have new or worse belly pain. ?? You have blood in your stools. ?? You have a fever. ?? You cannot pass stools or gas. Watch closely for changes in your health, and be sure to contact your doctor if you have any problems. Where can you learn more? [facility] View your After Visit Summary and more online at [email or web address] If you would like to provide feedback about your hospital experience, please call the Office of Patient and Family Relations at . If you have received this After Visit Summary in error, please immediately return it in person to the department, or notify the [facility] Privacy Office by calling toll free at between the hours of 8AM and 5PM to arrange for our retrieval of the documents at no cost to you. Content Version: 12.2 ?? [id number] [facility], [employer]. Care instructions adapted under license by [facility]. If you have questions about a medical condition or this instruction, always ask your healthcare professional. [employer], [employer] disclaims any warranty or liability for your use of this information. documented in this encounter Medications at Time [...] as of this encounter H&P Notes * Marilynn Mondragon MD - 04/05/2021 4:14 PM EDT Patient Name: Tomas Elliott Patient Age: 65 y.o. Birthdate: 1955 Admit date: 04/05/2021 Attending Physician: Marilynn Mondragon MD Gastroenterology and Hepatology Pre-Procedure History and Physical Exam Procedure: Colonoscopy: Indication: hx of polyps, rectal bleeding Patient Active Problem List Diagnosis Code ??? Penile fracture S39.840A ??? Mediastinal mass J98.59 EXAM: HEENT: Airway examined, oropharynx clear Mallampati Score: II (soft palate, uvula, fauces visible) LUNGS: Clear to auscultation HEART: Regular rate and rhythm, normal S1, S2 ABDOMEN: Normal bowel sounds, soft, non tender, non distended, A/P Proceed with the planned endoscopic procedure. ASA 2 - Patient with mild systemic disease with no functional limitations Sedation Plan: moderate (conscious sedation) Risks and benefits of the procedure explained to the patient. Consent signed. documented in this encounter Plan of Treatment Not on file documented as of this encounter Procedures Procedure Name Priority Date/Time Associated Diagnosis Comments SURGICAL PATHOLOGY REPORT Routine 04/05/2021 5:02 PM EDT SPECIMEN TO PATHOLOGY Routine 04/05/2021 5:02 PM EDT SPECIMEN TO PATHOLOGY Routine 04/05/2021 5:02 PM EDT Colonoscopy, Andres Ewing ([id number]) 04/05/2021 4:20 PM EDT rectal bleeding COLONOSCOPY Routine 04/05/2021 4:07 PM EDT documented in this encounter Results * Surgical Pathology Report (04/05/2021 5:02 PM EDT) Final Diagnosis [id number] ? Location: 4T; EA09; A The signing pathologist has (i) examined the relevant preparation(s) for the specimen(s) and (ii) rendered or confirmed the diagnosis(es). . ?Surgical Pathology DIAGNOSIS A - Ascending colon polyps - 2, excision: - ??Tubular adenoma. - ??Hyperplastic polyp. B - Transverse colon polyp, excision: - ??Tubular adenoma. CR-PX Electronically signed by: ?Kemal Machado MD Verified: ??04/12/2021 10:45 ??Pathologist Performed at: ??-[facility] Dept. of Pathology, [place], [place] SPECIMEN(S) SUBMITTED A - Ascending colon polyps - 2, excision (Multiple) B - Transverse colon polyp, excision (1) CLINICAL INFORMATION 65-year-old with rectal bleeding, history of polyps SPECIMEN PROCESSING A - Labeled/Fixative : Ascending colon polyps-two, formalin. Quantity/Size: Multiple, ranging 0.3-1.1 cm. Tissue Description: Soft, red-tucker tissues. Sections/Process ing: Submitted en toto ??in 3 cassettes as follows: ?A1: ??Polypoid tissue ?A2: ??Polypoid tissue inked and quadrasected ?A3: ??Polypoid tissue inked and quadrasected B - Labeled/Fixative : Transverse colon polyp, formalin. Quantity/Size: Two, ranging 0.2-0.4 cm. Tissue Description: Soft, red-tucker tissues. Sections/Process ing: Submitted en toto ??in 1 cassette labeled B1. ??MLL 04/12/2021 10:45 AM EDT [facility] GI Biopsy 04/05/2021 5:02 PM EDT 04/05/2021 5:02 PM EDT GI Biopsy 04/05/2021 5:02 PM EDT 04/05/2021 5:02 PM EDT Marilynn Mondragon MD PATHOLOGY/CYTOLOGY O DEAN Performing Organization Address City/[facility]/[place] [address] * Specimen to Pathology (04/05/2021 5:02 PM EDT) AP Specimen 04/05/2021 5:02 PM EDT 04/05/2021 5:02 PM EDT Narrative [facility] - 04/05/2021 5:02 PM EDT Specimen requisition ordered. ??Separate Pathology report to follow Marilynn Mondragon MD PATHOLOGY/CYTOLOGY O DEAN Performing Organization Address [facility] [place] [address] * Specimen to Pathology (04/05/2021 5:02 PM EDT) AP Specimen 04/05/2021 5:02 PM EDT 04/05/2021 5:02 PM EDT Narrative [facility] - 04/05/2021 5:02 PM EDT Specimen requisition ordered. ??Separate Pathology report to follow Marilynn Mondragon MD PATHOLOGY/CYTOLOGY O DEAN Performing Organization Address [facility] [place] [address] * COLONOSCOPY (04/05/2021 4:07 PM EDT) COLONOSCOPY [facility] Endoscopy ___ Procedure Date: 04/05/2021 4:07 PM ? Patient Name: Tomas Elliott ? Date of : 1955 ? Age: 65 ? Order #: [id number] ? Instrument Name: [id number] ? ___ Procedure: ? Colonoscopy Indications: ? Hematochezia, (history of hemorrhoids ? and hemorrhoidectomy in 2001); ? personal history of colon polyps Providers: ? Marilynn Mondragon MD, Donovan Lovelace, ? RN, Marlena Allen Referring : ?Michelle J. Allison Medicines: ? Midazolam 5 mg IV, Fentanyl [...] preparation was ? evaluated using the BBPS ([place] ? Bowel Preparation Scale) with scores ? [...] PM PROVATION 04/05/2021 4:07 PM EDT Michelle Anyi Cooper APRN GENERAL SURGICAL ORD ERABLES PROVATION documented in this encounter Visit Diagnoses Not on filedocumented in this encounter Administered Medications Inactive Administered Medications - up to 3 most recent administrations Medication Order MAR Action Action Date Dose Rate Site lactated ringers infusion 100 mL/hr, Intravenous, CONTINUOUS, Starting on Mon04/05/21 at 1600, Until Mon04/05/21 at 1741, Endoscopy (Day of Procedure) New Bag 04/05/2021 3:51 PM EDT 100 mL/hr 100 mL/hr documented in this encounter Active and Recently Administered Medications Times are shown in EDT. Continuous Medication Order 04/03/2021 04/04/2021 04/05/2021 lactated ringers infusion (CANCELED) 100 mL/hr, Intravenous, CONTINUOUS, Starting on Mon04/05/21 at 1600, Until Mon04/05/21 at 1741, Endoscopy (Day of Procedure) 1551 (New Bag - Prov ider: Marija Kirkpatrick RN) PRN Medication Order 04/03/2021 04/04/2021 04/05/2021 fentaNYL (pf) (50 mcg/mL) multi-dose injection (CANCELED) ONCE PRN, Starting on Mon04/05/21 at 1621, Until Mon04/05/21 at 1958, Intra-Operative (Intra-Procedure), Routine 1621 (Given - Provid er: Donovan Lovelace RN)1627 (Given - Provider: Donovan Lovelace, RN)1632 (Given - Provider: Donovan Lovelace, JAYDEN) midazolam (pf) (Versed) (1 mg/mL) multi-dose injection (CANCELED) ONCE PRN, Starting on Mon04/05/21 at 1621, Until Mon04/05/21 at 1958, Intra-Operative (Intra-Procedure), Routine 1621 (Given - Provid er: Donovan Lovelace RN)1627 (Given - Provider: Donovan Lovelace RN)1632 (Given - Provider: Donovan Lovelace RN)1636 (Given - Provider: Donovan Lovelace RN) documented in this encounter Care Teams Anatomic Pathology Assistant Relationship Specialty Start Date End Date Michelle Cooper APRN [address] [place] [address] PCP - General Family Medicine 09/25/20 07/23/23 documented as of this encounter
--- OUTSIDE RECORDS SUMMARY | 2024-04-16 21:49 | XMS_ITS | Encounter Summary ---
Author Organization [facility] Address [facility] [place] [address] Care Team Providers Care Lead Burner Helper Name Role Phone Michelle Cooper Anyi PRITCHETT Primary Care Provider [phone] Encounter Details Date Type Department Care Team (Late st Contact Info) Description 04/05/2021 4:00 PM EDT - 04/05/2021 5:00 PM EDT [place] [address] Marilynn Mondragon MD [facility] [place] [address] COLONOSCOPY, POLYPECTOMY, REMOVAL LESION BY SNARE (WRVU 4.57) Social History Tobacco Use Types Packs/Day Years [...] Sign Reading Time Taken Comments Blood Pressure 129/103 04/05/2021 5:00 PM EDT Pulse 65 04/05/2021 5:00 PM EDT Temperature - - Respiratory Rate 17 04/05/2021 5:00 PM EDT Oxygen Saturation 99% 04/05/2021 5:00 PM EDT Inhaled Oxygen Concentration - - Weight 111.1 kg (245 lb) 04/05/2021 3:36 PM EDT Height - - Body Mass Index 37.25 12/21/2020 1:22 PM EDT documented in this encounter Discharge Instructions * Discharge Instructions* Shiv Fernandez RN - 04/05/2021 5:40 PM EDT Colonoscopy: [...] occurs, please contact your Doctor. Please call [phone] before 8pm Mon-Fri with problems, questions or concerns. If you call after 8pm or on weekends, call the Hospital at [phone] and ask to speak to the Cloth Checker salesperson parts and the sifting operator will contact that person for you. When should you call for help? Call [phone] anytime you think you may need emergency [...] any problems. Where can you learn more? [facility] View your After Visit Summary and more online at [email or web address] If you would like to provide feedback [...] cost to you. Content Version: 12.2 ?? [id number] [email or web address]. Care instructions adapted under license by [facility]. If you have questions about a medical condition or this instruction, always ask your healthcare professional. [email or web address] disclaims any warranty or liability for your [...] 04/05/2021 5:02 PM EDT Colonoscopy, Andres Ewing ([id number]) 04/05/2021 4:20 PM EDT rectal bleeding COLONOSCOPY Routine 04/05/2021 4:07 PM EDT documented in this encounter Results * Surgical Pathology Report (04/05/2021 5:02 PM EDT) Final Diagnosis [id number] ? Location: 4T; EA09; A The signing [...] MD Verified: ??04/12/2021 10:45 ??Pathologist Performed at: ??-[facility] Dept. of Pathology, [place], [place] SPECIMEN(S) SUBMITTED A - Ascending colon [...] labeled B1. ??MLL 04/12/2021 10:45 AM EDT [facility] GI Biopsy 04/05/2021 5:02 PM EDT 04/05/2021 5:02 PM EDT GI Biopsy 04/05/2021 5:02 PM EDT 04/05/2021 5:02 PM EDT Marilynn Mondragon MD PATHOLOGY/CYTOLOGY O DEAN Performing Organization Address [facility] [place] [address] * Specimen to Pathology (04/05/2021 5:02 PM EDT) AP Specimen 04/05/2021 5:02 PM EDT 04/05/2021 5:02 PM EDT Narrative [facility] - 04/05/2021 5:02 PM EDT Specimen requisition ordered. ??Separate Pathology report to follow Marilynn Mondragon MD PATHOLOGY/CYTOLOGY O DEAN Performing Organization Address [facility] [place] [address] * Specimen to Pathology (04/05/2021 5:02 PM EDT) AP Specimen 04/05/2021 5:02 PM EDT 04/05/2021 5:02 PM EDT Narrative [facility] - 04/05/2021 5:02 PM EDT Specimen requisition ordered. ??Separate Pathology report to follow Marilynn Mondragon MD PATHOLOGY/CYTOLOGY O DEAN Performing Organization Address [facility] [place] [address] * COLONOSCOPY (04/05/2021 4:07 PM EDT) COLONOSCOPY [facility] Endoscopy ___ Procedure Date: 04/05/2021 4:07 PM ? Patient Name: Tomas Elliott ? Date of : 1955 ? Age: 65 ? Order #: [id number] ? Instrument Name: [id number] ? ___ Procedure: ? Colonoscopy Indications: ? [...] preparation was ? evaluated using the BBPS ([place] ? Bowel Preparation Scale) with scores ? [...] Site fentaNYL (pf) (50 mcg/mL) multi-dose injection ONCE PRN, Starting on Mon04/05/21 at 1621, Until Mon04/05/21 at 195, Intra-Operative (Intra-Procedure), Routine Given 04/05/2021 4:32 PM EDT 50 mcg Given 04/05/2021 4:27 PM EDT 50 mcg Given 04/05/2021 4:21 PM EDT 50 mcg lactated ringers infusion 100 mL/hr, Intravenous, CONTINUOUS, Starting on Mon04/05/21 at 1600, Until Mon04/05/21 at 1741, Endoscopy (Day of Procedure) New Bag 04/05/2021 3:51 PM EDT 100 mL/hr 100 mL/hr midazolam (pf) (Versed) (1 mg/mL) multi-dose injection ONCE PRN, Starting on Mon04/05/21 at 1621, Until Mon04/05/21 at 1958, Intra-Operative (Intra-Procedure), Routine Given 04/05/2021 4:36 PM EDT 1 mg Given 04/05/2021 4:32 PM EDT 1 mg Given 04/05/2021 4:27 PM EDT 1 mg documented in this encounter Active and [...] Lovelace RN)1632 (Given - Provider: Donovan Lovelace RN) midazolam (pf) (Versed) (1 mg/mL) multi-dose injection (CANCELED) ONCE PRN, Starting on Mon04/05/21 at 1621, Until Mon04/05/21 at 1958, Intra-Operative (Intra-Procedure), Routine 1621 (Given - Provid er: Donovan Lovelace RN)1627 (Given - Provider: Donovan Lovelace RN)1632 (Given - Provider: Donovan Lovelace RN)1636 (Given - Provider: Donovan Lovelace RN) documented in this encounter Care Teams Lead Burner Helper Relationship Specialty Start Date End Date Michelle Cooper APRN [address] [place] [address] PCP - General Family Medicine 09/25/20 07/23/23 documented as of this encounter
--- OUTSIDE RECORDS SUMMARY | 2024-04-16 21:49 | XMS_ITS | Encounter Summary ---
[place] [address] Care Team Providers Care Cost Estimating Engineer Name Role Phone Mercedes Miles MD Primary Care Provider [phone] Encounter Details Date Type Department Care Team (Latest Contact Info) Description 12/14/2023 8:05 AM EDT Laboratory Appointment Lab [address] [place] [id number] Hypertension, unspecified type; Hyperlipidemia, unspecified hyperlipidemia type Social History Tobacco [...] Procedure Name Priority Date/Time Associated Diagnosis Comments CREATININE Routine 12/14/2023 8:12 AM EDT Hypertension, unspecified type LIPID PANEL (REFLEX DIRECT LDL) Routine 12/14/2023 8:12 AM EDT Hyperlipidemia, unspecified hyperlipidemia type documented in this encounter Results * Lipid Panel (Reflex Direct LDL) (12/14/2023 8:12 AM EDT) Cholesterol, Total 148 mg/dL [facility] Comment: Desirable: ? <200 mg/dL Borderline High: 200-239 mg/dL Higher: ?>xn=055 mg/dL Triglyceride 76 mg/dL [facility] Comment: Normal: ?<150 mg/dL Borderline High: 150-199 mg/dL High: ?200-499 mg/dL Very High: ? >ra=220 mg/dL HDL Cholesterol 53 mg/dL [facility] Comment: Females: High Risk: <50 mg/dL Males: High Risk: <40 mg/dL LDL Cholesterol 80 mg/dL [facility] Comment: Desirable: ? <100 mg/dL Above Desirable: 100-129 mg/dL Borderline High: 130-159 mg/dL High: ?160-189 mg/dL Very High: ? >cg=226 mg/dL Lipid Interpretation See Note [facility] Comment: It is important to [...] ACC/AHA Guidelines (most recently Salomón et al. [facility] 05/31/22): For individuals with atherosclerotic cardiovascular disease (ASCVD)or LDL >ws=831 mg/dL, use a high-intensity statin (40-80 mg [...] CHEMISTRY ORDERABLES [facility] [place] [id number] * (ABNORMAL) Creatinine (12/14/2023 8:12 AM EDT) Creatinine 0.71(L) 0.80 - 1.50 mg/dL [facility] Est Glomerular Filtration Rate 100 >=60 mL/min/1. 73 m?? [facility] [...] Kenyon MD CHEMISTRY ORDERABLES Performing Organization Address City/State/[facility] Co de Phone Number [facility] [place] [address] documented in this encounter Visit Diagnoses Diagnosis Hypertension, unspecified type Hyperlipidemia, unspecified hyperlipidemia type documented in this encounter Care Teams Cost Estimating Engineer Relationship Specialty Start Date End Date Mercedes Miles MD [address] [place] [address] PCP - General Family Medicine 07/24/23 documented as of this encounter
--- OUTSIDE RECORDS SUMMARY | 2024-04-16 21:49 | XMS_ITS | Encounter Summary ---
Author Organization [facility] Address [place] [address] Care Team Providers Care Bi Consultant Name Role Phone Michelle Cooper YARELY Primary Care Provider [phone] Encounter Details Date Type Department Care Team (Late st Contact Info) Description 12/21/2021 12:56 PM EDT Anesthesia Event [place] [id number] Onesimo Melendez MD [facility] [place] [address] Noel Abarca MD [facility] [place] [address] Anesthesia Record Procedure Summary Procedure Name Responsible Anesthesiologist Anesthesia Start Time Anesthesia Stop Time HEMORRHOIDECTOMY, INTERNAL & EXTERNAL, COMPLEX (WRVU 6.73) (Anus) Onesimo Melendez MD 12/21/21 1256 12/21/21 1414 Events Date Time Event Comment 12/21/2021 1222 1256 AN Verify 1256 Start 1256 An Start Data 1300 An Induction 1301 An Intubation 1315 Anesthesia Ready 1316 Handoff Intra-procedure anesthesia care was transferred after review of the patient's history, current anesthetic/surgical status and procedural plan, anticipated issues and expected post-operative course (including disposition.) Onesimo Melendez MD 1325 an john now 20 ml 0.75% bup i 1405 Extubation/LMA Out 1405 an stop data 1414 Recovery or ICU Handoff Shannan ent care was transferred to the destination unit staff after review of the patient's medical history, current anesthetic/surgical status and plan, according to the Provider Handoff Checklist. 1414 Stop Meds Name Total Midazolam 2 mg fentaNYL 100 mcg IV Lidocaine 80 mg Propofol 200 mg Rocuronium 80 mg Ondansetron 4 mg Neostigmine 5 mg Glycopyrrolate 0.8 mg ketorolac (Toradol) (30 mg/mL) injection 30 mg Lactated Ringers 700 mL * Agents Name O2 Air N2O Sevoflurane (et) * Blood No blood administrations on file. Lines, Drains, and Airways Type Details Placement Removal Incision 12/21/21; 1322; posterior; perirectal 12/21/21 1322 by Raheem Chowdary RN Incision 11/25/20; Right; re[address]; laparoscopic punctures (specify); 12/21/21; 1240 11/25/20 0000 by Ranjit Driscoll RN 12/21/21 1240 by Michelle Gayle RN (RETIRED) Peripheral IV Line - Single Lumen 12/21/21; 1244; metacarpal vein (top of hand), left; [id number] catheter system; Anatomical Landmarks; US Not Used; 20 gauge; [place] CARPENTER; distraction, intradermal injection; 0; 12/21/21; 1554 12/21/21 1244 by Michelle Gayle RN 12/21/21 1554 by Izabel Florez RN ETT Mask Ventilation: Adjunct (2); ETT Type: Cuffed; ETT Size: 8 mm; Mac Blade: 4; Attempts: 1; Laryngoscopy Grade: 1; ETT Placement Verified By: Auscultation, Capnometry; Secured at Teeth: 24 cm; Inserted by: [facility]; Removal Date: 12/21/21; Removal Time: 1405 12/21/21 1301 by Savage Marshall CRNA 12/21/21 1405 by Savage Marshall CRNA documented in this encounter Social History Tobacco [...] of this encounter OR Notes * Anesthesia Postprocedure Evaluation - Onesimo Melendez MD - 12/21/2021 2:38 PM EDT Department of Anesthesiology Post-procedure Note Patient: Tomas Elliott Procedure Summary Date: 12/21/21 Room / Location: [address] MAIN OR Anesthesia Start: 1256 Anesthesia Stop: 1414 Procedure: HEMORRHOIDECTOMY, INTERNAL & EXTERNAL, COMPLEX (WRVU 6.73) (N/A Anus) Diagnosis: (hemorroids) Surgeons: Angelita Wright MD Responsible Provider: Onesimo Melendez MD Anesthesia Type: general ASA Status: 3 All Anesthesia Providers: Anesthesiologist: Onesimo Melendez MD; Lizet Washburn MD APPLE PEELER OPERATOR: Savage Marshall CRNA Vitals Value Taken Time BP 129/62 12/21/21 1430 Temp Pulse Resp 18 12/21/21 1430 SpO2 98 % 12/21/21 1438 Pain Level 10 12/21/21 1423 Vitals shown include unvalidated device data. Patient Location: PACU/[facility] Level of Consciousness: Awake and Alert Pain Management: Satisfactory Analgesia PONV: None Cardiovascular Status: At Baseline and Hemodynamically Stable Respiratory Status: At Baseline and Room Air Postoperative Fluid Status: Intravascular EUvolemia Possible Anesthetic Complications: NONE apparent at time of evaluation Final Primary Anesthesia Type: General (The anesthetic type performed was the same as planned.) Comments: Onesimo Melendez MD * Anesthesia Preprocedure Evaluation - Lizet Washburn MD - 12/21/2021 7:49 AM EDT Pre-Anesthesia Evaluation for: Tomas Elliott a 65 y.o. male. Procedure(s): HEMORRHOIDECTOMY, INTERNAL & EXTERNAL, COMPLEX (WRVU 6.73) Patient Active Problem List Diagnosis Date Noted [...] 2.78) performed by Taj Mccullough MD at [facility] MAIN OR ??? PRO COLONOSCOPY, REMV LESN, SNARE N/A 04/05/2021 COLONOSCOPY, POLYPECTOMY, REMOVAL LESION BY SNARE (WRVU 4.67) performed by Marilynn Mondragon MD at [facility] ENDOSCOPY ? ? PRO INJECTION ANES AGENT &/ STEROID INTERCOSTAL NERVE EA ADDL LEVEL Right 11/25/2020 NERVE BLOCK, INTERCOSTAL NERVE, MULTIPLE (WRVU 1.68) [facility] ??? PRO THYMECTOMY, RADICAL MEDIAST DISSSEC Right 11/25/2020 @ROBOTIC THYMECTOMY W/ RAD. MEDIASTINAL DISSECTION (WRVU 23.48) performed by Taj Mccullough MD at [facility] MAIN OR Social History Tobacco Use ??? Smoking status: Former Smoker Quit date: 1980 Years since quittin.3 ??? Smokeless tobacco: Former User Quit date: 1979 Substance Use Topics ??? Alcohol use: Not Currently Social History Substance and Sexual Activity Drug Use Never Allergies Allergen Reactions ??? Adhesive Other (See Comments) Swelling at local site Medications: MAR and/or home medications have been reviewed. Physical Exam: Preprocedure Vitals Current as of 12/21/21 0749 No BP, pulse, respiration, SpO2, or temperature recorded. Height: Weight: BMI: IBW: Airway Assessment: Mallampati: II TM distance: >3 FB Neck ROM: full Cardiovascular Assessment: Rhythm: regular Rate: normal Pulmonary Assessment: unlabored breathing Dental Assessment: Misc Assessment: IV access: Peripheral line Last Filed Perioperative Cognitive Screening None Anesthesia Plan: ASA 3 general, with a(n) intravenous induction 65 yo M for Prone Hemorrhoidectomy. Obese, Htn, Hld, NIDDM, Depression/anxiety, EtOh abuse hx Allergy to Adhesive tape Plan PO Tylenol, IV, Glucose check, GA/ETT Region - Other Informed Consent: Anesthetic plan and risks discussed with patient and spouse. Plan discussed with APPLE PEELER OPERATOR. Anesthesia Screening documented in this encounter Plan of Treatment Not on file documented as of this encounter Visit Diagnoses Not on filedocumented in this encounter Administered Medications Inactive Administered Medications - up to 3 most recent administrations Medication Order MAR Action Action Date Dose Rate Site fentaNYL (pf) (50 mcg/mL) multi-dose injection Intravenous, PRN, Starting on Mon12/21/21 at 1300, Until Mon12/21/21 at 1414, Anesthesia Intra-op, Routine Given 12/21/2021 1:22 PM EDT 50 mcg Given 12/21/2021 1:00 PM EDT 50 mcg glycopyrrolate (Robinul) (0.2 mg/mL) multi-dose injection Intravenous, PRN, Starting on Mon12/21/21 at 1401, Until Mon12/21/21 at 1414, Anesthesia Intra-op, Routine Given 12/21/2021 2:01 PM EDT 0.8 mg ketorolac (Toradol) (30 mg/mL) injection Intravenous, PRN, Starting on Mon12/21/21 at 1408, Until Mon12/21/21 at 1414, Anesthesia Intra-op, Routine Given 12/21/2021 2:08 PM EDT 30 mg lactated ringers infusion Intravenous, CONTINUOUS PRN, Starting on Mon12/21/21 at 1256, Until Mon12/21/21 at 1414, Anesthesia Intra-op New Bag 12/21/2021 12:56 PM EDT lidocaine (pf) (Xylocaine) (20 mg/mL) 2% injection syringe Intravenous, PRN, Starting on Mon12/21/21 at 1259, Until Mon12/21/21 at 1414, Anesthesia Intra-op, Routine Given 12/21/2021 12:59 PM EDT 80 mg midazolam (pf) (Versed) (1 mg/mL) multi-dose injection Intravenous, PRN, Starting on Mon12/21/21 at 1254, Until Mon12/21/21 at 1414, Anesthesia Intra-op, Routine Given 12/21/2021 12:54 PM EDT 2 mg neostigmine (Bloxiver) (1 mg/mL) injection Intravenous, PRN, Starting on Mon12/21/21 at 1401, Until Mon12/21/21 at 1414, Anesthesia Intra-op, Routine Given 12/21/2021 2:01 PM EDT 5 mg ondansetron (pf) (Zofran) (2 mg/mL) injection Intravenous, PRN, Starting on Mon12/21/21 at 1400, Until Mon12/21/21 at 1414, Anesthesia Intra-op, Routine Given 12/21/2021 2:00 PM EDT 4 mg propofoL (Diprivan) 10 mg/mL bolus injection (Anesthesia) Intravenous, PRN, Starting on Mon12/21/21 at 1259, Until Mon12/21/21 at 1414, Anesthesia Intra-op Given 12/21/2021 12:59 PM EDT 200 mg rocuronium (Zemuron) (10 mg/mL) multi-dose injection Intravenous, PRN, Starting on Mon12/21/21 at 1259, Until Mon12/21/21 at 1414, Anesthesia Intra-op, Routine Given 12/21/2021 12:59 PM EDT 80 mg documented in this encounter Care Teams Bi Consultant Relationship Specialty Start Date End Date Michelle Cooper APRN [address] [place], [place] [address] PCP - General Family Medicine 09/25/20 07/23/23 documented as of this encounter
--- OUTSIDE RECORDS SUMMARY | 2024-04-16 21:49 | XMS_ITS | Encounter Summary ---
Author Organization [facility] [place] [address] Care Team Providers Care Bench Press Operator Name Role Phone Mercedes Miles MD Primary Care Provider [phone] Reason for Referral * Diagnostic Test (Routine) - Closed Specialty Diagnoses / Procedures Referred By Contac t Referred To Contact Cardiology Diagnoses Chest pain, exertional Procedures Echocardiogram Transthoracic Kimberly Kenyon MD [facility] [place] [address] [facility] [place] [address] Referral ID Status Reason Start Date Expiration Date V isits Requested Visits Authorized [id number] Closed Specialty Service Requested 09/28/2023 09/27/2024 1 1 Reason for Visit * Diagnostic Test (Routine) - Closed Specialty Diagnoses / Procedures Referred By Contac t Referred To Contact Cardiology Diagnoses Chest pain, exertional Procedures Echocardiogram Transthoracic Kimberly Kenyon MD [facility] [place] [address] [facility] [place] [address] Referral ID Status Reason Start Date Expiration Date V isits Requested Visits Authorized [id number] Closed Specialty Service Requested 09/28/2023 09/27/2024 1 1 Encounter Details Date Type Department Care Team (Latest Contact Info) Description 09/28/2023 11:41 AM EST - 09/28/2023 11:59 PM EST Hospital Encounter Non-Invasive Cardiology Lab [facility] [place] [address] Kimberly Kenyon MD [facility] [place] [address] Chest pain, exertional Discharge Disposition: Home Social [...] (Cialis) 20 mg Tablet as needed. 04/01/2022 lisinopriL-hydrochlorot hiazide (PRINZIDE;ZESTORETIC) 20-25 mg Tablet Take 1 tablet by mouth Daily. rosuvastatin (Crestor) 20 mg Tablet Take 0.5 tablets by mouth daily. 45 tablet 3 04/25/2022 10/11/2023 ibuprofen (AdviL) 200 mg Tablet Take 200 mg by mouth every 6 hours as needed for Pain. 04/03/2024 levomefolate calcium (L-METHYLFOLATE ORAL) Take by mouth daily. 02/09/2024 acetylcysteine (NAC ORAL) Take by mouth daily. MAGNESIUM CITRATE ORAL Take by mouth daily. 04/03/2024 ferrous sulfate (IRON ORAL) Take by mouth daily. vitamin E acetate (VITAMIN E ORAL) Take by mouth daily. ubiquinone (coenzyme Q10) 100 mg Capsule Take by mouth daily. 04/03/2024 VITAMIN K2 ORAL Take by mouth daily. 02/2024 Spiriva Respimat 2.5 mcg/actuation Mist 09/23/2021 diazePAM [...] Procedure Name Priority Date/Time Associated Diagnosis Comments ECHO COMPLETE Routine 09/28/2023 12:58 PM EST Chest pain, exertional documented in this encounter Results * ECHO COMPLETE (09/28/2023 12:58 PM EST) EF 57 HEARTLAB SYSTEM Anatomical Region Laterality Modality Cardiac Other 09/28/2023 12:0 1 PM EST Narrative 09/28/2023 2:28 PM EST 1 [place] [address] ? Echocardiogram Report Name: TOMAS LOPEZ ? Study Date: 09/28/2023 12:01 PMBP: 139/70 mmHg ? Patient Location: : 1955 ? Height: 173 cm ? Account: [id number] Age: 67 yrs ? Weight: 114 kg Gender: Male ?BSA: 2.3 m2 Ordering Physician: KIMBERLY KENYON Referring Physician: KIMBERLY KENYON Performed By: Juany Mak Reason For Study: Chest pain, exertional History: Chest pain Interpreting Fellow: Abby Riggs. Exam Location: [facility]. Interpretation Summary - Normal left ventricular wall thickness, cavity size, systolic and diastolic function. LVEF is 57% by Murguia's biplane. There are no segmental wall motion abnormalities. - Normal right ventricular size and systolic function. - Normal atrial size. - There is no hemodynamically significant valvular disease. - There is no prior echocardiogram available for comparison. Procedure Complete-[id number]. Satisfactory quality. There is sinus bradycardia. There [...] Note Bernardino Lassiter MD - 09/28/2023 1 [place] [address] Echocardiogram Report Name: TOMAS LOPEZ Study Date: 2:01 PMBP: 139/70 mmHg Patient Location: : 1955 Height: 173 cm Account: [id number] Age: 67 yrs Weight: 114 kg Gender: Male BSA: 2.3 m2 Ordering Physician: KIMBERLY KENYON Referring Physician: KIMBERLY KENYON Performed By: Juany Mak Reason For Study: Chest pain, exertional History: Chest pain Interpreting Fellow: Abby Riggs. Exam Location: [facility]. Interpretation Summary - Normal left ventricular wall thickness, cavity size, systolic anddiastolic function. LVEF is 57% by Murguia's biplane. There are no segmental wallmotion abnormalities. - Normal right ventricular size and systolic function. - Normal atrial size. - There is no hemodynamically significant valvular disease. - There is no prior echocardiogram available for comparison. Procedure Complete-[id number]. Satisfactory quality. There is sinus bradycardia. There [...] unspecified documented in this encounter Care Teams Bench Press Operator Relationship Specialty Start Date End Date Mercedes Miles MD [address] [place] [address] PCP - General Family Medicine 07/24/23 documented as of this encounter
--- OUTSIDE RECORDS SUMMARY | 2024-04-16 21:50 | XMS_ITS | Encounter Summary ---
[place] [address] Care Team Providers Care Tobacco Stripper Name Role Phone Michelle Cooper APRN Primary Care Provider [phone] Encounter Details Date Type Department Care Team (Late st Contact Info) Description 12/01/2020 Telephone [place] [phone] Yuridia Bass RN Social History Tobacco Use Types Packs/Day [...] encounter Miscellaneous Notes * Telephone Encounter - Yuridia Bass RN - 12/01/2020 3:20 PM EDTSummary: post op call Thoracic Surgery Nursing Post-operative Follow up: Hx: s/p R VATS robotic thymectomy on 11/25/2020, discharged home on 11/27/20. 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 Pain: I really have no pain. Occasional trouble sleeping at night and have had oxycodone at night but have not taken it since Monday. I have stopped taking extra strength tylenol and ibuprofen too. GI: appetite: good Diet: regular Hydration: good Voiding: without any difficulty BM: without any difficulty - LBM today - What is the Bowel regimen: taking psyllium powder, colace and senna Respiratory: using IS as directed SOB: denies Difficulty breathing: denies Coughing with or without sputum: denies Activity: up and about without any difficulty Integumentary: Incisions without any redness, swelling, drainage, fevers, chills, sweats, site hot to touch, bruising and bleeding Sensitivities to glue, so removed dressings took a shower, washed with soap and water and rinsed well. Kept incisions open to air Plan: RTC on 12/21/2020 CXR 12/21/2020 at medical records receptionist area 3L at 12:[address] Mccullough 12/21/2020 at medical records receptionist area 3K at 1:15 pm Tomas Elliott is aware of appointments and know to call with any questions or concerns. documented in this encounter Plan of Treatment Not on file documented as of this encounter Visit Diagnoses Not on filedocumented in this encounter Care Teams Tobacco Stripper Relationship Specialty Start Date End Date Michelle Cooper APRN [address] [place] [address] PCP - General Family Medicine 09/25/20 07/23/23 documented as of this encounter
--- OUTSIDE RECORDS SUMMARY | 2024-04-16 21:50 | XMS_ITS | Encounter Summary ---
[place] [address] Care Team Providers Care Nail Technician Teacher Name Role Phone Michelle Cooper APRN Primary Care Provider Encounter Details Date Type Department Care Team (Late st Contact Info) Description 09/23/2020 External Results Non-In[place] [phone] None None Social History Tobacco Use Types Packs/Day Years Used Date Smoking Tobacco: Former Sex and Gender Information Value Date Recorded Sex Assigned at Not on file Gender Identity Not on file Sexual Orientation Not on file documented as of this encounter Plan of Treatment Not on file documented as of this encounter Procedures Procedure Name Priority Date/Time Associated Diagnosis Comments ECG SCAN Routine 09/18/2020 documented in this encounter Results * Scan Doc: ECG (09/18/2020) None MEDIA MGR SCAN EXT O RDR/RSLT documented in this encounter Visit Diagnoses Not on filedocumented in this encounter Care Teams Nail Technician Teacher Relationship Specialty Start Date End Date Michelle Cooper APRN [address] [place] [id number] PCP - General Family Medicine 09/25/20 07/23/23 documented as of this encounter
--- OUTSIDE RECORDS SUMMARY | 2024-04-16 21:50 | XMS_ITS | Encounter Summary ---
Author Organization [facility] Address [facility] [place] [address] Care Team Providers Care Monitoring Manager Name Role Phone Michelle Cooper DIRECTOR AND PROFESSOR Primary Care Provider [phone] Reason for Visit * Reason Onset Date Comments Medication Refill 11/20/2020 Spiriva Encounter Details Date Type Department Care Team (Late st Contact Info) Description 11/20/2020 Refill [place] [address] Tomas Quan MD [facility] [place] [address] Extrinsic asthma, unspecified asthma severity, unspecified whether complicated, unspecified whether persistent (Primary Dx) Social History Tobacco Use Types Packs/Day Years Used Date Smoking Tobacco: Former Cigarettes Q uit: 1979 Smokeless Tobacco: Former Quit: 1979 Sex and Gender Information Value Date Recorded Sex Assigned at Not on file Gender Identity Not on file Sexual Orientation Not on file documented as of this encounter Miscellaneous Notes * Telephone Encounter - Eleuterio Silva MD - 11/22/2020 5:19 PM EDT Calvin braswell, thanks for working with this patient. I have signed the Rx. Please work with Mr Elliott to see whether he can get it in an affordable manner. If not, please let me know and I will look foralternatives. Thanks again =) documented in this encounter Plan of Treatment Not on file documented as of this encounter Visit Diagnoses Diagnosis Extrinsic asthma, unspecified asthma severity, unspecified whether complicated, unspecified whether persistent- Primary documented in this encounter Care Teams Monitoring Manager Relationship Specialty Start Date End Date Michelle Cooper APRN [address] [place] [address] PCP - General Family Medicine 09/25/20 07/23/23 documented as of this encounter
--- OUTSIDE RECORDS SUMMARY | 2024-04-16 21:50 | XMS_ITS | Encounter Summary ---
Author Organization [facility] Address [facility] [place] [address] Care Team Providers Care Television Mechanic Name Role Phone Michelle Cooper Anyi PRITCHETT Primary Care Provider [phone] Reason for Visit * Auth/Cert Specialty Diagnoses / Procedures Referred By Jhonny t Referred To Contact Diagnoses Mediastinal mass anterior mediastinal mass Procedures PRO THYMECTOMY, RADICAL MEDIAST DISSSEC PRO BRONCHOSCOPY, DIAGNOSTIC @ROBOTIC THYMECTOMY W/ RAD. MEDIASTINAL DISSECTION (WRVU 23.48) BRONCHOSCOPY, DIAGNOSTIC (WRVU 2.78) MODIFIER ROBOT,DAVINCI XI Referral ID Status Reason Start Date Expiration Date Visits Re quested Visits Authorized [id number] 1 1 Encounter Details Date Type Department Care Team (Latest Contact Info) Description 11/25/2020 9:55 AM EDT - 11/26/2020 1:30 PM EDT Hospital Encounter [address] [place] [address] Taj Hopper MD [facility] [address] [place] [address] Mediastinal mass; Mediastinal mass Discharge Disposition: Home Social History [...] Sign Reading Time Taken Comments Blood Pressure 107/57 11/26/2020 11:28 AM EDT Pulse 70 11/25/2020 4:00 PM EDT Temperature 36.5 ??C (97.7 ??F) 11/26/2020 1 1:28 AM EDT Respiratory Rate 14 11/26/2020 11:2 8 AM EDT Oxygen Saturation 95% 11/26/2020 11: 28 AM EDT Inhaled Oxygen Concentration - - Weight 120.1 kg (264 lb 12.4 oz) 11/26/2020 4:23 AM EDT Height 172.7 cm (5' 8) 11/25/2020 11:0 5 AM EDT Body Mass Index 40.26 11/25/2020 11:05 AM EDT documented in this encounter Discharge Summaries * Jostin Rosales PA - 11/26/2020 6:11 AM EDT Images from the original note were not included. Department of Thoracic Surgery - Discharge Summary Patient Name: Tomas Elliott Patient Age: 64 y.o. Birthdate: 1955 Admit date: 11/25/2020 Discharge date: 11/26/2020 Attending Physician: Taj Hopper MD Discharge Diagnoses (Hospital Problems) and Secondary Diagnoses (Chronic Problems): Active Hospital Problems Diagnosis ??? Mediastinal mass Added automatically from request for surgery [id number] Resolved Hospital Problems No resolved problems to display. Active Non-Hospital Problems Diagnosis ??? Penile fracture Operations/Major Procedures: Operations: Case Date: 11/25/2020 Surgeon: Surgeon(s) and Role: * Taj Hopper MD - Primary * Adrien Hernandez MD - Resident Procedure: Procedure(s): @ROBOTIC THYMECTOMY W/ RAD. MEDIASTINAL DISSECTION (WRVU 23.48) BRONCHOSCOPY, DIAGNOSTIC (WRVU 2.78) MODIFIER ROBOT,DAVINCI XI NERVE BLOCK, INTERCOSTAL NERVE, MULTIPLE (WRVU 1.68) Other Major Procedures: None History of Presentation: Tomas Elliott is a 64 y.o. male with PMHx significant for HTN,Pre-Diabetes, and PILAR on CPAP, hemmorhoids. Patient states that while undergoing Nuclear stress study a mediastinal mass was discovered on the CT finding. Patient reports that he has had some mild pressure in his chest but states that he doesn't notice it unless he specifically focuses on the feeling. Patient also reports that a few years ago when he began exercising he kept feeling that his lungs were on fire subsequently was placed on albuterol inhaler by PCP. Patient reports he has had to increase the frequency of his albuterol recently. Patient reports frequent anal leakage with hemorrhoidectomy. Patient states he has had a productive cough for over a year now but denies fever, chills, nausea, vomiting, shortness of breath, and chest pain. Patient denies any chest trauma, rib injuries, or prior lung injuries. Hospital Course: Tomas Elliott was admitted to [facility] on 11[facility]25[facility]2020 [facility]. He was brought to the operating room on 11/25/[address] Taj Hopper performed surgery as described above. He tolerated the procedure well and was brought to the Post Anesthesia Care Unit for recovery. After a brief period of time he was transferred to the floor for continued rehabilitation. The right chest tube was discontinued on post operative day # 0. A chest Xray after this demonstrated anterior lucency noted on the lateral view. A repeat CXR on POD1 noted no pneumothorax or pleural effusion and unchanged lucency from prior. By postoperative day # 1 he had met all criteria for discharge to home. Pain was controlled on oral medications. He had walked 5minutes. He was tolerating a regular diet and passing flatus. Vital signs: Vital Signs Temp: 36.5 ??C (97.7 ??F) Temp src: Oral Heart Rate from SpO2: 74 bpm Heart Rate: 70 Heart Rate Source: Monitor Resp: 14 BP: 107/57 MAP (NBP): 74 mmHg BP Method: Automatic Patient Position: Lying SpO2: 95 % O2 Flow Rate (L/min): 1 L/min O2 Device: None (Room air) Admission Wt: 113.13 kg Last Wt: Wt Readings from Last 3 Encounters: 11/26/20 120.1 kg (264 lb 12.4 oz) 11/02/20 114.5 kg (252 lb 6.4 oz) Pertinent physical exam findings prior to discharge: Gen: NAD, pleasant, sitting up in bed HEENT: EOMI, sclerae anicteric Neck: supple, trachea midline Card: RRR, no M/R/G appreciated Pulm: CTAB, no wheeze/ronchi/rales appreciated, non-labored breathing on RA. Incisions c/d/i Abd: soft, NT Ext: warm, dry, no edema Neuro: A&Ox3, nonfocal, conversant Important Lab Data: Lab Results Component Value Date WBC 7.2 10/27/2020 HGB 13.2 (L) 10/27/2020 HCT 38.7 (L) 10/27/2020 MCV 97.0 (H) 10/27/2020 No results found for: NA, K, CL, CO2 Lab Results Component Value Date CREATININE 0.79 (L) 10/27/2020 No results found for: BUN No results found for: PREALBUMIN No results for input(s): PT, PTT, INR in the last 168 hours. Studies: CXR 11/26/20: IMPRESSION No pneumothorax or pleural effusion. Resolving left lower lung atelectasis. CXR 11/25/20: Lucency projecting over the anterior mediastinum on the lateral view only, new compared to October 27, 2020. Differential includes anterior pneumothorax, anterior mediastinal gas, and artifact. Attention on future follow-up. Pending Studies and Lab Data: No current labs Discharge Conditions/Prognosis: Stable Discharge to: Home Discharge Medications: Your Medications New Medications Dose Details acetaminophen 500 mg Tab Commonly known as: Tylenol Take 2 tablets by mouth every 6 hours. 1,000 mg Quantity: 30 tablet Refills: 1 docusate sodium 100 mg Cap Commonly known as: Colace Take 1 capsule by mouth 2 times daily for 10 days. 100 mg Quantity: 20 capsule Refills: 0 oxyCODONE 5 mg Tab Commonly known as: Roxicodone Take 1 tablet by mouth every 4 hours as needed for Pain (For pain not controlled by Tylenol and Ibuprofen). 5 mg Quantity: 10 tablet Refills: 0 senna 8.6 mg Tab Commonly known as: Senokot Take 1 tablet by mouth every evening. 1 tablet Quantity: 10 tablet Refills: 0 Continued medications, unchanged Dose Details albuteroL 90 mcg/actuation Hfaa Inhale 3 puffs into the lungs every 4 hours as needed. 3 puff Refills: 0 b complex vitamins Cap Take 1 capsule by mouth daily. 1 capsule Refills: 0 cholecalciferol (Vitamin D3) 50 mcg (2,000 unit) Cap Take by mouth daily. Generic drug: cholecalciferol (Vitamin D3) Refills: 0 doxepin 10 mg Cap Commonly known as: Sinequan Take 10 mg by mouth nightly as needed. 10 mg Refills: 0 lisinopriL-hydrochlorothiazide 20-25 mg Tab Commonly known as: PRINZIDE;ZESTORETIC Take 1 tablet by mouth Daily. 1 tablet Refills: 0 multivitamin Tab Commonly known as: THERAGRAN Take 1 tablet by mouth daily. 1 tablet Refills: 0 omeprazole 20 mg Cpdr Commonly known as: PriLOSEC Take 20 mg by mouth daily. 20 mg Refills: 0 STOPPED Medications FLUoxetine 20 mg Cap Commonly known as: PROzac tiotropium bromide 2.5 mcg/actuation Mist Commonly known as: SPIRIVA RESPIMAT Updated Allergies/ADRs: Allergies Allergen Reactions ??? Adhesive Other (See Comments) Swelling at local site ??? Legumes Other (See Comments) flu-like symptoms Night shades - avoid Instructions Given to Patient at Discharge: Patient Instructions Call if you have a fever of greater than 101 degrees, shaking chills, develop redness or drainage from your incision site(s), or if you have questions. During normal business hours, Monday- Monday 8:00 a.m.-5:00 p.m., please call to speak to a nurse in the Thoracic Clinic at [phone]. After hours or on weekends or holidays please call: [phone] and ask to speak to the Thoracic Surgeon on c all. Exercise & Activity Level: As you recover from surgery exercise at least 30 minutes a day. Thiscan be broken up into several times a day to achieve this goal at first, but you will be able to work up to doing all 30 minutes at once. Walking, treadmill, stationary bike, elliptical machine or there stationary exercise equipment is appropriate. Take your incentive spirometer home with you. You should use this every hour while awake, 10 times each. This helps you to exercise your respiratory muscles and to breathe deeply. Taking purposeful deep breaths can be just as effective. Do not lift more than 10 pounds for 6-8 weeks (nothing heavier than a gallon of milk). Don???t exhaust yourself. Rest between activities as you recover from your procedure. Diet: You should follow a regular, healthy diet. New Medications: Colace, Senna, Oxycodone, Tylenol, Motrin Driving: No driving for 1 week or while taking narcotic pain medication. Shower/Bath: You may shower daily starting 2 days after chest tube removal, no bathing or swimming until your follow-up appointment. Incision care: Wash your incision(s) daily with soap and rinse well, pat dry. Assess for any signs of infection such as increased redness, pain, warmth or drainage. If you had a chest tube, you may remove the dressing over the chest tube site in 2 days after the chest tube was removed and leave it open to the air if it is not draining. Otherwise change the dressing twice a day and as needed. The dressing may remain off once there is no drainage. If you have steri-strips over an incision site, these will remain in place for 7-10 days. You may shower with them, and they will fall off naturally in 7-10 days. If they do not fall off by 10 days, you may remove them. Pain: Pain after surgery is normal. The goal is for you to be able to tolerate pain so you can complete your daily activities. You may notice a burning or numbness on the side of your incision that may include your breast area. This should improve over time but there may be areas that remain numb. You may use a heating pad set on low or medium, over your incision to help relax the muscles in the area and decrease discomfort. Please take your medication as prescribed. If you are not having good pain control, please call and speak to the nurse in the Thoracic Clinic or the Thoracic Surgeon litigation assistant after hours. Please take over the counter Tylenol (1000 mg) every 6 hours, as instructed, for baseline pain coverage. Do not exceed recommended dosages. Take the Oxycodone, as prescribed, for pain not controlled by the Tylenol. We are unable to refill narcotics after 5 pm or on weekends or holidays. If you need more pain medication please call us before you run out of pills. Please allow 3 days for us to mail a refill for pain medication to you. Narcotic medication is intended for your use only. Do not share with others. If you are given a prescription for narcotics please keep these in a safe place and dispose of properly when you no longerneed these pills. Opioid PDMP 11/02/2020 [place] PDMP Query Date 11/26/2020 [place] PDMP Query Date 11/26/2020 [place] PDMP Query Date 11/26/2020 Tomas Elliott is being prescribed a prescription opioid for the treatment of acute post-operative pain related to surgery. Tomas Elliott has been advised to take the smallest dose possible to control their pain and as their pain improves to take smaller doses and increase the time between doses. In addition to this medication, non-opioid medications have been prescribed for adjunct treatment of their pain. Non-pharmacological treatment such as ice, elevation and activity modification have been recommended as appropriate. The Acute Opioid Therapy Informed Consent form has been completed and sent to medical records for scanning to chart. Please take your medication exactly as prescribed. Read all instructions that come with your medication. ?? Using narcotic pain medication (such as oxycodone, hydromorphone (Dilaudid), morphine, fentanyl,or tramadol) may cause addiction. While addiction is more common in people with a personal or family history of addiction, it can occur in anyone. ?? Taking more than the prescribed amount of medication or using with alcohol or other drugs can cause you to stop breathing resulting in coma, brain damage, or . ?? Opioids (oxycodone, hydromorphone/Dilaudid, morphine, fentanyl, tramadol) can slow reaction time, cause drowsiness, or cloud judgement. It is unsafe for you to drive or operate heavy machinery while taking this medication. ?? Opioids (oxycodone, hydromorphone/Dilaudid, morphine, fentanyl, tramadol) are at risk of being diverted by anyone with access to your home. Opioids should be stored in a safe and secure place, such as a locked cabinet or safe. ?? Unused opioids (oxycodone, hydromorphone/Dilaudid, morphine, fentanyl, tramadol) should be disposed of according to the label or patient information. If there are no specific instructions, medications may be returned to a take- back location or mixed with a small amount of water and an undesirable waste substance such as coffee grounds or cat litter. Sleep: Try to establish normal sleep patterns. Long naps during the day may make it hard for you tosleep at night. Use the pain medication at bedtime for the first week at home if needed. Bowel Movements: After surgery, your bowel movements may not be regular for you, but you should be able to get back to your daily routine quickly. Please make sure to take the stool softeners or mildlaxatives as prescribed to get back to your normal routine. If you do not have a bowel movement formore than 2 days, please call the office. Follow up appointments: You will see Dr Hopper in two weeks with a chest Xray within one hour of the appointment. A letter will be mailed to you confirming your appointment information. No future appointments. General Instructions None Future Appointments and Orders Future Orders Complete By Expires XR Chest PA & Lateral (Generic) [[id number] Custom] 12/10/2020 11/26/2021 Process Instructions: Scheduling Instructions: Questions: Where will study be performed?: [facility] Radiology Portable exam?: Reason for exam and clinical history: Anterior mediastinal mass s/p Thymectomy Clinical information / katz questions: PTX, Effusion, Comparison Stat read required?: Date of injury if applicable: Requested Time: Provider Contact Information: Primary Care Provider: Michelle Cooper APRN [phone] Discharge References/Attachments: Discharge References/Attachments None For questions regarding this document or issues relating to this hospitalization on the Thoracic Surgery Service, please contact Dr. Hopper's office at . Signed: CYNTHIA Morataya 11/26/2020 CC: PCP: Michelle Cooper APRN Referring: Taj Hopper Md [facility] [place] [address] documented in this encounter Discharge Instructions * Patient Instructions* Jostin Rosales PA - 11/26/2020 7:38 AM EDT Images from the original note were not included. Call if you have a fever of greater than 101 degrees, shaking chills, develop redness or drainage from your incision site(s), or if you have questions. During normal business hours, Monday- Monday 8:00 a.m.-5:00 p.m., please call to speak to a nurse in the Thoracic Clinic at [phone]. After hours or on weekends or holidays please call: [phone] and ask to speak to the Thoracic Surgeon on c all. Exercise & Activity Level: As you recover from surgery exercise at least 30 minutes a day. Thiscan be broken up into several times a day to achieve this goal at first, but you will be able to work up to doing all 30 minutes at once. Walking, treadmill, stationary bike, elliptical machine or there stationary exercise equipment is appropriate. Take your incentive spirometer home with you. You should use this every hour while awake, 10 times each. This helps you to exercise your respiratory muscles and to breathe deeply. Taking purposeful deep breaths can be just as effective. Do not lift more than 10 pounds for 6-8 weeks (nothing heavier than a gallon of milk). Don???t exhaust yourself. Rest between activities as you recover from your procedure. Diet: You should follow a regular, healthy diet. New Medications: Colace, Senna, Oxycodone, Tylenol Driving: No driving for 1 week or while taking narcotic pain medication. Shower/Bath: You may shower daily starting 2 days after chest tube removal, no bathing or swimming until your follow-up appointment. Incision care: Wash your incision(s) daily with soap and rinse well, pat dry. Assess for any signs of infection such as increased redness, pain, warmth or drainage. If you had a chest tube, you may remove the dressing over the chest tube site in 2 days after the chest tube was removed and leave it open to the air if it is not draining. Otherwise change the dressing twice a day and as needed. The dressing may remain off once there is no drainage. If you have steri-strips over an incision site, these will remain in place for 7-10 days. You may shower with them, and they will fall off naturally in 7-10 days. If they do not fall off by 10 days, you may remove them. Pain: Pain after surgery is normal. The goal is for you to be able to tolerate pain so you can complete your daily activities. You may notice a burning or numbness on the side of your incision that may include your breast area. This should improve over time but there may be areas that remain numb. You may use a heating pad set on low or medium, over your incision to help relax the muscles in the area and decrease discomfort. Please take your medication as prescribed. If you are not having good pain control, please call and speak to the nurse in the Thoracic Clinic or the Thoracic Surgeon litigation assistant after hours. Please take over the counter Tylenol (1000 mg) every 6 hours, as instructed, for baseline pain coverage. Do not exceed recommended dosages. Take the Oxycodone, as prescribed, for pain not controlled by the Tylenol. We are unable to refill narcotics after 5 pm or on weekends or holidays. If you need more pain medication please call us before you run out of pills. Please allow 3 days for us to mail a refill for pain medication to you. Narcotic medication is intended for your use only. Do not share with others. If you are given a prescription for narcotics please keep these in a safe place and dispose of properly when you no longerneed these pills. Opioid PDMP 11/02/2020 [place] PDMP Query Date 11/26/2020 [place] PDMP Query Date 11/26/2020 [place] PDMP Query Date 11/26/2020 Tomas Elliott is being prescribed a prescription opioid for the treatment of acute post-operative pain related to surgery. Tomas Elliott has been advised to take the smallest dose possible to control their pain and as their pain improves to take smaller doses and increase the time between doses. In addition to this medication, non-opioid medications have been prescribed for adjunct treatment of their pain. Non-pharmacological treatment such as ice, elevation and activity modification have been recommended as appropriate. The Acute Opioid Therapy Informed Consent form has been completed and sent to medical records for scanning to chart. Please take your medication exactly as prescribed. Read all instructions that come with your medication. ?? Using narcotic pain medication (such as oxycodone, hydromorphone (Dilaudid), morphine, fentanyl,or tramadol) may cause addiction. While addiction is more common in people with a personal or family history of addiction, it can occur in anyone. ?? Taking more than the prescribed amount of medication or using with alcohol or other drugs can cause you to stop breathing resulting in coma, brain damage, or . ?? Opioids (oxycodone, hydromorphone/Dilaudid, morphine, fentanyl, tramadol) can slow reaction time, cause drowsiness, or cloud judgement. It is unsafe for you to drive or operate heavy machinery while taking this medication. ?? Opioids (oxycodone, hydromorphone/Dilaudid, morphine, fentanyl, tramadol) are at risk of being diverted by anyone with access to your home. Opioids should be stored in a safe and secure place, such as a locked cabinet or safe. ?? Unused opioids (oxycodone, hydromorphone/Dilaudid, morphine, fentanyl, tramadol) should be disposed of according to the label or patient information. If there are no specific instructions, medications may be returned to a take- back location or mixed with a small amount of water and an undesirable waste substance such as coffee grounds or cat litter. Sleep: Try to establish normal sleep patterns. Long naps during the day may make it hard for you tosleep at night. Use the pain medication at bedtime for the first week at home if needed. Bowel Movements: After surgery, your bowel movements may not be regular for you, but you should be able to get back to your daily routine quickly. Please make sure to take the stool softeners or mildlaxatives as prescribed to get back to your normal routine. If you do not have a bowel movement formore than 2 days, please call the office. Follow up appointments: You will see Dr Hopper in two weeks with a chest Xray within one hour of the appointment. A letter will be mailed to you confirming your appointment information. No future appointments. documented in this encounter Medications at Time of Discharge Medication Sig Dispensed Refills Start Date End Date lisinopriL-hydrochlor othiazide (PRINZIDE;ZESTORETIC) 20-25 mg Tablet Take 1 tablet by mouth Daily. docusate sodium (Colace) 100 mg Capsule Take 1 capsule by mouth 2 times daily for 10 days. 20 capsule 11/26/2020 12/06/2020 acetaminophen (Tylenol) 500 mg Tablet Take 2 [...] as of this encounter Progress Notes * Bea Dawkins RN - 11/26/2020 1:07 PM EDT Tomas was discharged at 13:00. Discharge instructions reviewed with verbal understanding. All questions answered. PIV removed. Belongings gathered. The patient left the unit via wheelchair to the main entrance. * Bea Dawkins RN - 11/25/2020 5:57 PM EDT Patient was transferred to room 410B from PACU at 17:30. Attached to masimo. VSS on RA. Afebrile. A&Ox4. Reporting 7/10 pain. Scheduled Tylenol given. Right chest tubes removed by MD upon arrival. Dinner ordered. Oriented to room and call cobos within reach. documented in this encounter H&P Notes * Jostin Rosales PA - 11/25/2020 11:02 AM EDT Patient Name: Tomas Elliott Patient Age: 64 y.o. Birthdate: 1955 Admit date: 11/25/2020 Attending Physician: Taj Hopper MD Thoracic Surgery Preop NAME: Tomas Elliott DATE: 11/25/20 SURGEON: ATJ HOPPER PROCEDURE: Bronchoscopy, R VATS, robot assisted, resection of anterior mediastinal mass BRIEF HISTORY: Tomas Elliott is a 64 y.o. male with anterior mediastinal mass The patient reports no interval change. There has been no interval medical illness or hospitalizations. Questions have been addressed. Smoking HX: Social History Tobacco Use Smoking Status Former Smoker ??? Quit date: 1979 ??? Years since quittin.2 Smokeless Tobacco Former User ??? Quit date: 1979 PMH: Patient Active Problem List Diagnosis Date Noted ??? Mediastinal mass 11/02/2020 ??? Penile fracture 04/11/2013 PSH: No past surgical history on file. MEDS: No current facility-administered medications on file prior to encounter. Current Outpatient Medications on File Prior to Encounter Medication Sig Dispense Refill ??? multivitamin (THERAGRAN) Tablet Take 1 tablet [...] lungs every 4 hours as needed. ??? FLUoxetine (PROzac) 20 mg Capsule Take 20 mg by mouth daily. ??? lisinopriL-hydrochlorothiazide (PRINZIDE;ZESTORETIC) 20-25 mg Tablet Take 1 tablet by mouth Daily. ALL: Allergies Allergen Reactions ??? Adhesive Other (See Comments) Swelling at local site ??? Legumes Other (See Comments) flu-like symptoms Night shades - avoid Physical Exam See Vitals tab for vitals. Gen: NAD, pleasant, laying in bed HEENT: sclerae anicteric Neck: supple, trachea midline Card: RRR, no M/R/G appreciated Pulm: CTAB, no wheeze/ronchi/rales appreciated, non-labored breathing on RA Abd: soft, NT Ext: warm, dry, no edema Neuro: A&Ox3, CN II-XII grossly intact, nonfocal, conversant LABS: Lab Results Component Value Date WBC 7.2 10/27/2020 RBC 3.99 (L) 10/27/2020 HGB 13.2 (L) 10/27/2020 HCT 38.7 (L) 10/27/2020 MCV 97.0 (H) 10/27/2020 MCH 33.1 (H) 10/27/2020 MCHC 34.1 10/27/2020 PLATELET 204 10/27/2020 RDWCV 12.1 10/27/2020 Lab Results Component Value Date/Time CREATININE 0.79 (L) 10/27/2020 12:47 PM FILM ON PACS: Y- CT chest CONSENT: Yes/EMR - Yes Assessment/Plan: Tomas Elliott is a 64 y.o. male presenting today for planned Bronchoscopy, R VATS, robot assisted, resection of anterior mediastinal mass due to anterior mediastinal mass. Consent signed and confirmed in chart. Questions addressed. Will proceed with planned surgery. CYNTHIA Morataya 11/25/2020 Thoracic Surgery Service Pager [phone] documented in this encounter Miscellaneous Notes * Initial Assessments - Read, Abena Villalpando RN - 11/26/2020 7:24 AM EDT Office of Care Management Assessment Medical record reviewed. Plan of care and patient status discussed with direct care RN and/or Care Team in multidisciplinary rounds. Screening: Last COVID test: [place] [facility] Letter - 11/22 - None Detected 64 y.o. male here for: Mediastinal mass OR 11/25: Procedure: Procedure(s): @ROBOTIC THYMECTOMY W/ RAD. MEDIASTINAL DISSECTION (WRVU 23.48) BRONCHOSCOPY, DIAGNOSTIC (WRVU 2.78) MODIFIER ROBOT,DAVINCI XI NERVE BLOCK, INTERCOSTAL NERVE, MULTIPLE (WRVU 1.68) Patient has not been admitted to a hospital within the last 30 days. Patient receiving hospital care under IPI- SDP Admission (IP) status. Admission order reviewed. Primary Insurance on file: MEDICARE Secondary Insurance on file: n/a Primary care provider on file: Michelle Cooper, DIESEL ENGINEER [phone] Advance Directive on file and Code Status: <no information>, Attempt Cardiopulmonary Resuscitation - Inpatient Patient???s Functional Status: Independent Living Situation: home [address] [place] [address] Supports: Friend Assessment: Patient with no apparent RNCM/SW needs at this time. No housing, transportation, insurance, resources concerns identified at this time. Supports in place to achieve a safe post-hospital transition. No identified barriers to accessing necessary care and/or follow-up after discharge. Plan: Patient to d/c to home via car/friend when medically ready. director of restaurant operations/[employer] Sawyer will continue to follow patient???s progress and remain available if situation changes for coordination of care, psychosocial support and/or discharge planningSafia Morelos RN (Jonas) RN/AMINTA - Cellphone: [phone] Pager: [phone] Covering Service RN/CM * Plan of Care - Bea Jay RN - 11/26/2020 5:24 AM EDT OUTCOME EVALUATION NOTE: OUTCOME SUMMARY: Tomas had a decent night. VSS on 1L, afebrile. At beginning of shift pt was on 4L, weaned down to 1and currently on RA at 0500. Pain managed w/ scheduled and PRN medication. Pt has voided a few times this shift, last PVR was 575, MD notified and said if pt can't void more in roughly 30 min to straight cath pt. Pt voided another 150, bladder scan was 479, pt is going to attempt to urinate again, MD aware. Pt weight is up over 14 lbs from yesterdays weight prior to surgery, MD aware. No BM this shift. Pt appears to be resting between care. Around 0545, pt unable to urinate more, wants more time, feeling dizzy, MD notified. Pt was able to void 300, PVR 175. PLAN MOVING FORWARD: Pain management Monitor UOP Discharge planning INDIVIDUALIZED FALL PREVENTION INTERVENTIONS: Patient-specific fall risk factors per assessment: [current deficits]: Pain/narcotics, unfamiliar environment Assistance [level of assistance required for transfers and ambulation]: Independent Supervision [direct monitoring required during toileting and ADLs]: Eyes on Surveillance [continuous indirect monitoring]: Masimo, safety checks, call cobos within reach Patient-specific fall prevention interventions for sensory deficits provided, if applicable: [X] Yes adjust lighting, non-skid socks when OOB CPG GOAL OUTCOME EVALUATION: Ongoing * Brief Op Note - Adrien Hernandez - 11/25/2020 3:08 PM EDT Brief Operative Note Patient Name: Tomas Elliott : [id number] MR#: [id number] Case Date: 11/25/2020 Surgeon: Surgeon(s) and Role: * Taj Hopper MD - Primary * Adrien Hernandez MD - Resident Preoperative diagnosis: anterior mediastinal mass Postoperative diagnosis: anterior mediastinal mass Procedure(s) (LRB): @ROBOTIC THYMECTOMY W/ RAD. MEDIASTINAL DISSECTION (WRVU 23.48) (Right) BRONCHOSCOPY, DIAGNOSTIC (WRVU 2.78) (N/A) MODIFIER ROBOT,DAVINCI XI (N/A) NERVE BLOCK, INTERCOSTAL NERVE, MULTIPLE (WRVU 1.68) (Right) Anesthesia: General + Intercostal Exparel block Findings: Robotic right VATS. Cystic, poorly defined anterior mediastinal mass with adhesions to ascending aorta and RVOT. Left pleural space entered - Mauro drain into left chest. Chest tube x1 on right. Complications: None apparent Estimated Blood Loss: 50 mL Specimens removed during surgery: Order Name Source Comment Collection Info Order Time SPECIMEN TO PATHOLOGY Mediastinal fat--FROZEN, ?malignancy OR 11 43120 anterior mediastinal mass mediastinal fat--FROZEN, ?malignancy excision YES, Please perform frozen section No 11/25/2020 1:51 PM Time specimen removed from patient: 1:50 PM Number of tissue samples (in container) 1 Biospecimen to store? No SPECIMEN TO PATHOLOGY Thymus and mediastinal fat OR 11 16929 anterior mediastinal mass thymus and mediastinal fat excision No 11/25/2020 2:05 PM Time specimen removed from patient: 2:05 PM Number of tissue samples (in container) 1 Biospecimen to store? No Fluids: 1.5L PRBCs: none (See Anesthesia Record/Report for Other Blood Products) Urine Output: 200 mL Drains: 1. 19 Guatemalan mauro drain left pleural space 2. 28 Guatemalan chest tube right pleural space Disposition: awakened from anesthesia, extubated and taken to the recovery room in a stable condition, having suffered no apparent untoward event. Condition: doing well without problems (Please see the Surgical Encounter Summary for any Implant and Specimen details pertinent to this patient.) Infection Bundle used? No * Op Note - Taj Hopper MD - 11/25/2020 12:02 PM EDT [facility] [place] Operative Note Patient Name: Tomas Elliott : [id number] MR#: [id number] Case Date: 11/25/2020 Surgeon: Surgeon(s) and Role: * Taj Hopper MD - Primary * Adrien Hernandez MD - Resident Preoperative diagnosis: anterior mediastinal mass Postoperative diagnosis: anterior mediastinal mass Procedure(s) (LRB): @ROBOTIC THYMECTOMY W/ RAD. MEDIASTINAL DISSECTION (WRVU 23.48) (Right) BRONCHOSCOPY, DIAGNOSTIC (WRVU 2.78) (N/A) MODIFIER ROBOT,DAVINCI XI (N/A) NERVE BLOCK, INTERCOSTAL NERVE, MULTIPLE (WRVU 1.68) (Right) Findings: Diffuse, friable thymic tissue Anesthesia: General Estimated Blood Loss: 50 mL Specimens removed during surgery: Order Name Source Comment Collection Info Order Time SPECIMEN TO PATHOLOGY Mediastinal fat--FROZEN, ?malignancy OR 11 [id number] anterior mediastinal mass mediastinal fat--FROZEN, ?malignancy excision YES, Please perform frozen section No 11/25/2020 1:51 PM Time specimen removed from patient: 1:50 PM Number of tissue samples (in container) 1 Biospecimen to store? No SPECIMEN TO PATHOLOGY Thymus and mediastinal fat OR 11 [id number] anterior mediastinal mass thymus and mediastinal fat excision No 11/25/2020 2:05 PM Time specimen removed from patient: 2:05 PM Number of tissue samples (in container) 1 Biospecimen to store? No Drains: 28 Guatemalan chest tube, right; 19 Guatemalan Mauro drain right chest, across mediastinum into left chest Surgical Closure: Primary Closure - skin incision is closed but with open spaces for wires, ni, drains or other devices Disposition: awakened from anesthesia, extubated and taken to the recovery room in a stable condition, having suffered no apparent untoward event. 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 General anesthesia was induced and he was intubated with a double-lumen endotracheal tube. The position of the tube was confirmed bronchoscopically, and diagnostic bronchoscopy was performed. The examined airways were anatomically normal without endobronchial lesions or excessive secretions. I judged that it was safe and appropriate to proceed with the planned resection. The patient was positioned at the right hand edge of the table with the right shoulder slightly extended to expose the right side of the chest wall. The chest was prepped and draped in the standard sterile fashion, and a hard stop surgical timeout then reconfirmed the patient's identity as well as the nature and laterality of the procedure to be performed. A Veress needle was placed in the midclavicular line at about the fourth intercostal space and the chest was insufflated without difficulty. Subdermal bupivacaine was injected and a blunt 8 mm robotic trocar was placed at the site of needle insufflation. Two additional 8 mm robotic ports were placed about a handsbreadth on either side of the entrance port, and a 12 mm laparoscopic life enrichment assistant port was placed low on the diaphragm. Under direct visualization rib blocks with liposomal bupivacaine were placed beginning at about the eighth intercostal space and coming up to the third intercostal space. The robot was then brought to the field and docked, and I went to the console. While seated at the console, I carefully surveyed the chest. No evidence of metastatic pleural disease was seen. The patient's mediastinal fat was quite prominent and the mediastinal landmarks were somewhat indistinct. The inferior aspect of the pericardial fat pad was incised with the electrocautery so that the fat pad and the thymus could be lifted off the anterior aspect of the pericardium. We then carried this incision along the edge of the right phrenic nerve, taking care to identify and spare the nerve along its length. This dissection was carried all the wayup to the superior vena cava. Medially, the mediastinal pleura was incised at its reflection below the sternum, and pericardial fat and thymus were mobilized away from the chest wall with a combination of electrocautery and blunt dissection. We were able to carry this dissection all the way over tothe contralateral pleura. We then traced the reflection of the pleura along the superior aspect of the mediastinal tissue, tracing the approximate inferior border of the innominate vein. These maneuvers defined the margins of our planned thymectomy. We then carefully freed the thymus from its attachments. The thymus was relatively free from the ascending thoracic aorta, but was more adherent to the right ventricular outflow tract. The thymus here was soft, and friable, and adjacent to the thoracic aorta we did encounter a fluid-filled cyst. We were ultimately able to skeletonize the a sendingthoracic aorta and right ventricular outflow tract, and carried this dissection along the structures up to the innominate vein. We then dissected along the innominate vein and clipped the feeding veins running into the thymus. We freed the lateral aspect of the thymus from the left mediastinal pleura. Here we did traverse the contralateral pleura creating a small contralateral left pneumothorax. This had no physiologic consequence. Having freed the thymus from its left most and superior attachme nts, we reflected it to the right and ultimately freed it from the superior vena cava. The specimenwas then placed in an anchor bag. We carefully surveyed the chest for hemostasis, and then manuallydirected a 19 Guatemalan Mauro drain across the mediastinum through the rent in the left mediastinal pleura and into the left hemithorax. A second 28 Guatemalan chest tube was placed through the a different robotic port port up to the apex of the right hemithorax. The robotic instruments were then removed and the robot was undocked. The life enrichment assistant port incision was extended slightly to permit removal of the specimen. The tubes were then secured and the lung was allowed to reexpand under direct vision. The incisions were closed in layers with absorbable suture, and the patient was allowed to emerge from anesthesia. He was extubated in the operating room without incident and was transported to the recovery area in stable condition. All of the relevant counts for the case were correct, and as the attending surgeon I was present and scrubbed at the bedside throughout. TAJ HOPPER MD documented in this encounter Plan of Treatment Not on file documented as of this encounter Procedures Procedure Name Priority Date/Time Associated Diagnosis Comments XR CHEST PA AND LATERAL Routine 11/26/2020 9:15 AM EDT XR CHEST PA AND LATERAL Routine 11/25/2020 8:35 PM EDT XR CHEST ONE VIEW Routine 11/25/2020 4:0 1 PM EDT SPECIMEN TO PATHOLOGY Routine 11/25/2020 2:05 PM EDT SURGICAL PATHOLOGY REPORT Routine 11/25/2020 1:51 PM EDT SPECIMEN TO PATHOLOGY STAT 11/25/2020 1:51 PM EDT NERVE BLOCK, INTERCOSTAL NERVE, MULTIPLE Routine 11/25/2020 1:08 PM EDT Mediastinal mass BLOOD GAS ARTERIAL POC Routine 11/25/2020 12:26 PM EDT Injection Anes Agent &/ Steroid Intercostal Nerve Ea Addl Level (80867) 11/25/2020 11:33 AM EDT Mediastinal mass MODIFIER ROBOTAMY XI 11/25/2020 11:33 AM EDT Mediastinal mass Bronchoscopy, Diagnostic (12593) 11/25/2020 11:33 AM EDT Mediastinal mass Thymectomy, Radical Mediast Disssec (92532) 11/25/2020 11:33 AM EDT Mediastinal mass POCT GLUCOSE Routine 11/25/2020 11:10 AM EDT ROBOTIC THYMECTOMY W/ RAD. MEDIASTINAL DISSECTION Routine 11/25/2020 9:02 AM EDT Mediastinal mass BRONCHOSCOPY,DIAGNOS TIC Routine 11/25/2020 9:02 AM EDT Mediastinal mass documented in this encounter [...] who have questions please contact the health respiratory care practitioner that requested your imaging first. ? Electronically signed by: Anisha Tracy MD, [facility] ([phone]), at 12/21/2020 12:51 PM Narrative 12/21/2020 12:51 PM EDT EXAMINATION: XR [...] patients who have questions please contactthe health respiratory care practitioner that requested your imaging first. Electronically signed by: Anisha Tracy MD, [facility]([phone]), at 12/21/2020 12:51 PM Taj Hopper MD IMG DX ORDERABLE S * XR Chest PA & Lateral (Generic) (11/26/2020 9:15 AM EDT) Anatomical Region Laterality Modality Chest N/A Digital Radiogra phy Impressions 11/26/2020 9:30 AM EDT No pneumothorax or pleural effusion. Resolving left lower lung atelectasis. Thank you for letting us participate in the care of this patient. ??If you are a health care provider and have any questions regarding this report, please contact the number below. ??For our patients who have questions regarding this report, please first contact your doctor prior to speaking to our radiologists. ? Narrative 11/26/2020 9:30 AM EDT EXAMINATION: XR CHEST PA AND LATERAL (GENERIC) CLINICAL HISTORY: s/p thymectomy ptx, effusion, compare TECHNIQUE: PA and lateral views of the chest COMPARISON: November 25, 2020 FINDINGS: Pulmonary aeration is improved from the prior study. Streaky markings in the left lower lung are present but diminished and consistent with resolving atelectasis. No infiltrate or edema is seen. The heart size is normal and the mediastinum has a normal contour. No pleural effusion or pneumothorax is identified. Procedure Note Chris Doty MD - 11/26/2020 EXAMINATION: XR CHEST PA AND LATERAL (GENERIC) CLINICAL HISTORY: s/p thymectomy ptx, effusion, compare TECHNIQUE: PA and lateral views of the chest COMPARISON: November 25, 2020 FINDINGS: Pulmonary aeration is improved from the prior study. Streaky markings inthe left lower lung are present but diminished and consistent with resolving atelectasis. No infiltrate or edema is seen. The heart size is normal andthe mediastinum has a normal contour. No pleural effusion or pneumothorax is identified. IMPRESSION No pneumothorax or pleural effusion. Resolving left lower lung atelectasis. Thank you for letting us participate in the care of this patient. If youare a health care provider and have any questions regarding this report,please contact the number below. For our patients who have questions regardingthis report, please first contact your doctor prior to speaking to ourradiologists. Taj Hopper MD IMG DX ORDERABLE S * XR Chest PA & Lateral (Generic) (11/25/2020 8:35 PM EDT) Anatomical Region Laterality Modality Chest N/A Digital Radiogra phy Addenda Addendum by Everardo Aparicio MD on 11/26/2020 8:10 AM EDT --------ADDENDUM #1-------- The Workflow Coordinator spoke with Laly Dang MD on 11/25/2020 9:04 PM to relay the results. Thank you for letting us participate in the care of this patient. ??If you are a health care provider and have any questions regarding this report, please contact the number below. ??For our patients who have questions regarding this report, please first contact your doctor prior to speaking to our radiologists. ? Electronically signed by: Everardo Aparicio MD, [facility] ([phone]), at 11/26/2020 8:05 AM --------ORIGINAL REPORT -------- EXAMINATION: XR CHEST PA AND LATERAL (GENERIC) CLINICAL HISTORY: s/p Removal of right chest tube and anterior mediastinal drain. ptx, effusion, compare TECHNIQUE: PA and lateral views of the chest COMPARISON: 11/25/2020 and 10/27/2020 FINDINGS: Mediastinal catheter and right-sided chest tube has been removed. On the frontal view there is low lung volumes and bilateral subsegmental atelectasis. There is no visible pneumothorax on the frontal view. Cardiomediastinal silhouette is normal. Trace bilateral pleural effusion. No pulmonary edema. Distention of the stomach. On the lateral view there is lucency projecting over the anterior mediastinum measuring 9.1 x 3.5 cm, new compared to lateral chest radiograph from 10/27/2020. IMPRESSION: Lucency projecting over the anterior mediastinum on the lateral view only, new compared to October 27, 2020. Differential includes anterior pneumothorax, anterior mediastinal gas, and artifact. Attention on future follow-up. Thank you for letting us participate in the care of this patient. ??If you are a health care provider and have any questions regarding this report, please contact the number below. ??For our patients who have questions regarding this report, please first contact your doctor prior to speaking to our radiologists. ? Electronically signed by: Everardo Aparicio MD, [facility] ([phone]), at 11/25/2020 8:55 PM Addendum by Everardo Aparicio MD on 11/25/2020 9:07 PM EDT --------ADDENDUM #1-------- The Workflow Coordinator spoke with Laly Dang MD on 11/25/2020 9:04 PM to relay the results. --------ORIGINAL REPORT -------- EXAMINATION: XR CHEST PA AND LATERAL (GENERIC) CLINICAL HISTORY: s/p Removal of right chest tube and anterior mediastinal drain. ptx, effusion, compare TECHNIQUE: PA and lateral views of the chest COMPARISON: 11/25/2020 and 10/27/2020 FINDINGS: Mediastinal catheter and right-sided chest tube has been removed. On the frontal view there is low lung volumes and bilateral subsegmental atelectasis. There is no visible pneumothorax on the frontal view. Cardiomediastinal silhouette is normal. Trace bilateral pleural effusion. No pulmonary edema. Distention of the stomach. On the lateral view there is lucency projecting over the anterior mediastinum measuring 9.1 x 3.5 cm, new compared to lateral chest radiograph from 10/27/2020. IMPRESSION: Lucency projecting over the anterior mediastinum on the lateral view only, new compared to October 27, 2020. Differential includes anterior pneumothorax, anterior mediastinal gas, and artifact. Attention on future follow-up. Thank you for letting us participate in the care of this patient. ??If you are a health care provider and have any questions regarding this report, please contact the number below. ??For our patients who have questions regarding this report, please first contact your doctor prior to speaking to our radiologists. ? Electronically signed by: Everardo Aparicio MD, [facility] ([phone]), at 11/25/2020 8:55 PM Impressions 11/25/2020 8:55 PM EDT Lucency projecting over the anterior mediastinum on the lateral view only, new compared to October 27, 2020. Differential includes anterior pneumothorax, anterior mediastinal gas, and artifact. Attention on future follow-up. Thank you for letting us participate in the care of this patient. ??If you are a health care provider and have any questions regarding this report, please contact the number below. ??For our patients who have questions regarding this report, please first contact your doctor prior to speaking to our radiologists. ? Electronically signed by: Everardo Aparicio MD, [facility] ([phone]), at 11/25/2020 8:55 PM Narrative 11/25/2020 8:55 PM EDT EXAMINATION: XR CHEST PA AND LATERAL (GENERIC) CLINICAL HISTORY: s/p Removal of right chest tube and anterior mediastinal drain. ptx, effusion, compare TECHNIQUE: PA and lateral views of the chest COMPARISON: 11/25/2020 and 10/27/2020 FINDINGS: Mediastinal catheter and right-sided chest tube has been removed. On the frontal view there is low lung volumes and bilateral subsegmental atelectasis. There is no visible pneumothorax on the frontal view. Cardiomediastinal silhouette is normal. Trace bilateral pleural effusion. No pulmonary edema. Distention of the stomach. On the lateral view there is lucency projecting over the anterior mediastinum measuring 9.1 x 3.5 cm, new compared to lateral chest radiograph from 10/27/2020. Procedure Note Everardo Aparicio MD - 11/25/2020 EXAMINATION: XR CHEST PA AND LATERAL (GENERIC) CLINICAL HISTORY: s/p Removal of right chest tube and anteriormediastinal drain. ptx, effusion, compare TECHNIQUE: PA and lateral views of the chest COMPARISON: 11/25/2020 and 10/27/2020 FINDINGS: Mediastinal catheter and right-sided chest tube has been removed. On thefrontal view there is low lung volumes and bilateral subsegmental atelectasis.There is no visible pneumothorax on the frontal view. Cardiomediastinal silhouetteis normal. Trace bilateral pleural effusion. No pulmonary edema. Distentionof the stomach. On the lateral view there is lucency projecting over the anteriormediastinum measuring 9.1 x 3.5 cm, new compared to lateral chest radiograph from10/27/2020. IMPRESSION Lucency projecting over the anterior mediastinum on the lateral view only,new compared to October 27, 2020. Differential includes anterior pneumothorax,anterior mediastinal gas, and artifact. Attention on future follow-up. Thank you for letting us participate in the care of this patient. If youare a health care provider and have any questions regarding this report,please contact the number below. For our patients who have questions regardingthis report, please first contact your doctor prior to speaking to ourradiologists. Taj Hopper MD IMG DX ORDERABLE S * XR Chest One View (11/25/2020 4:01 PM EDT) Anatomical Region Laterality Modality Chest N/A Digital Radiogra phy Impressions 11/25/2020 4:10 PM EDT No pneumothorax or pleural fluid collection. Thank you for letting us participate in the care of this patient. ??If you are a health care provider and have any questions regarding this report, please contact the number below. ??For our patients who have questions regarding this report, please first contact your doctor prior to speaking to our radiologists. ? Electronically signed by: Chris Doty MD, [facility] ([phone]), at 11/25/2020 4:10 PM Narrative 11/25/2020 4:10 PM EDT EXAMINATION: XR CHEST ONE VIEW CLINICAL HISTORY: s/p R VATS anterior mediastinal mass excision TECHNIQUE: AP view of the chest, 45 degrees semiupright COMPARISON: October 27, 2020 FINDINGS: Prominence of the mediastinum may be due to image technique and/or blood. Bilateral chest tubes now present. No pneumothorax is seen. There is no visualized pleural fluid collection. The lungs are clear. Procedure Note Chris Doty MD - 11/25/2020 EXAMINATION: XR CHEST ONE VIEW CLINICAL HISTORY: s/p R VATS anterior mediastinal mass excision TECHNIQUE: AP view of the chest, 45 degrees semiupright COMPARISON: October 27, 2020 FINDINGS: Prominence of the mediastinum may be due to image technique and/orblood. Bilateral chest tubes now present. No pneumothorax is seen. There is no visualized pleural fluid collection. The lungs are clear. IMPRESSION No pneumothorax or pleural fluid collection. Thank you for letting us participate in the care of this patient. If youare a health care provider and have any questions regarding this report,please contact the number below. For our patients who have questions regardingthis report, please first contact your doctor prior to speaking to ourradiologists. Taj Hopper MD IMG DX ORDERABLE S * Specimen to Pathology (11/25/2020 2:05 PM EDT) AP Specimen 11/25/2020 2:05 PM EDT 11/25/2020 2:05 PM EDT Narrative [facility] - 11/25/2020 2:05 PM EDT Specimen requisition ordered. ??Separate Pathology report to follow Taj Hopper MD PATHOLOGY/CYTOLO GY ORDERABLES [facility] [place] [address] * Surgical Pathology Report (11/25/2020 1:51 PM EDT) Final Diagnosis [id number] ? [facility]; [facility]; B The signing pathologist has (i) examined the relevant preparation(s) for the specimen(s) and (ii) rendered or confirmed the diagnosis(es). . ?Surgical Pathology DIAGNOSIS A - Mediastinal fat, excision: - Mature fibroadipose tissue. 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 - Three (3) benign lymph nodes. Electronically signed by: ?Breanna Sargent MD Verified: ??12/04/2020 17:02 ??Pathologist Performed at: ??-[facility] Dept. of Pathology, [place], [place] DISCUSSION Sections show a multilobular proliferation of mature adipose tissue with scattered admixed atrophic-appearing thymic elements. In the context of a radiographically identified mass, findings are consistent with a thymolipoma. SPECIMEN(S) SUBMITTED A - mediastinal fat--FROZEN, ?malignancy, excision (1) B - thymus and mediastinal fat, excision (1) CLINICAL INFORMATION Anterior mediastinal mass SPECIMEN PROCESSING A - Labeled/Fixative: Mediastinal fat -- FROZEN, ? malignancy, fresh for frozen section. Quantity/Size: ??Single, 1 x 0.8 x 0.6 cm Tissue Description: Fragment of adipose tissue Sections/Processing : The specimen is totally submitted for frozen section in 1 cassette labeled A1. B - Labeled/Fixative: Thymus and mediastinal fat, fresh. Quantity/Size: Single, 10 x 8 x 1.5 cm, 82.56 g. Tissue Description: Irregular and non-oriented fragments of adipose tissue; an additional detached fragment measuring 2 x 1.8 x 0.5 cm is present. On cut section the tissue appears yellow and multilobulated without a distinct lesion present, may represent thymic tissue. Ink designations: External surface of the specimen is inked in black Sections/Processing : Dairy Powder Mixer Operator sections in 11 cassettes as follows: ?B1: ??Detached fragment entirely submitted ?B2-B11: ??Dairy Powder Mixer Operator sections of the multilobulated tissue, possibly thymus ??aemr ?Frozen Section FROZEN SECTION DIAGNOSIS AFS1 - Mediastinal fat, ?? for frozen section: - Wispy fibrous tissue. ?? There is no evidence of malignancy. . FROZEN SECTION DIAGNOSIS 11/25/20 14:17 /jrp Electronically signed by: ??MD Cathy, Atul Angel Verified: ??11/25/2020 ?Pathologist Performed at: ??-[facility] Dept. of Pathology, [place], [place] This intraoperative consultation should be interpreted as a preliminary diagnosis pending review of the entire specimen and special studies, if any. 12/04/2020 5:02 PM EDT [facility] [employer]YM[employer]URE / Unknown 11/25/2020 1:51 PM EDT 11/25/2020 1:51 PM EDT [employer] / Unknown 11/25/2020 1:51 PM EDT 11/25/2020 1:51 PM EDT Taj Hopper MD PATHOLOGY/CYTOLO GY ORDERABLES Performing Organization Address [facility] Co de Phone Number [facility] [place] [address] * Specimen to Pathology (11/25/2020 1:51 PM EDT) AP Specimen 11/25/2020 1:51 PM EDT 11/25/2020 1:51 PM EDT Narrative [facility] - 11/25/2020 1:51 PM EDT Specimen requisition ordered. ??Separate Pathology report to follow Taj Hopper MD PATHOLOGY/CYTOLO GY ORDERABLES Performing Organization Address [facility] de Phone Number [facility] [place] [address] * (ABNORMAL) BLOOD GAS 2 ARTERIAL (11/25/2020 12:26 PM EDT) pH, Arterial 7.39 7.35 - 7.45 [facility] PCO2, Arterial 46(H) 35 - 45 mmHg [facility] PO2, Arterial 76(L) 85 - 104 mmHg [facility] Bicarbonate, Arterial 26.9(H) 20.0 - 26.0 mmol/L [facility] Base Excess, Arterial 1.9 -3.0 - 3.0 mmol/L [facility] Hgb Blood Gas 13.2(L) 13.7 - 16.5 gm/dL [facility] Oxyhemoglobin, Arterial 94.2 94.0 - 97.0 % [facility] Carboxyhemoglob in, Arterial 0.6 % [facility] Comment: Nonsmokers: 0.5-1.5% COHB Smokers: Variable, but usually less than 10% Toxic: 20-30% COHB Lethal: Greater than 60% COHB Methemoglobin, Arterial 0.3 <=1.5 % [facility] Na Whole Blood 134(L) 135 - 145 mmol/L [facility] K Whole Blood 3.8 3.5 - 5.0 mmol/L [facility] Comment: Please note: Patients with WBC >100,000 may have falsely elevated Potassium levels. Contact the Clinical Chemistry Laboratory if there are any questions. ICa Whole Blood 1.13(L) 1.15 - 1.33 mmol/L [facility] Comment: Note: ??Total bilirubin higher than 20 mg/dL may lead to falsely low ionized calcium. CL Whole Blood 103 98 - 107 mmol/L [facility] Gluc Whole Bld 131 65 - 199 mg/dL [facility] Comment:Diabetes: >=200 mg/d L plus symptoms. Lactate WB 1.7 0.5 - 2.2 mmol/L [facility] FIO2 Art 51 % [facility] PF Ratio Art 149 [facility] Blood specimen (specimen) 11/25/2020 12:26 PM EDT 11/25/2020 12:26 PM EDT Taj Hopper MD POINT OF CARE TE ST ORDERABLES Performing Organization Address City/[facility]/ZIP Co de Phone Number [facility] [place] [address] * POCT Glucose (11/25/2020 11:10 AM EDT) Glucose, POC 103 65 - 199 mg/dL [facility] Comment: Supplemental ranges: <140 mg/dL before meals <180 mg/dL all other times of the day Blood specimen (specimen) 11/25/2020 11:10 AM EDT 11/25/2020 11:10 AM EDT Taj Hopper MD POINT OF CARE TE ST ORDERABLES [facility] [place] [address] documented in this encounter Visit Diagnoses Diagnosis Mediastinal mass- Primary Swelling, mass, or lump in chest Mediastinal mass Swelling, mass, or lump in chest Mediastinal mass Swelling, mass, or lump in chest documented in this encounter Admitting Diagnoses Diagnosis Mediastinal mass Swelling, mass, or lump in chest documented in this encounter Administered Medications Inactive Administered Medications - up to 3 most recent administrations Medication Order MAR Action Action Date Dose Rate Site acetaminophen (Tylenol) tablet 1,000 mg 1,000 mg, Oral, ONCE, 1 dose, On Mon11/25/20 at 1115, Administer with SIP of H2O only., Day of Surgery (Day of Procedure), Routine Given 11/25/2020 11:12 AM EDT 1,000 mg acetaminophen (Tylenol) tablet 1,000 mg 1,000 mg, Oral, EVERY 6 HOURS SCHEDULED, First dose on Mon11/25/20 at 1800, Until Discontinued, Maximum dose of acetaminophen is 4000 mg from all sources in 24 hours. When ordered for pain, acetaminophen should be given even when other ordered pain medications are indicated., Recovery (Recovery-Hospital Unit), Routine Given 11/26/2020 12:53 PM EDT 1,000 mg Given 11/26/2020 6:08 AM EDT 1,000 mg Given 11/26/2020 12:14 AM EDT 1,000 mg docusate sodium (Colace) capsule 100 mg 100 mg, Oral, 3 TIMES DAILY, First dose on Mon11/25/20 at 2100, Until Discontinued, Routine Given 11/26/2020 9:19 AM EDT 100 mg Given 11/25/2020 9:37 PM EDT 100 mg heparin (porcine) (5,000 units/1 mL) subcutaneous injection 5,000 Units 5,000 Units, Subcutaneous, [employer]ATEGY [employer]NER TO O.R., 1 dose, On Mon11/25/20 at 1115, Please administer in same day prior to procedure Thank you, Day of Surgery (Day of Procedure), STAT Given 11/25/2020 11:12 AM EDT 5,000 Units heparin (porcine) (5,000 units/1 mL) subcutaneous injection 5,000 Units 5,000 Units, Subcutaneous, EVERY 8 HOURS SCHEDULED, First dose on Mon11/25/20 at 2200, Until Discontinued, Routine Given 11/26/2020 6:08 AM EDT 5,000 Units Given 11/25/2020 9:37 PM EDT 5,000 Units hydroCHLOROthiazide (Hydrodiuril) tablet 25 mg 25 mg, Oral, DAILY, First dose on Chloe 11/26/20 at 0900, Until Discontinued, Routine Given 11/26/2020 9:19 AM EDT 25 mg HYDROmorphone (Dilaudid) (2 mg/mL) multi-dose injection solution 0.2-0.4 mg 0.2-0.4 mg, Intravenous, EVERY 5 MIN PRN, Starting on Mon11/25/20 at 1455, Until Mon11/25/20 at 1719, Pain, Give 0.2 mg every 5 minutes PRN for mild to moderate pain (1-5) Give 0.4 mg every 5 minutes PRN for moderate to severe pain (6-10). Hold for respiratory rate less than 10 per minute. Maximum dose 4 mg over one hour. If multiple pain medications are ordered, start with hydromorphone or morphine and use fentanyl for breakthrough pain., PACU Recovery, Routine Given 11/25/2020 4:00 PM EDT 0.4 mg Given 11/25/2020 3:30 PM EDT 0.2 mg Given 11/25/2020 3:22 PM EDT 0.2 mg ketorolac (Toradol) (15 mg/mL) injection 15 mg 15 mg, Intravenous, EVERY 6 HOURS PRN, Starting on Mon11/25/20 at 1519, Until Chloe 11/26/20 at 1530, Pain, 1st line prn, Routine Given 11/26/2020 4:47 AM EDT 15 mg Given 11/25/2020 3:25 PM EDT 15 mg lactated ringers infusion 1,000 mL, at 100 mL/hr, Intravenous, CONTINUOUS, Starting on Mon11/25/20 at 1545, Until Chloe 11/26/20 at 0144, Recovery (Recovery-Hospital Unit) [facility] 11/25/2020 3:33 PM EDT 1,000 mLs 100 mL/hr oxyCODONE (Roxicodone) tablet 5 mg 5 mg, Oral, EVERY 4 HOURS PRN, Starting on Mon11/25/20 at 1519, Until Chloe 11/26/20 at 1530, Pain, May repeat 5 mg in 60 minutes if pain not relieved., Recovery (Recovery-Hospital Unit), Routine Given 11/26/2020 12:53 PM EDT 5 mg Given 11/26/2020 6:11 AM EDT 5 mg Given 11/26/2020 2:11 AM EDT 5 mg pantoprazole EC (Protonix) tablet 40 mg 40 mg, Oral, DAILY, First dose on Chloe 11/26/20 at 0900, Until Discontinued, DO NOT CRUSH OR OPEN Given 11/26/2020 9:19 AM EDT 40 mg sodium chloride 0.9 % (flush) flush 5 mL 5 mL, Intravenous, 2 TIMES DAILY, First dose on Mon11/25/20 at 2100, Until Discontinued, Recovery (Recovery-Hospital Unit), Routine Given 11/26/2020 9:19 AM EDT 5 mLs Given 11/25/2020 9:37 PM EDT 5 mLs sodium chloride 0.9 % (flush) flush 5-20 mL 5-20 mL, Intravenous, EVERY 1 MIN PRN, Starting on Mon11/25/20 at 1721, Until Chloe 11/26/20 at 1530, flush, Flush pertains to all indwelling lines. Flush per protocol found in the job aid using the link provided on this medication record., Recovery (Recovery-Hospital Unit), Routine Given 11/26/2020 4:47 AM EDT 5 mLs documented in this encounter Active and Recently Administered Medications Times are shown in EDT. Scheduled Medication Order 11/24/2020 11/25/2020 11/26/2020 acetaminophen (Tylenol) tablet 1,000 mg (COMPLETED) 1,000 mg, Oral, ONCE, 1 dose, On Mon11/25/20 at 1115, Administer with SIP of H2O only., Day of Surgery (Day of Procedure), Routine 1112 (Given - Provider: Michelle Gayle RN) acetaminophen (Tylenol) tablet 1,000 mg 1,000 mg, Oral, EVERY 6 HOURS SCHEDULED, First dose on Mon11/25/20 at 1800, Until Discontinued, Maximum dose of acetaminophen is 4000 mg from all sources in 24 hours. When ordered for pain, acetaminophen should be given even when other ordered pain medications are indicated., Recovery (Recovery-Hospital Unit), Routine 1735 (Given - Provider: Bea Dawkins RN) 0014 (Given - Provider: Bea Jay, JAYDEN)0608 (Given - Provider: Bea Jay, JAYDEN)1253 (Given - Provider: Bea Dawkins, JAYDEN) ceFAZolin (Ancef) 2 g in dextrose 5% 100 mL infusion (COMPLETED) 2 g, Intravenous, CY[employer] POL[employer] STRATEGY PLANNER TO O.R., 1 dose, On Mon11/25/20 at 1115, Administer over 30 Minutes, Intra-Operative (Intra-Procedure), Indication for (Active or Suspected): Prophylaxis 1153 (Given - Provider: Shaina Marie) docusate sodium (Colace) capsule 100 mg 100 mg, Oral, 3 TIMES DAILY, First dose on Mon11/25/20 at 2100, Until Discontinued, Routine 2136 (Given - Provider: Bea Jay RN) 09 (Given - Provider: Bea Dawkins RN) heparin (porcine) (5,000 units/1 mL) subcutaneous injection 5,000 Units (COMPLETED) 5,000 Units, Subcutaneous, CYBER POLICY AND STRATEGY PLANNER TO O.R., 1 dose, On Mon11/25/20 at 1115, Please administer in same day prior to procedure Thank you, Day of Surgery (Day of Procedure), STAT 1112 (Given - Provider: Michelle Gayle RN) heparin (porcine) (5,000 units/1 mL) subcutaneous injection 5,000 Units 5,000 Units, Subcutaneous, EVERY 8 HOURS SCHEDULED, First dose on Mon11/25/20 at 2200, Until Discontinued, Routine 2136 (Given - Provider: Bea Jay RN) 607 (Given - Provider: Bea Jay RN) hydroCHLOROthiazide (Hydrodiuril) tablet 25 mg 25 mg, Oral, DAILY, First dose on Mon11/26/20 at 0900, Until Discontinued, Routine 918 (Given - Provid er: Bea Dawkins RN) pantoprazole EC (Protonix) tablet 40 mg 40 mg, Oral, DAILY, First dose on Chloe 11/26/20 at 0900, Until Discontinued, DO NOT CRUSH OR OPEN 918 (Given - Provid er: Bea Dawkins RN) senna (Senokot) tablet 17.2 mg 17.2 mg, Oral, EVERY EVENING, First dose on Mon11/26/20 at 1700, Until Discontinued, Routine sodium chloride 0.9 % (flush) flush 5 mL 5 mL, Intravenous, 2 TIMES DAILY, First dose on Mon11/25/20 at 2100, Until Discontinued, Recovery (Recovery-Hospital Unit), Routine 2137 (Given - Provider: Bea Jay RN) 0919 (Given - Provider: Bea Dawkins, JAYDEN) Continuous Medication Order 11/24/2020 11/25/2020 11/26/2020 lactated ringers infusion 1,000 mL, at 100 mL/hr, Intravenous, CONTINUOUS, Starting on Mon11/25/20 at 1545, Until Mon11/26/20 at 0144, Recovery (Recovery-Hospital Unit) 1533 (New Bag - Provider: Eugenia Baldwin RN) PRN Medication Order 11/24/2020 11/25/2020 11/26/2020 BUpivacaine (pf) (Marcaine) (5 mg/mL) 0.5% injection (CANCELED) ONCE PRN, Starting on Mon11/25/20 at 1226, Until Mon11/26/20 at 1530, Intra-Operative (Intra-Procedure), Routine 1226 (Given - Provider: Taj Hopper MD) BUpivacaine liposome (PF) (Exparel) 1.3 % (13.3 mg/mL) injection for infiltration (CANCELED) ONCE PRN, Starting on Mon11/25/20 at 1226, Until Mon11/26/20 at 1530, Intra-Operative (Intra-Procedure) 1226 (Given - Provider: Taj Hopper MD)1444 (Given - Provider: Taj Hopper MD) doxepin (Sinequan) capsule 10 mg 10 mg, Oral, NIGHTLY PRN, Starting on Mon11/25/20 at 1721, Until Mon11/26/20 at 1530, Sleep, Routine HYDROmorphone (Dilaudid) (2 mg/mL) multi-dose injection solution 0.2-0.4 mg (CANCELED) 0.2-0.4 mg, Intravenous, EVERY 5 MIN PRN, Starting on Mon11/25/20 at 1455, Until Mon11/25/20 at 1719, Pain, Give 0.2 mg every 5 minutes PRN for mild to moderate pain (1-5) Give 0.4 mg every 5 minutes PRN for moderate to severe pain (6-10). Hold for respiratory rate less than 10 per minute. Maximum dose 4 mg over one hour. If multiple pain medications are ordered, start with hydromorphone or morphine and use fentanyl for breakthrough pain., PACU Recovery, Routine 1459 (Given - Provider: Eugenia Baldwin RN)1522 (Given - Provider: Eugenia Baldwin RN)1530 (Given - Provider: Eugenia Baldwin RN)1600 (Given - Provider: Eugenia Baldwin RN) ipratropium (ATROVENT) 0.02 % nebulizer solution 0.5 mg 0.5 mg, Nebulization, 4 TIMES DAILY PRN, Starting on Mon11/25/20 at 1721, Until Clhoe 11/26/20 at 1530, Wheezing, Routine ketorolac (Toradol) (15 mg/mL) injection 15 mg 15 mg, Intravenous, EVERY 6 HOURS PRN, Starting on Mon11/25/20 at 1519, Until Chloe 11/26/20 at 1530, Pain, 1st line prn, Routine 1525 (Given - Provider: Eugenia Baldwin RN) 0447 (Given - Provider: Bea Jay RN) lidocaine (Xylocaine) 1% (10 mg/mL) injection 3 mg 3 mg (0.3 mL), Subcutaneous, ONCE PRN, 1 dose, Starting on Mon11/25/20 at 1721, Until Chloe 11/26/20 at 1530, for discomfort with PIV insertion, Recovery (Recovery-Hospital Unit), Routine ondansetron (pf) (Zofran) (2 mg/mL) injection 4 mg 4 mg, Intravenous, EVERY 8 HOURS PRN, Starting on Mon11/25/20 at 1721, Until Chloe 11/26/20 at 1530, Nausea oxyCODONE (Roxicodone) tablet 5 mg 5 mg, Oral, EVERY 4 HOURS PRN, Starting on Mon11/25/20 at 1519, Until Chloe 11/26/20 at 1530, Pain, May repeat 5 mg in 60 minutes if pain not relieved., Recovery (Recovery-Hospital Unit), Routine 1525 (Given - Provider: Eugenia Baldwin RN)1946 (Given - Provider: Bea Jay, JAYDEN) 0136 (Given - Provider: Bea Jay, JAYDEN)0211 (Given - Provider: Bea Jay RN)0611 (Given - Provider: Bea Jay RN)1253 (Given - Provider: Bea Dawkins, JAYDEN) sodium chloride 0.9 % (flush) flush 5-20 mL 5-20 mL, Intravenous, EVERY 1 MIN PRN, Starting on Mon11/25/20 at 1721, Until Chloe 11/26/20 at 1530, flush, Flush pertains to all indwelling lines. Flush per protocol found in the job aid using the link provided on this medication record., Recovery (Recovery-Hospital Unit), Routine 0447 (Given - Provid er: Bea Jay RN) documented in this encounter Care Teams Television Mechanic Relationship Specialty Start Date End Date Michelle Cooper APRN [address] [place] [address] PCP - General Family Medicine 09/25/20 07/23/23 documented as of this encounter
--- OUTSIDE RECORDS SUMMARY | 2024-04-16 21:50 | XMS_ITS | Encounter Summary ---
[place] [address] Care Team Providers Care Loader Technician Name Role Phone Michelle Cooper APRN Primary Care Provider [phone] Encounter Details Date Type Department Care Team (Latest Contact Info) Description 10/27/2020 12:30 PM EST Laboratory Appointment Lab [address] [place] [address] Mediastinal mass; Fatigue, unspecified type; Palpitations Social History Tobacco Use Types Packs/Day Years Used Date Smoking Tobacco: Former Sex and Gender Information Value Date Recorded Sex Assigned at Not on file Gender Identity Not on file Sexual Orientation Not on file documented as of this encounter Plan of Treatment Not on file documented as of this encounter Procedures Procedure Name Priority Date/Time Associated Diagnosis Comments HEMOGRAM Routine 10/27/2020 2:55 PM EST Mediastinal mass DIFFERENTIAL, AUTOMATED Routine 10/27/2020 2:55 PM EST Mediastinal mass HC ALPHA FETOPROTEIN TUMOR MARKER Routine 10/27/2020 2:55 PM EST Mediastinal mass HC CBC,PLT & AUTO DIFF Routine 2:55 PM EST Mediastinal mass HC CHORIONIC GONADOTROPINS, SERUM Routine 10/27/2020 2:55 PM EST Mediastinal mass HC THYROID STIMULATING HORMONE, SERUM Routine 10/27/2020 2:55 PM EST Fatigue, unspecified type Mediastinal mass Palpitations HC LACTIC DEHYDROGENASE Routine 10/27/2020 2:55 PM EST Mediastinal mass CREATININE Routine 10/27/2020 12:47 PM EST documented in this encounter Results * Differential, Automated (10/27/2020 2:55 PM EST) Neutrophil % 58.5 % [facility] Neutrophil Absolute 4.22 1.70 - 6.10 x10(3)/[facility] Lymph % 27.4 % [facility] Lymphocytes Abs 2.0 0.9 - 3.2 x10(3)/[facility] Monocyte % 9.8 % [facility] Monocyte Abs 0.7 0.3 - 0.9 x10(3)/[facility] Eos % 3.2 % [facility] Eosinophils Abs 0.2 0.0 - 0.4 x10(3)/[facility] Basophil % 0.7 % [facility] Baso Absolute 0.0 0.0 - 0.1 x10(3)/[facility] Immature Gran % 0.40 % [facility] Comment: Immature granulocytes(IG's)percentage and absolute count will include metamyelocytes, myelocytes, and promyelocytes. Blood smears from CBCs yielding IG's will be scanned manually for concordance. If this scan disagrees with the automated IG or if promyelocytes are noted, a manual differential will be performed. Immature Gran Absolute 0.03 0.00 - 0.04 x10(3)/[facility] Blood specimen (specimen) 10/27/2020 2:55 PM EST 10/27/2020 3:07 PM EST Narrative Resulting Agency Comment Spec In Lab Eleuterio Silva MD HEMATOLOGY ORDERABLE S [facility] [place] [address] * (ABNORMAL) Hemogram (10/27/2020 2:55 PM EST) White Blood Cell 7.2 4.0 - 9.5 x10(3)/ L [facility] Red Blood Cell 3.99(L) 4.58 - 5.54 x10(6)/mc L [facility] Hemoglobin 13.2(L) 13.7 - 16.5 gm/dL [facility] Hematocrit 38.7(L) 40.5 - 48.5 % [facility] Mean Cell Volume 97.0(H) 82.9 - 93.[address] [facility] Mean Cell Hemoglobin 33.1(H) 27.5 - 32.[address] [facility] Mean Cell Hemoglobin Concentration 34.1 32.0 - 35.7 gm/dL [facility] Platelet 204 145 - 357 x10(3)/[facility] RDW Standard Deviation 43.3 36.0 - 45.0 [facility] RDW coefficient of variation 12.1 11.4 - 13.8 % [facility] Mean Platelet Volume 9.4 7.6 - 12.9 [facility] NRBC% auto 0.0 % [facility] NRBC Absolute 0.000 0.000 - 0.000 x10(3)/[facility] Blood specimen (specimen) 10/27/2020 2:55 PM EST 10/27/2020 3:07 PM EST Narrative Resulting Agency Comment Spec In Lab Eleuterio Silva MD HEMATOLOGY ORDERABLE S [facility] [place] [address] * Lactate Dehydrogenase (10/27/2020 2:55 PM EST) Lactate Dehydrogenase 173 110 - 220 unit/L [facility] Blood specimen (specimen) 10/27/2020 2:55 PM EST 10/27/2020 3:07 PM EST Narrative Resulting Agency Comment Spec In Lab Tomas Quan MD CHEMISTRY ORDERABLES [facility] [place] [address] * Beta HCG, quantitative (10/27/2020 2:55 PM EST) Beta Human Chorionic Gonadotropin, Quantitative <1 0 - 2 mlU/ML [facility] Comment: REFERENCE RANGES NON- FEMALE: ??Less than 5 mIU/mL POSTMENOPAUSAL FEMALE: ??Less than 8 mIU/mL ? -- FEMALES -- Weeks of ? HCG range ??(mIU/mL) ? 3 weeks ? 5.8 - 71.2 ? 4 weeks ? 9.5 - 750 ? 5 weeks ? 217 - 7,138 ? 6 weeks ? 158 - 31,795 ? 7 weeks ? 3,697 - 163,563 ? 8 weeks ? 32,065 - 149,571 ? 9 weeks ? 63,803 - 151,410 ?10 weeks ? 46,509 - 186,977 ?12 weeks ? 27,832 - 210,612 ?14 weeks ? 13,950 - 62,530 ?15 weeks ? 12,039 - 70,971 ?16 weeks ? 9,040 - 56,451 ?17 weeks ? 8,175 - 54,868 ?18 weeks ? 8,099 - 21,176 Blood specimen (specimen) 10/27/2020 2:55 PM EST 10/27/2020 3:07 PM EST Narrative Resulting Agency Comment Spec In Lab Tomas Quan MD CHEMISTRY ORDERABLES [facility] [place] [address] * AFP tumor marker (10/27/2020 2:55 PM EST) Alpha Fetoprotein 1.9 <=8.3 ng/mL [facility] Blood specimen (specimen) 10/27/2020 2:55 PM EST 10/27/2020 3:07 PM EST Narrative Resulting Agency Comment Spec In Lab Tomas Quan MD CHEMISTRY ORDERABLES Performing Organization Address City/[facility] Co de Phone Number [facility] [place] [address] * TSH (10/27/2020 2:55 PM EST) Thyroid Stimulating Hormone 1.77 0.27 - 4.20 mcIU/mL [facility] Blood specimen (specimen) 10/27/2020 2:55 PM EST 10/27/2020 3:07 PM EST Narrative Resulting Agency Comment Spec In Lab Tomas Quan MD CHEMISTRY ORDERABLES Performing Organization Address [facility] de Phone Number [facility] [place] [address] * (ABNORMAL) Creatinine (10/27/2020 12:47 PM EST) Creatinine 0.79(L) 0.80 - 1.50 mg/dL [facility] Est Glomerular Filtration Rate 94 >=60 mL/min/1. 73 m?? [facility] Comment: This patient? s estimated glomerular filtration rate (eGFR) is between 94 mL/min/1.73 m2 (patients with less muscle mass per kg body weight) and 109 mL/min/1.73 m2 (patients with more muscle mass per kg body weight) as determined by the CKD-EPI equation. Assessment of eGFR is not appropriate when creatinine concentrations are rapidly changing. For clinical decisions where creatinine clearance will affect therapy, a 24-hour urine creatinine clearance may be advised. Assignment of CKD stage 1 ? 5 for patients with an eGFR near the transition point between stages may be based on clinical assessment of muscle mass and symptoms in addition to eGFR. Blood specimen (specimen) Venous Draw / Unknown 10/27/2020 12:47 PM EST 10/27/2020 1:02 PM EST Narrative Resulting Agency Comment Spec In Lab Michelle Cooper APRN CHEMISTRY ORDERABLES [facility] [place] [address] documented in this encounter Visit Diagnoses Diagnosis Mediastinal mass Swelling, mass, or lump in chest Fatigue, unspecified type Palpitations documented in this encounter Care Teams Loader Technician Relationship Specialty Start Date End Date Michelle Cooper, NETWORK CONTROL OPERATOR [address] [place] [address] PCP - General Family Medicine 09/25/20 07/23/23 documented as of this encounter
--- OUTSIDE RECORDS SUMMARY | 2024-04-16 21:50 | XMS_ITS | Encounter Summary ---
Author Organization [facility] [place] [address] Care Team Providers Care Accounts Receivable Manager Name Role Phone Unknown Primary Care Provider Unavailabl e Encounter Details Date Type Department Care Team (Late st Contact Info) Description 09/11/2018 Ancillary Procedure [place] [address] Tomas Quan MD [facility] [place] [address] Social History Tobacco Use Types Packs/Day Years Used Date Smoking Tobacco: Former Sex and Gender Information Value Date Recorded Sex Assigned at Not on file Gender Identity Not on file Sexual Orientation Not on file documented as of this encounter Plan of Treatment Not on file documented as of this encounter Procedures Procedure Name Priority Date/Time Associated Diagnosis Comments FILM LIBRARY STORAGE ONLY DX GI STUDY Routine 09/11/2018 12:00 AM EST documented in this encounter Results * Film Library- Storage Only DX GI Study (09/11/2018 12:00 AM EST) Narrative [facility] - 10/21/2020 1:59 PM EST This exam is auto-finalizing. It's purpose is for storage only. Tomas Quan MD G FILM LIBRARY ORD ERABLES [place], [place] documented in this encounter Visit Diagnoses Not on filedocumented in this encounter Care Teams Accounts Receivable Manager Relationship Specialty Start Date End Date Unknown None PCP - General 11/24/16 09/24/20 documented as of this encounter
--- OUTSIDE RECORDS SUMMARY | 2024-04-16 21:50 | XMS_ITS | Encounter Summary ---
Author Organization [facility] Address [facility] [place] [address] Care Team Providers Care Webmethods Architect Name Role Phone Unknown Primary Care Provider Unavailabl e Encounter Details Date Type Department Care Team (Late st Contact Info) Description 08/24/2020 Orders [place] [address] Eleuterio Silva MD [facility] [address] [place] [address] Extrinsic asthma, unspecified asthma severity, unspecified whether [...] documented as of this encounter Results * Pulmonary Function Testing (10/27/2020 1:09 PM EST) FVC Actual Pre-BD 4.27 L [facility] FVC Pre-BD % of Predicted 105 % [facility] FVC Predicted 4.05 L [facility] FVC Pre-BD Z-Score 0.36 [facility] FVC Lower Limits of Normal 3.04 L [facility] FEV1 Actual Pre-BD 2.50 L [facility]FT FEV1 Pre-BD % of Predicted 80 % [facility] FEV1 Predicted 3.11 L [facility]FT FEV1 Pre-BD Z-Score -1.23 [facility] FEV1 Lower Limits of Normal 2.29 L [facility] FEV1 / FVC Actual Pre-BD 59 % [facility] FEV1/FVC Pre-BD Z-Score -2.23 [facility] FEV1 / FVC LLN 64 % [facility] [id number] Actual Pre-BD 1.43 L/s [facility] [id number] Pre-BD % of Predicted 57 % [facility] [id number] Predicted 2.51 L/s [facility] [id number] Pre-BD Z-Score -1.25 [facility] Narrative [facility] - 10/27/2020 1:09 PM EST SUMMARY: FEV1 and FVC are normal, FEV1/FVC is reduced. IMPRESSION: FEV1/VC is reduced and VC is normal indicating obstruction. The observed obstructive ventilatory defect is mild (FEV1 >70%). Procedure Note Jessica Nina MD - 10/30/2020 SUMMARY: FEV1 and FVC are normal, FEV1/FVC is reduced. IMPRESSION: FEV1/VCis reduced and VC is normal indicating obstruction. The observed obstructive ventilatorydefect is mild (FEV1 >70%). Tomas Quan MD PFT ORDERABLES [facility] * XR Chest PA & Lateral (Generic) (10/27/2020 12:19 PM EST) Anatomical Region Laterality Modality Chest N/A Digital Radiogra phy Impressions 10/27/2020 12:58 PM EST No active cardiopulmonary disease. Thank you for letting us participate in the care of this patient. For questions regarding this report, please contact the number below. ? Electronically signed by: Víctor Drew MD, [facility] ([phone]), at 10/27/2020 12:58 PM Narrative 10/27/2020 12:58 PM EST EXAMINATION: XR CHEST PA AND LATERAL (GENERIC) CLINICAL HISTORY: Allergic asthhma TECHNIQUE: PA and lateral views of the chest COMPARISON: 10/10/2018 FINDINGS: The lungs are clear and well-expanded. Heart and pulmonary vasculature are normal. Degenerative disease is demonstrated in the spine. Procedure Note Víctor Drew MD - 10/27/2020 EXAMINATION: XR CHEST PA AND LATERAL (GENERIC) CLINICAL HISTORY: Allergic asthhma TECHNIQUE: PA and lateral views of the chest COMPARISON: 10/10/2018 FINDINGS: The lungs are clear and well-expanded. Heart and pulmonary vasculatureare normal. Degenerative disease is demonstrated in the spine. IMPRESSION No active cardiopulmonary disease. Thank you for letting us participate in the care of this patient. Forquestions regarding this report, please contact the number below. Tomas Quan MD IMG DX ORDERABLES documented in this encounter Visit Diagnoses Diagnosis Extrinsic asthma, unspecified asthma severity, unspecified whether complicated, unspecified whether persistent- Primary Extrinsic asthma, unspecified asthma severity, unspecified whether complicated, unspecified whether persistent Extrinsic asthma, unspecified asthma severity, unspecified whether complicated, unspecified whether persistent documented in this encounter Care Teams Webmethods Architect Relationship Specialty Start Date End Date Unknown None PCP - General 11/24/16 09/24/20 documented as of this encounter
--- OUTSIDE RECORDS SUMMARY | 2024-04-16 21:50 | XMS_ITS | Encounter Summary ---
Author Organization [facility] Address [facility] [place] [address] Care Team Providers Care Coo Name Role Phone Michelle Cooper Anyi PRITCHETT Primary Care Provider [phone] Encounter Details Date Type Department Care Team (Latest Contact Info) Description 10/27/2020 12:07 PM EST - 10/27/2020 12:56 PM [facility] Encounter XRay at [address] [place] [address] Tomas Quan MD [facility] [place] [address] Extrinsic asthma, unspecified asthma severity, unspecified whether complicated, unspecified whether persistent Discharge Disposition: Home Social History Tobacco Use Types Packs/Day Years Used Date Smoking Tobacco: Former Sex and Gender Information Value Date Recorded Sex Assigned at Not on file Gender Identity Not on file Sexual Orientation Not on file documented as of this encounter Medications at Time of Discharge Medication Sig Dispensed Refills Start Date End Date albuteroL 90 mcg/actuation HFA Aerosol Inhaler Inhale 3 puffs into the lungs every 4 hours as needed. 06/17/2020 04/03/2024 FLUoxetine (PROzac) 20 mg Capsule Take 20 mg by mouth daily. 09/26/2020 11/26/2020 aspirin 81 mg chewable tablet Take 81 mg by mouth daily. 11/02/2020 Lysine 325 mg Tab Take by mouth. 11/03/19 21 documented as of this encounter Plan of Treatment Not on file documented as of this encounter Procedures Procedure Name Priority Date/Time Associated Diagnosis Comments XR CHEST PA AND LATERAL Routine 10/27/2020 12:19 PM EST Extrinsic asthma, unspecified asthma severity, unspecified whether complicated, unspecified whether persistent documented in this encounter Results * XR Chest PA & Lateral (Generic) (10/27/2020 12:19 PM EST) Anatomical Region Laterality Modality Chest N/A Digital Radiogra phy Impressions 10/27/2020 12:58 PM EST No active cardiopulmonary disease. Thank you for letting us participate in the care of this patient. For questions regarding this report, please contact the number below. ? Narrative 10/27/2020 12:58 PM EST EXAMINATION: XR [...] persistent documented in this encounter Care Teams Coo Relationship Specialty Start Date End Date Michelle Cooper APRN [address] [place] [address] PCP - General Family Medicine 09/25/20 07/23/23 documented as of this encounter
--- OUTSIDE RECORDS SUMMARY | 2024-04-16 21:50 | XMS_ITS | Encounter Summary ---
[place] [address] Care Team Providers Care Principal Developer Name Role Phone Michelle Cooper APRN Primary Care Provider [phone] Encounter Details Date Type Department Care Team (Late st Contact Info) Description 10/06/2020 Telephone Cardiology at [address] [id number] Pauline Ordoñez RN Social History Tobacco Use Types Packs/Day Years Used Date Smoking Tobacco: Former Sex and Gender Information Value Date Recorded Sex Assigned at Not on file Gender Identity Not on file Sexual Orientation Not on file documented as of this encounter Miscellaneous Notes * Telephone Encounter - Pauline Ordoñez RN - 10/07/2020 9:11 AM EST Return call to patient PCP- Michelle Cooper APRN. Patient had a recent Exercise Stress test- and she has reviewed the results. She is now questioning the need for NM Stress Test which has been scheduled for 10/09/19. Would like to discuss with Dr. Lassiter who interpreted the Exercise Stress test. Ms. Cooper can be reached on her Cell at . Message forwarded to Dr. Lassiter. Pauline Ordoñez RN, BSN Ambulatory Cardiology Department documented in this encounter Plan of Treatment Not on file documented as of this encounter Visit Diagnoses Not on filedocumented in this encounter Care Teams Principal Developer Relationship Specialty Start Date End Date Michelle Cooper APRN [address] [place] [address] PCP - General Family Medicine 09/25/20 07/23/23 documented as of this encounter
--- OUTSIDE RECORDS SUMMARY | 2024-04-16 21:50 | XMS_ITS | Encounter Summary ---
Author Organization [facility] [place] [address] Care Team Providers Care Production Assistant Name Role Phone Tyron Wilcox MD Primary Care Provider [phone] Encounter Details Date Type Department Care Team (Late st Contact Info) Description 04/12/2013 [place] [id number] Liana Fairbanks MD [facility] [place] [id number] Social History Tobacco Use Types Packs/Day Years Used Date Smoking Tobacco: Former Sex and Gender Information Value Date Recorded Sex Assigned at Not on file Gender Identity Not on file Sexual Orientation Not on file documented as of this encounter Miscellaneous Notes * Telephone Encounter - Liana Fairbanks - 04/12/2013 1:16 PM EDT Attempted to call patient RE questions about last appointment. The person who answered the provided number reported it was the wrong number. documented in this encounter Plan of Treatment Not on file documented as of this encounter Visit Diagnoses Not on filedocumented in this encounter Care Teams Production Assistant Relationship Specialty Start Date End Date Tyron Wilcox MD PCP - General 04/10/13 11/23/16 documented as of this encounter
--- OUTSIDE RECORDS SUMMARY | 2024-04-16 21:50 | XMS_ITS | Encounter Summary ---
[place] [address] Care Team Providers Care Pit Slagman Name Role Phone Michelle Cooper APRN Primary Care Provider Reason for Referral * Diagnostic Test (Routine) - Closed Specialty Diagnoses / Procedures Referred By Sofieac t Referred To Contact Radiology Diagnoses Chest mass Procedures CT Chest w Contrast Michelle Cooper APRN [address] [place] [address] [facility] [place] [address] Referral ID Status Reason Start Date Expiration Date V isits Requested Visits Authorized [id number] Closed Specialty Service Requested 10/16/2020 04/15/2022 1 1 Reason for Visit * Diagnostic Test (Routine) - Closed Specialty Diagnoses / Procedures Referred By Contac t Referred To Contact Radiology Diagnoses Chest mass Procedures CT Chest w Contrast Michelle Cooper APRN [address] [place] [address] [facility] [place] [address] Referral ID Status Reason Start Date Expiration Date V isits Requested Visits Authorized [id number] Closed Specialty Service Requested 10/16/2020 04/15/2022 1 1 Encounter Details Date Type Department Care Team (Latest Contact Info) Description 10/27/2020 3:44 PM EST - 10/27/2020 11:59 PM EST Hospital [place] [address] Michelle Cooper APRN [address] [place] [address] Chest mass Discharge Disposition: Home Social History Tobacco Use Types Packs/Day Years Used Date Smoking Tobacco: Former Sex and Gender Information Value Date Recorded Sex Assigned at Not on file Gender Identity Not on file Sexual Orientation Not on file documented as of this encounter Medications at Time of Discharge Medication Sig Dispensed Refills Start Date End Date lisinopriL-hydrochlorothi azide (PRINZIDE;ZESTORETIC) 20-25 mg Tablet Take 1 tablet by mouth Daily. tiotropium bromide (SPIRIVA RESPIMAT) 2.5 mcg/actuation MistIndications:Chronic obstructive pulmonary disease, unspecified COPD type Inhale 2 puffs into the lungs daily. 4 g 11 10/27/2020 11/02/2020 albuteroL 90 mcg/actuation HFA Aerosol Inhaler Inhale [...] Diagnosis Comments CT CHEST W CONTRAST Routine 10/27/2020 4 :25 PM EST Chest mass documented in this encounter Results * CT Chest w Contrast (10/27/2020 4:25 PM EST) Anatomical Region Laterality Modality Chest Computed Tomogra phy Impressions 10/27/2020 4:41 PM EST Lobulated well-defined soft tissue mass or aggregate of soft tissue masses in the anterior mediastinum abutting the pulmonary artery outflow tract. No pathologically enlarged mediastinal lymph nodes. Not contiguous to the thyroid gland. Differential diagnosis includes thymoma and teratoma. Thoracic surgical opinion suggested. Thank you for letting us participate in the care of this patient. For questions regarding this report, please contact the number below. ? Electronically signed by: Jennifer Clancy MD, [facility] ([phone]), at 10/27/2020 4:41 PM Narrative 10/27/2020 4:41 PM EST EXAMINATION: CT CHEST W CONTRAST CLINICAL HISTORY: Mediastinal mass found incidentally during nuclear stress test. TECHNIQUE: 3.75mm thick axial contiguous sections were obtained through the chest via helical acquisition after the intravenous administration of contrast, 60 cc Omnipaque 350 intravenous contrast. Thin-section reconstructions as well as coronal and sagittal reformatted images were generated. COMPARISON: Myocardial perfusion study October 09, 2020 FINDINGS: Pulmonary parenchyma: No pulmonary nodule nor mass Airways: Patent Pleura: No pleural effusion. Lymph nodes:No pathologically enlarged axillary, mediastinal nor hilar lymph nodes. Small scattered mediastinal lymph nodes. Heart, pericardium, and great vessels: Normal size heart without pericardial effusion. Other mediastinal structures: Corresponding to findings at nuclear medicine perfusion study are either lobulated or several [id number] homogeneous well defined hypodense mediastinal nodules. Centrally the largest of these measures 2.5 cm in maximal dimension and on the right 2 cm in maximal dimension although the overall aggregate is chevron-shaped. Fat plane is maintained about the ascending thoracic aorta. This mass abuts the pulmonary artery outflow tract, series 3 image 194 and series 7 image 63. Lower neck: Tiny hypodense nodule at the posterior edge of the right thyroid gland likely parathyroid gland. Upper abdomen: Normal adrenal contours. Body wall soft tissues: No muscular asymmetry. No subcutaneous lesion. Skeletal structures: Bridging osteophytes. No acute fractures. Procedure Note Jennifer Clancy MD - 10/27/2020 EXAMINATION: CT CHEST W CONTRAST CLINICAL HISTORY: Mediastinal mass found incidentally during nuclear stress test. TECHNIQUE: 3.75mm thick axial contiguous sections were obtained throughthe chest via helical acquisition after the intravenous administration ofcontrast, 60 cc Omnipaque 350 intravenous contrast. Thin-section reconstructions aswell as coronal and sagittal reformatted images were generated. COMPARISON: Myocardial perfusion study October 09, 2020 FINDINGS: Pulmonary parenchyma: No pulmonary nodule nor mass Airways: Patent Pleura: No pleural effusion. Lymph nodes:No pathologically enlarged axillary, mediastinal nor hilarlymph nodes. Small scattered mediastinal lymph nodes. Heart, pericardium, and great vessels: Normal size heart withoutpericardial effusion. Other mediastinal structures: Corresponding to findings at nuclearmedicine perfusion study are either lobulated or several [id number] homogeneouswell defined hypodense mediastinal nodules. Centrally the largest of thesemeasures 2.5 cm in maximal dimension and on the right 2 cm in maximal dimensionalthough the overall aggregate is chevron-shaped. Fat plane is maintained aboutthe ascending thoracic aorta. This mass abuts the pulmonary artery outflowtract, series 3 image 194 and series 7 image 63. Lower neck: Tiny hypodense nodule at the posterior edge of the rightthyroid gland likely parathyroid gland. Upper abdomen: Normal adrenal contours. Body wall soft tissues: No muscular asymmetry. No subcutaneous lesion. Skeletal structures: Bridging osteophytes. No acute fractures. IMPRESSION Lobulated well-defined soft tissue mass or aggregate of soft tissue massesin the anterior mediastinum abutting the pulmonary artery outflow tract. No pathologically enlarged mediastinal lymph nodes. Not contiguous to thethyroid gland. Differential diagnosis includes thymoma and teratoma. Thoracicsurgical opinion suggested. Thank you for letting us participate in the care of this patient. Forquestions regarding this report, please contact the number below. Electronically signed by: Jennifer Clancy MD, [facility]([phone]), at 10/27/2020 4:41 PM Michelle Cooper APRN [place] [facility] ORDERABLES documented in this encounter Visit Diagnoses Diagnosis Chest mass Swelling, mass, or lump in chest documented in this encounter Administered Medications Inactive Administered Medications - up to 3 most recent administrations Medication Order MAR Action Action Date Dose Rate Site iohexoL (Omnipaque) (350 mg/mL) injection solution 0-200 mL 0-200 mL, Intravenous, ONCE PRN, 1 dose, Starting on Mon10/27/20 at 1611, Until Mon10/27/20 at 1625, Per Protocol, Warning Vesicant/Irritant Medication , Radiology Contrast, Routine Given 10/27/2020 4:25 PM EST 60 mLs documented in this encounter Care Teams Pit Slagman Relationship Specialty Start Date End Date Michelle Cooper, YARELY [address] [place] [address] PCP - General Family Medicine 09/25/20 07/23/23 documented as of this encounter
--- OUTSIDE RECORDS SUMMARY | 2024-04-16 21:50 | XMS_ITS | Encounter Summary ---
[place] [address] Care Team Providers Care Nutrition Services Associate Name Role Phone Michelle Cooper APRN Primary Care Provider [phone] Encounter Details Date Type Department Care Team (Late st Contact Info) Description 11/03/2020 Orders [place] [id number] Yuridia Bass, RN Mediastinal mass Social History Tobacco Use Types [...] as of this encounter Visit Diagnoses Diagnosis Mediastinal mass Swelling, mass, or lump in chest documented in this encounter Care Teams Nutrition Services Associate Relationship Specialty Start Date End Date Michelle Cooper APRN [address] [place] [address] PCP - General Family Medicine 09/25/20 07/23/23 documented as of this encounter
--- OUTSIDE RECORDS SUMMARY | 2024-04-16 21:50 | XMS_ITS | Encounter Summary ---
Author Organization [facility] Address [facility] [place] [address] Care Team Providers Care Education Program Manager Name Role Phone Michelle Cooper APRN Primary Care Provider [phone] Reason for Visit * Consultation (Routine) - Closed Specialty Diagnoses / Procedures Referred By Contac t Referred To Contact Thoracic Surgery Diagnoses SOB (shortness of breath) Fatigue, unspecified type Mediastinal mass Eleuterio Silva MD [facility] [place] [address] [facility] Thoracic Surg [address] [place] [phone] Referral ID Status Reason Start Date Expiration Date V isits Requested Visits Authorized [id number] Closed Consult, Test & Treat 10/27/2020 10/27/2021 1 1 Encounter Details Date Type Department Care Team (Late st Contact Info) Description 11/02/2020 10:45 AM EST Office [place] [address] Taj Mccullough MD [facility] [place] [address] Mediastinal mass Social History Tobacco Use Types Packs/Day Years Used Date Smoking Tobacco: Former Cigarettes Q uit: 1979 Smokeless Tobacco: Former Quit: 1979 Sex and Gender Information Value Date Recorded Sex Assigned at Not on file Gender Identity Not on file Sexual Orientation Not on file documented as of this encounter Last Filed Vital Signs Vital Sign Reading Time Taken Comments Blood Pressure 153/75 11/02/2020 10:23 AM EST Pulse 64 11/02/2020 10:23 AM EST Temperature 36.5 ??C (97.7 ??F) 11/02/2020 1 0:23 AM EST Respiratory Rate 20 11/02/2020 10:2 3 AM EST Oxygen Saturation 100% 11/02/2020 10: 23 AM EST Inhaled Oxygen Concentration - - Weight 114.5 kg (252 lb 6.4 oz) 021 10:23 AM EST Height 173 cm (5' 8.11) 11/02/2020 10: 23 AM EST Body Mass Index 38.25 11/02/2020 10:23 AM EST documented in this encounter Patient Instructions * Patient Instructions* Yuridia Bass, RN - 11/02/2020 10:45 AM EST Thank you for visiting Dr. Mccullough in clinic 11/02/20 Dr. Mccullough would like to schedule you for your Robot assisted Video Assisted Thoracoscopic Surgery (RVATS) Thymectomy, mediastinal mass excision. Your procedure is scheduled for To BE Determined. You will receive a phone call from the OR nurses on the day before surgery after 2pm through 6 pm. They will confirm your arrival time, review what medications to take and when to stop eating and drinking. Your procedure will occur in help desk analyst [email or web address]. In RVATS or robot-assisted video-assisted thoracic surgery, the surgeon controls the camera, light source and surgical tools from a console, with the same degree of flexibility and dexterity as if they were held in the surgeon's hand. The tiny size of the instruments and the precision movement of the robotic arms allow the surgeon to operate in small and [id number] places in the chest cavity, and to move carefully around sensitive blood vessels, tissues and organs, enabling more difficult procedures to be performed with RVATS versus open surgery. A thymectomy is the removal of the thymus. The thymus, a small organ that lies in the upper chest under the breastbone, is part of the lymph system. It makes white blood cells, called lymphocytes, that protect the body against infections. This is a gland that helps protect you from infections during childhood, but has no known function in adults. Mediastinal tumors, also called masses, are benign (non- cancerous) or cancerous growths that form in the area of the chest that separates the lungs. This area, called the mediastinum, is surrounded by the breastbone in front, the spine in back, and the lungs on each side. The mediastinum contains the heart, aorta, esophagus, thymus and trachea. Before your Surgery: PLEASE WASH WITH EITHER DIAL SOAP or the HIBICLENS SOAP included in this package. Please wash your chest, sides and back. You may shower either the night before or the morning of surgery and please place clean clothes on after your shower. ?? Exercise: Daily aerobic exercise for at least 30 minutes will help improve your endurance and improve the breathing capacity of your lungs. This means that you are breathing hard, your heart is beating fast and that you are sweating. Examples of this include walking, biking, swimming, and using a treadmill or stationary bike. You will be expected to exercise after surgery as well. Incentive Spirometer: Place the Incentive spirometer in your mouth when you are ready to take a slow deep breath in through your mouth (sucking motion, DO NOT BLOW into the device). Use your incentive spirometer as you were shown in clinic: 6 times daily/10 breaths each time. It is a sucking motion when you take a slow deep breath in, DO NOT BLOW INTO THIS MACHINE You may also bundle the use of the incentive spirometer as well - 30 breaths in the morning and 30 breaths at night. Please keep your incentive spirometer near your favorite chair so that in between commercials you can remember to use it! Take a slow, deep breath in through your mouth. While the piston rises, the indicator on the right should move upwards. It should stay between the 2 arrows for 2 to 4 seconds with each breath. If theindicator does not stay between the arrows, you are breathing either too fast or too slowly. The incentive spirometer will help you expand your lungs and encourage you to breathe deeply and fully. You will use the incentive spirometer as part of your recovery process and to prevent complications such as pneumonia. COVID Testing will be performed prior to your surgery. The COVID Hotline is who will contact you toset up this appointment. They have been scheduling tests at least 3 days prior to your surgery date. Their number is [phone]. AFTER SURGERY A Chest tube is a flexible tube that is used to drain blood, fluid and air from around your lungs after surgery. The tube enters your body between your ribs and goes into the space between the inner lining and outer lining of your lung. This is called the pleural space. The chest tube will come outa day after surgery, if there is no air leak in your lung. If there is an air leak, the chest tube will stay in until it stops. The nurse and doctor will be watching for the air leak to clear up regularly throughout the day. Post Surgery Instructions at home: Bowel regimen while at home. Please obtain senna (Senokot) tablets, colace tablets, and Miralax powder. You will need to take senna once a day, colace three times a day and miralax once a day to keep your bowels moving. If you do not have a bowel movement in 2 days you will need to call the office as you will need to obtain either Milk of Magnesia (MOM), Magnesium citrate, a Fleet's enema or glycerinsuppositories. If you are having diarrhea, then you may back off on the bowel medications. If you are taking narcotics, you need to continue the bowel medications while you are taking the narcotics. POST SURGERY INSTRUCTIONS AT HOME: Example of what you will be taking for pain control after your surgery. Please make sure that you have Extra strength Tylenol (acetaminophen) and Motrin (ibuprofen) at home before you are discharged : Extra strength acetaminophen 1000 mg together with ibuprofen 200 mg (2-3 tabs) every 6 hours scheduled - Extra strength acetaminophen 1000 mg together with Ibuprofen 200 mg (2-3 tabs) at 8am, then Extra strength acetaminophen 1000 mg together with ibuprofen 200 mg (2-3 tabs) at 2 pm etc... Do not exceed more than 4000 mg of Extra strength acetaminophen in [address] Mccullough's team will see you twice per day while you are in the hospital. Two weeks after youleave the hospital, you will be scheduled to see Dr. Mccullough in his clinic and will also have a chest x-ray before you see him on this day. Please call the Thoracic Surgery nurse if you have any questions before or after your surgery at . documented in this encounter Progress Notes * Taj Mccullough MD - 11/02/2020 10:45 AM EST Thoracic surgery new patient evaluation I saw and examined Mr. Elliott with CYNTHIA Arce, and agree with his findings, assessment and plan. In brief: Chief complaint: Anterior mediastinal mass History of present illness: Mr. Elliott is a 64-year-old man who recently underwent a nuclear stresstest and an incidental note was made of an anterior mediastinal mass. He does endorse mild chest pressure, but this is relatively minimal. He denies any myasthenic symptoms, any fevers or chills or other symptoms associated with the mass. He is a former smoker but quit more than 40 years ago. Patient Active Problem List Diagnosis Code ??? Penile fracture S39.840A ??? Mediastinal mass J98.59 No past surgical history on file. Current Outpatient Medications on File Prior to Visit Medication Sig Dispense Refill ??? doxepin (Sinequan) 10 mg Capsule ??? cholecalciferol, Vitamin D3, (cholecalciferol, Vitamin D3,) 50 mcg (2,000 unit) Capsule Take bymouth. ??? omeprazole (PriLOSEC) 20 mg Capsule, Delayed Release(E.C.) Take 20 mg by mouth daily. ??? albuteroL 90 mcg/actuation HFA Aerosol Inhaler ??? FLUoxetine (PROzac) 20 mg Capsule ??? lisinopriL-hydrochlorothiazide (PRINZIDE;ZESTORETIC) 20-25 mg Tablet Take 1 tablet by mouth Daily. ??? [DISCONTINUED] tiotropium bromide (SPIRIVA RESPIMAT) 2.5 mcg/actuation Mist Inhale 2 puffs intothe lungs daily. (Patient not taking: Reported on 11/02/2020) 4 g 11 ??? [DISCONTINUED] aspirin 81 mg chewable tablet Take 81 mg by mouth daily. ??? [DISCONTINUED] Lysine 325 mg Tab Take by mouth. No current facility-administered medications on file prior to visit. BP 153/75 (BP Location (NBP): Left arm, Patient Position: Sitting) Pulse 64 Temp 36.5 ??C (97.7??F) (Oral) Resp 20 Ht 173 cm (5' 8.11) Wt 114.5 kg (252 lb 6.4 oz) SpO2 100% BMI 38.25 kg/m?? Physical exam: He appears anxious but comfortable. He is alert, oriented and in no distress. His lungs are clear, his heart is regular and his abdomen is nontender and nondistended. Imaging: I reviewed with the patient his chest CT dated October 27. This is notable for a lobulated low-attenuation mass in the anterior mediastinum measuring about 2.5 cm Assessment: 64-year-old man with an incidental anterior mediastinal mass. 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 I recommended resection of the mass although we did discuss the alternative approach of serial imaging to ensure stability. The patient is interested in having the mass resected, and we will schedule this procedure at his convenience. Plan: Robotic assisted resection of anterior mediastinal mass TAJ MCCULLOUGH MD documented in this encounter H&P Notes * Jostin Rosales PA - 11/02/2020 10:45 AM EST Thoracic Surgery Outpatient Consultation Note MD Jostin Joseph PA [place] [id number] Date of Consultation: 11/02/2020 This consultation has been requested by PCP: Michelle Cooper APRN Referring Physician: Purpose for Consultation: Evaluation of Mediastinal Mass HPI: Tomas Elliott is a 64 y.o. [...] trauma, rib injuries, or prior lung injuries. Patient is a former smoker, with 14 pack year history. Has not smoked for over 40 years. Patient also describes himself as an alcoholic and reports he goes on binges every couple of months with 8-12 drinks per day. Last drink was in August 2020. Past Medical History: Patient Active Problem List Diagnosis Date Noted ??? Mediastinal mass 11/02/2020 ??? Penile fracture 04/11/2013 No past medical history on file. Past Surgical History: No past surgical history on file. Medications: Outpatient Medications Marked as Taking for the 11/02/20 encounter (Office Visit) with Taj Mccullough MD Medication Sig Dispense Refill ??? doxepin (Sinequan) 10 mg Capsule ??? cholecalciferol, Vitamin D3, (cholecalciferol, Vitamin D3,) 50 mcg (2,000 unit) Capsule Take bymouth. ??? omeprazole (PriLOSEC) 20 mg Capsule, Delayed Release(E.C.) Take 20 mg by mouth daily. ??? albuteroL 90 mcg/actuation HFA Aerosol Inhaler ??? FLUoxetine (PROzac) 20 mg Capsule ??? lisinopriL-hydrochlorothiazide (PRINZIDE;ZESTORETIC) 20-25 mg Tablet Take 1 tablet by mouth Daily. Allergies: Allergies Allergen Reactions ??? Adhesive Other (See Comments) Swelling at local site ??? Legumes Other (See Comments) flu-like symptoms Night shades - avoid Family History: No family history on file. Social History: Social History Socioeconomic History ??? Marital status: Single Spouse name: Not on file ??? Number of children: Not on file ??? Years of education: Not on file ??? Highest education level: Not on file Occupational History ??? Not on file Tobacco Use ??? Smoking status: Former Smoker Quit date: 1979 Years since quittin.2 ??? Smokeless tobacco: Former User Quit date: 1979 Substance and Sexual Activity ??? Alcohol use: Not on file ??? Drug use: Not on file ??? Sexual activity: Not on file Other Topics Concern ??? Not on file Social History Narrative ??? Not on file Social Determinants of Health Financial Resource Strain: ??? Difficulty of Paying Living Expenses: Not on file Food Insecurity: ??? Worried About Running Out of Food in the Last Year: Not on file ??? Ran Out of Food in the Last Year: Not on file Transportation Needs: ??? Lack of Transportation (Medical): Not on file ??? Lack of Transportation (Non-Medical): Not on file Physical Activity: ??? Days of Exercise per Week: Not on file ??? Minutes of Exercise per Session: Not on file Review of Systems: Pertinent positives as documented per HPI. Patient denies KS/stroke/TIA/DVT/PE/cancer, problems with kidneys/liver/bleeding/anesthesia, fevers, chills, sweats, weight loss, fatigue, headaches, dizziness, lightheadedness, changes in vision or hearing, chest pain, palpitations, orthopnea, hemoptysis,SOB, dyspnea, pleurisy, wheezing, sore throat, dysphagia, odynophagia, nausea, vomiting, hematemesis, abdominal pain, melena, dysuria, burning, hematuria, paresthesias, cyanosis, edema. Physical Exam: BP 153/75 (BP Location (NBP): Left arm, Patient Position: Sitting) Pulse 64 Temp 36.5 ??C (97.7??F) (Oral) Resp 20 Ht 173 cm (5' 8.11) Wt 114.5 kg (252 lb 6.4 oz) SpO2 100% BMI 38.25 kg/m?? General Appearance: Alert, cooperative, no distress, appears stated age, HEENT: PERRL, MMM, non-icteric Neck: Supple, symmetrical, trachea midline, no adenopathy; thyroid: not enlarged, symmetric, no tenderness/mass/nodules; no carotid bruit or JVD Lungs: Clear to auscultation bilaterally, no wheezes, crackles or ronchi, non- labored breathing on RA Heart: Regular rate and rhythm, no M/R/G appreciated Abdomen: Soft, non-tender, non-distended, BS+ Extremities: Extremities normal, no cyanosis, clubbing edema Neurologic: A+Ox3, cranial nerves II-XII grossly intact Musculoskeletal: 5/5 throughout with normal gait Diagnostics: I have independently visualized all relevant imaging studies, including: CXR (10/27/20): FINDINGS: The lungs are clear and well-expanded. Heart and pulmonary vasculature are normal. Degenerative disease is demonstrated in the spine. ?? IMPRESSION No active cardiopulmonary disease. CT Chest (10/27/20): FINDINGS: Pulmonary parenchyma: No pulmonary nodule nor mass Airways: Patent Pleura: No pleural effusion. Lymph nodes:No pathologically enlarged axillary, mediastinal nor hilar lymph nodes. Small scattered mediastinal lymph nodes. Heart, pericardium, and great vessels: Normal size heart without pericardial effusion. Other mediastinal structures: Corresponding to findings at nuclear medicine perfusion study are either lobulated or several [id number] homogeneous well defined hypodense mediastinal nodules. Centrally [...] Skeletal structures: Bridging osteophytes. No acute fractures. ?? IMPRESSION ?? Lobulated well-defined soft tissue mass or aggregate of soft tissue masses in the anterior mediastinum abutting the pulmonary artery outflow tract. No pathologically enlarged mediastinal lymph nodes. Not contiguous to the thyroid gland. Differential diagnosis includes thymoma and teratoma. Thoracic surgical opinion suggested. PFT (10/27/20): FVC 4.27L (105%), FEV1 2.50 (80%); DLCO not performed. Stress (10/09/20): FINDINGS: No fixed or reversible perfusion defects are present. ?? Functional analysis: ?? Myocardial function: There is normal wall motion and wall thickening. Left ventricular ejection fraction: 61 % (normal greater than 50%) ?? INCIDENTAL CT FINDINGS: There is a lobular anterior mediastinal soft tissue mass. ?? IMPRESSION No ischemia or scar. Left ventricular function is normal. An anterior mediastinal mass is present. This finding is nonspecific and possible etiologies include a thymoma, teratoma and lymphoma. This has been [facility] at [facility]. Assessment: Tomas Elliott is a 64 y.o. male with PMHx significant for HTN,Pre-Diabetes, and PILAR on CPAP, hemmorhoids., now with anterior mediastinal mass. 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 All imaging was reviewed and the options of surgery and observation were discussed with patient. The risks and benefitsof the options were discussed along with the approach to surgery and the timeline of observation. Patient understood and verbally confirmed the plan to move forward with scheduling surgery in the coming weeks. Plan of Management: 1. Robotic VATS, Thymectomy 2. Recommend minimum of 30 minutes of exercise daily 3. Please call with any questions or concerns at any time CYNTHIA Morataya 11/02/2020 Thoracic Surgery [facility] documented in this encounter Plan of Treatment Not on file documented as of this encounter Visit Diagnoses Diagnosis Mediastinal mass Swelling, mass, or lump in chest documented in this encounter Care Teams Education Program Manager Relationship Specialty Start Date End Date Michelle Cooper APRN [address] [place] [address] PCP - General Family Medicine 09/25/20 07/23/23 documented as of this encounter
--- OUTSIDE RECORDS SUMMARY | 2024-04-16 21:50 | XMS_ITS | Encounter Summary ---
Author Organization [facility] Address [facility] [place] [address] Care Team Providers Care Senior Data Modeler Name Role Phone Michelle Cooper APRN Primary Care Provider Encounter Details Date Type Department Care Team (Late st Contact Info) Description 12/01/2020 [place] [id number] Mona Bear Social History Tobacco Use Types [...] encounter Progress Notes * Mona Bear - 12/01/2020 2:21 PM EDT I sent the application for assistance with Spiriva Respimat to the patient for them to complete, sign and return to the Medication Assistance Program, along with proof of income. I will follow through with the remainder of the application once everything is returned to me. documented in this encounter Plan of Treatment Not on file documented as of this encounter Visit Diagnoses Not on filedocumented in this encounter Care Teams Senior Data Modeler Relationship Specialty Start Date End Date Michelle Cooper APRN [address] [place], [place] [address] PCP - General Family Medicine 09/25/20 07/23/23 documented as of this encounter
--- OUTSIDE RECORDS SUMMARY | 2024-04-16 21:50 | XMS_ITS | Encounter Summary ---
[place] [address] Care Team Providers Care Nail Specialist Name Role Phone Michelle Cooper APRN Primary Care Provider [phone] Reason for Referral * Diagnostic Test (Routine) - Closed Specialty Diagnoses / Procedures Referred By Contac t Referred To Contact Radiology Diagnoses Chest pain, unspecified type Procedures NM Exercise Stress and Rest Myocardial Perfusion Michelle Cooper APRN [address] [place] [address] [place] [address] Referral ID Status Reason Start Date Expiration Date V isits Requested Visits Authorized [id number] Closed Specialty Service Requested 09/25/2020 03/25/2022 1 1 Reason for Visit * Diagnostic Test (Routine) - Closed Specialty Diagnoses / Procedures Referred By Contac t Referred To Contact Radiology Diagnoses Chest pain, unspecified type Procedures NM Exercise Stress and Rest Myocardial Perfusion Michelle Cooper APRN [address] [place] [address] [place] [address] Referral ID Status Reason Start Date Expiration Date V isits Requested Visits Authorized [id number] Closed Specialty Service Requested 09/25/2020 03/25/2022 1 1 Encounter Details Date Type Department Care Team (Latest Contact Info) Description 10/09/2020 9:19 AM EST Hospital En[place] [address] Michelle Cooper APRN [address] [place] [address] Chest pain, unspecified type Discharge Disposition: Home Social History Tobacco Use [...] 20 mg by mouth daily. 09/26/2020 11/26/2020 lisinopril-hydrochlorothi azide (PRINZIDE;ZESTORETIC) 20-12.5 mg per tablet Take 1 tablet by mouth daily. 10/27/2020 aspirin 81 mg chewable tablet Take 81 mg by mouth daily. 11/02/2020 Lysine 325 mg Tab Take by mouth. 11/03/19 21 documented as of this encounter Plan of Treatment Not on file documented as of this encounter Procedures Procedure Name Priority Date/Time Associated Diagnosis Comments NM EXERCISE STRESS AND REST MYOCARDIAL PERFUSION Routine 10/09/2020 11:09 AM EST Chest pain, unspecified type documented in this encounter Results * NM Exercise Stress and Rest Myocardial Perfusion (10/09/2020 11:09 AM EST) Anatomical Region Laterality Modality Nuclear Medicine Impressions 10/09/2020 2:41 PM EST No ischemia or scar. ?? Left ventricular function is normal. An anterior mediastinal mass is present. This finding is nonspecific and possible etiologies include a thymoma, teratoma and lymphoma. This has been reported to the team at the [facility]. Thank you for letting us participate in the care of this patient. For questions regarding this report, please contact the number below. ? Electronically signed by: Chris Doty MD, [facility] ([phone]), at 10/09/2020 2:41 PM Narrative 10/09/2020 2:41 PM EST EXAMINATION: NM EXERCISE STRESS AND REST MYOCARDIAL PERFUSION, NM EXERCISE STRESS CT COMPONENT CLINICAL HISTORY: Chest pain ORDER IN SCANNED DOCS TECHNIQUE: During rest, 9 mCi of technetium-99 sestamibi were administered intravenously. Approximately 15 minutes later, SPECT images of the heart were obtained with reconstruction in the short, vertical long and horizontal long axes. The patient was then exercised to 7.0 METS to a peak heart rate of 148 bpm which is 95 % of the maximum predicted heart rate. ??26 mCi of technetium-99m sestamibi was then administered intravenously and the patient was exercised for one and one half additional minutes. Images of the heart were then again obtained with SPECT reconstruction. A low dose CT scan was acquired for the purpose of attenuation correction. COMPARISON: None FINDINGS: No fixed or reversible perfusion defects are present. Functional analysis: Myocardial function: There is normal wall motion and wall thickening. Left ventricular ejection fraction: 61 % (normal greater than 50%) INCIDENTAL CT FINDINGS: There is a lobular anterior mediastinal soft tissue mass. Procedure Note Chris Doty MD - 10/09/2020 EXAMINATION: NM EXERCISE STRESS AND REST MYOCARDIAL PERFUSION, NMEXERCISE STRESS CT COMPONENT CLINICAL HISTORY: Chest pain ORDER IN SCANNED DOCS TECHNIQUE: During rest, 9 mCi of technetium-99 sestamibi wereadministered intravenously. Approximately 15 minutes later, SPECT images of the heartwere obtained with reconstruction in the short, vertical long and horizontallong axes. The patient was then exercised to 7.0 METS to a peak heart rate of 148 bpmwhich is 95 % of the maximum predicted heart rate. 26 mCi of technetium-99msestamibi was then administered intravenously and the patient was exercised for oneand one half additional minutes. Images of the heart were then again obtainedwith SPECT reconstruction. A low dose CT scan was acquired for the purpose of attenuationcorrection. COMPARISON: None FINDINGS: No fixed or reversible perfusion defects [...] include a thymoma, teratoma and lymphoma. This hasbeen reported to the team at the [facility]. Thank you for letting us participate in the care of this patient. Forquestions regarding this report, please contact the number below. Electronically signed by: Chris Doty MD, [facility]([phone]), at 10/09/2020 2:41 PM Michelle Cooper APRN IMG NM ORDERABLES documented in this encounter Visit Diagnoses Diagnosis Chest pain, unspecified type documented in this encounter Administered Medications Inactive Administered Medications - up to 3 most recent administrations Medication Order MAR Action Action Date Dose Rate Site technetium (Tc-99m) sestamibi injection 0-30 mCi 0-30 mCi, Intravenous, 2 TIMES DAILY PRN, 2 doses, Starting on Mon10/09/20 at 0946, Until 10/10/20 at 0437, Per Protocol, Radiology Contrast, Routine Given 10/09/2020 9:46 AM EST 9.4 mCi documented in this encounter Care Teams Nail Specialist Relationship Specialty Start Date End Date Michelle Cooper APRN [address] [place] [address] PCP - General Family Medicine 09/25/20 07/23/23 documented as of this encounter
--- OUTSIDE RECORDS SUMMARY | 2024-04-16 21:50 | XMS_ITS | Encounter Summary ---
[place] [address] Care Team Providers Care Drinking Water Technician Name Role Phone Tyron Wilcox MD Primary Care Provider [phone] Encounter Details Date Type Department Care Team (Late st Contact Info) Description 04/10/2013 1:08 PM EDT - 04/10/2013 11:59 PM EDT Hospital Encounter [place] [address] Penile trauma Social History Tobacco Use Types Packs/Day Years Used Date Smoking Tobacco: Former Sex and Gender Information Value Date Recorded Sex Assigned at Not on file Gender Identity Not on file Sexual Orientation Not on file documented as of this encounter Medications at Time of Discharge Medication Sig Dispensed Refills Start Date End Date lisinopril-hydrochlorothi azide (PRINZIDE;ZESTORETIC) 20-12.5 mg per tablet Take 1 tablet by mouth daily. 10/27/2020 aspirin 81 mg chewable tablet Take 81 mg by mouth daily. 11/02/2020 Lysine 325 mg Tab Take by mouth. 11/03/19 21 documented as of this encounter Plan of Treatment Not on file documented as of this encounter Procedures Procedure Name Priority Date/Time Associated Diagnosis Comments US PELVIS LIMITED Routine 04/10/2013 1:4 9 PM EDT documented in this encounter Results * US pelvis limited (04/10/2013 1:49 PM EDT) Anatomical Region Laterality Modality Pelvis Ultrasound 04/10/2013 1:49 PM EDT Addenda Addendum on 05/09/2013 2:11 PM EDT Addendum Begins Addendum done for administrative purposes ?? Addendum Ends Addendum on 05/09/2013 1:36 PM EDT Addendum Begins Addendum done for administrative purposes ?? Addendum Ends Narrative 05/09/2013 2:10 PM EDT ?Penile ultrasound ? (Signed Final 04/10/2013 02:25 pm) Patient Info ID: ? [id number] ? : ??[birth year] (57 yrs) Name: ? JAVONRILEY ELLIOTT ?Visit Date: 04/10/2013 01:46 pm Performed By Performed By: ?Soniya Bearden RDMS Attending: ? Shay BECERRA, Chapin Loyola Referred By: ? MANDEEP SCALES MD Service(s) Provided [facility] - Generic Ultrasound Procedure Indications History c/w penile fracture ?visable defect in tunica -------- Findings -------- Title: ? Penile ultrasound Impression Ultrasound ??- Summary Ultrasound (area to be examined): Penile ultrasound Corpora cavernosa intact. Ellliptical hematoma in corpora spongiosa, 4.1 x 1.2 x 0.5 cm. ??Terrie-urethral in location. No active extravasation of blood. Impression: Elongated corpus spongiosa hematoma, 4.1 cm. in max. diameter. Can not rule out tunica disruption,. I ??viewed the images and agree with the above interpretation. Thank you for allowing us to participate in the care of JAVON ELLIOTT. Please do not hesitate to call if you have any questions. ? Chapin Day MD Electronically Signed Final Report ?? 04/10/2013 02:25 pm Procedure Note Chapin Day MD - 05/09/2013 Penile ultrasound (Signed Final 04/10/2013 02:25 pm) Patient Info ID: [id number] : [birth year] (57 yrs) Name: JAVON ELLIOTT Visit Date: 04/10/2013 01:46 pm Performed By Performed By: Soniya Bearden RDMS Attending: Chapin Day MD. Referred By: MANDEEP SCALES MD Service(s) Provided [facility] - Generic Ultrasound Procedure Indications History c/w penile fracture ?visable defect in tunica -------- Findings -------- Title: Penile ultrasound Impression Ultrasound - Summary Ultrasound (area to be examined): Penile ultrasound Corpora cavernosa intact. Ellliptical hematoma in corpora spongiosa, 4.1 x 1.2 x 0.5 cm. Terrie-urethral in location. No active extravasation of blood. Impression: Elongated corpus spongiosa hematoma, 4.1 cm. in max. diameter. Can not rule out tunica disruption,. I viewed the images and agree with the above interpretation. Thank you for allowing us to participate in the care of JAVON ELLIOTT. Please do not hesitate to call if you have any questions. Chapin Day MD Electronically Signed Final Report 04/10/2013 02:25 pm Alba iLu MD IMG US PELVIC O RDERABLES documented in this encounter Visit Diagnoses Diagnosis Penile trauma Other injury of external genitals documented in this encounter Care Teams Drinking Water Technician Relationship Specialty Start Date End Date Tyron Wilcox MD PCP - General 04/10/13 11/23/16 documented as of this encounter
--- OUTSIDE RECORDS SUMMARY | 2024-04-16 21:50 | XMS_ITS | Encounter Summary ---
[place] [address] Care Team Providers Care Spinning Room Worker Name Role Phone Michelle Cooper APRN Primary Care Provider [phone] Reason for Visit * Diagnostic Test (Routine) - Closed Specialty Diagnoses / Procedures Referred By Contac t Referred To Contact Radiology Diagnoses Chest pain, unspecified type Procedures NM Exercise Stress and Rest Myocardial Perfusion Michelle Cooper APRN [address] [place] [address] [place] [address] Referral ID Status Reason Start Date Expiration Date V isits Requested Visits Authorized [id number] Closed Specialty Service Requested 09/25/2020 03/25/2022 1 1 Encounter Details Date Type Department Care Team (Latest Contact Info) Description 10/09/2020 9:21 AM EST - 10/09/2020 11:59 PM [facility] Hospital Encounter [place] [address] Michelle Cooper APRN [address] [place], [place] [id number] Discharge Disposition: Home Social History Tobacco Use [...] 325 mg Tab Take by mouth. 11/03/19 documented as of this encounter Plan of Treatment Not on file documented as of this encounter Procedures Procedure Name Priority Date/Time Associated Diagnosis Comments NM EXERCISE STRESS AND REST MYOCARDIAL PERFUSION Routine 10/09/2020 11:09 AM EST Chest pain, unspecified type documented in this encounter Visit Diagnoses Not on filedocumented in this encounter Administered Medications Inactive Administered Medications - up to 3 most recent administrations Medication Order MAR Action Action Date Dose Rate Site technetium (Tc-99m) sestamibi injection 25.6 mCi 25.6 mCi, Intravenous, ONCE PRN, 1 dose, Starting on Mon10/09/20 at 1109, Until Mon10/09/20 at 1109, Per Protocol, Routine Given 10/09/2020 11:09 AM EST 25.6 mCi documented in this encounter Care Teams Spinning Room Worker Relationship Specialty Start Date End Date Michelle Cooper APRN [address] [place] [address] PCP - General Family Medicine 09/25/20 07/23/23 documented as of this encounter
--- OUTSIDE RECORDS SUMMARY | 2024-04-16 21:50 | XMS_ITS | Encounter Summary ---
[place] [address] Care Team Providers Care Tufting Supervisor Name Role Phone Michelle Cooper APRN Primary Care Provider [phone] Reason for Visit * Reason Onset Date Comments Post Procedure Call 11/30/2020 Encounter Details Date Type Department Care Team (Late st Contact Info) Description 11/30/2020 Telephone [place] [id number] Yuridia Bass, RN Post Procedure Call Social History Tobacco Use Types Packs/Day Years [...] Telephone Encounter - Yuridia Bass RN - 11/30/2020 12:13 PM EDTSummary: post op call Thoracic Surgery Nursing Post-operative Follow up: UNABLE TO REACH MR. 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 POD#: 5 General statement: x Pain: taking GI: appetite: good Diet: regular Hydration: good Voiding: without any difficulty BM: without any difficulty - x - What is the Bowel regimen: taking Respiratory: using IS as directed SOB: denies Difficulty breathing: denies Coughing with or without sputum: denies Activity: up and about without any difficulty, denies dizziness or lightheadedness Integumentary: Incisions without any redness, swelling, drainage, fevers, chills, sweats, site hot to touch, bruising and bleeding Plan: RTC on 12/21/2020 CXR 12/21/2020 at receptionist telephone operator area 3L at 12:[address] Mccullough 12/21/2020 at receptionist telephone operator area 3K at 1:15 pm Tomas Elliott is NOT aware of appointments and know to call with any questions or concerns. documented in this encounter Plan of Treatment Not on file documented as of this encounter Visit Diagnoses Not on filedocumented in this encounter Care Teams Tufting Supervisor Relationship Specialty Start Date End Date Michelle Cooper APRN [address] [place] [address] PCP - General Family Medicine 09/25/20 07/23/23 documented as of this encounter
--- OUTSIDE RECORDS SUMMARY | 2024-04-16 21:50 | XMS_ITS | Encounter Summary ---
[place] [address] Care Team Providers Care Surgical Pathologist Name Role Phone Michelle Cooper APRN Primary Care Provider [phone] Reason for Referral * Diagnostic Test (Routine) - Closed Specialty Diagnoses / Procedures Referred By Contac t Referred To Contact Radiology Diagnoses Chest pain, unspecified type Procedures NM Exercise Stress CT Component Michelle Cooper APRN [address] [place] [address] [place] [address] Referral ID Status Reason Start Date Expiration Date V isits Requested Visits Authorized [id number] Closed Specialty Service Requested 09/25/2020 03/25/2022 1 1 Reason for Visit * Diagnostic Test (Routine) - Closed Specialty Diagnoses / Procedures Referred By Contac t Referred To Contact Radiology Diagnoses Chest pain, unspecified type Procedures NM Exercise Stress CT Component Michelle Cooper APRN [address] [place] [address] [place] [address] Referral ID Status Reason Start Date Expiration Date V isits Requested Visits Authorized [id number] Closed Specialty Service Requested 09/25/2020 03/25/2022 1 1 Encounter Details Date Type Department Care Team (Latest Contact Info) Description 10/09/2020 9:21 AM EST - 10/09/2020 11:59 PM EST Hospital Encounter [place] [address] Michelle Cooper APRN [address] [place] [address] Chest pain, unspecified type Discharge Disposition: Home [...] Date/Time Associated Diagnosis Comments NM EXERCISE STRESS CT COMPONENT Routine 10/09/2020 12:03 PM EST Chest pain, unspecified type documented in this encounter Results * NM Exercise Stress CT Component (10/09/2020 12:03 PM EST) Anatomical Region Laterality Modality Nuclear Medicine Impressions 10/09/2020 2:41 PM EST No ischemia or scar. ?? Left ventricular function is normal. An anterior mediastinal mass is present. This finding is nonspecific and possible etiologies include a thymoma, teratoma and lymphoma. This has been reported to the team at the [facility]. Thank you for letting us participate in the care of this patient. For questions regarding this report, please contact the number below. ? Narrative 10/09/2020 2:41 PM EST EXAMINATION: NM [...] hasbeen reported to the team at the [facility]. Thank you for letting us participate in the care of this patient. Forquestions regarding this report, please contact the number below. Michelle Cooper APRN IMG NM ORDERABLES documented in this encounter Visit Diagnoses Diagnosis Chest pain, unspecified type documented in this encounter Care Teams Surgical Pathologist Relationship Specialty Start Date End Date Michelle Cooper APRN [address] [place] [address] PCP - General Family Medicine 09/25/20 07/23/23 documented as of this encounter
--- OUTSIDE RECORDS SUMMARY | 2024-04-16 21:50 | XMS_ITS | Encounter Summary ---
Author Organization [facility] [place] [address] Care Team Providers Care Associate Editor Name Role Phone Michelle Cooper APRN Primary Care Provider + [phone] Reason for Visit * Auth/Cert Specialty Diagnoses / Procedures Referred By Jhonny t Referred To Contact Diagnoses Mediastinal mass anterior mediastinal mass Procedures PRO THYMECTOMY, RADICAL MEDIAST DISSSEC PRO BRONCHOSCOPY, DIAGNOSTIC @ROBOTIC THYMECTOMY W/ RAD. MEDIASTINAL DISSECTION (WRVU 23.48) BRONCHOSCOPY, DIAGNOSTIC (WRVU 2.78) MODIFIER ROBOT,DAVINCI XI Referral ID Status Reason Start Date Expiration Date Visits Re quested Visits Authorized [id number] 1 1 Encounter Details Date Type Department Care Team (Late st Contact Info) Description 11/25/2020 11:34 AM EDT Anesthesia Event [place] [address] Surya Casillas MD [facility] DR [place] [address] Gabbie De Paz MD [facility] [place] [address] Anesthesia Record Procedure Summary Procedure Name Responsible Anesthesiologist Anesthesia Start Time Anesthesia Stop Time @ROBOTIC THYMECTOMY W/ RAD. MEDIASTINAL DISSECTION (WRVU 23.48) (Right: Chest) Surya Casillas MD 11/25/20 1134 11/25/20 1454 Events Date Time Event Comment 11/25/2020 1134 AN Verify 1134 Start 1134 An Start Data 1141 An Induction 1144 An Intubation 1145 FO Bronchoscopy 1149 Anesthesia Ready 1159 An one lung vent 1204 Quick Note Insufflation 1420 An Dual Lung Vent 1431 Extubation/LMA Out 1441 an stop data 1454 Recovery or ICU Handoff Shannan ent care was transferred to the destination unit staff after review of the patient's medical history, current anesthetic/surgical status and plan, according to the Provider Handoff Checklist. 1454 Stop 12/07/2020 1319 Meds Name Total Midazolam 2 mg fentaNYL 100 mcg IV Lidocaine 100 mg Propofol 300 mg Rocuronium 120 mg ePHEDrine 10 mg Ondansetron 8 mg Neostigmine 5 mg Glycopyrrolate 0.6 mg ceFAZolin (Ancef) 2 g in dextrose 5% 100 mL infusion 2 g Dexmedetomidine 24 mcg HYDROmorphone 1.6 mg Propofol INF 346.09 mg Lactated Ringers 1,500 mL * Agents Name O2 Air N2O Sevoflurane (et) * Blood No blood administrations on file. Lines, Drains, and Airways Type Details Placement Removal Urethral Catheter 11/25/20; Surgery lo nger than 2 hours; indwelling double lumen catheter; hydrophilic coated; 14; inserted at this facility; 1; 5; 10; none; drainage bag to dependent drainage; 11/25/20; 1438 11/25/20 0000 by Ranjit Driscoll RN 11/25/20 1438 by Gabbi Soria RN Incision 11/25/20; Right; reuben st; laparoscopic punctures (specify); 12/21/21; 1240 11/25/20 0000 by Ranjit Driscoll RN 12/21/21 1240 by Michelle Gayle RN (RETIRED) Peripheral IV Line - Single Lumen 11/25/20; 1116; median cubital vein (antecubital fossa), left; [id number] catheter system; Anatomical Landmarks; 20 gauge; JAYDEN Celis; distraction; 0; Unable to flush; catheter/device intact, site care per policy/procedure, removed per policy/procedure; 11/26/20; 0534 11/25/20 1116 by Michelle Gayle RN 11/26/20 0534 by Serena, Liana M, MECHANIC SENIOR ETT Mask Ventilation: Ea sy (1); ETT Type: Cuffed; Double Lumen: 39 Fr, Left; Galindo Blade: 2; Notes: Asleep, Stylette, Pre-O2; Attempts: 2; Laryngoscopy Grade: 1; Inserted by: MD Frank; Removal Date: 11/25/20; Removal Time: 14311/25/20 1149 by Shaina Marie MD 11/25/20 1431 by Shaina Marie MD Arterial Line 11/25/20; 1157; radi al artery; 18 gauge; MD Frank; A line not in on assessment; 11/25/20; 195211/25/20 115 by Shaina Marie MD 11/25/201952 by Bea Jay RN (RETIRED) Peripheral IV Line - Single Lumen 11/25/20; 1157; metacarpal vein (top of hand), left; 16 gauge; LDA not present upon assessment; 04/05/21; 17411/25/20 115 by Shaina Marie MD 04/05/21 174 by Shiv Fernandez RN Drain/Device Site 11/25/20; 1412; Righ t; anterior; chest; collapsible closed device; 19 Fr Mauro; 11/25/20; 19311/25/20 1412 by Gabbi Soria RN 11/25/201929 by Bea Dawkins RN Chest Tube 11/25/20; 1419; Righ t; anterior; 28 Fr straight; 11/25/20 (was not in on assessement); 195211/25/20 141 by Gabbi Soria RN 11/25/201952 by Bea Jay RN documented in this encounter Social History [...] OR Notes * Anesthesia Postprocedure Evaluation - Shaina Marie - 11/25/2020 7:59 PM EDT Department of Anesthesiology Post-procedure Note Patient: Tomas Elliott Procedure Summary Date: 11/25/20 Room / Location: [facility] OR [facility] MAIN OR Anesthesia Start: 1134 Anesthesia Stop: 1454 Procedures: @ROBOTIC THYMECTOMY W/ RAD. MEDIASTINAL DISSECTION (WRVU 23.48) (Right Chest) BRONCHOSCOPY, DIAGNOSTIC (WRVU 2.78) (N/A ) MODIFIER ROBOT,DAVINCI XI (N/A ) NERVE BLOCK, INTERCOSTAL NERVE, MULTIPLE (WRVU 1.68) (Right ) Diagnosis: Mediastinal mass (anterior mediastinal mass) Surgeons: Taj Mccullough MD Responsible Provider: Surya Casillas MD Anesthesia Type: general ASA Status: 3 All Anesthesia Providers: Anesthesiologist: Surya Casillas MD Local Bulk Driver: Shaina Marie MD Vitals Value Taken Time BP 121/68 11/25/20 1700 Temp 36.4 ??C (97.5 ??F) 11/25/20 1445 Pulse 70 11/25/20 1600 Resp 15 11/25/20 1600 SpO2 97 % 11/25/20 1713 Pain Level 5 11/25/20 1600 Vitals shown include unvalidated device data. Patient Location: PACU/[facility] Level of Consciousness: Awake and Alert Pain Management: Satisfactory Analgesia PONV: None Cardiovascular Status: At Baseline Respiratory Status: Supplemental O2 (NC or FM) Postoperative Fluid Status: Intravascular EUvolemia Possible Anesthetic Complications: NONE apparent at time of evaluation Final Primary Anesthesia Type: General (The anesthetic type performed was the same as planned.) Comments: * Anesthesia Preprocedure Evaluation - Shaina Marie - 11/24/2020 7:54 PM EDT Pre-Anesthesia Evaluation for: Tomas Elliott a 64 y.o. male. Procedure(s): @ROBOTIC THYMECTOMY W/ RAD. MEDIASTINAL DISSECTION (WRVU 23.48) BRONCHOSCOPY, DIAGNOSTIC (WRVU 2.78) MODIFIER ROBOT,ALONZOI XI Patient Active Problem List Diagnosis ??? Mediastinal mass Added automatically from request for surgery [id number] ??? Penile fracture No past medical history on file. No past surgical history on file. Social History Tobacco Use ??? Smoking status: Former Smoker Quit date: 1979 Years since quittin.2 ??? Smokeless tobacco: Former User Quit date: 1979 Substance Use Topics ??? Alcohol use: Not on file Social History Substance and Sexual Activity Drug Use Not on file Allergies Allergen Reactions ??? Adhesive Other (See Comments) Swelling at local site ??? Legumes Other (See Comments) flu-like symptoms Night shades - avoid Medications: MAR and/or home medications have been reviewed. Physical Exam: Preprocedure Vitals Current as of 11/24/201953 No BP, pulse, respiration, SpO2, or temperature recorded. Height: 173 cm (5' 8.11) (11/02/20) Weight: 114.5 kg (252 lb 6.4 oz) (11/02/20) BMI: 38.25 IBW: 68.7 kg (151 lb 5.7 oz) Airway Assessment: Mallampati: I TM distance: >3 FB Neck ROM: full Cardiovascular Assessment: system normal Pulmonary Assessment: pulmonary exam normal Dental Assessment: - normal exam Misc Assessment: IV access: Peripheral line Last Filed Perioperative Cognitive Screening None Anesthesia Plan: ASA 3 general, with a(n) intravenous induction Tomas Elliott is a 64 y.o. male (BMI 38) with anterior mediastinal mass (no orthopnea, mild SOB with standing and activity), COPD, HTN, preDM, PILAR (CPAP), GERD (controlled on omeprazole), prior tobacco use (14 PY), alcoholism (sober for past few months , prior binge drinker) presenting for roboticR VATS and thymectomy NPO adequate. Denies CP. Activity prior to surgery: METS>4. Meds: albuterol, fluoxetine, doxepin, lisinopril-HCTZ, omeprazole, spiriva Allergies: Adhesive Swelling at local site Anesthesia Hx: None on record *Pt denies any complications from anesthesia and any Fhx of complications with anesthesia. NM exercise stress test 2020: Negative. No ischemia or scar. EF 61%, max METS 7, max HR 148, max BP208/80, stopped due to fatigue PFTs: FVC 105%, Fev1 80%, FEV1/FVC 59%. Obstruction CT chest: Lobulated well-defined soft tissue mass or aggregate of soft tissue masses in the anterior mediastinum abutting the pulmonary artery outflow tract.Centrally the largest of these measures 2.5 cm in maximal dimension and on the right 2 cm in maximal dimension although the overall aggregate is chevron- shaped. No pathologically enlarged mediastinal lymph nodes. Not contiguous to the thyroidgland. Differential diagnosis includes thymoma and teratoma. Thoracic surgical opinion suggested. Plan is for GA with BEREKET 39Fr, arterial line, standard ASA monitors, and adequate IV access. Region - Intrathoracic Non-Cardiac Informed Consent: Anesthetic plan and risks discussed with patient. Plan discussed with resident and attending. PAT Clinic Note documented in this encounter Plan of Treatment Not on file documented as of this encounter Visit Diagnoses Not on filedocumented in this encounter Administered Medications Inactive Administered Medications - up to 3 most recent administrations Medication Order MAR Action Action Date Dose Rate Site ceFAZolin (Ancef) 2 g in dextrose 5% 100 mL infusion 2 g, Intravenous, PROJECT SCHEDULER TO O.R., 1 dose, On Mon11/25/20 at 1115, Administer over 30 Minutes, Intra-Operative (Intra-Procedure), Indication for (Active or Suspected): Prophylaxis Given 11/25/2020 11:53 AM EDT 2 g dexmedetomidine (Precedex) (4 mcg/mL) bolus injection (Anesthsia) Intravenous, PRN, Starting on Mon11/25/20 at 1208, Until Mon11/25/20 at 1454, Anesthesia Intra-op, Routine Given 11/25/2020 2:40 PM EDT 4 mcg Given 11/25/2020 2:27 PM EDT 4 mcg Given 11/25/2020 2:25 PM EDT 4 mcg ePHEDrine (pf) (5 mg/mL) multi-dose injection Intravenous, PRN, Starting on Mon11/25/20 at 1330, Until Mon11/25/20 at 1454, Anesthesia Intra-op, Routine Given 11/25/2020 1:30 PM EDT 5 mg Given 11/25/2020 1:26 PM EDT 5 mg fentaNYL (pf) (50 mcg/mL) multi-dose injection Intravenous, PRN, Starting on Mon11/25/20 at 1135, Until Mon11/25/20 at 1454, Anesthesia Intra-op, Routine Given 11/25/2020 11:35 AM EDT 100 mcg glycopyrrolate (Robinul) (0.2 mg/mL) multi-dose injection Intravenous, PRN, Starting on Mon11/25/20 at 1421, Until Mon11/25/20 at 1454, Anesthesia Intra-op, Routine Given 11/25/2020 2:21 PM EDT 0.6 mg HYDROmorphone (Dilaudid) (2 mg/mL) multi-dose injection solution Intravenous, PRN, Starting on Mon11/25/20 at 1212, Until Mon11/25/20 at 1454, Anesthesia Intra-op, Routine Given 11/25/2020 2:40 PM EDT 0.2 mg Given 11/25/2020 2:34 PM EDT 0.4 mg Given 11/25/2020 2:25 PM EDT 0.2 mg lactated ringers infusion Intravenous, CONTINUOUS PRN, Starting on Mon11/25/20 at 1134, Until Mon11/25/20 at 1454, Anesthesia Intra-op New Bag 11/25/2020 11:34 AM EDT lidocaine (pf) (Xylocaine) (20 mg/mL) 2% injection syringe Intravenous, PRN, Starting on Mon11/25/20 at 1141, Until Mon11/25/20 at 1454, Anesthesia Intra-op, Routine Given 11/25/2020 11:41 AM EDT 100 mg midazolam (pf) (Versed) (1 mg/mL) multi-dose injection Intravenous, PRN, Starting on Mon11/25/20 at 1135, Until Mon11/25/20 at 1454, Anesthesia Intra-op, Routine Given 11/25/2020 11:35 AM EDT 2 mg neostigmine (Bloxiver) (1 mg/mL) injection Intravenous, PRN, Starting on Mon11/25/20 at 1421, Until Mon11/25/20 at 1454, Anesthesia Intra-op, Routine Given 11/25/2020 2:21 PM EDT 5 mg ondansetron (pf) (Zofran) (2 mg/mL) injection Intravenous, PRN, Starting on Mon11/25/20 at 1408, Until Mon11/25/20 at 1454, Anesthesia Intra-op, Routine Given 11/25/2020 2:08 PM EDT 8 mg propofoL (Diprivan) 10 mg/mL bolus injection (Anesthesia) Intravenous, PRN, Starting on Mon11/25/20 at 1141, Until Mon11/25/20 at 1454, Anesthesia Intra-op Given 11/25/2020 11:53 AM EDT 20 mg Given 11/25/2020 11:49 AM EDT 50 mg Given 11/25/2020 11:45 AM EDT 30 mg propofoL (Diprivan) infusion Intravenous, CONTINUOUS PRN, Starting on Mon11/25/20 at 1225, Until Mon11/25/20 at 1454, Anesthesia Intra-op, Routine Rate/Dose Change 11/25/2020 12:47 PM EDT 30 mcg/kg/min 20.358 mL/hr Rate/Dose Change 11/25/2020 12:35 PM EDT 20 mcg/kg/min 13. 572 mL/hr New Bag 11/25/2020 12:25 PM EDT 30 mcg/kg/min 20.358 mL /hr rocuronium (Zemuron) (10 mg/mL) multi-dose injection Intravenous, PRN, Starting on Mon11/25/20 at 1141, Until Mon11/25/20 at 1454, Anesthesia Intra-op, Routine Given 11/25/2020 1:54 PM EDT 10 mg Given 11/25/2020 1:18 PM EDT 10 mg Given 11/25/2020 11:41 AM EDT 100 mg documented in this encounter Care Teams Associate Editor Relationship Specialty Start Date End Date Michelle Cooper APRN [address] [place] [address] PCP - General Family Medicine 09/25/20 07/23/23 documented as of this encounter
--- OUTSIDE RECORDS SUMMARY | 2024-04-16 21:50 | XMS_ITS | Encounter Summary ---
Author Organization [facility] [place] [address] Care Team Providers Care Computer Aided Design Drafter Name Role Phone Michelle Cooper APRN Primary Care Provider [phone] Reason for Referral * Consultation (Routine) - Closed Specialty Diagnoses / Procedures Referred By Contac t Referred To Contact Thoracic Surgery Diagnoses SOB (shortness of breath) Fatigue, unspecified type Mediastinal mass Eleuterio Silva MD [facility] [place] [address] [facility] Thoracic Surg [address] [place] [phone] Referral ID Status Reason Start Date Expiration Date V isits Requested Visits Authorized [id number] Closed Consult, Test & Treat 10/27/2020 10/27/2021 1 1 Reason for Visit * Consultation (Routine) - Closed Specialty Diagnoses / Procedures Referred By Contac t Referred To Contact Pulmonology Diagnoses Allergic Asthma,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) Chest Pain, Pleuritic (R07.89) Procedures Allergic Asthma,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) Chest Pain, Pleuritic (R07.89) Michelle Cooper APRN [address] [place] [id number] [facility] Pulmonology [address] [place] [phone] Referral ID Status Reason Start Date Expiration Date V isits Requested Visits Authorized [id number] Closed Consult, Test & Treat PCP Updated and/or Approved 07/20/2020 07/20/2021 1 1 Encounter Details Date Type Department Care Team (Late st Contact Info) Description 10/27/2020 1:30 PM EST Office [place] [address] Tomas Quan MD [facility] [place] [address] Eleuterio Silva MD [facility] [place] [address] Mediastinal mass (Primary Dx); SOB (shortness of breath); Fatigue, unspecified type; Chronic obstructive pulmonary disease, unspecified COPD type; Palpitations Social History Tobacco Use Types Packs/Day Years Used Date Smoking Tobacco: Former Sex and Gender Information Value Date Recorded Sex Assigned at Not on file Gender Identity Not on file Sexual Orientation Not on file documented as of this encounter Progress Notes * Eleuterio Silva MD - 10/27/2020 1:30 PM EST Images from the original note were not included. [facility] Section of Pulmonary and Critical Care Medicine Outpatient Consultation Date of Encounter: 10/27/2020 Referring Provider: Michelle Cooper APRN [address] [address] PCP: Michelle Cooper APRN Reason for Evaluation: Michelle Cooper APRN referred Mr. Tomas Elliott to me to the [facility] to evaluate and manage chronic cough and dyspnea. I independently interviewed and examined the patient in the office and have reviewed available records. This was a [id number] office visit. At the time of this encounter Mr. Elliott was physically in [place]. History of Present Illness: 64 year old man with obesity, sleep apnea (on CPAP), mental health disorders (on prozac), HTN (on HCTZ-lisinopril), allergies (bee venom and codeine), who is referred here for evaluation of anterior mediastinal mass, SOB, chronic productive cough, WHELAN, chest pain. He is most bothered by not being able to exercise. He feels SOB as soon as he starts out. He feels that his lungs really hurt, improved with slowing down and resting. Pain almost always bothers him the first 20 minutes after he starts exercising, but improves/resolves after 20 minutes. He has sometimes chest pressure anteriorly at rest, and chest pain with exercise (feels like my lungs are bleeding). Patient does NOT have hemoptysis. His chest pain does not worsen with deep breath.Sometimes he feels like he cannot inhale completely. He denies palpitations with his chest pain. He has infrequent night sweats. No fevers yes chills. He has no weight loss. Good appetite. He swallows okay. He has chronic, frequent rectal bleeding (hemorrhoids). C scopes were not cancerous. Patient has a chronic productive cough for decades: what looks like nasal drainage, worsened by certain food and nasal congestion. Thick, white/clear, sometimes wheatley. He has no history of childhood asthma. He started smoking cigarette at 10 years of age, quit at 24 years of age. He smoked weed in HS, butnot recent. He has a long history of heavy alcohol use but currently sober. He has had DTs in the past. He works at a [employer]) for 20 years. 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 He has nocturnal bone pain bilaterally below his shoulder blades. He has intermittent bilateral hand numbness. Past Medical and Surgical History: PILAR HTN Obstructive lung disease Family History: His FH significant for: brain tumor (father), breast cancer (aunt), heart diseases, stroke (multiple maternal relatives). Social and Occupational History: See HPI Current Medications at Start of Encounter: Outpatient Medications Prior to Visit Medication Sig Dispense Refill ??? lisinopril-hydrochlorothiazide (PRINZIDE;ZESTORETIC) 20-12.5 mg per tablet Take 1 tablet by mouth daily. ??? aspirin 81 mg chewable tablet Take 81 mg by mouth daily. ??? Lysine 325 mg Tab Take by mouth. No facility-administered medications prior to visit. Adverse Drug Reactions: Allergies Allergen Reactions ??? Adhesive Other (See Comments) Swelling at local site ??? Legumes Other (See Comments) flu-like symptoms Review of Systems: An 11-point ROS was negative except per the HPI. Physical Examination: Temp 98.5, RR 20, BP 119/76, HR 70, SPO2 99% on room air GEN: NAD, interactive, pleasant, obese ENT: no rhinorrhea, throat clear, TMs normal bilaterally NECK: no stridor, no mass LUNGS: good air movement, no wheezes; L upper lung field rhonchi that later cleared HEART: RRR, no MGR ABD: soft, non-tender, non-distended, +BS MSK: no lower extremity edema, normal bulk and tone Neuro: cranial nerves grossly normal, no tremor, no focal deficits, normal gait Skin: no rash, no cyanosis Labs: CBCd, TSH, AFP, beta-hcg, LDH all wnl Imaging: CT Chest with IV contrast (10/27/2020) IMPRESSION Lobulated well-defined soft tissue mass or aggregate of soft tissue masses in the anterior mediastinum abutting the pulmonary artery outflow tract. No pathologically enlarged mediastinal lymph nodes. Not contiguous to the thyroid gland. Differential diagnosis includes thymoma and teratoma. Thoracic surgical opinion suggested. Echocardiogram: Nuclear Stress Test 10/01/2020 Myocardial function: There is normal wall motion and wall thickening. Left ventricular ejection fraction: 61 % (normal greater than 50%) INCIDENTAL CT FINDINGS: There is a lobular anterior mediastinal soft tissue mass. Pulmonary Function Tests: 10/27/2020 FVC 4.27L (105%) FEV1 2.5L (80%) Ratio 0.59 TFY95-41 1.43L/s (57%) Evidence of mild obstructive ventilatory defect. Impression and Plan of Care: 64 yo M with history of allergies, obesity, htn, depression, past smoking history (quit age 24), alcoholism (quit 2019) presents with chest pressure/pain, productive cough, WHELAN. No significant systemic symptoms. He was incidentally found to have a anterior mediastinal mass on a 09/2020 cardiac nuc stress test, which was confirmed with CT chest with contrast today. His lab results were all wnl (LDH, CBCd, afp, HCG, TSH). PFT suggests obstruction. 1. 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 Obstructive lung disease - continue with prn albuterol - added spiriva Eleuterio Silva Pulm/Crit Fellow * Tomas Quan MD - 10/27/2020 1:30 PM EST I have seen the patient and reviewed the resident's above history and I agree with the details as written. The assessment and plan were formulated in discussion with me and I agree with them as documented. Pertinent History: History of dyspnea on exertion and exertional chest pain with negative nuclear perfusion study and pulmonary function tests show mild obstruction in the setting of a smoking history. He also has chronic productive cough. Found to have anterior mediastinal mass on attenuation CT obtained for Myoview. Will get formal CT today. No personal history of cancer. No significant B-symptoms or rapidly fatiguing weakness. Pertinent Exam: No apparent distress. Lung Lungs clear to auscultation bilaterally. Regular rate and rhythm. No murmurs. Major issues addressed: History is compatible with COPD, though chronic obstructive asthma is a consideration agree with trial of tiotropium Respimate 2.5 mcg two puffs daily which may help dyspnea on exertion and cough. If chest pain persists, balanced ischemic is a consideration and an angiogram should be considered. Needs CT chest today. Will do typical mediastinal tumor markers. If stable PETwould be appropriate with plan to discuss at [facility]. Plan: Trial tiotropium (Spiriva) Follow-up CT results Office follow up to be determined after CT scan completed Tomas Quan MD, PhD Staff Physician Pulmonary and Critical Care Medicine 10/27/2020 documented in this encounter Plan of Treatment Scheduled Referrals Name Type Priority Associated Diagnoses Orde r Schedule Referral to Thoracic Surgery Outpatient Referral Routine SOB (shortness of breath) Fatigue, unspecified type Mediastinal mass Ordered: 10/27/2020 documented as of this encounter Results * TSH (10/27/2020 2:55 PM EST) Thyroid Stimulating Hormone 1.77 0.27 - 4.20 mcIU/mL [facility] Blood specimen (specimen) 10/27/2020 2:55 PM EST 10/27/2020 3:07 PM EST Narrative Resulting Agency Comment Spec In Lab Tomas Quan MD CHEMISTRY ORDERABLES Performing Organization Address [facility] Co de Phone Number [facility] [place] [address] * AFP tumor marker (10/27/2020 2:55 PM EST) Alpha Fetoprotein 1.9 <=8.3 ng/mL [facility] Blood specimen (specimen) 10/27/2020 2:55 PM EST 10/27/2020 3:07 PM EST Narrative Resulting Agency Comment Spec In Lab Tomas Quan MD CHEMISTRY ORDERABLES Performing Organization Address [facility] de Phone Number [facility] [place] [address] * Beta HCG, quantitative (10/27/2020 2:55 PM EST) Beta Human Chorionic Gonadotropin, Quantitative <1 0 - 2 mlU/ML [facility] Comment: REFERENCE RANGES NON- FEMALE: ??Less [...] - 56,451 ?17 weeks ? 8,175 - 55,868 ?18 weeks ? 8,099 - 58,176 Blood specimen (specimen) 10/27/2020 2:55 PM EST 10/27/2020 3:07 PM EST Narrative Resulting Agency Comment Spec In Lab Tomas Quan MD CHEMISTRY ORDERABLES Performing Organization Address [facility] Co de Phone Number [facility] [place] [address] * Lactate Dehydrogenase (10/27/2020 2:55 PM EST) Lactate Dehydrogenase 173 110 - 220 unit/L [facility] Blood specimen (specimen) 10/27/2020 2:55 PM EST 10/27/2020 3:07 PM EST Narrative Resulting Agency Comment Spec In Lab Tomas Quan MD CHEMISTRY ORDERABLES Performing Organization Address [facility] de Phone Number [facility] [place] [address] documented in this encounter Visit Diagnoses Diagnosis Mediastinal mass- Primary Swelling, mass, or lump in chest SOB (shortness of breath) Shortness of breath Fatigue, unspecified type Chronic obstructive pulmonary disease, unspecified COPD type Palpitations documented in this encounter Care Teams Computer Aided Design Drafter Relationship Specialty Start Date End Date Michelle Cooper APRN [address] [place] [address] PCP - General Family Medicine 09/25/20 07/23/23 documented as of this encounter
--- OUTSIDE RECORDS SUMMARY | 2024-04-16 21:50 | XMS_ITS | Encounter Summary ---
Author [place] [address] Care Team Providers Care Belt Operator Name Role Phone Michelle Cooper APRN Primary Care Provider Encounter Details Date Type Department Care Team (Latest Contact Info) Description 09/25/2020 10:44 AM EST - 09/25/2020 11:59 PM EST Hospital Encounter Non-[place] [address] Michelle Cooper APRN [address] [place], [place] [address] Chest pain, unspecified type Discharge Disposition: Home [...] every 4 hours as needed. 06/17/2020 04/03/2024 lisinopril-hydrochlorothi azide (PRINZIDE;ZESTORETIC) 20-12.5 mg per tablet Take 1 tablet by mouth daily. 10/27/2020 aspirin 81 mg chewable tablet Take 81 mg by mouth daily. 11/02/2020 Lysine 325 mg Tab Take by mouth. 11/03/19 21 documented as of this encounter Plan of Treatment Not on file documented as of this encounter Procedures Procedure Name Priority Date/Time Associated Diagnosis Comments STRESS TEST, EXERCISE (TREADMILL) Routine 09/25/2020 11:47 AM EST Chest pain, unspecified type documented in this encounter Results * Stress Test, Exercise (Treadmill) (09/25/2020 11:47 AM EST) Anatomical Region Laterality Modality Other Michelle Cooper APRN CARDIAC SERVICES ORD ERABLES documented in this encounter Visit Diagnoses Diagnosis Chest pain, unspecified type documented in this encounter Care Teams Belt Operator Relationship Specialty Start Date End Date Michelle Cooper APRN [address] [place] [address] PCP - General Family Medicine 09/25/20 07/23/23 documented as of this encounter
--- OUTSIDE RECORDS SUMMARY | 2024-04-16 21:50 | XMS_ITS | Encounter Summary ---
[place] [address] Care Team Providers Care Manager Multicultural Name Role Phone Michelle Cooper APRN Primary Care Provider [phone] Encounter Details Date Type Department Care Team (Latest Contact Info) Description 10/27/2020 12:57 PM EST - 10/27/2020 3:43 PM EST Hospital [place] [address] Extrinsic asthma, unspecified asthma severity, unspecified whether [...] Sig Dispensed Refills Start Date End Date tiotropium bromide (SPIRIVA RESPIMAT) 2.5 mcg/actuation MistIndications:Chronic [...] Procedure Name Priority Date/Time Associated Diagnosis Comments COMMON PULMONARY FUNCTION TEST Routine 10/27/2020 1:09 PM EST Extrinsic asthma, unspecified asthma severity, unspecified whether complicated, unspecified whether persistent documented in this encounter Results * Pulmonary Function Testing [...] / FVC LLN 64 % COMPAS PFT QAL03-61 Actual Pre-BD 1.43 L/s COMPAS PFT FGG68-45 Pre-BD % of Predicted 57 % COMPAS PFT XNL46-34 Predicted 2.51 L/s COMPAS PFT ZLV97-15 Pre-BD Z-Score -1.25 COMPAS PFT Narrative COMPAS [...] Tomas Quan MD PFT ORDERABLES COMPAS PFT documented in this encounter Visit Diagnoses Diagnosis Extrinsic asthma, unspecified asthma severity, unspecified whether complicated, unspecified whether persistent documented in this encounter Care Teams Manager Multicultural Relationship Specialty Start Date End Date Michelle Cooper APRN [address] [place] [address] PCP - General Family Medicine 09/25/20 07/23/23 documented as of this encounter
--- OUTSIDE RECORDS SUMMARY | 2024-04-16 21:50 | XMS_ITS | Encounter Summary ---
Author Organization [facility] [place] [address] Care Team Providers Care Swim Instructor Name Role Phone Unknown Primary Care Provider Unavailabl e Encounter Details Date Type Department Care Team (Late st Contact Info) Description 10/10/2018 Ancillary Procedure [place] [address] Tomas Quan MD [facility] [place] [address] Social History Tobacco Use Types Packs/Day Years [...] Diagnosis Comments FILM LIBRARY STORAGE ONLY DX CHEST Routine 10/10/2018 12:00 AM EST documented in this encounter Results * Film Library- Storage Only DX Chest (10/10/2018 12:00 AM EST) Narrative [facility] - 10/21/2020 1:57 PM EST This exam is auto-finalizing. It's purpose is for storage only. Tomas Quan MD IMG FILM LIBRARY ORD ERABLES [place], [place] documented in this encounter Visit Diagnoses Not on filedocumented in this encounter Care Teams Swim Instructor Relationship Specialty Start Date End Date Unknown None PCP - General 11/24/16 09/24/20 documented as of this encounter
--- OUTSIDE RECORDS SUMMARY | 2024-04-16 21:50 | XMS_ITS | Encounter Summary ---
Author Organization [facility] Address [facility] [place] [address] Care Team Providers Care Arch Cushion Skiving Machine Operator Name Role Phone Tyron Wilcox MD Primary Care Provider [phone] Encounter Details Date Type Department Care Team (Late st Contact Info) Description 04/19/2013 [place] [id number] Helder Dawson MD [facility] [place] [address] Social History Tobacco Use Types Packs/Day Years Used Date Smoking Tobacco: Former Sex and Gender Information Value Date Recorded Sex Assigned at Not on file Gender Identity Not on file Sexual Orientation Not on file documented as of this encounter Miscellaneous Notes * Telephone Encounter - Helder Dawson - 04/19/2013 11:38 AM EDT Patient called with some questions regarding his penile injury. He has been keeping his penis wrapped with gauze and icing occasionally. He was wondering if this was OK.Ii explained that this is fineand that he shouldn't place ice directly on the penis. He states his swelling is improved. In the morning it is almost gone but towards the end of the day he notices increased edema. He has minimal pain. He has been getting spontaneous erections. I reinforced that he should avoid sexual activity for the next 4-6 weeks and as discussed in clinic he should discontinue jelquing. documented in this encounter Plan of Treatment Not on file documented as of this encounter Visit Diagnoses Not on filedocumented in this encounter Care Teams Arch Cushion Skiving Machine Operator Relationship Specialty Start Date End Date Tyron Wilcox MD PCP - General 04/10/13 11/23/16 documented as of this encounter
--- OUTSIDE RECORDS SUMMARY | 2024-04-16 21:50 | XMS_ITS | Encounter Summary ---
[place] [address] Care Team Providers Care Rn Flight Name Role Phone Unknown Primary Care Provider Unavailabl e Encounter Details Date Type Department Care Team (Late st Contact Info) Description 08/10/2020 [place] [phone] Bea Benjamin Social History Tobacco Use Types Packs/Day Years Used Date Smoking Tobacco: Former Sex and Gender Information Value Date Recorded Sex Assigned at Not on file Gender Identity Not on file Sexual Orientation Not on file documented as of this encounter Plan of Treatment Not on file documented as of this encounter Visit Diagnoses Not on filedocumented in this encounter Care Teams Rn Flight Relationship Specialty Start Date End Date Unknown None PCP - General 11/24/16 09/24/20 documented as of this encounter
--- OUTSIDE RECORDS SUMMARY | 2024-04-16 21:50 | XMS_ITS | Encounter Summary ---
[place] [address] Care Team Providers Care Electoral Officer Name Role Phone Unknown Primary Care Provider Unavailabl e Encounter Details Date Type Department Care Team (Late st Contact Info) Description 08/06/2020 [place] [phone] Bea Benjamin Social History Tobacco Use Types Packs/Day Years Used Date Smoking Tobacco: Former Sex and Gender Information Value Date Recorded Sex Assigned at Not on file Gender Identity Not on file Sexual Orientation Not on file documented as of this encounter Plan of Treatment Not on file documented as of this encounter Visit Diagnoses Not on filedocumented in this encounter Care Teams Electoral Officer Relationship Specialty Start Date End Date Unknown None PCP - General 11/24/16 09/24/20 documented as of this encounter
--- OUTSIDE RECORDS SUMMARY | 2024-04-16 21:50 | XMS_ITS | Encounter Summary ---
Author Organization [facility] Address [facility] [place] [address] Care Team Providers Care Child Care Nurse Name Role Phone Allison Michelle De Santiago APRN Primary Care Provider [phone] Reason for Visit * Auth/Cert Specialty Diagnoses / Procedures Referred By Jhonny baer Referred To Contact Diagnoses Mediastinal mass anterior mediastinal mass Procedures PRO THYMECTOMY, RADICAL MEDIAST DISSSEC PRO BRONCHOSCOPY, DIAGNOSTIC @ROBOTIC THYMECTOMY W/ RAD. MEDIASTINAL DISSECTION (WRVU 23.48) BRONCHOSCOPY, DIAGNOSTIC (WRVU 2.78) MODIFIER ROBOT,DAVINCI XI Referral ID Status Reason Start Date Expiration Date Visits Re quested Visits Authorized [id number] 1 1 Encounter Details Date Type Department Care Team (Late st Contact Info) Description 11/25/2020 12:00 PM EDT - 11/25/2020 2:58 PM EDT Surgery [place] [phone] Taj Hopper MD [facility] [place] [address] @ROBOTIC THYMECTOMY W/ RAD. MEDIASTINAL DISSECTION (WRVU 23.48) Social History Tobacco Use Types Packs/Day Years [...] Sign Reading Time Taken Comments Blood Pressure 134/64 11/25/2020 2:45 PM EDT Pulse 62 11/25/2020 11:05 AM EDT Temperature 36.4 ??C (97.5 ??F) 11/25/2020 2:45 PM ED T Respiratory Rate 20 11/25/2020 2:45 PM EDT Oxygen Saturation 99% 11/25/2020 2:45 PM EDT Inhaled Oxygen Concentration - - Weight 113.1 kg (249 lb 6.4 oz) 021 11:05 AM EDT Height 172.7 cm (5' 8) [...] mass Added automatically from request for surgery [id number] Resolved Hospital Problems No resolved problems to [...] Hospital Course: Tomas Elliott was admitted to [facility] on 11/25/2020 [facility]. He [...] a nurse in the Thoracic Clinic at [phone]. After hours or on weekends or holidays please call: [phone] and ask to speak to the Thoracic [...] the Thoracic Clinic or the Thoracic Surgeon air pollution control engineer after hours. Please take over the counter [...] Expires XR Chest PA & Lateral (Generic) [[id number] Custom] 12/10/2020 11/26/2021 Process Instructions: Scheduling Instructions: Questions: Where will study be performed?: [facility] Radiology Portable exam?: Reason for exam and clinical history: Anterior mediastinal mass s/p Thymectomy Clinical information / katz questions: PTX, Effusion, Comparison Stat read required?: Date of injury if applicable: Requested Time: Provider Contact Information: Primary Care Provider: Michelle Cooper APRN [phone] Discharge References/Attachments: Discharge References/Attachments None For questions regarding this document or issues relating to this hospitalization on the Thoracic Surgery Service, please contact Dr. Hopper's office at . Signed: CYNTHIA Morataya 11/26/2020 CC: PCP: Michelle Cooper APRN Referring: Taj Hopper Md [facility] [place] [address] documented in this encounter Discharge Instructions * [...] a nurse in the Thoracic Clinic at [phone]. After hours or on weekends or holidays please call: [phone] and ask to speak to the Thoracic [...] the Thoracic Clinic or the Thoracic Surgeon air pollution control engineer after hours. Please take over the counter [...] 410B from PACU at 17:30. Attached to [employer]. VSS on RA. Afebrile. A&Ox4. Reporting 7/10 [...] Preop NAME: Tomas Elliott DATE: 11/25/20 SURGEON: TAJ HOPPER PROCEDURE: Bronchoscopy, R VATS, robot assisted, [...] CYNTHIA Morataya 11/25/2020 Thoracic Surgery Service Pager [phone] documented in this encounter Miscellaneous Notes * Initial Assessments - Abena Morelos RN - 11/26/2020 7:24 AM EDT Office [...] Primary care provider on file: Michelle Cooper, BOAT ENGINE MECHANIC [phone] Advance Directive on file and Code Status: <no information>, Attempt Cardiopulmonary Resuscitation - Inpatient Patient???s Functional Status: Independent Living Situation: home [address] [place] [address] Supports: Friend Assessment: Patient with no apparent RNCM/SW needs at this time. No housing, transportation, insurance, resources concerns identified at this time. Supports in place to achieve a safe post-hospital transition. No identified barriers to accessing necessary care and/or follow-up after discharge. Plan: Patient to d/c to home via car/friend when medically ready. calendar control clerk blood bank/Welder Machine Operator will continue to follow patient???s progress and remain available if situation changes for coordination of care, psychosocial support and/or discharge planningSafia Morelos RN (Jonas) RN/CM - Cellphone: [phone] Pager: [phone] Covering Service RN/CM * Plan of Care [...] Operative Note Patient Name: Tomas Elliott : [id number] MR#: [id number] Case Date: 11/25/2020 Surgeon: Surgeon(s) and Role: * Taj Hopper MD - Primary * Adrien Hernandez MD - Resident Preoperative diagnosis: anterior mediastinal mass Postoperative diagnosis: anterior mediastinal mass Procedure(s) (LRB): @ROBOTIC THYMECTOMY W/ RAD. MEDIASTINAL DISSECTION (WRVU 23.48) (Right) BRONCHOSCOPY, DIAGNOSTIC (WRVU 2.78) (N/A) MODIFIER ROBOT,DAVJESSIKAI XI (N/A) NERVE BLOCK, INTERCOSTAL NERVE, MULTIPLE [...] TO PATHOLOGY Mediastinal fat--FROZEN, ?malignancy OR 11 anterior mediastinal mass mediastinal fat--FROZEN, ?malignancy excision YES, Please perform frozen section No 11/25/2020 1:51 PM Time specimen removed from patient: 1:50 PM Number of tissue samples (in container) 1 Biospecimen to store? No SPECIMEN TO PATHOLOGY Thymus and mediastinal fat OR 11 anterior mediastinal mass thymus and mediastinal fat excision No 11/25/2020 2:05 PM Time specimen removed from patient: 2:05 PM Number of tissue samples (in container) 1 Biospecimen to store? No Fluids: 1.5L PRBCs: none (See Anesthesia Record/Report for Other Blood Products) Urine Output: 200 mL Drains: 1. 19 Macanese mauro drain left pleural space 2. 28 Macanese chest tube right pleural space Disposition: awakened from anesthesia, extubated and taken to the recovery room in a stable condition, having suffered no apparent untoward event. Condition: doing well without problems (Please see the Surgical Encounter Summary for any Implant and Specimen details pertinent to this patient.) Infection Bundle used? No * Op Note - Taj Hopper MD - 11/25/2020 12:02 PM EDT [facility] Operative Note Patient Name: Tomas Elliott : [id number] MR#: [id number] Case Date: 11/25/2020 Surgeon: Surgeon(s) and Role: [...] SPECIMEN TO PATHOLOGY Mediastinal fat--FROZEN, ?malignancy OR anterior mediastinal mass mediastinal fat--FROZEN, ?malignancy excision YES, Please perform frozen section No 11/25/2020 1:51 PM Time specimen removed from patient: 1:50 PM Number of tissue samples (in container) 1 Biospecimen to store? No SPECIMEN TO PATHOLOGY Thymus and mediastinal fat OR 11 41614 anterior mediastinal mass thymus and mediastinal fat excision No 11/25/2020 2:05 PM Time specimen removed from patient: 2:05 PM Number of tissue samples (in container) 1 Biospecimen to store? No Drains: 28 Macanese chest tube, right; 19 Macanese Mauro drain right chest, across mediastinum into [...] entrance port, and a 12 mm laparoscopic health center assistant port was placed low on the [...] for hemostasis, and then manuallydirected a 19 Macanese Mauro drain across the mediastinum through the rent in the left mediastinal pleura and into the left hemithorax. A second 28 Macanese chest tube was placed through the a different robotic port port up to the apex of the right hemithorax. The robotic instruments were then removed and the robot was undocked. The health center assistant port incision was extended slightly to [...] &/ Steroid Intercostal Nerve Ea Addl Level (35548) 11/25/2020 11:33 AM EDT Mediastinal mass MODIFIER ROBOTAMY XI 11/25/2020 11:33 AM EDT Mediastinal mass Bronchoscopy, Diagnostic (98445) 11/25/2020 11:33 AM EDT Mediastinal mass Thymectomy, Radical Mediast Disssec (24394) 11/25/2020 11:33 AM EDT Mediastinal mass POCT [...] who have questions please contact the health care advocate that requested your imaging first. ? Narrative [...] patients who have questions please contactthe health care advocate that requested your imaging first. Taj Hopper MD IMG DX ORDERABLE S [...] prior to speaking to our radiologists. ? --------ORIGINAL REPORT -------- EXAMINATION: XR CHEST PA [...] prior to speaking to our radiologists. ? Addendum by Everardo Aparicio MD on 11/25/2020 [...] prior to speaking to our radiologists. ? Impressions 11/25/2020 8:55 PM EDT Lucency projecting [...] to speaking to our radiologists. ? Narrative 11/25/2020 8:55 PM EDT EXAMINATION: XR [...] to speaking to our radiologists. ? Narrative 11/25/2020 4:10 PM EDT EXAMINATION: XR [...] PM EDT 11/25/2020 2:05 PM EDT Narrative [facility] - 11/25/2020 2:05 PM EDT Specimen requisition ordered. ??Separate Pathology report to follow Taj Hopper MD PATHOLOGY/CYTOLO GY ORDERABLES Performing Organization Address City/State/[facility] Co de Phone Number [facility] [place] [address] * Surgical Pathology Report (11/25/2020 1:51 PM EDT) Final Diagnosis [id number] ? Location: [facility]; [facility]; The signing pathologist has (i) examined the [...] MD Verified: ??12/04/2020 17:02 ??Pathologist Performed at: ??-[facility] Dept. of Pathology, [place], [place] DISCUSSION Sections show a multilobular proliferation [...] specimen is inked in black Sections/Processing : Referral Manager sections in 11 cassettes as follows: ?B1: ??Detached fragment entirely submitted ?B2-B11: ??Referral Manager sections of the multilobulated tissue, possibly thymus ??aemr ?Frozen Section FROZEN SECTION DIAGNOSIS AFS1 - Mediastinal fat, ?? for frozen section: - Wispy fibrous tissue. ?? There is no evidence of malignancy. . FROZEN SECTION DIAGNOSIS 11/25/20 14:17 /belen Electronically signed by: ??MD Cathy, Atul Angel Verified: ??11/25/2020 ?Pathologist Performed at: ??-[facility] Dept. of Pathology, [place], [place] This intraoperative consultation should be interpreted as a preliminary diagnosis pending review of the entire specimen and special studies, if any. 12/04/2020 5:02 PM EDT [facility] THYMUS GLAND STRUCTURE / Unknown 11/25/2020 1:51 PM EDT 11/25/2020 1:51 PM EDT THYMUS GLAND STRUCTURE / Unknown 11/25/2020 1:51 PM EDT 11/25/2020 1:51 PM EDT Taj Hopper MD PATHOLOGY/CYTOLO GY ORDERABLES Performing Organization Address [facility] Co de Phone Number [facility] [place] [address] * Specimen to Pathology (11/25/2020 1:51 PM EDT) AP Specimen 11/25/2020 1:51 PM EDT 11/25/2020 1:51 PM EDT Narrative [facility] - 11/25/2020 1:51 PM EDT Specimen requisition ordered. ??Separate Pathology report to follow Taj Hopper MD PATHOLOGY/CYTOLO GY ORDERABLES Performing Organization Address [facility] Co de Phone Number [facility] [place] [address] * (ABNORMAL) BLOOD GAS 2 ARTERIAL (11/25/2020 12:26 PM EDT) pH, Arterial 7.39 7.35 - 7.45 [facility] PCO2, Arterial 46(H) 35 - 45 mmHg [facility] PO2, Arterial 76(L) 85 - 104 mmHg [facility] Bicarbonate, Arterial 26.9(H) 20.0 - 26.0 mmol/L [facility] Base Excess, Arterial 1.9 -3.0 - 3.0 mmol/L [facility] Hgb Blood Gas 13.2(L) 13.7 - 16.5 gm/dL [facility] Oxyhemoglobin, Arterial 94.2 94.0 - 97.0 % [facility] Carboxyhemoglob in, Arterial 0.6 % [facility] Comment: Nonsmokers: 0.5-1.5% COHB Smokers: Variable, but usually less than 10% Toxic: 20-30% COHB Lethal: Greater than 60% COHB Methemoglobin, Arterial 0.3 <=1.5 % [facility] Na Whole Blood 134(L) 135 - 145 mmol/L [facility] K Whole Blood 3.8 3.5 - 5.0 mmol/L [facility] Comment: Please note: Patients with WBC >100,000 may have falsely elevated Potassium levels. Contact the Clinical Chemistry Laboratory if there are any questions. ICa Whole Blood 1.13(L) 1.15 - 1.33 mmol/L [facility] Comment: Note: ??Total bilirubin higher than 20 mg/dL may lead to falsely low ionized calcium. CL Whole Blood 103 98 - 107 mmol/L [facility] Gluc Whole Bld 131 65 - 199 mg/dL [facility] Comment:Diabetes: >=200 mg/d L plus symptoms. Lactate WB 1.7 0.5 - 2.2 mmol/L [facility] FIO2 Art 51 % [facility] PF Ratio Art 149 [facility] Blood specimen (specimen) 11/25/2020 12:26 PM EDT 11/25/2020 12:26 PM EDT Taj Hopper MD POINT OF CARE TE ST ORDERABLES Performing Organization Address City/[facility] Co de Phone Number [facility] [place] [address] * POCT Glucose (11/25/2020 11:10 AM EDT) Glucose, POC 103 65 - 199 mg/dL [facility] Comment: Supplemental ranges: <140 mg/dL before meals <180 mg/dL all other times of the day Blood specimen (specimen) 11/25/2020 11:10 AM EDT 11/25/2020 11:10 AM EDT Taj Hopper MD POINT OF CARE [place] [address] documented in this encounter Visit Diagnoses Diagnosis [...] Given 11/26/2020 12:14 AM EDT 1,000 mg BUpivacaine (pf) (Marcaine) (5 mg/mL) 0.5% injection ONCE PRN, Starting on Mon11/25/20 at 1226, Until Chloe 11/26/20 at 1530, Intra-Operative (Intra-Procedure), Routine Given 11/25/2020 12:26 PM EDT 5 mLs BUpivacaine liposome (PF) (Exparel) 1.3 % (13.3 mg/mL) injection for infiltration ONCE PRN, Starting on Mon11/25/20 at 1226, Until Chloe 11/26/20 at 1530, Intra-Operative (Intra-Procedure) Given 11/25/2020 2:44 PM EDT 11 mLs 19- Surgical Site Given 11/25/2020 12:26 PM EDT 9 mLs docusate sodium (Colace) capsule 100 mg 100 [...] Routine Given 11/26/2020 6:08 AM EDT 5,000 Unit s Given 11/25/2020 9:37 PM EDT 5,000 Units hydroCHLOROthiazide (Hydrodiuril) tablet 25 mg 25 mg, Oral, DAILY, First dose on Mon11/26/20 at 0900, Until Discontinued, Routine Given 11/26/2020 9:19 AM EDT 25 mg ketorolac (Toradol) (15 mg/mL) injection 15 mg 15 mg, Intravenous, EVERY 6 HOURS PRN, Starting on Mon11/25/20 at 1519, Until Mon11/26/20 at 1530, Pain, 1st line prn, Routine Given 11/26/2020 4:47 AM EDT 15 mg Given 11/25/2020 3:25 PM EDT 15 mg oxyCODONE (Roxicodone) tablet 5 mg 5 mg, Oral, EVERY 4 HOURS PRN, Starting on Mon11/25/20 at 1519, Until Mon11/26/20 at 1530, Pain, May repeat 5 mg in 60 minutes if pain not relieved., Recovery (Recovery-Hospital Unit), Routine Given 11/26/2020 12:53 PM EDT 5 mg Given 11/26/2020 6:11 AM EDT 5 mg Given 11/26/2020 2:11 AM EDT 5 mg pantoprazole EC (Protonix) tablet 40 mg 40 mg, Oral, DAILY, First dose on Mon11/26/20 at 0900, Until Discontinued, DO NOT CRUSH [...] Dawkins RN) 0014 (Given - Provider: Bea Jay RN)0608 (Given - Provider: Bea Jay RN)1253 (Given - Provider: Bea Dawkins, JAYDEN) ceFAZolin (Ancef) 2 g in dextrose 5% 100 mL infusion (COMPLETED) 2 g, Intravenous, SCREEN TACKER TO O.R., 1 dose, On Mon11/25/20 at 1115, Administer over 30 Minutes, Intra-Operative (Intra-Procedure), Indication for (Active or Suspected): Prophylaxis 1153 (Given - Provider: Shaina Marie) docusate sodium (Colace) capsule 100 mg 100 mg, Oral, 3 TIMES DAILY, First dose on Mon11/25/20 at 2100, Until Discontinued, Routine 2137 (Given - Provider: Bea Jay, JAYDEN) 0919 (Given - Provider: Bea Dawkins, JAYDEN) heparin (porcine) (5,000 units/1 mL) subcutaneous injection 5,000 Units (COMPLETED) 5,000 Units, Subcutaneous, SCREEN TACKER TO O.R., 1 dose, On Mon11/25/20 at 1115, Please administer in same day prior to procedure Thank you, Day of Surgery (Day of Procedure), STAT 1112 (Given - Provider: Michelle Gayle, JAYDEN) heparin (porcine) (5,000 units/1 mL) subcutaneous injection 5,000 Units 5,000 Units, Subcutaneous, EVERY 8 HOURS SCHEDULED, First dose on Mon11/25/20 at 2200, Until Discontinued, Routine 2136 (Given - Provider: Bea Jay RN) 0608 (Given - Provider: Bea Jay, JAYDEN) hydroCHLOROthiazide (Hydrodiuril) tablet 25 mg 25 mg, Oral, DAILY, First dose on Mon11/26/20 at 0900, Until Discontinued, Routine 09 (Given - Provid er: Bea Dawkins, JAYDEN) pantoprazole EC (Protonix) tablet 40 mg 40 mg, Oral, DAILY, First dose on Mon11/26/20 at 0900, Until Discontinued, DO NOT CRUSH OR OPEN 0919 (Given - Provid er: Bea Dawkins RN) senna (Senokot) tablet 17.2 mg 17.2 mg, Oral, EVERY EVENING, First dose on Mon11/26/20 at 1700, Until Discontinued, Routine sodium chloride 0.9 % (flush) flush 5 mL 5 mL, Intravenous, 2 TIMES DAILY, First dose on Mon11/25/20 at 2100, Until Discontinued, Recovery (Recovery-Hospital Unit), Routine 2136 (Given - Provider: Bea Jay, JAYDEN) 0919 (Given - Provider: Bea Dawkins, JAYDEN) [...] PRN, Starting on Mon11/25/20 at 1226, Until Chloe 11/26/20 at 1530, Intra-Operative (Intra-Procedure), Routine 1226 (Given - Provider: Taj Hopper MD) BUpivacaine liposome (PF) (Exparel) 1.3 % (13.3 mg/mL) injection for infiltration (CANCELED) ONCE PRN, Starting on Mon11/25/20 at 1226, Until Chloe 11/26/20 at 1530, Intra-Operative (Intra-Procedure) 1226 (Given - Provider: Tja Hopper MD)1444 (Given - Provider: Taj Hopper MD) doxepin (Sinequan) capsule 10 mg 10 mg, Oral, NIGHTLY PRN, Starting on Mon11/25/20 at 1721, Until Chloe 11/26/20 at 1530, Sleep, Routine HYDROmorphone (Dilaudid) (2 [...] Eugenia Baldwin RN)1522 (Given - Provider: Eugenia Baldwin, JAYDEN)1530 (Given - Provider: Eugenia Baldwin RN)1600 (Given - Provider: Eugenia Baldwin RN) ipratropium (ATROVENT) 0.02 % nebulizer solution 0.5 mg 0.5 mg, Nebulization, 4 TIMES DAILY PRN, Starting on Mon11/25/20 at 1721, Until Chloe 11/26/20 at 1530, Wheezing, Routine ketorolac (Toradol) [...] Eugenia Baldwin RN)1946 (Given - Provider: Bea Jay RN) 0136 (Given - Provider: Bea Jay RN)0211 (Given - Provider: Bea Jay RN)0611 (Given - Provider: Bea Jay RN)1253 (Given - Provider: Bea Dawkins RN) sodium chloride 0.9 % (flush) flush 5-20 [...] RN) documented in this encounter Care Teams Child Care Nurse Relationship Specialty Start Date End Date Michelle Cooper APRN [address] [place] [address] PCP - General Family Medicine 09/25/20 07/23/23 documented as of this encounter
--- OUTSIDE RECORDS SUMMARY | 2024-04-16 21:50 | XMS_ITS | Encounter Summary ---
Author Organization [facility] Address [facility] [place] [address] Care Team Providers Care Diesel Technician Mechanic Name Role Phone Michelle Cooper APRN Primary Care Provider [phone] Encounter Details Date Type Department Care Team (Late st Contact Info) Description 10/28/2020 [place] [phone] Eleuterio Silva MD [facility] [place] [address] Social History Tobacco Use Types Packs/Day Years Used Date Smoking Tobacco: Former Sex and Gender Information Value Date Recorded Sex Assigned at Not on file Gender Identity Not on file Sexual Orientation Not on file documented as of this encounter Miscellaneous Notes * Telephone Encounter - Eleuterio Silva MD - 10/28/2020 12:21 PM EST Called and updated patient that labs from yesterday were reassuring. Patient has already been contacted by thoracic surgery and has secured an appt for his mediastinal mass evaluation. Told him I cannot say at this time what exactly the mass is. If mgmt of his mass resolves most of his resp symptoms, then he only needs to follow up with pulm clinic once a year for COPD. documented in this encounter Plan of Treatment Not on file documented as of this encounter Visit Diagnoses Not on filedocumented in this encounter Care Teams Diesel Technician Mechanic Relationship Specialty Start Date End Date Michelle Cooper APRN [address] [place] [address] PCP - General Family Medicine 09/25/20 07/23/23 documented as of this encounter
--- OUTSIDE RECORDS SUMMARY | 2024-04-16 21:50 | XMS_ITS | Encounter Summary ---
[place] [address] Care Team Providers Care Sales Developer Name Role Phone Michelle Cooper APRN Primary Care Provider [phone] Encounter Details Date Type Department Care Team (Latest Contact Info) Description 10/09/2020 9:20 AM EST Hospital Encounter Non-[place] [phone] Michelle Cooper APRN [address] [place] [address] Chest pain, unspecified type Discharge Disposition: Home [...] Procedure Name Priority Date/Time Associated Diagnosis Comments NUCLEAR EXERCISE STRESS CARDIOLOGY Routine 10/09/2020 11:12 AM EST Chest pain, unspecified type documented in this encounter Results * Nuclear Exercise Stress Cardiology (10/09/2020 11:12 AM EST) Anatomical Region Laterality Modality Other Michelle Cooper APRN CARDIAC SERVICES ORD ERABLES documented in this encounter Visit Diagnoses Diagnosis Chest pain, unspecified type documented in this encounter Care Teams Sales Developer Relationship Specialty Start Date End Date Michelle Cooper APRN [address] [place] [address] PCP - General Family Medicine 09/25/20 07/23/23 documented as of this encounter
--- OUTSIDE RECORDS SUMMARY | 2024-04-16 21:50 | XMS_ITS | Encounter Summary ---
Author Organization [facility] Address [facility] [place] [address] Care Team Providers Care Manager Licensing Name Role Phone Tyron Wilcox MD Primary Care Provider [phone] Encounter Details Date Type Department Care Team (Late st Contact Info) Description 04/10/2013 11:30 AM EDT [place] [phone] Alba Liu MD [facility] [place] [address] Penile trauma (Primary Dx) Discharge Disposition: Home Social History Tobacco Use Types Packs/Day Years Used Date Smoking Tobacco: Former Sex and Gender Information Value Date Recorded Sex Assigned at Not on file Gender Identity Not on file Sexual Orientation Not on file documented as of this encounter Last Filed Vital Signs Vital Sign Reading Time Taken Comments Blood Pressure 132/80 04/10/2013 11:41 AM EDT Pulse - - Temperature - - Respiratory Rate - - Oxygen Saturation - - Inhaled Oxygen Concentration - - Weight - - Height - - Body Mass Index - - documented in this encounter Progress Notes * Helder Dawson - 04/10/2013 2:58 PM EDT New Patient H&P CC: Second opinion of previously diagnosed penile fracture HPI: Tomas Elliott is a 57 y/o male who during intercourse on Monday evening noted an acute pain in his penis and a pop that was audible to both the patient and his partner. He noticed immediate swelling but minimal detumescence. After a short break he was able to regain an erection and continued intercourse to climax. Due to the acuity of symptoms and degree of swelling he presented to his Urologist at [facility] and per the patient was diagnosed with a minor penile fracture that did notrequire further intervention. He had a significant amount of pain at the time of injury but this has improved since. His swellinghas also improved. He denies gross hematuria or difficulty passing urine. He has had erections since the injury 3 days ago, mostly in the mornings as he has been abstaining from sexual activity on the advice of his Urologist. He had a vasectomy in December of this year. He takes Cialis for ED and at baseline can achieve erections on demand around 90-95% of the time. No LUTS at baseline. He presents today for a second opinion as he is justifiably anxious about this type of injury. ROS: 10pt review of systems negative other than what is discussed in H&P above. PMHx: HTN Anxiety ED PSHx: Vasectomy B/l inguinal hernia and umbilical hernia repair IM nailing of femur Hemorrhoidectomy x 2 SHx: 15 pack year smoking, quit 30 years ago Daily EtOH > 1 bottle of wine No elicit drug use Meds: Hctz 12mg PO daily Lisinopril 20mg PO daily ASA 81mg daily Klonapin PRN for sleep All: Allergies Allergen Reactions ??? Adhesive Other (See Comments) Swelling at local site ??? Legume Other (See Comments) flu-like symptoms PE: Last value Range last 24hrs Temperature Heart Rate Heart Rate: -- Blood Pressure BP: 132/80 mmHg BP: (132)/(80) Respiratory Rate Resp: -- SpO2 SpO2: -- NAD, pleasant abd soft, nt, nd Bilateral testis normal without evidence of mass Penis with minor swelling and ecchymosis. TTP distally. NO ecchymosis on scrotum. Ext without edema U/A: Urine dipstick negative Imaging: Penile u/s revealed intact corpora cavernosa with a hematoma in the area of the corpora spongiosum. A/P: 57 y/o male with a traumatic penile injury and u/s reveling a hematoma within the corpora spongiosum. No hematuria. No difficulty with urination. Minimal pain and swelling since injury 3 days ago. Wediscussed the options with the patient including MRI imaging to better evaluate for a corporal injury. We also discussed surgical exploration or continued conservative management. The details of surgical exploration were discussed with the surgery including technique and recovery time. The risks ofobservation including increased risk of ED in the future, Peyrone's disease and painful erections were discussed with the patient. After a long discussion the patient opted to continue conservative observation. Considering he has had preserved erectile function since injury, minimal swelling, good pain control and no obvious corporal injury on ultrasound. He expressed understanding that if there is an unrecognized corporal injury he may be at higher risk for developing painful erections, peyrone's disease or erectile dysfunction. He was also instructed to call or come to the ED with obstructive voiding symptoms, hematuria,if his swelling and pain worsen or do not improve. We will plan to follow-up in 6-8 weeks assuming he continues to improve Addendum: Dr. Dawson obtained the history. I repeated the exam. I reviewed the ultrasound which shows a hematoma within the corpora spongiosum. We are unable to fully evaluate if there is a tunica tear of the corpora spongiosum or of the corpora cavernosum. This was discussed with the patient and we discussed MRI +/- surgical exploration or continued conservative management. Of note the patient also practices jelqing, in an effort to enlarge his penis. He wants to do conservative management and he was advised to stop Jelqing. Marija Liu MD documented in this encounter Plan of Treatment Not on file documented as of this encounter Visit Diagnoses Diagnosis Penile trauma- Primary Other injury of external genitals documented in this encounter Care Teams Manager Licensing Relationship Specialty Start Date End Date Tyron Wilcox MD PCP - General 04/10/13 11/23/16 documented as of this encounter
--- OUTSIDE RECORDS SUMMARY | 2024-04-16 21:50 | XMS_ITS | Encounter Summary ---
Author [place] [address] Care Team Providers Care Kaiawhina Name Role Phone Michelle Cooper APRN Primary Care Provider [phone] Reason for Visit * Diagnostic Test (Routine) - Closed Specialty Diagnoses / Procedures Referred By Contac t Referred To Contact Radiology Diagnoses Chest pain, unspecified type Procedures NM Exercise Stress and Rest Myocardial Perfusion Michelle Cooper APRN [address] [place] [address] [place] [address] Referral ID Status Reason Start Date Expiration Date V isits Requested Visits Authorized [id number] Closed Specialty Service Requested 09/25/2020 03/25/2022 1 1 Encounter Details Date Type Department Care Team (Latest Contact Info) Description 10/09/2020 9:20 AM EST Hospital Encounter [place] [address] Michelle Cooper APRN [address] [place], [place] [phone] Discharge Disposition: Home Social History Tobacco Use [...] been reported to the team at the [facility]. Thank you for letting us participate [...] hasbeen reported to the team at the [facility]. Thank you for letting us participate in the care of this patient. Forquestions regarding this report, please contact the number below. Michelle Cooper PARTY HOST/HOSTESS IMG NM ORDERABLES * NM Exercise Stress and Rest Myocardial Perfusion (10/09/2020 11:09 AM EST) Anatomical Region Laterality Modality Nuclear Medicine Impressions 10/09/2020 2:41 PM EST No ischemia or scar. ?? Left ventricular function is normal. An anterior mediastinal mass is present. This finding is nonspecific and possible etiologies include a thymoma, teratoma and lymphoma. This has been reported to the team at the [facility]. Thank you for letting us participate [...] hasbeen reported to the team at the [facility]. Thank you for letting us participate in the care of this patient. Forquestions regarding this report, please contact the number below. Michelle Cooper PARTY HOST/HOSTESS IMG NM ORDERABLES documented in this encounter Visit Diagnoses Not on filedocumented in this encounter Care Teams Kaiawhina Relationship Specialty Start Date End Date Michelle Cooper APRN [address] [place] [address] PCP - General Family Medicine 09/25/20 07/23/23 documented as of this encounter
--- OUTSIDE RECORDS SUMMARY | 2024-04-16 21:50 | XMS_ITS | Encounter Summary ---
Author Organization [facility] [place] [address] Care Team Providers Care Parachute Line Tier Name Role Phone Unknown Primary Care Provider Unavailabl e Encounter Details Date Type Department Care Team (Late st Contact Info) Description 10/10/2018 12:05 AM EST Ancillary Procedure [place] [address] Tomas Quan MD [facility] [place] [address] Social History Tobacco Use Types Packs/Day Years Used Date Smoking Tobacco: Former Sex and Gender Information Value Date Recorded Sex Assigned at Not on file Gender Identity Not on file Sexual Orientation Not on file documented as of this encounter Plan of Treatment Not on file documented as of this encounter Procedures Procedure Name Priority Date/Time Associated Diagnosis Comments FILM LIBRARY STORAGE ONLY ULTRASOUND STUDY Routine 10/10/2018 12:05 AM EST documented in this encounter Results * Film Library- Storage Only Ultrasound Study (10/10/2018 12:05 AM EST) Narrative RAD - 10/21/2020 2:23 PM EST This exam is auto-finalizing. It's purpose is for storage only. Tomas Quan MD G FILM LIBRARY ORD ERABLES [place], [place] documented in this encounter Visit Diagnoses Not on filedocumented in this encounter Care Teams Parachute Line Tier Relationship Specialty Start Date End Date Unknown None PCP - General 11/24/16 09/24/20 documented as of this encounter
--- OUTSIDE RECORDS SUMMARY | 2024-04-16 21:50 | XMS_ITS | Encounter Summary ---
Author [facility] [address] Care Team Providers Care Tierce Filler Name Role Phone AllisonMichelle serrano Anyi PRITCHETT Primary Care Provider [phone] Encounter Details Date Type Department Care Team (Late st Contact Info) Description 11/09/2020 [place] [phone] oZya Coleman Social History Tobacco Use Types Packs/Day Years Used Date Smoking Tobacco: Former Cigarettes Q uit: 1979 Smokeless Tobacco: Former Quit: 1979 Sex and Gender Information Value Date Recorded Sex Assigned at Not on file Gender Identity Not on file Sexual Orientation Not on file documented as of this encounter Miscellaneous Notes * Telephone Encounter - Zoya Coleman - 11/11/2020 2:29 PM EDT Telephone call placed/received to schedule covid 19 testing with patient. Ordering provider: Dr. Taj Mccullough Testing Facility: [facility] [place], [place] Date of Testin/28 Time of Testing: TBD Symptoms: No Is this the first test for Covid 19 Yes If no, please list date of previous test, result, and type of test (Molecular, Antigen, Antibody orunknown): Resides in congregate care setting No Employee or Household Member of Employee No Healthcare Worker No * Telephone Encounter - Josefina Bryson - 11/09/2020 3:17 PM EDT Pt called and will not be going to [facility] for pre-op COVID testing-they can't do timely * Telephone Encounter - Zoya Coleman - 11/09/2020 12:16 PM EDT Telephone call placed/received to schedule covid 19 testing with patient. Ordering provider: Dr. Taj Mccullough Testing Facility: [facility] Date of Testin/28 Time of Testing: TBD Symptoms: No Is this the first test for Covid 19 No, Summer 2019, Neg, [facility] If no, please list date of previous test, result, and type of test (Molecular, Antigen, Antibody orunknown): Resides in congregate care setting No Employee or Household Member of Employee No Healthcare Worker No documented in this encounter Plan of Treatment Not on file documented as of this encounter Visit Diagnoses Diagnosis COVID-19 ruled out documented in this encounter Care Teams Tierce Filler Relationship Specialty Start Date End Date Michelle Cooper APRN [address] [place] [address] PCP - General Family Medicine 09/25/20 07/23/23 documented as of this encounter
--- OUTSIDE RECORDS SUMMARY | 2024-04-16 21:50 | XMS_ITS | Encounter Summary ---
Author Organization [facility] [address] Care Team Providers Care Hotel Casino Floorperson Name Role Phone Leigha Cooperily Anyi PRITCHETT Primary Care Provider [phone] Reason for Visit * Reason Onset Date Comments Other 12/01/2020 Regarding Spiriv a Encounter Details Date Type Department Care Team (Late st Contact Info) Description 12/01/2020 [place] [address] Bea Lee RN Other (Regarding Spiriva) Social [...] Telephone Encounter - Bea Lee RN - 12/01/2020 2:13 PM EDT I have called Pt, JOSE. I informed Pt that I have reached out to the MAP program to see if there is any help with the Spiriva Respimat co-pay. I will follow up with Pt when I hear back from [facility]. Bea Lee RN Department of Pulmonary 5C, [facility] / Pager: [phone] documented in this encounter Plan of Treatment Not on file documented as of this encounter Visit Diagnoses Not on filedocumented in this encounter Care Teams Hotel Casino Floorperson Relationship Specialty Start Date End Date Michelle Cooper APRN [address] [place] [address] PCP - General Family Medicine 09/25/20 07/23/23 documented as of this encounter
[2024-04-16 23:18] LABS: Ferritin 298 ng/mL (26-388)
[2024-04-16 23:20] LABS: Iron 69 ug/dL (65-175); Total Iron Binding Capacity 302 ug/dL (250-450); Transferrin Sat 23 % (20-55)
== END 2024-04-16 21:43 | disposition home or self-care (01) ==
LOC: NCHCN 21:42
PROVIDERS: PCP Nurse Practitioner Family; Visit Provider Family Medicine
DX: R53.83 Other fatigue (principal)
CPT/HCPCS: 82728; 83540; 83550

== ENCOUNTER 2024-07-16 13:52 | Outpatient (REF) | payer MEDICARE, SELFPAY ==
--- OUTSIDE RECORDS SUMMARY | 2024-07-16 13:54 | XMS_ITS ---
Author Organization Unknown Address [address] [place] [phone] Phone Care Team Providers Care Nurses[employer] Association Executive Director Name Role Phone DILEEP MCCLAIN Attending Unavailable Results BASIC METABOLIC PANEL (BMP) - Collect Date/Time: 08/11/2021 11:39 [facility] ID: [id number] [address] [place], [place], [address] LOINC: 43586-8 Test Value Unit Reference Range Code Code [...] H=34 2028-9 LOINC ANION GAP 4.9 mmol/L 33752-0 LOINC CALCIUM SERUM 9.1 mg/dL L=8.2 H=10.2 91705-1 LOINC AGE 65 years eGFR (non-Afr.Amer.) 93 mL/min 84498-9 LOINC eGFR (Afr-Belarusian) 112 mL/min 68237-3 LOINC Social History Type Status Start Date End Date Code Code Syst em Smoking History Former smoker 7503385 SNOMED CT Sex Male Hospital Discharge Instructions [...] Code Code Sys tem Essential hypertension 08/11/2021 33457200 RADHA D-CT Personal Care Team Section Performer Name Performer Role Active Date Inactive Da temi
--- OUTSIDE RECORDS SUMMARY | 2024-07-16 13:54 | XMS_ITS ---
Author Organization Unknown Address [address] [place] [phone] Phone Care Team Providers Care Behavioral Health Therapist Name Role Phone LILLIAM Villalpando Attending Unavailable DILEEP MCCLAIN Primary Unavailable Social History Type Status Start Date End Date Code Code Syst em Smoking History Former smoker 9392468 SNOMED CT Sex Male Hospital Discharge Instructions [...] Start Date Code Code Sys tem 08/11/2021 [id number] SNOMED-CT Personal Care Team Section Performer Name Performer Role Active Date Inactive Da te
--- OUTSIDE RECORDS SUMMARY | 2024-07-16 13:55 | XMS_ITS ---
Author Organization Unknown Address [address] [place] [phone] Phone Care Team Providers Care Academic Tutor Name Role Phone VERONICA Gr Attending Unavailable DILEEP MCCLAIN Primary Unavailable Results [facility] - Jennifer ect Date/Time: 09/06/2021 16:06 [facility] ID: [id number] [address] [place], [place], [phone] LOINC: 58735-5 Test Value Unit Reference Range Code Code System Flag Tier- EXPOSURE SARS COV2 RNA: NEGATIVE REFERENCE RANGE: NEGAT 08145-5 L OINC Social History Type Status Start Date End Date Code Code Syst em Smoking History Former smoker 6356197 SNOMED CT Sex Male Hospital Discharge Instructions [...] Code Sys tem Exposure to SARS-CoV-2 09/06/2021 816460449 SNOME D-CT Personal Care Team Section Performer Name Performer Role Active Date Inactive Da te
--- OUTSIDE RECORDS SUMMARY | 2024-07-16 13:55 | XMS_ITS ---
Author Organization Unknown Address [address] [place] [phone] Phone Care Team Providers Care Community Specialist Name Role Phone VERONICA Gr Attending Unavailable DILEEP MCCLAIN Primary Unavailable [facility] - Jennifer ect Date/Time: 09/20/2021 16:56 [facility] ID: [id number] [address] [place] [address], [id number] LOINC: 83108-0 Test Value Unit Reference Range Code Code System Flag Tier- SYMPTOMS SARS COV2 RNA: NEGATIVE REFERENCE RANGE: NEGAT 38335-6 L OINC Social History Type Status Start Date End Date Code Code Syst em Smoking History Former smoker 8070828 SNOMED CT Sex Male Hospital Discharge Instructions [...] Code Sys tem Exposure to SARS-CoV-2 09/20/2021 505609534 SNOME D-CT Personal Care Team Section Performer Name Performer Role Active Date Inactive Da te
--- OUTSIDE RECORDS SUMMARY | 2024-07-16 13:55 | XMS_ITS ---
Author Organization Unknown Address [address] [place] [phone] Phone Care Team Providers Care Gambling Broker Name Role Phone LILLIAM Villalpando Attending Unavailable DILEEP MCCLAIN Primary Unavailable Social History Type Status Start Date End Date Code Code Syst em Smoking History Former smoker 8867676 SNOMED CT Sex Male Hospital Discharge Instructions [...] Start Date Code Code Sys tem 10/04/2021 [id number] SNOMED-CT Personal Care Team Section Performer Name Performer Role Active Date Inactive Da te
--- OUTSIDE RECORDS SUMMARY | 2024-07-16 13:55 | XMS_ITS ---
Author Organization Unknown Address [address] [place] [phone] Phone Care Team Providers Care Stopperer Assembler Name Role Phone VERONICA Gr Attending Unavailable DILEEP MCCLAIN Primary Unavailable [facility] - Jennifer ect Date/Time: 09/01/2021 15:56 [facility] ID: [id number] [address] [place], [place], [id number] LOINC: 81607-2 Test Value Unit Reference Range Code Code System Flag Tier- EXPOSURE SARS COV2 RNA: NEGATIVE REFERENCE RANGE: NEGAT 73012-1 L OINC Social History Type Status Start Date End Date Code Code Syst em Smoking History Former smoker 4982449 SNOMED CT Sex Male Hospital Discharge Instructions [...] Code Sys tem Exposure to SARS-CoV-2 09/01/2021 456376864 SNOME D-CT Personal Care Team Section Performer Name Performer Role Active Date Inactive Da te
--- OUTSIDE RECORDS SUMMARY | 2024-07-16 13:56 | XMS_ITS ---
Author Organization Unknown Address [address] [place] [phone] Phone Care Team Providers Care Wool Batting Worker Name Role Phone VERONICA Gr Attending Unavailable DILEEPJOAN MCCLAIN Primary Unavailable Results [facility] - Jennifer ect Date/Time: 12/30/2021 10:04 [facility] ID: [id number] [address] [place] [address], [id number] LOINC: 15983-3 Test Value Unit Reference Range Code Code System Flag Tier- EXPOSURE 57341-3 LOINC SARS COV2 RNA: NEGATIVE REFERENCE RANGE: NEGAT 88705-2 L OINC Social History Type Status Start Date End Date Code Code Syst em Smoking History Former smoker 4761599 SNOMED CT Sex Male Hospital Discharge Instructions [...] Code Sys tem Exposure to SARS-CoV-2 12/30/2021 048387760 SNOME D-CT Personal Care Team Section Performer Name Performer Role Active Date Inactive Da te
--- OUTSIDE RECORDS SUMMARY | 2024-07-16 13:56 | XMS_ITS ---
Author Organization Unknown Address [address] [place] [phone] Phone Care Team Providers Care Campus Rep Name Role Phone VERONICA Gr Attending Unavailable DILEEP MCCLAIN Primary Unavailable [facility] - Jennifer ect Date/Time: 12/17/2021 09:48 [facility] ID: [id number] [address] [place], [place], [id number] LOINC: 68421-8 Test Value Unit Reference Range Code Code System Flag Tier- SYMPTOMS 13018-0 LOINC SARS COV2 RNA: NEGATIVE REFERENCE RANGE: NEGAT 23435-8 L OINC Social History Type Status Start Date End Date Code Code Syst em Smoking History Former smoker 9454804 SNOMED CT Sex Male Hospital Discharge Instructions [...] Code Sys tem Exposure to SARS-CoV-2 12/17/2021 876965631 SNOME D-CT Personal Care Team Section Performer Name Performer Role Active Date Inactive Da te
--- OUTSIDE RECORDS SUMMARY | 2024-07-16 13:56 | XMS_ITS ---
Author Organization Unknown Address [address] [place] [phone] Phone Care Team Providers Care Mitering Machine Operator Name Role Phone VERONICA Gr Attending Unavailable DILEEP MCCLAIN Primary Unavailable [facility] - Jennifer ect Date/Time: 11/22/2021 10:40 [facility] ID: [id number] [address] [place], [place], [phone] LOINC: 10243-7 Test Value Unit Reference Range Code Code System Flag Tier- SYMPTOMS 15639-4 LOINC SARS COV2 RNA: NEGATIVE REFERENCE RANGE: NEGAT 30021-1 L OINC Social History Type Status Start Date End Date Code Code Syst em Smoking History Former smoker 3192350 SNOMED CT Sex Male Hospital Discharge Instructions [...] Code Sys tem Exposure to SARS-CoV-2 11/22/2021 090840482 SNOME D-CT Personal Care Team Section Performer Name Performer Role Active Date Inactive Da te
--- OUTSIDE RECORDS SUMMARY | 2024-07-16 13:57 | XMS_ITS | Encounter Summary ---
Author Organization [facility] Address [address] [place] [address] Care Team Providers Care Disaster Response Director Name Role Phone Avery Finnegan MD Primary Care Provider [phone] Encounter Details Date Type Department Care Team (Late st Contact Info) Description 12/09/2020 Lab Requisition [facility] - [address] [address] Outr Resulting Lab, Provider Social History Tobacco Use Types Packs/Day Years Used Date Smoking Tobacco: Former Cigarettes Q uit: 01/22/1996 Smokeless Tobacco: Never Alcohol Use Standard Drinks/Week Comments No 0 (1 standard drink = 0.6 oz pure alcohol) prior hx overuse, dc 1 month ago Sex and Gender Information Value Date Recorded Sex Assigned at Not on file Legal Sex Male 17:19 EST Gender Identity Not on file Sexual Orientation [...] 151( 6 0:00 EST) No Pasha Garcia, RN documented as of this encounter Procedures Procedure Name Priority Date/Time Associated Diagnosis Comments HIV 1/2 ANTIGEN AND ANTIBODY, 4TH GENERATION Routine 12/08/2020 16:45 EDT documented in this encounter Results * HIV 1/2 ANTIGEN AND ANTIBODY, 4TH GENERATION (12/08/2020 16:45 EDT) HIV 1 and 2 Antibody/p24 Antigen, 4th Generation Negative Negative 12/10/2020 9:48 EDT [facility] Comment: If acute HIV-1 infection is suspected in a high risk ??patient, submit plasma specimen for HIV-1 RNA quantitation test. Fourth Generation assay performed on the Siemens Centaur. Blood VENOUS BLOOD / Unknown 12/08/2020 16:45 EDT 12/09/2020 16:14 EDT us Provider Outr Resulting Lab IMMUNOLOGY AND SEROL OGY ORDERABLES Final Result [facility] [address] [phone] documented in this encounter Visit Diagnoses Not on filedocumented in this encounter Care Teams Disaster Response Director Relationship Specialty Start Date End Date Avery Finnegan MD PCP - General 06/23/16 documented as of this encounter
--- OUTSIDE RECORDS SUMMARY | 2024-07-16 13:57 | XMS_ITS | Encounter Summary ---
Author Organization [facility] Address [address] [place] [address] Care Team Providers Care Biophysics Professor Name Role Phone Avery Finnegan MD Primary Care Provider [phone] Encounter Details Date Type Department Care Team (Late st Contact Info) Description 12/09/2020 Lab Requisition [facility] Pathology & Laboratory Medicine - [address] [address] Outr Resulting Lab, Provider Social History Tobacco [...] * PSA TOTAL, DIAGNOSTIC (12/08/2020 16:45 EDT) Pathologist [facility] PSA 0.6 0.0 - 4.5 ng/mL 12/09/2020 17:25 EDT [facility] Blood VENOUS BLOOD / Unknown 12/08/2020 16:45 EDT 12/09/2020 16:13 EDT Narrative [facility] - 12/09/2020 17:25 EDT NOTE: Serum PSA concentration should not be interpreted as absolute evidence for the presence or absence of malignant disease. Assayed on Qwicklyaur XPT using chemiluminescent technology.??Values obtained by using different assay methods cannot be used interchangeably. us Provider Outr Resulting Lab CHEMISTRY & BLOOD GA S ORDERABLES Final Result Performing Organization Address [facility]/ZIP Co de Phone Number [facility] [address] [place] [address] * HEPATITIS C AB W REFLEX TO HCV RNA BY PCR (12/08/2020 16:45 EDT) Pathologist [facility] Hep C Antibody Negative Negative 12/10/2020 10:08 EDT [facility] Blood VENOUS BLOOD / Unknown 12/08/2020 16:45 EDT 12/09/2020 16:13 EDT us Provider Outr Resulting Lab CHEMISTRY & BLOOD GA S ORDERABLES Final Result [facility] [address] [place] [address] documented in this encounter Visit Diagnoses Not on filedocumented in this encounter Care Teams Biophysics Professor Relationship Specialty Start Date End Date Avery Finnegan MD PCP - General 06/23/16 documented as of this encounter
--- OUTSIDE RECORDS SUMMARY | 2024-07-16 13:57 | XMS_ITS | Encounter Summary ---
Author Organization [facility] Address [address] [place] [address] Care Team Providers Care Gaming Pit Boss Name Role Phone Matty Mancilla MD Primary Care Provider Reason for Visit * Reason Onset Date Comments Medications Refill 03/18/2016 Encounter Details Date Type Department Care Team (Late st Contact Info) Description 03/18/2016 Telephone [facility] Family Medicine - [address] [place] [address] Matty Mancilla MD [address] [place] [address] [address] [place] [address] Medications Refill Social History Tobacco [...] Encounter - Analisa Genao RN - 03/18/2016 4646 EDT Patient got upset, said he had [...] schedule an appt right now. Pt uses [facility] in [place]. documented in this encounter Plan of Treatment Not on file documented as of this encounter Visit Diagnoses Not on filedocumented in this encounter Care Teams Gaming Pit Boss Relationship Specialty Start Date End Date Matty Mancilla MD [address] [place] [address] PCP - General 11/16/15 06/20/16 documented as of this encounter
--- OUTSIDE RECORDS SUMMARY | 2024-07-16 13:57 | XMS_ITS ---
Author Organization Unknown Address [address] [place] [phone] Phone Care Team Providers Care Edge Stainer Name Role Phone VERONICA WILEY MD Attending Unavailable Results [facility] - Colle ct Date/Time: 04/05/2021 11:11 [facility] ID: [id number] - [id number] [address] [place], [place], [address] LOINC: 99811-0 Test Value Unit Reference Range Code Code System Flag SOURCE= Anterior nasal Tier- EXPOSURE SARS COV2 RNA: NEGATIVE REFERENCE RAN GE: NEGAT 28056-3 LOINC Social History Type Status Start Date End Date Code Code Syst em Smoking History Former smoker 8512605 SNOMED CT Sex Male Hospital Discharge Instructions [...] Code Sys tem Exposure to SARS-CoV-2 04/05/2021 [id number] [facility] [place] Personal Care Team Section Performer Name Performer Role Active Date Inactive Da te
--- OUTSIDE RECORDS SUMMARY | 2024-07-16 13:57 | XMS_ITS | Encounter Summary ---
Author Organization [facility] Address [address] [place] [address] Care Team Providers Care Shook Splicer Name Role Phone Matty Mancilla MD Primary Care Provider Encounter Details Date Type Department Care Team (Late st Contact Info) Description 12/24/[address] [place] [address] Pasha Garcia RN Social History Tobacco [...] POINT OF CARE Blood specimen (specimen) 11/03/2015 Result [facility] Historical Provider HEMATOLOGY & PF4 ORDERABL ES Final Result POINT OF CARE * BASIC METABOLIC PANEL [...] POINT OF CARE Blood specimen (specimen) 11/03/2015 Result [facility] Historical Provider CHEMISTRY & BLOOD GAS ORD ERABLES Final Result Performing Organization Address [facility]/ZIP Co de Phone Number POINT OF CARE * PSA (11/03/2015) PSA 0.56 POINT OF CARE Blood specimen (specimen) 11/03/2015 Result [facility] Historical Provider CHEMISTRY & BLOOD GAS ORD ERABLES Final Result POINT OF CARE * TSH (11/03/2015) TSH, External 2.34 POINT OF CARE Blood specimen (specimen) 11/03/2015 Result [facility] Historical Provider CHEMISTRY & BLOOD GAS ORD ERABLES Final Result POINT OF CARE * HEMOGLOBIN A1C (11/03/2015) Hemoglobin A1C, External 6.2 POINT OF CARE Est Avg Glucose, External 120 POINT OF CARE Blood specimen (specimen) 11/03/2015 Historical Provider CHEMISTRY & BLOOD GAS ORD ERABLES Final Result Performing Organization Address City/[facility]/ZIP Co de Phone Number POINT OF CARE * TOTAL PROTEIN, URINE RANDOM (11/03/2015) Tot Prot,Ur Random, External 7.9 POINT OF CARE Total Protein, 24 Hour Calc, External POINT OF CARE Urine specimen (specimen) 11/03/2015 Historical Provider URINALYSIS ORDERABLES Fin al Result Performing Organization Address [facility] Co de Phone Number POINT OF CARE * LIPID PROFILE (INCLUDES CHOLESTEROL, TRIGLYCERIDES, HDL, LDL) (11/03/2015) Cholesterol, External 231 POINT OF CARE Triglycerides, External 111 POINT OF CARE HDL, External 58 POINT OF CARE LDL, External 151 POINT OF CARE Chol/HDL Ratio, External 40 POINT OF CARE Fasting?, External POINT OF CARE Blood specimen (specimen) 11/03/2015 Historical Provider CHEMISTRY & BLOOD GAS ORD ERABLES Final Result Performing Organization Address City/[facility]/ZIP Co de Phone Number POINT OF CARE documented in this encounter Visit Diagnoses Not on filedocumented in this encounter Care Teams Shook Splicer Relationship Specialty Start Date End Date Matty Mancilla MD [address] [place] [address] PCP - General 11/16/15 06/20/16 documented as of this encounter
--- OUTSIDE RECORDS SUMMARY | 2024-07-16 13:57 | XMS_ITS ---
Author Organization Unknown Address [address] [place] [phone] Phone Care Team Providers Care Sausage Meat Trimmer Name Role Phone DILEEP FRENCHILY Attending Unavailable [...] D Friday, February 11, 2022 12:55:40 PM [id number] Electronically Reviewed and Signed By: LATRELL ROBISON MD 02/11/22 18:28 Copy for: DILEEP MCCLAIN via fax Copy for: [facility] HEALTH INFORMATION MGMT Social History Type Status Start Date End Date Code Code Syst em Smoking History Former smoker 1586391 SNOMED CT Sex Male Hospital Discharge Instructions [...]
--- OUTSIDE RECORDS SUMMARY | 2024-07-16 13:57 | XMS_ITS ---
Author Organization Unknown Address [address] [place] [phone] Phone Care Team Providers Care Cryptanalyst Name Role Phone LEEANN MTZ Attending Unavailable DILEEP MCCLAIN Primary Unavailable Social History Type Status Start Date End Date Code Code Syst em Smoking History Former smoker 8525741 SNOMED CT Sex Male Hospital Discharge Instructions [...] Code Code Sys tem Pain in right shoulder 05/27/2024 [facility] Personal Care Team Section Performer Name Performer Role Active Date Inactive Da te
--- OUTSIDE RECORDS SUMMARY | 2024-07-16 13:57 | XMS_ITS | Encounter Summary ---
Author Organization [facility] Address [address] [place] [address] Care Team Providers Care Technical Service Representative Name Role Phone Avery Finnegan MD Primary Care Provider [phone] Encounter Details Date Type Department Care Team (Late st Contact Info) Description 12/20/2023 Lab Requisition [facility] Pathology & Laboratory Medicine - [address] [address] Outr Resulting Lab, Provider Social History Tobacco [...] 22.7 See Note ng/mL 12/20/2023 18:51 EDT [facility] Comment: Reference Ranges for Folate: Deficient: ?< 3.4 ng/mL Indeterminate: ??3.4 - 5.4 ng/mL Normal: ? > 5.4 ng/mL The results of this assay can be falsely elevated due to the consumption of Biotin. Blood VENOUS BLOOD / Unknown 12/19/2023 8:26 EDT 12/20/2023 17:35 EDT us Provider Outr Resulting Lab CHEMISTRY & BLOOD GA S ORDERABLES Final Result Performing Organization Address City/State/[facility] Co de Phone Number [facility] [address] [place] [address] documented in this encounter Visit Diagnoses Not on filedocumented in this encounter Care Teams Technical Service Representative Relationship Specialty Start Date End Date Avery Finnegan MD PCP - General 06/23/16 documented as of this encounter
--- OUTSIDE RECORDS SUMMARY | 2024-07-16 13:57 | XMS_ITS | Encounter Summary ---
Author Organization [facility] Address [address] [place] [address] Care Team Providers Care Change Release Manager Name Role Phone Matty Mancilla MD Primary Care Provider Reason for Referral * Consult, Test and Treat (Routine/Next Available) - Closed Specialty Diagnoses / Procedures Referred By Jhonny baer Referred To Contact Gastroenterology Diagnoses Rectal bleed Screen for colon cancer Procedures COLONOSCOPY Matty Mancilla MD Phone: tel: fax: Dustin Warner MD Phone: tel: fax: Referral ID Status Reason Start Date Expiration Date Visits Re quested Visits Authorized [id number] Closed 01/22/2016 1 1 * Consult (Routine/Next Available) - Closed Specialty Diagnoses / Procedures Referred By Contsai t Referred To Contact Allergy and Immunology Diagnoses Food hypersensitivity Bee sting allergy Matty Mancilla MD Phone: tel: fax: López Pollard MD Phone: tel: fax: Referral ID Status Reason Start Date Expiration Date V isits Requested Visits Authorized [id number] Closed Specialty Services Required 01/22/2016 1 1 Question Answer Reason for Request: 1. bee sting allergy 2. ?food allergy Comments Allergy marybeth Reason for Visit * Reason Comments New Patient Visit [place]. from Dr. Agustin johnson Diabetes Pre-diabetes - Natasha rned about recent lab results. See scans Allergy Testing [place] - [place] part of family, pt believes bee stings/honey Blood in stool Gastroesophageal Reflux Stopped taking P rilosec Encounter Details Date Type Department Care Team (Late st Contact Info) Description 01/22/2016 15:00 EDT Office Visit [place] [address] [facility] [address] [place] [address] Matty Mancilla MD [address] [place] [address] [address] [place] [address] Essential hypertension with goal blood pressure less [...] Progress Notes * Matty Mancilla - 01/23/2016 0969 EDT REASON FOR VISIT: Initial patient visit. SUBJECTIVE: A 60-year-old generally active and in good health. Is here for initial visit. Previously had been a patient at the [facility]. He is relocating as primary care physician is nearing shelter. MEDICAL HISTORY: Reviewed with the patient and [...] currently. Nodrug use. The patient works in [employer]. Lives in [place] with girlfriend. He does have 2 older [...] Labs reviewed from 3 months ago at [facility], generally appears to be doing well. [...] need to follow up as needed at [facility] or [facility] regarding this. PROBLEM 7: Mild extremity edema [...] may reflect changes made after this encounter. buPROPion (WELLBUTRIN) 100 mg tablet Take 1.5 [...] tablet Take 10 mg by mouth daily. lisinopril-hydro chlorothiazide (PRINZIDE, ZESTORETIC) 20-25 mg per tablet Take 1 Tab by mouth daily. buPROPion (WELLBUTRIN) 100 mg tablet Take 150 mg by mouth 2 times daily. 01/23/2016 omeprazole (PRILOSEC) 20 mg capsule Take 20 mg by mouth as needed. 01/23/2016 added in this encounter Care Teams Change Release Manager Relationship Specialty Start Date End Date Matty Mancilla MD [address] [place] [address] PCP - General 11/16/15 06/20/16 documented as of this encounter
--- OUTSIDE RECORDS SUMMARY | 2024-07-16 13:57 | XMS_ITS | Clinical Summary ---
Author Organization [facility] Address [address] [place] [address] Care Team Providers Care Real Estate Transaction Manager Name Role Phone Avery Finnegan MD Primary Care Provider [phone] Allergies Active Allergy Reactions Criticality Noted Date Comments Sulfa (Sulfonamide Antibiotics) 05/30 Medications aspirin 81 mg EC tablet Take 1 Tab by mouth daily. 30 Tab 0 06/26/2011 Active lisinopril-hydr ochlorothiazide (PRINZIDE, ZESTORETIC) 20-25 mg per tablet Take [...] Problem Noted Date Diagnosed Date Depression 01/23/2016 Overview (01/23/2016): SAD variant Bilateral edema of lower extremity 01/22/2016 Gastroesophageal reflux disease without esophagi tis 01/22/2016 HTN (hypertension) 12/24/2015 Hyperlipidemia 12/24/2015 Obstructive sleep apnea 12/24/2015 Overview (01/22/2016): BIPAP Erectile dysfunction 12/24/2015 Internal hemorrhoids 12/24/2015 H/O vasectomy 12/24/2015 Overview (12/24/2015): 01/07 Immunizations Name Administration Dates Next Due [...] Health Maintenance Due Date Last Done Comments Fall Risk Screening 12/27/2019 COVID-19 Vaccine ( season) 2024 RSV Immunization ( o r 60+ Years) (1 - 1-dose 75+ series) 2029 Colonoscopy (Colon Cancer Screening) Discontinued 08/2006 Colorectal [...] C Antibody Negative Negative 12/10/2020 10:08 EDT [facility] Blood VENOUS BLOOD / Unknown 12/08/2020 16:45 EDT 12/09/2020 16:13 EDT us Provider Outr Resulting Lab CHEMISTRY & BLOOD GA S ORDERABLES Final Result [facility] [address] [place] [address] from Last 3 Months or Most Recently Relevant to Health Maintenance Care Teams Real Estate Transaction Manager Relationship Specialty Start Date End Date Avery Finnegan MD PCP - General 06/23/16
--- OUTSIDE RECORDS SUMMARY | 2024-07-16 13:57 | XMS_ITS | Encounter Summary ---
Author Organization [facility] Address [address] [place] [address] Care Team Providers Care Load Checker Name Role Phone Avery Finnegan MD Primary Care Provider Encounter Details Date Type Department Care Team (Late st Contact Info) Description 07/15/2021 Lab Requisition [facility] Pathology & Laboratory Medicine - [address] [address] Outr Resulting Lab, Provider Social History Tobacco [...] 13.2 See Note ng/mL 07/15/2021 22:32 EST [facility] Comment: Reference Ranges for Folate: Deficient: ?< 3.4 ng/mL Indeterminate: ??3.4 - 5.4 ng/mL Normal: ? > 5.4 ng/mL The results of this assay can be falsely elevated due to the consumption of Biotin. Blood VENOUS BLOOD / Unknown 07/13/2021 15:40 EST 07/15/2021 21:06 EST us Provider Outr Resulting Lab CHEMISTRY & BLOOD GA S ORDERABLES Final Result Performing Organization Address [facility] Co de Phone Number [facility] [address] [place] [address] * VITAMIN B12 (07/13/2021 15:40 EST) Vitamin B12 441 211 - 911 pg/mL 07/15/2021 22:33 EST [facility] Blood VENOUS BLOOD / Unknown 07/13/2021 15:40 EST 07/15/2021 21:06 EST Provider Outr Resulting Lab CHEMISTRY & BLOOD GA S ORDERABLES Final Result Performing Organization Address City/[facility] Co de Phone Number [facility] [address] [place] [address] documented in this encounter Visit Diagnoses Not on filedocumented in this encounter Care Teams Load Checker Relationship Specialty Start Date End Date Avery Finnegan MD PCP - General 06/23/16 documented as of this encounter
--- OUTSIDE RECORDS SUMMARY | 2024-07-16 13:57 | XMS_ITS | Referral Summary ---
Author Organization [facility] Address [address] [place] [address] Care Team Providers Care Juvenile Counselor Name Role Phone Avery Finnegan MD Primary Care Provider [phone] Allergies Active Allergy Reactions Criticality Noted Date [...] 151( 6 0:00 EST) No Pasha Garcia, integrated circuit layout designer Procedure Name Priority Date/Time Associated Diagnosis Comments HEPATITIS C AB W REFLEX TO HCV RNA BY PCR Routine 12/08/2020 16:45 EDT from Last 3 Months or Most Recently Relevant to Health Maintenance Results * HEPATITIS C AB W REFLEX TO HCV RNA BY PCR (12/08/2020 16:45 EDT) Hep C Antibody Negative Negative 12/10/2020 10:08 EDT [facility] Blood VENOUS BLOOD / Unknown 12/08/2020 16:45 EDT 12/09/2020 16:13 EDT us Provider Outr Resulting Lab CHEMISTRY & BLOOD GA S ORDERABLES Final Result [facility] [address] [place] [id number] from Last 3 Months or Most Recently Relevant to Health Maintenance Care Teams Juvenile Counselor Relationship Specialty Start Date End Date Avery Finnegan MD PCP - General 06/23/16
--- OUTSIDE RECORDS SUMMARY | 2024-07-16 13:58 | XMS_ITS | Encounter Summary ---
Author Organization [facility] Address [facility] [place] [place] [address] Care Team Providers Care Butter Maker Name Role Phone Mercedes Miles MD Primary Care Provider [phone] Encounter Details Date Type Department Care Team (Late st Contact Info) Description 10/04/2023 Orders Only Cardiology at [address] [address] Dustin Kenyon MD [facility] [place] [address] Hypertension, unspecified type Social History Tobacco Use [...] type documented in this encounter Care Teams Butter Maker Relationship Specialty Start Date End Date Mercedes Miles MD [address] [place] [address] PCP - General Family Medicine 07/24/23 documented as of this encounter
--- OUTSIDE RECORDS SUMMARY | 2024-07-16 13:58 | XMS_ITS | Encounter Summary ---
Author Organization [facility] Address [facility] [place] [address] Care Team Providers Care Solar Field Service Technician Name Role Phone Michelle Cooper APRN Primary Care Provider [phone] Reason for Visit * Reason Onset Date Comments Follow Up Surgery 01/12/2022 Encounter Details Date Type Department Care Team (Late st Contact Info) Description 01/12/2022 Telephone [place] [phone] Zofia Paz PA [facility] [place] [address] Follow Up Surgery Social History Tobacco Use [...] 2 documented in this encounter Care Teams Solar Field Service Technician Relationship Specialty Start Date End Date Michelle Cooper APRN [address] [place] [address] PCP - General Family Medicine 09/25/20 07/23/23 documented as of this encounter
--- OUTSIDE RECORDS SUMMARY | 2024-07-16 13:58 | XMS_ITS | Encounter Summary ---
Author Organization [facility] [place] [address] Care Team Providers Care Elect Equip Maint Eng Name Role Phone Michelle Cooper Anyi PRITCHETT Primary Care Provider [phone] Encounter Details Date Type Department Care Team (Late st Contact Info) Description 04/25/2022 Refill Cardiology at [address] [phone] Cameron Chavez RN Social History Tobacco Use [...] new prescription to local pharmacy). Lele Chavez RNdining room server Team Nurse [facility] Ambulatory Cardiology * Telephone Encounter - Cameron [...] to Dr. Kenyon as requested. Lele Chavez RNdining room server Team Nurse [facility] Ambulatory Cardiology documented in this encounter Plan of Treatment Not on file documented as of this encounter Visit Diagnoses Not on filedocumented in this encounter Care Teams Elect Equip Maint Eng Relationship Specialty Start Date End Date Michelle Cooper APRN [address] [place] [address] PCP - General Family Medicine 09/25/20 07/23/23 documented as of this encounter
--- OUTSIDE RECORDS SUMMARY | 2024-07-16 13:58 | XMS_ITS | Encounter Summary ---
[place] [address] Care Team Providers Care Tile Inspector Name Role Phone Mercedes Miles MD Primary Care Provider [phone] Reason for Referral * Diagnostic Test (Routine) - Closed Specialty Diagnoses / Procedures Referred By Contac t Referred To Contact Cardiology Diagnoses Chest pain, exertional Procedures Echocardiogram Transthoracic Kimberly Kenyon MD [facility] [place] [address] [facility] [place] [address] Referral ID Status Reason Start Date Expiration Date V isits Requested Visits Authorized [id number] Closed Specialty Service Requested 09/28/2023 09/27/2024 1 1 Reason for Visit * Diagnostic Test (Routine) - Closed Specialty Diagnoses / Procedures Referred By Contac t Referred To Contact Cardiology Diagnoses Chest pain, exertional Procedures Echocardiogram Transthoracic Kimberly Kenyon MD [facility] [address] [facility] [place] [address] Referral ID Status Reason Start Date Expiration Date V isits Requested Visits Authorized [id number] Closed Specialty Service Requested 09/28/2023 09/27/2024 1 1 Encounter Details Date Type Department Care Team (Latest Contact Info) Description 09/28/2023 11:41 AM EST - 09/28/2023 11:59 PM EST Hospital Encounter Non-Invasive Cardiology Lab [place] [address] Kimberly Kenyon MD [facility] [place] [address] Chest pain, exertional Discharge Disposition: Home Social [...] EST Narrative 09/28/2023 2:28 PM EST [address] [place] [address] ? Echocardiogram Report Name: JAVON LOPEZ ? Study Date: 09/28/2023 12:01 PMBP: 139/70 mmHg ? Patient Location: : 1955 ? Height: 173 cm ? Account: [id number] Age: 67 yrs ? Weight: 114 kg Gender: Male ?BSA: 2.3 m2 Ordering Physician: KIMBERLY KENYON Referring Physician: KIMBERLY KENYON Performed By: Juany Mak Reason For Study: Chest pain, exertional History: Chest pain Interpreting Fellow: Abby Riggs. Exam Location: [facility]. Interpretation Summary - Normal left ventricular wall thickness, cavity size, systolic and diastolic function. LVEF is 57% by Murguia's biplane. There are no segmental wall motion abnormalities. - Normal right ventricular size and systolic function. - Normal atrial size. - There is no hemodynamically significant valvular disease. - There is no prior echocardiogram available for comparison. Procedure Complete-[id number]. Satisfactory quality. There is sinus bradycardia. There [...] Note Bernardino Lassiter MD - 09/28/2023 1 [place] [id number] Echocardiogram Report Name: JAVON LOPEZ Study Date: 2:01 PMBP: 139/70 mmHg Patient Location: : 1955 Height: 173 cm Account: [id number] Age: 67 yrs Weight: 114 kg Gender: Male BSA: 2.3 m2 Ordering Physician: KIMBERLY KENYON Referring Physician: KIMBERLY KENYON Performed By: Juany Mak Reason For Study: Chest pain, exertional History: Chest pain Interpreting Fellow: Abby Riggs. Exam Location: [facility]. Interpretation Summary - Normal left ventricular wall thickness, cavity size, systolic anddiastolic function. LVEF is 57% by Murguia's biplane. There are no segmental wallmotion abnormalities. - Normal right ventricular size and systolic function. - Normal atrial size. - There is no hemodynamically significant valvular disease. - There is no prior echocardiogram available for comparison. Procedure Complete-[id number]. Satisfactory quality. There is sinus bradycardia. There [...] unspecified documented in this encounter Care Teams Tile Inspector Relationship Specialty Start Date End Date Mercedes Miles MD [address] [place] [address] PCP - General Family Medicine 07/24/23 documented as of this encounter
--- OUTSIDE RECORDS SUMMARY | 2024-07-16 13:58 | XMS_ITS | Encounter Summary ---
Author Organization Counts Include [address] [facility] Address [facility] [place] [address] Care Team Providers Care Neurosurgical Nurse Practitioner Name Role Phone Mercedes Miles MD Primary Care Provider [phone] Encounter Details Date Type Department Care Team (Late st Contact Info) Description 07/17/2023 Orders Only Cardiology at [address] [address] Kimberly Kenyon MD [facility] [address] Hyperlipidemia, unspecified hyperlipidemia type Social History Tobacco [...] (Reflex Direct LDL) (12/14/2023 8:12 AM EDT) [facility] Cholesterol, Total 148 mg/dL [facility] Comment: Desirable: ? <200 mg/dL Borderline High: 200-239 mg/dL Higher: ?>au=512 mg/dL Triglyceride 76 mg/dL [facility] Comment: Normal: ?<150 mg/dL Borderline High: 150-199 mg/dL High: ?200-499 mg/dL Very High: ? >ub=545 mg/dL HDL Cholesterol 53 mg/dL [facility] Comment: Females: High Risk: <50 mg/dL Males: High Risk: <40 mg/dL LDL Cholesterol 80 mg/dL [facility] Comment: Desirable: ? <100 mg/dL Above Desirable: 100-129 mg/dL Borderline High: 130-159 mg/dL High: ?160-189 mg/dL Very High: ? >hw=356 mg/dL Lipid Interpretation See Note [facility] Comment: It is important to review [...] ACC/AHA Guidelines (most recently Salomón et al. [facility] 05/31/22): For individuals with atherosclerotic cardiovascular disease (ASCVD)or LDL >np=109 mg/dL, use a high-intensity statin (40-80 mg [...] In Lab Kimberly Kenyon MD CHEMISTRY ORDERABLES [facility] [place] [id number] documented in this encounter Visit Diagnoses Diagnosis Hyperlipidemia, unspecified hyperlipidemia type documented in this encounter Care Teams Neurosurgical Nurse Practitioner Relationship Specialty Start Date End Date Mercedes Miles MD [address] [place] [address] PCP - General Family Medicine 07/24/23 documented as of this encounter
--- OUTSIDE RECORDS SUMMARY | 2024-07-16 13:58 | XMS_ITS | Encounter Summary ---
Author Organization [facility] [place] [address] Care Team Providers Care Photogrammetric Tech Name Role Phone Mercedes Miles MD Primary Care Provider [phone] Reason for Referral * Diagnostic Test (Routine) - Closed Specialty Diagnoses / Procedures Referred By Contac t Referred To Contact Radiology Diagnoses Chest pain, exertional Procedures CT Angiogram Coronary Arteries Dustin Kenyon MD [facility] [place] [address] [facility] [place] [address] Referral ID Status Reason Start Date Expiration Date V isits Requested Visits Authorized [id number] Closed Specialty Service Requested 10/04/2023 04/03/2025 1 1 Encounter Details Date Type Department Care Team (Late st Contact Info) Description 10/03/2023 Telephone Cardiology at [address] [address] Pauline Ordoñez RN Social History [...] it is fine to communicate via phone- [phone] or through the [employer] portal. Mr. Elliott understands I will forward [...] Angiogram Coronary Arteries (12/14/2023 9:43 AM EDT) [employer] Signature WORKSTATION ID [id number] RAD Anatomical Region Laterality Modality Cardiac Computed [...] have questions please contact the health care professionals that requested your imaging first. ? Electronically signed by: Erin Kessler MD, [facility] ([phone]), at 12/15/2023 3:51 PM Narrative 12/15/2023 3:51 [...] who have questions please contactthe health care professionals that requested your imaging first. Dustin Kenyon MD IMG CT ORDERABLES documented in this encounter Visit Diagnoses Diagnosis Chest pain, exertional Chest pain, unspecified Chest pain, exertional Chest pain, unspecified documented in this encounter Care Teams Photogrammetric Tech Relationship Specialty Start Date End Date Mercedes Miles MD [address] [place] [address] PCP - General Family Medicine 07/24/23 documented as of this encounter
--- OUTSIDE RECORDS SUMMARY | 2024-07-16 13:58 | XMS_ITS | Encounter Summary ---
Author Organization [facility] Address [address] [place] [address] Care Team Providers Care Supervisor Vacuum Metalizing Name Role Phone Unavailable Primary Care Provider Unavailabl e Encounter Details Date Type Department Care Team (Latest Contact Info) Description 12/29/2006 9:04 EDT - 12/29/2006 11:59 EDT Hospital Encounter [address] [address] Racheal Sánchez MD [address] [place] [address] [address] [place] [id number] Discharge Disposition: Auto Discharge Social History Tobacco [...] * Racheal Sánchez - 12/29/2006 0000 EDT [facility] PROGRESS/FOLLOWUP NOTE - 12/29/2006 [...] T: 10:00 A - lbr Job ID: [id number] Document ID: [id number] cc: Shiv Henley MD documented in this encounter Plan of Treatment Not on file documented as of this encounter Visit Diagnoses Not on filedocumented in this encounter
--- OUTSIDE RECORDS SUMMARY | 2024-07-16 13:58 | XMS_ITS | Encounter Summary ---
Author Organization [facility] [place] [address] Care Team Providers Care As400 Analyst Name Role Phone Mercedes Miles MD Primary Care Provider [phone] Reason for Visit * Auth/Cert (Routine) Specialty Diagnoses / Procedures Referred By Contac t Referred To Contact Diagnoses Chest pain, exertional Chest pain, exertional [R07.9] Procedures PRG CATH PLMT LEFT HEART CATH & ARTS W/INJ & ANGIO IMG S&I CARDIAC CATHETERIZATION CORONARY ANGIOGRAPHY; W LHC,POSSIBLE PCI (WRVU 5.6) Dustin Kenyon MD [facility] [place] [address] [facility] Referral ID Status Reason Start Date Expiration Date Visits Re quested Visits Authorized [id number] 1 1 Encounter Details Date Type Department Care Team (Latest Contact Info) Description 02/09/2024 10:48 AM EDT - 02/09/2024 5:35 PM EDT Hospital Encounter [place] [address] Dustin Kenyon MD [facility] [address] [place], [place] [id number] Chest pain, exertional Discharge Disposition: Home Social [...] Your Primary Care Provider: Mercedes Miles MD [phone] For questions regarding this document or issues relating to this hospitalization on the Medical Service, please contact your inpatient physician through the [facility] Packaging Coordinator . Issues afterhours and on weekends will [...] Modality Other Narrative 02/09/2024 2:22 PM EDT ?[facility] ? Cardiac Catheterization/Intervention Report ? Patient Name: Tomas Elliott. ? Procedure Date: 02/09/2024 ? A #: [id number] ? Primary Physician: Dustin Kenyon ? Case #: [id number] ? File Name: [id number] ? Catheterization Order Number: [id number] ? [facility] ? Final Report [place], [place] ? Patient Name: ? Tomas D. Brgant ?ID#: ?[id number] ? : ?1955 ? Procedure Date: ? February 09, 2024 ?Case #: ? [id number] ? Room: ? 6 ? Case Physician: ? Dustin Kenyon M.D. ? Start: ?13:47 ?Fellow: ? Paulo Richard M.D. ?Admission: ??02/09/2024 ? Procedures: ?* Coronary [...] procedure was Urgent. 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 Chest pain symptom [...] Procedure Note Dustin Kenyon MD - 02/09/2024 [facility] Cardiac Catheterization/Intervention Report Patient Name: Tomas Elliott Procedure Date: 02/09/2024 A #: [id number] Primary Physician: Dustin Kenyon Case #: [id number] File Name: [id number] Catheterization Order Number: [id number] [facility] FinalReport [place], [place] Patient Name: Tomas Elliott ID#:[id number] :1955 Procedure Date: February 09, 2024 Case #: [id number] Room: 6 Case Physician: Dustin Kenyon M.D. Start: 13:47 Fellow: Paulo Ramos M.D. Admission:02/09/2024 Procedures: * Coronary Angiography * Left Heart Catheterization History Tomas Elliott is a 68 year old man. He has hypertension. Thepatient's smoking status is Never. Prior to the initiation of this procedure,the patient was designated as ASA Class II. The [facility] clinical frailtyscale is 3: Managing Well. Diagnostic [...] diagnostic procedure was Urgent. 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 Chest pain symptomassessment [...] POCT Glucose (02/09/2024 12:14 PM EDT) Pathologist [facility] Glucose, POC 104 65 - 199 mg/dL [facility] Comment: Supplemental ranges: <140 mg/dL before meals <180 mg/dL all other times of the day Blood 02/09/2024 12:1 4 PM EDT 02/09/2024 12:14 PM EDT Dustin Kenyon MD POINT OF CARE TEST O RDERABLES [facility] [place] [address] * Differential, Automated (02/09/2024 11:15 AM EDT) [facility] Neutrophil % 57.3 % [facility] Neutrophil Absolute 3.33 1.70 - 6.10 x10(3)/[facility] Lymph % 29.4 % [facility] Lymphocytes Abs 1.7 0.9 - 3.2 x10(3)/[facility] [place] [facility] Monocyte % 9.1 % [facility] Monocyte Abs 0.5 0.3 - 0.9 x10(3)/[facility] Eos % 3.1 % [facility] Eosinophils Abs 0.2 0.0 - 0.4 x10(3)/[facility] Basophil % 0.9 % [facility] Baso Absolute 0.0 0.0 - 0.1 x10(3)/[facility] Immature Gran % 0.20 % [facility] Comment: Immature granulocytes(IG's)percentage and absolute count will include metamyelocytes, myelocytes, and promyelocytes. Blood smears from CBCs yielding IG's will be scanned manually for concordance. If this scan disagrees with the automated IG or if promyelocytes are noted, a manual differential will be performed. Immature Gran Absolute 0.01 0.00 - 0.04 x10(3)/[facility] Blood 02/09/2024 11:1 5 AM EDT 02/09/2024 11:53 AM EDT Narrative Resulting Agency Comment Spec In Lab Dustin Kenyon MD HEMATOLOGY ORDERABLE S [facility] [place] [address] * (ABNORMAL) Hemogram (02/09/2024 11:15 AM EDT) White Blood Cell 5.8 4.0 - 9.5 x10(3)/[facility] Red Blood Cell 3.93(L) 4.58 - 5.54 x10(6)/[facility] Hemoglobin 12.9(L) 13.7 - 16.5 g/dL [facility] Hematocrit 38.7(L) 40.5 - 48.5 % [facility] Mean Cell Volume 98.5(H) 82.9 - 93.1 [facility] Mean Cell Hemoglobin 32.8(H) 27.5 - 32.1 pg [facility] Mean Cell Hemoglobin Concentration 33.3 32.0 - 35.7 g/dL [facility] Platelet 170 145 - 357 x10(3)/[facility] RDW Standard Deviation 45.2(H) 36.0 - 45.0 [facility] RDW coefficient of variation 12.3 11.4 - 13.8 % [facility] Mean Platelet Volume 10.0 7.6 - 12.9 [facility] NRBC% auto 0.0 % [facility] NRBC Absolute 0.000 0.000 - 0.000 x10(3)/[facility] Blood 02/09/2024 11:1 5 AM EDT 02/09/2024 11:53 AM EDT Narrative Resulting Agency Comment Spec In Lab Dustin Kenyon MD HEMATOLOGY ORDERABLE S [facility] [place] [address] * (ABNORMAL) Basic Metabolic Panel (non-fasting) (02/09/2024 11:15 AM EDT) Glucose 101 65 - 199 mg/dL [facility] Comment:Diabetes: >=200 mg/d L plus symptoms Blood Urea Nitrogen 15 10 - 20 mg/dL [facility] Creatinine 0.71(L) 0.80 - 1.50 mg/dL [facility] Sodium 139 135 - 145 mmol/L [facility] Potassium 3.9 3.5 - 5.0 mmol/L [facility] Comment: Please note: ??Patients with WBC >100,000 may have falsely elevated Potassium levels. ??For accurate Potassium quantification in these patients send serum separator tube (gold top) for subsequent determinations. ??Contact the Clinical Chemistry Laboratory if there are any questions. Chloride 102 98 - 107 mmol/L [facility] Carbon Dioxide 27 22 - 31 mmol/L [facility] Anion Gap 10 5 - 15 mmol/L [facility] Calcium 9.3 8.5 - 10.5 mg/dL [facility] Est Glomerular Filtration Rate 99 >=60 mL/min/1. 73 m?? [facility] Comment: This patient's estimated GFR [...] In Lab Dustin Kenyon MD CHEMISTRY ORDERABLES [facility] [place] [address] documented in this encounter Visit Diagnoses Diagnosis [...] MD) documented in this encounter Care Teams As400 Analyst Relationship Specialty Start Date End Date Mercedes Miles MD [address] [place] [address] PCP - General Family Medicine 07/24/23 documented as of this encounter
--- OUTSIDE RECORDS SUMMARY | 2024-07-16 13:58 | XMS_ITS | Encounter Summary ---
Author Organization [facility] Address [facility] [place] [address] Care Team Providers Care Ovens Supervisor Name Role Phone Mercedes Miles MD Primary Care Provider [phone] Encounter Details Date Type Department Care Team (Late st Contact Info) Description 04/03/2024 11:40 AM EDT Office Visit Cardiology at [address] [phone] Dustin Kenyon MD [facility] [place] [address] Chest pain, exertional Social History Tobacco Use Types Packs/Day Years Used Date Smoking Tobacco: Former Cigarettes Q uit: 1979 Smokeless Tobacco: Former Quit: 1979 Alcohol Use Standard Drinks/Week Comments Not Currently 0 (1 standard drink = 0.6 oz pur e alcohol) IPV Inpatient Questions Answer Date Recorded Does [...] from the original note were not included. [facility] [place] [address] Referring Provider: Mercedes Miles MD [address] [place] [address] Reason for Consultation / Chief Complaint: chest [...] unspecified documented in this encounter Care Teams Ovens Supervisor Relationship Specialty Start Date End Date Mercedes Miles MD [address] [place] [address] PCP - General Family Medicine 07/24/23 documented as of this encounter
--- OUTSIDE RECORDS SUMMARY | 2024-07-16 13:58 | XMS_ITS | Encounter Summary ---
Author Organization [facility] [place] [address] Care Team Providers Care Collection Specialist Name Role Phone Michelle Cooper APRN Primary Care Provider [phone] Reason for Referral * Consultation (Routine) - Closed Specialty Diagnoses / Procedures Referred By Contac t Referred To Contact Cardiology Diagnoses Exertional chest pain Ongoing exertional chest pain Michelle Cooper APRN [address] [place] [address] [facility] [address] [place] [phone] Referral ID Status Reason Start Date Expiration Date V isits Requested Visits Authorized [id number] Closed Consult, Test & Treat 03/04/2022 03/04/2023 1 1 Encounter Details Date Type Department Care Team (Latest Contact Info) Description 03/04/2022 Transcribe Orders eDH Incoming Referrals [phone] Michelle Cooper APRN [address] [place], [place] [id number] Exertional chest pain Social History Tobacco Use [...] unspecified documented in this encounter Care Teams Collection Specialist Relationship Specialty Start Date End Date Micehlle Cooper APRN [address] [place] [address] PCP - General Family Medicine 09/25/20 07/23/23 documented as of this encounter
--- OUTSIDE RECORDS SUMMARY | 2024-07-16 13:58 | XMS_ITS | Encounter Summary ---
Author Organization [facility] Address [address] [place] [address] Care Team Providers Care Coke Burner Name Role Phone Unavailable Primary Care Provider Unavailabl e Encounter Details Date Type Department Care Team (Late st Contact Info) Description 11/10/2006 Before PRISM Converted Visit (Maple) [facility] - Maple conversion [address] [place], [place] [address] Racheal Sánchez MD [address] [place] [address] [address] [place] [address] Social History Tobacco Use Types Packs/Day Years Used Date Smoking Tobacco: Never Assessed Sex and Gender Information Value Date Recorded Sex Assigned at Not on file Legal Sex Male 17:19 EST Gender Identity Not on file Sexual Orientation Not on file documented as of this encounter Consult Notes * Racheal Sánchez - 06/30/2009 1152 EST CONSULTATION - 11/10/2006 [facility] REQUESTING PROVIDER Shiv Henley MD HPI [...] and has a poorenergy throughout the day. [place] sleepiness scale score is 16/24. He has [...] thinks that he probably broke his nose playingbasketball when he was younger but there is [...] who he lives with. 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 FAMILY HISTORY He thinks his grandmother [...] Sánchez MD A - rebeca Job ID: [id number] Document ID: [id number] cc: Shiv Henley MD documented in this encounter Plan of Treatment Not on file documented as of this encounter Visit Diagnoses Not on filedocumented in this encounter
--- OUTSIDE RECORDS SUMMARY | 2024-07-16 13:58 | XMS_ITS | Encounter Summary ---
Author Organization [facility] [place] [address] Care Team Providers Care Detonator Assembler Name Role Phone Mercedes Miles MD Primary Care Provider [phone] Reason for Visit * Reason Comments Medication Refill Encounter Details Date Type Department Care Team (Late st Contact Info) Description 01/04/2024 Refill Cardiology at [address] [address] Dustin Kenyon MD [facility] [place] [address] Medication Refill Social History Tobacco Use Types [...] type documented in this encounter Care Teams Detonator Assembler Relationship Specialty Start Date End Date Mercedes Miles MD [address] [place] [address] PCP - General Family Medicine 07/24/23 documented as of this encounter
--- OUTSIDE RECORDS SUMMARY | 2024-07-16 13:58 | XMS_ITS | Encounter Summary ---
Author Organization [facility] [address] Care Team Providers Care Rewind Operator Name Role Phone Mercedes Miles MD Primary Care Provider [phone] Encounter Details Date Type Department Care Team (Late st Contact Info) Description 12/18/2023 Telephone Cardiology at [address] [phone] Dustin Kenyon MD [facility] [place] [place] [address] Social History Tobacco Use Types Packs/Day Years [...] on filedocumented in this encounter Care Teams Rewind Operator Relationship Specialty Start Date End Date Mercedes Miles MD [address] [place] [address] PCP - General Family Medicine 07/24/23 documented as of this encounter
--- OUTSIDE RECORDS SUMMARY | 2024-07-16 13:58 | XMS_ITS | Encounter Summary ---
Author Organization [facility] Address [address] [place] [address] Care Team Providers Care Developmental Behavioral Physician Name Role Phone Unavailable Primary Care Provider Unavailabl e Encounter Details Date Type Department Care Team (Late st Contact Info) Description 03/13/2001 12:21 EDT Hospital Encounter [facility] [address] [place] [address] Tash Muñoz MD [address] [place], [place] [address] [place] [address] Unknown, Provider, Social History Tobacco Use Types [...] ? JAVON LOPEZ ? Accession #: ? [id number] ? : ? 1955 (Age: 45) ??M [...] spongy cut surfaces filled with clotted blood. Lift Driver sections are submitted as (A1) and (A2). ??(Dr. Mai)/[facility] End of Report [facility] 03/13/2001 03/15/2001 11: 59 EDT us Tash Muñoz MD PATHOLOGY ORDERABLES Final Res ult [facility] [address] [place] [address] documented in this encounter Visit Diagnoses Not on filedocumented in this encounter
--- OUTSIDE RECORDS SUMMARY | 2024-07-16 13:58 | XMS_ITS | Encounter Summary ---
Author Organization [facility] Address [facility] [place] [address] Care Team Providers Care Employment Coach Name Role Phone Mercedes Miles MD Primary Care Provider [phone] Encounter Details Date Type Department Care Team (Late st Contact Info) Description 01/18/2024 Orders Only Cardiology at [address] [address] [facility] [place] [address] Chest pain, exertional Social History Tobacco Use [...] EDT) Glucose 101 65 - 199 mg/dL [facility] Comment:Diabetes: >=200 mg/d L plus symptoms Blood Urea Nitrogen 15 10 - 20 mg/dL [facility] Creatinine 0.71(L) 0.80 - 1.50 mg/dL [facility] Sodium 139 135 - 145 mmol/L [facility] Potassium 3.9 3.5 - 5.0 mmol/L [facility] Comment: Please note: ??Patients with WBC >100,000 may have falsely elevated Potassium levels. ??For accurate Potassium quantification in these patients send serum separator tube (gold top) for subsequent determinations. ??Contact the Clinical Chemistry Laboratory if there are any questions. Chloride 102 98 - 107 mmol/L [facility] Carbon Dioxide 27 22 - 31 mmol/L [facility] Anion Gap 10 5 - 15 mmol/L [facility] Calcium 9.3 8.5 - 10.5 mg/dL [facility] Est Glomerular Filtration Rate 99 >=60 mL/min/1. 73 m?? [facility] Comment: This patient's estimated [...] In Lab Dustin Kenyon MD CHEMISTRY ORDERABLES [facility] [place] [address] documented in this encounter Visit Diagnoses Diagnosis Chest pain, exertional Chest pain, unspecified documented in this encounter Care Teams Employment Coach Relationship Specialty Start Date End Date Mercedes Miles MD [address] [place] [address] PCP - General Family Medicine 07/24/23 documented as of this encounter
--- OUTSIDE RECORDS SUMMARY | 2024-07-16 13:58 | XMS_ITS | Encounter Summary ---
Author Organization [facility] [place] [address] Care Team Providers Care Quality Assurance Monitor Final Name Role Phone Mercedes Miles MD Primary Care Provider [phone] Encounter Details Date Type Department Care Team [...] filedocumented in this encounter Care Teams Quality Assurance Monitor Final Relationship Specialty Start Date End Date Mercedes Miles MD [address] [place] [address] PCP - General Family Medicine 07/24/23 documented as of this encounter
--- OUTSIDE RECORDS SUMMARY | 2024-07-16 13:58 | XMS_ITS | Encounter Summary ---
Author Organization [facility] Address [address] [place] [address] Care Team Providers Care Geropsychologist Name Role Phone Unavailable Primary Care Provider Unavailabl e Encounter Details Date Type Department Care Team (Late st Contact Info) Description 03/07/2007 12:26 EDT Hospital Encounter [facility] [address] [place] [address] Racheal Sánchez MD [address] [place] [address] [address] [place] [phone] Social History Tobacco Use Types Packs/Day Years [...]
--- OUTSIDE RECORDS SUMMARY | 2024-07-16 13:58 | XMS_ITS | Encounter Summary ---
Author Organization [facility] Address [address] [place] [address] Care Team Providers Care Wall To Wall Carpet Installer Name Role Phone Unavailable Primary Care Provider Unavailabl e Encounter Details Date Type Department Care Team (Late st Contact Info) Description 03/07/2007 Before PRISM Converted Visit (Maple) [facility] - Maple conversion [address] [place], [place] [address] Racheal Sánchez MD [address] [place] [address], [address] [place] [address] Social History Tobacco Use Types Packs/Day Years Used Date Smoking Tobacco: Never Assessed Sex and Gender Information Value Date Recorded Sex Assigned at Not on file Legal Sex Male 17:19 EST Gender Identity Not on file Sexual Orientation Not on file documented as of this encounter Progress Notes * Racheal Sánchez - 07/03/2009 8302 EST PROGRESS/FOLLOWUP NOTE - 03/07/2007 [facility] PROBLEM Mr. Elliott returns in [...] mask large and a heated humidifier from [facility]. He is trying to use it every [...] Medicine -Racheal Sánchez MD -[place] Job ID: [id number] Doc ID: [id number] cc: Shiv Henley MD Job ID: [id number] Doc ID: [id number] cc: Shiv Henley MD documented in this encounter Plan of Treatment Not on file documented as of this encounter Visit Diagnoses Not on filedocumented in this encounter
--- OUTSIDE RECORDS SUMMARY | 2024-07-16 13:58 | XMS_ITS | Encounter Summary ---
Author Organization [facility] Address [address] [place] [address] Care Team Providers Care Typing Bookkeeper Name Role Phone Unavailable Primary Care Provider Unavailabl e Encounter Details Date Type Department Care Team (Late st Contact Info) Description 01/25/2002 7:24 EDT - 01/25/2002 11:59 EDT Hospital Encounter [address] [address] Nba Henley MD [address] [place] [address] Discharge Disposition: Auto Discharge Social [...]
--- OUTSIDE RECORDS SUMMARY | 2024-07-16 13:58 | XMS_ITS | Encounter Summary ---
Author Organization [facility] Address [facility] [place] [address] Care Team Providers Care Design Manager Name Role Phone Michelle Cooper APRN Primary Care Provider [phone] Reason for Visit * Consultation (Routine) - Closed Specialty Diagnoses / Procedures Referred By Contac t Referred To Contact Cardiology Diagnoses Exertional chest pain Ongoing exertional chest pain Michelle Cooper APRN [address] [place] [address] [facility] Cardiology [address] [place] [phone] Referral ID Status Reason Start Date Expiration Date V isits Requested Visits Authorized [id number] Closed Consult, Test & Treat 03/04/2022 03/04/2023 1 1 Encounter Details Date Type Department Care Team (Latest Contact Info) Description 04/22/2022 2:00 PM EDT Office Visit Cardiology at [address] [phone] Dustin Kenyon MD [facility] [place] [address] Hypertension, unspecified type; Hyperlipidemia, unspecified [...] original note were not included. [facility] [place] [address] Referring Provider: Michelle Cooper APRN [address] [place] [address] Reason for Consultation / Chief Complaint: chest [...] (Bezet) 399 ms MUSE SYSTEM Calculated P Rockwell 41 degrees MUSE SYSTEM Calculated R [place] 23 degrees MUSE SYSTEM Calculated T Rockwell 1 degrees MUSE SYSTEM INTERPRETATION Sinus bradycardia Otherwise normal ECG No previous ECGs available Confirmed by MD Nataly, Edward ([id number]) on 04/27/2022 3:12:04 PM MUSE SYSTEM 04/22/2022 2:56 PM EDT 04/27/2022 3:12 PM EDT Dustin Kenyon MD ECG ORDERABLES MUSE SYSTEM documented in this encounter Visit Diagnoses Diagnosis Hypertension, unspecified type Hyperlipidemia, unspecified hyperlipidemia type Obstructive sleep apnea Obstructive sleep apnea (adult) (pediatric) Chest pain, exertional Chest pain, unspecified documented in this encounter Care Teams Design Manager Relationship Specialty Start Date End Date Michelle Cooper APRN [address] [place] [address] PCP - General Family Medicine 09/25/20 07/23/23 documented as of this encounter
--- OUTSIDE RECORDS SUMMARY | 2024-07-16 13:58 | XMS_ITS | Encounter Summary ---
[place] [address] Care Team Providers Care Controller Mechanic Name Role Phone Mercedes Miles MD Primary Care Provider [phone] Reason for Referral * Diagnostic Test (Routine) - Closed Specialty Diagnoses / Procedures Referred By Contac t Referred To Contact Radiology Diagnoses Chest pain, exertional Procedures CT Angiogram Coronary Arteries Dustin Kenyon MD [facility] [place] [address] [facility] [place] [address] Referral ID Status Reason Start Date Expiration Date V isits Requested Visits Authorized [id number] Closed Specialty Service Requested 10/04/2023 04/03/2025 1 1 Reason for Visit * Diagnostic Test (Routine) - Closed Specialty Diagnoses / Procedures Referred By Contac t Referred To Contact Radiology Diagnoses Chest pain, exertional Procedures CT Angiogram Coronary Arteries Dustin Kenyon MD [facility] [place] [address] [facility] [place] [address] Referral ID Status Reason Start Date Expiration Date V isits Requested Visits Authorized [id number] Closed Specialty Service Requested 10/04/2023 04/03/2025 1 1 Encounter Details Date Type Department Care Team (Latest Contact Info) Description 12/14/2023 8:58 AM EDT - 12/14/2023 11:59 PM EDT Hospital Encounter CT Scan at [facility] [place] [phone] Dustin Kenyon MD [facility] [place] [address] Chest pain, exertional Discharge Disposition: Home Social [...] Angiogram Coronary Arteries (12/14/2023 9:43 AM EDT) [employer] WORKSTATION ID [id number] RAD Anatomical Region Laterality Modality Cardiac Computed [...] who have questions please contact the health patient care technician that requested your imaging first. ? Electronically signed by: Erin Kessler MD, [facility] ([phone]), at 12/15/2023 3:51 PM Narrative 12/15/2023 3:51 [...] Skeletal Structures: No significant findings. Procedure Note rEin Ogden MD - 12/15/2023 EXAMINATION: CT ANGIOGRAM [...] patients who have questions please contactthe health patient care technician that requested your imaging first. Dustin Kenyon [...] mLs documented in this encounter Care Teams Controller Mechanic Relationship Specialty Start Date End Date Mercedes Miles MD [address] [place] [address] PCP - General Family Medicine 07/24/23 documented as of this encounter
--- OUTSIDE RECORDS SUMMARY | 2024-07-16 13:58 | XMS_ITS | Encounter Summary ---
Author Organization [facility] Address [address] [place] [address] Care Team Providers Care Flattening Machine Operator Name Role Phone Unavailable Primary Care Provider Unavailabl e Encounter Details Date Type Department Care Team (Latest Contact Info) Description 12/12/2006 19:48 EDT Hospital Encounter [address] [address] Racheal Sánchez MD [address] [place] [address] 2 [place] [phone] Discharge Disposition: Auto Discharge Social History Tobacco [...]
--- OUTSIDE RECORDS SUMMARY | 2024-07-16 13:58 | XMS_ITS | Encounter Summary ---
Author Organization [facility] [place] [address] Care Team Providers Care Flight Control Manager Name Role Phone Mercedes Miles MD Primary Care Provider [phone] Reason for Referral * Diagnostic Test (Routine) - Closed Specialty Diagnoses / Procedures Referred By Jhonny t Referred To Contact Cardiology Diagnoses Chest pain, exertional Procedures Echocardiogram Transthoracic Kimberly Kenyon MD [facility] [place] [place] [address] [facility] [place] [address] Referral ID Status Reason Start Date Expiration Date V isits Requested Visits Authorized [id number] Closed Specialty Service Requested 09/28/2023 09/27/2024 1 [...] SEEN 04/22/22-Michelle Akhtar APRN [address] [place] [address] Kimberly Kenyon MD [facility] [place] [address] Referral ID Status Reason Start Date Expiration Date V isits Requested Visits Authorized [id number] Closed Consult, Test & Treat 07/10/2023 07/09/2024 1 1 Encounter Details Date Type Department Care Team (Late st Contact Info) Description 09/28/2023 10:40 AM EST Office Visit Cardiology at [address] [place] [address] Kimberly Kenyon MD [facility] [place] [address] Chest pain, exertional Social History Tobacco Use [...] from the original note were not included. [facility], Located [facility] [place] [address] Referring Provider: Michelle Cooper APRN [address] [place] [address] Reason for Consultation / Chief Complaint: chest [...] EST Narrative 09/28/2023 2:28 PM EST [address] [place] [address] ? Echocardiogram Report Name: JAVON LOPEZ ? Study Date: 09/28/2023 12:01 PMBP: 139/70 mmHg ? Patient Location: 4A : 1955 ? Height: 173 cm ? Account: [id number] Age: 67 yrs ? Weight: 114 kg Gender: Male ?BSA: 2.3 m2 Ordering Physician: KIMBERLY KENYON Referring Physician: KIMBERLY KENYON Performed By: Juany Mak Reason For Study: Chest pain, exertional History: Chest pain Interpreting Fellow: Abby Riggs. Exam Location: [facility]. Interpretation Summary - Normal left ventricular wall thickness, cavity size, systolic and diastolic function. LVEF is 57% by Murguia's biplane. There are no segmental wall motion abnormalities. - Normal right ventricular size and systolic function. - Normal atrial size. - There is no hemodynamically significant valvular disease. - There is no prior echocardiogram available for comparison. Procedure Complete-[id number]. Satisfactory quality. There is sinus bradycardia. There [...] Note Bernardino Lassiter MD - 09/28/2023 [address] [place] [address] Echocardiogram Report Name: JAVON LOPEZ Study Date: 412:01 PMBP: 139/70 mmHg Patient Location: : 1955 Height: 173 cm Account: [id number] Age: 67 yrs Weight: 114 kg Gender: Male BSA: 2.3 m2 Ordering Physician: KIMBERLY KENYON Referring Physician: KIMBERLY KENYON Performed By: Juany Mak Reason For Study: Chest pain, exertional History: Chest pain Interpreting Fellow: Abby Riggs. Exam Location: [facility]. Interpretation Summary - Normal left ventricular wall thickness, cavity size, systolic anddiastolic function. LVEF is 57% by Murguia's biplane. There are no segmental wallmotion abnormalities. - Normal right ventricular size and systolic function. - Normal atrial size. - There is no hemodynamically significant valvular disease. - There is no prior echocardiogram available for comparison. Procedure Complete-[id number]. Satisfactory quality. There is sinus bradycardia. There [...] unspecified documented in this encounter Care Teams Flight Control Manager Relationship Specialty Start Date End Date Mercedes Miles MD [address] [place] [address] PCP - General Family Medicine 07/24/23 documented as of this encounter
--- OUTSIDE RECORDS SUMMARY | 2024-07-16 13:58 | XMS_ITS | Encounter Summary ---
Author Organization [facility] Address [address] [place] [address] Care Team Providers Care Guidance Secretary Name Role Phone Unavailable Primary Care Provider Unavailabl e Encounter Details Date Type Department Care Team (Latest Contact Info) Description 11/10/2006 9:15 EDT - 11/10/2006 11:59 EDT Hospital Encounter [address] [address] Racheal Sánchez MD [address] [place] [address] [address] [place] [phone] Discharge Disposition: Auto Discharge Social History Tobacco [...]
--- OUTSIDE RECORDS SUMMARY | 2024-07-16 13:58 | XMS_ITS | Encounter Summary ---
Author Organization [facility] Address [address] [place] [address] Care Team Providers Care Pin Worker Name Role Phone Unavailable Primary Care Provider Unavailabl e Encounter Details Date Type Department Care Team (Late st Contact Info) Description 03/24/2010 Abstract Used for ABSTRACTING Data [phone] None, Provider Social History Tobacco Use Types [...]
--- OUTSIDE RECORDS SUMMARY | 2024-07-16 13:58 | XMS_ITS | Encounter Summary ---
Author Organization [facility] Address [address] [place] [address] Care Team Providers Care All Terrain Vehicle Racer Name Role Phone Tyron Wilcox MD Primary Care Provider [phone] Reason for Visit * Reason Comments Act 1 Clearance Encounter Details Date Type Department Care Team (Late st Contact Info) Description 06/26/2011 15:25 EDT - 06/26/2011 16:46 EDT Emergency [facility] Emergency Department - [facility] [address] [place] [address] Laura Riggs, [place] [address] [facility] [address] [place], [place] [address] Emergency, MD Juliann Alcohol abuse Discharge Disposition: [...] ALCOHOL DETOXIFICATION AND WITHDRAWAL: AFTER YOUR VISIT (LATVIAN) documented in this encounter Medications at Time of Discharge aspirin 81 mg EC tablet Take 1 [...] of this encounter Ordered Prescriptions Prescription Sig Dispense Quantity Refills Last Filled Start Date End Date aspirin 81 mg EC tablet Take 1 Tab by mouth daily. 30 Tab 0 06/26/2011 lisinopril (PRINIVIL, ZESTRIL) 20 mg tablet Take 1 Tab by mouth daily. 30 Tab 0 06/26/2011 6 DIAZepam (VALIUM) 5 mg tablet Take 1 Tab by mouth every 6 hours as needed for Anxiety (every 4-6 hours per CIWA scale). 10 Tab 0 06/26/2011 6 documented in this encounter Discharge Disposition Disposition Code Departure Means Destination Home or Self Care Car Home documented in this encounter ED Notes * Laura Riggs - 06/26/2011 4440 EDT DOS: 06/26/2011 Chief Complaint Patient presents [...] - 06/26/2011 1535 EDT TCALL: TOMAS LOPEZ 05--55 ACT 1 REFERS PT TO ED FOR EVAL. CC: ETOH DETOX (GMD) * Toro Jack RN - 06/26/2011 1526 EDT Pt here with brother. Has ACT 1 bed, needs clearance. A&O. Skin warm & dry. Respirations unlabored. NAD. documented in this encounter Miscellaneous Notes * Scanned Note-Null - Loom Starter, Scan - 06/30/2011 0750 EDT documented in [...] may reflect changes made after this encounter. diazepam (VALIUM) 10 mg tablet Take 10 [...] 06/26/11 at 1700, STAT 1645 (Given [facility] er: Milo Beck) documented in this encounter Care Teams All Terrain Vehicle Racer Relationship Specialty Start Date End Date Tyron Wilcox MD [address] [place] [address] PCP - General 06/26/11 11/15/15 documented as of this encounter
--- OUTSIDE RECORDS SUMMARY | 2024-07-16 13:58 | XMS_ITS | Encounter Summary ---
[place] [address] Care Team Providers Care Review Consultant Name Role Phone Mercedes Miles MD Primary Care Provider Reason for Visit * Reason Onset Date Comments Medication Refill 10/10/2023 Rosuvastatin Encounter Details Date Type Department Care Team (Late st Contact Info) Description 10/10/2023 Telephone Cardiology at [address] [phone] Alba Nicolas RN Medication Refill (Rosuvastatin) Social [...] on filedocumented in this encounter Care Teams Review Consultant Relationship Specialty Start Date End Date Mercedes Miles MD [address] [place] [address] PCP - General Family Medicine 07/24/23 documented as of this encounter
--- OUTSIDE RECORDS SUMMARY | 2024-07-16 13:58 | XMS_ITS | Encounter Summary ---
Author [facility] [place] [address] Care Team Providers Care Sales Architect Name Role Phone Michelle Cooper APRN Primary Care Provider [phone] Encounter Details Date Type Department Care Team (Late st Contact Info) Description 07/18/2023 Telephone Cardiology at [address] [phone] Dustin Kenyon MD [facility] [place] [address] Social History Tobacco Use Types Packs/Day Years [...] documented in this encounter Care Teams Sales Architect Relationship Specialty Start Date End Date Michelle Cooper APRN [address] [place] [address] PCP - General Family Medicine 09/25/20 07/23/23 documented as of this encounter
--- OUTSIDE RECORDS SUMMARY | 2024-07-16 13:58 | XMS_ITS | Encounter Summary ---
[place] [address] Care Team Providers Care Intelligence Group Supervisor Name Role Phone Mercedes Miles MD Primary Care Provider [phone] Encounter Details Date Type Department Care Team (Latest Contact Info) Description 12/14/2023 8:05 AM EDT Laboratory Appointment Lab [address] [place] [phone] Hypertension, unspecified type; Hyperlipidemia, unspecified hyperlipidemia type [...] 8:12 AM EDT) Cholesterol, Total 148 mg/dL [facility] Comment: Desirable: ? <200 mg/dL Borderline High: 200-239 mg/dL Higher: ?>mc=003 mg/dL Triglyceride 76 mg/dL [facility] Comment: Normal: ?<150 mg/dL Borderline High: 150-199 mg/dL High: ?200-499 mg/dL Very High: ? >qd=034 mg/dL HDL Cholesterol 53 mg/dL [facility] Comment: Females: High Risk: <50 mg/dL Males: High Risk: <40 mg/dL LDL Cholesterol 80 mg/dL [facility] Comment: Desirable: ? <100 mg/dL Above Desirable: 100-129 mg/dL Borderline High: 130-159 mg/dL High: ?160-189 mg/dL Very High: ? >th=810 mg/dL Lipid Interpretation See Note [facility] Comment: It is important to [...] ACC/AHA Guidelines (most recently Salomón et al. [facility] 05/31/22): For individuals with atherosclerotic cardiovascular disease (ASCVD)or LDL >su=290 mg/dL, use a high-intensity statin (40-80 mg [...] In Lab Dustin Kenyon MD CHEMISTRY ORDERABLES [facility] [place] [phone] * (ABNORMAL) Creatinine (12/14/2023 8:12 AM EDT) Creatinine 0.71(L) 0.80 - 1.50 mg/dL [facility] Est Glomerular Filtration Rate 100 >=60 mL/min/1. 73 m?? [facility] Comment: This patient's estimated GFR [...] Kenyon MD CHEMISTRY ORDERABLES Performing Organization Address City/State/[facility] Co de Phone Number [facility] [address] documented in this encounter Visit Diagnoses Diagnosis Hypertension, unspecified type Hyperlipidemia, unspecified hyperlipidemia type documented in this encounter Care Teams Intelligence Group Supervisor Relationship Specialty Start Date End Date Mercedes Miles MD [address] [place] [address] PCP - General Family Medicine 07/24/23 documented as of this encounter
--- OUTSIDE RECORDS SUMMARY | 2024-07-16 13:58 | XMS_ITS | Encounter Summary ---
Author Organization [facility] [place] [address] Care Team Providers Care Buyer Planner Name Role Phone Mercedes Miles MD Primary Care Provider [phone] Encounter Details Date Type Department Care Team (Late st Contact Info) Description 01/16/2024 Telephone Cardiology at [address] [phone] Pauline Ordoñez RN Social History Tobacco Use [...] on filedocumented in this encounter Care Teams Buyer Planner Relationship Specialty Start Date End Date Mercedes Miles MD [address] [place] [address] PCP - General Family Medicine 07/24/23 documented as of this encounter
--- OUTSIDE RECORDS SUMMARY | 2024-07-16 13:58 | XMS_ITS | Clinical Summary ---
Author Organization [facility] Address [facility] [place] [address] Care Team Providers Care Patient Services Assistant Name Role Phone Mercedes Miles MD Primary Care Provider [phone] Allergies Active Allergy Reactions Criticality Noted Date [...] been reported to the team at the [facility]. 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 Mediastinal mass 11/02/2020 Overview (11/02/2020): Added automatically from request for surgery [id number] Penile fracture 04/11/2013 Social History Tobacco Use Types Packs/Day Years [...] Microalbumin yearly 1964 Hepatitis C Screening 1972 Tetanus/Diphtheria/Pertussis Vaccines (1 - Tdap) 1973 Zoster vaccine (1 of 2) 2004 Advance Directive 2009 Covid-19 Vaccine (3 - 2023-2 5 season) 2024 11/27/2020, 10/30/2020 Influenza (Flu) vaccine (1 o [...] Procedure Name Priority Date/Time Associated Diagnosis Comments BASIC METABOLIC PANEL Routine 02/09/2024 11:15 AM EDT Chest pain, exertional LIPID PANEL (REFLEX DIRECT LDL) Routine 12/14/2023 8:12 AM EDT Hyperlipidemia, unspecified hyperlipidemia type COLONOSCOPY Routine 04/05/2021 4:07 PM EDT US ULTRASOUND AAA SCREENING Routine 12/21/2020 3:29 PM EDT Former smoker from Last 3 Months or Most Recently Relevant to Health Maintenance Results * (ABNORMAL) Basic Metabolic Panel (non-fasting) [...] CHEMISTRY ORDERABLES [facility] [place] [address] * Lipid Panel (Reflex Direct LDL) (12/14/2023 8:12 AM EDT) Cholesterol, Total 148 mg/dL [facility] Comment: Desirable: ? <200 mg/dL Borderline High: 200-239 mg/dL Higher: ?>ww=519 mg/dL Triglyceride 76 mg/dL [facility] Comment: Normal: ?<150 mg/dL Borderline High: 150-199 mg/dL High: ?200-499 mg/dL Very High: ? >xi=374 mg/dL HDL Cholesterol 53 mg/dL [facility] Comment: Females: High Risk: <50 mg/dL Males: High Risk: <40 mg/dL LDL Cholesterol 80 mg/dL [facility] Comment: Desirable: ? <100 mg/dL Above Desirable: 100-129 mg/dL Borderline High: 130-159 mg/dL High: ?160-189 mg/dL Very High: ? >vg=500 mg/dL Lipid Interpretation See Note [facility] [...] be even lower. ACC/AHA Guidelines (most recently [facility] 05/31/22): For individuals with atherosclerotic cardiovascular disease (ASCVD)or LDL >mb=173 mg/dL, use a high-intensity statin (40-80 mg [...] CHEMISTRY ORDERABLES [facility] [place] [address] * COLONOSCOPY (04/05/2021 4:07 PM EDT) COLONOSCOPY [facility] Endoscopy ___ Procedure Date: 04/05/2021 4:07 PM ? Patient Name: aJvon Lopez ? Date of : 1955 ? Age: 65 ? Order #: [id number] ? Instrument Name: [id number] ? ___ Procedure: ? Colonoscopy Indications: ? Hematochezia, (history of hemorrhoids ? and hemorrhoidectomy in 2000); ? personal history of colon polyps Providers: ? Marilynn Mondragon MD, Donovan Lovelace, ? JAYDEN, Marlena Allen Referring : ?Michelle Falk Medicines: ? Midazolam 5 mg IV, Fentanyl [...] preparation was ? evaluated using the BBPS ([place] ? Bowel Preparation Scale) with scores ? [...] PM PROVATION 04/05/2021 4:07 PM EDT Michelle Falk APRN GENERAL SURGICAL ORD ERABLES PROVATION * [...] who have questions please contact the health congregational care pastor that requested your imaging first. ?Electronically signed by: Charli Frank MD, [facility] ([phone]), at 12/21/2020 3:31 PM ?Charli Frank, Staff Physician Electronically Signed Final Report ?? 12/21/2020 03:39 pm Narrative 12/21/2020 3:39 PM EDT Aorta ? (Signed Final 12/21/2020 03:39 pm) PATIENT INFO: ID #: ? [id number] ?: ??[birth year] (64 yrs)(M) Name: ? JAVON LOPEZ ? Visit Date: 12/21/2020 03:09 pm PERFORMED BY: Performed By: ? Bea Berkowitz RDMS Attending: ?Charli Frank MD Referred By: ?MICHELLE FALK Location: ? [place] SERVICE(S) PROVIDED: UAORTA - AAA Screening - [id number] ?[id number] INDICATIONS: FORMER SMOKER; AAA SCREENING ------ AORTA: [...] 12/21/2020 03:39 pm) PATIENT INFO: ID #: [id number] : [birth year] (64 yrs)(M) Name: JAVON LOPEZ Visit Date: 12/21/2020 03:09 pm PERFORMED BY: Performed By: Bea Berkowitz RDMS Attending: Charli Frank MD Referred By: MICHELLE FALK Location: [place] SERVICE(S) PROVIDED: UAORTA - AAA Screening - [id number] INDICATIONS: FORMER SMOKER; AAA SCREENING ------ AORTA: [...] who have questions please contact the health congregational care pastor that requested your imaging first. Electronically signed by: Charli Frank MD, [facility] ([phone]), at 12/21/2020 3:31 PM Charli Frank, Staff Physician Electronically Signed Final Report 12/21/2020 03:39 pm Michelle Falk COMPLIANCE ENGINEER IMG US GEN ORDERABLE S from Last [...] Status decision made by: Patient Care Teams Patient Services Assistant Relationship Specialty Start Date End Date Mercedes Miles MD [address] [place] [address] PCP - General Family Medicine 07/24/23
--- OUTSIDE RECORDS SUMMARY | 2024-07-16 13:58 | XMS_ITS | Encounter Summary ---
Author Organization [facility] [place] [address] Care Team Providers Care Hand Miter Operator Name Role Phone Mercedes Miles MD Primary Care Provider [phone] Reason for Visit * Auth/Cert (Routine) Specialty Diagnoses / Procedures Referred By Contac t Referred To Contact Diagnoses Chest pain, exertional Chest pain, exertional [R07.9] Procedures PRG CATH PLMT LEFT HEART CATH & ARTS W/INJ & ANGIO IMG S&I CARDIAC CATHETERIZATION CORONARY ANGIOGRAPHY; W LHC,POSSIBLE PCI (WRVU 5.6) Dustin Kenyon MD [facility] [place] [address] [facility] Referral ID Status Reason Start Date Expiration Date Visits Re quested Visits Authorized [id number] 1 1 Encounter Details Date Type Department Care Team (Late st Contact Info) Description 02/09/2024 11:30 AM EDT - 02/09/2024 12:30 PM [place] [address] Dustin Kenyon MD [facility] [place] [address] CARDIAC CATHETERIZATION Social History Tobacco Use Types [...] Your Primary Care Provider: Mercedes Miles MD [phone] For questions regarding this document or issues relating to this hospitalization on the Medical Service, please contact your inpatient physician through the [facility] Open Tenter Operator . Issues afterhours and on weekends will [...] Modality Other Narrative 02/09/2024 2:22 PM EDT ?[facility] ? Cardiac Catheterization/Intervention Report ? Patient Name: Tomas Elliott. ? Procedure Date: 02/09/2024 ? A #: [id number] ? Primary Physician: Dustin Kenyon ? Case #: [id number] ? File Name: [id number] ? Catheterization Order Number: [id number] ? [facility] ? Final Report [place], [place] ? Patient Name: ? Tomas D. Brgant ?ID#: ?[id number] ? : ?1955 ? Procedure Date: ? [...] procedure was Urgent. The indication for ?the labor relations specialist visit is worsening angina. Chest pain symptom [...] Report Finalized: 02/09/2024 ??14:15 ? Procedure Note KostasDustin mccloud MD - 02/09/2024 [facility] Cardiac Catheterization/Intervention Report Patient Name: Tomas Elliott Procedure Date: 02/09/2024 A #: [id number] Primary Physician: Dustin Kenyon Case #: [id number] File Name: [id number] Catheterization Order Number: [id number] [facility] FinalReport [place], [place] Patient Name: Tomas Elliott ID#:[id number] :1955 Procedure Date: February 09, 2024 Case #: [id number] Room: 6 Case Physician: Dustin Kenyon M.D. Start: 13:47 Fellow: Paulo Ramos M.D. Admission:02/09/2024 Procedures: * Coronary Angiography * Left Heart Catheterization History Tomas Elliott is a 68 year old man. He has hypertension. Thepatient's smoking status is Never. Prior to the initiation of this procedure,the patient was designated as ASA Class II. The [facility] clinical frailtyscale is 3: Managing [...] diagnostic procedure was Urgent. The indicationfor the labor relations specialist visit is worsening angina. Chest pain symptomassessment [...] Glucose (02/09/2024 12:14 PM EDT) Pathologist [facility] Glucose, POC 104 65 - 199 mg/dL [facility] Comment: Supplemental ranges: <140 mg/dL before meals <180 mg/dL all other times of the day Blood 02/09/2024 12:1 4 PM EDT 02/09/2024 12:14 PM EDT Dustin Kenyon MD POINT OF CARE TEST O RDERABLES [facility] [place] [address] * Differential, Automated (02/09/2024 11:15 AM EDT) [facility] Neutrophil % 57.3 % [facility] Neutrophil Absolute 3.33 1.70 - 6.10 x10(3)/[facility] Lymph % 29.4 % [facility] Lymphocytes Abs 1.7 0.9 - 3.2 x10(3)/[facility] Monocyte % 9.1 % [facility] Monocyte Abs 0.5 0.3 - 0.9 x10(3)/[facility] Eos % 3.1 % [facility] Eosinophils Abs 0.2 0.0 - 0.4 x10(3)/[facility] Basophil % 0.9 % [facility] Baso Absolute 0.0 0.0 - 0.1 x10(3)/[facility] Immature Gran % 0.20 % [facility] Comment: Immature granulocytes(IG's)percentage and absolute count will include metamyelocytes, myelocytes, and promyelocytes. Blood smears from CBCs yielding IG's will be scanned manually for concordance. If this scan disagrees with the automated IG or if promyelocytes are noted, a manual differential will be performed. Immature Gran Absolute 0.01 0.00 - 0.04 x10(3)/mcL [facility] Blood 02/09/2024 11:1 5 AM EDT 02/09/2024 11:53 AM EDT Narrative Resulting Agency Comment Spec In Lab Dustin Kenyon MD HEMATOLOGY ORDERABLE S [facility] [place] [address] * (ABNORMAL) Hemogram (02/09/2024 11:15 AM EDT) White Blood Cell 5.8 4.0 - 9.5 x10(3)/ L [facility] Red Blood Cell 3.93(L) 4.58 - 5.54 x10(6)/[facility] Hemoglobin 12.9(L) 13.7 - 16.5 g/dL [facility] Hematocrit 38.7(L) 40.5 - 48.5 % [facility] Mean Cell Volume 98.5(H) 82.9 - 93.1 fL [facility] Mean Cell Hemoglobin 32.8(H) 27.5 - 32.1 pg [facility] Mean Cell Hemoglobin Concentration 33.3 32.0 - 35.7 g/dL [facility] Platelet 170 145 - 357 x10(3)/[facility] RDW Standard Deviation 45.2(H) 36.0 - 45.0 [facility] RDW coefficient of variation 12.3 11.4 - 13.8 % [facility] Mean Platelet Volume 10.0 7.6 - 12.9 [facility] NRBC% auto 0.0 % [facility] NRBC Absolute 0.000 0.000 - 0.000 x10(3)/ L [facility] Blood 02/09/2024 11:1 5 AM EDT 02/09/2024 11:53 AM EDT Narrative Resulting Agency Comment Spec In Lab Dustin Kenyon MD HEMATOLOGY ORDERABLE S [facility] [place] [address] * (ABNORMAL) Basic Metabolic Panel (non-fasting) (02/09/2024 11:15 AM EDT) Glucose 101 65 - 199 mg/dL [facility] Comment:Diabetes: >=200 mg/d L plus symptoms Blood Urea Nitrogen 15 10 - 20 mg/dL [facility] Creatinine 0.71(L) 0.80 - 1.50 mg/dL [facility] Sodium 139 135 - 145 mmol/L [facility] Potassium 3.9 3.5 - 5.0 mmol/L [facility] Comment: Please note: ??Patients with WBC >100,000 may have falsely elevated Potassium levels. ??For accurate Potassium quantification in these patients send serum separator tube (gold top) for subsequent determinations. ??Contact the Clinical Chemistry Laboratory if there are any questions. Chloride 102 98 - 107 mmol/L [facility] Carbon Dioxide 27 22 - 31 mmol/L [facility] Anion Gap 10 5 - 15 mmol/L [facility] Calcium 9.3 8.5 - 10.5 mg/dL [facility] Est Glomerular Filtration Rate 99 >=60 mL/min/1. 73 m?? [facility] Comment: This patient's estimated [...] In Lab Dustin Kenyon MD CHEMISTRY ORDERABLES [facility] [place] [address] documented in this encounter Visit Diagnoses Diagnosis [...] MD) documented in this encounter Care Teams Hand Miter Operator Relationship Specialty Start Date End Date Mercedes Miles MD [address] [place] [address] PCP - General Family Medicine 07/24/23 documented as of this encounter
--- OUTSIDE RECORDS SUMMARY | 2024-07-16 13:58 | XMS_ITS | Encounter Summary ---
[place] [address] Care Team Providers Care Typesetting Machine Operator/Tender Name Role Phone Mercedes Miles MD Primary Care Provider [phone] Encounter Details Date Type Department Care Team [...] on filedocumented in this encounter Care Teams Typesetting Machine Operator/Tender Relationship Specialty Start Date End Date Mercedes Miles MD [address] [place] [address] PCP - General Family Medicine 07/24/23 documented as of this encounter
--- OUTSIDE RECORDS SUMMARY | 2024-07-16 13:58 | XMS_ITS | Encounter Summary ---
Author Organization [facility] Address [facility] [place] [address] Care Team Providers Care Academic Support Director Name Role Phone Mercedes Miles MD Primary Care Provider [phone] Encounter Details Date Type Department Care Team (Late st Contact Info) Description 01/18/2024 Telephone Cardiology at [address] [phone] Pauline Ordoñez RN Social History Tobacco Use [...] able to speak with surgical team in [facility] prior to his Cardiac cath and [...] on filedocumented in this encounter Care Teams Academic Support Director Relationship Specialty Start Date End Date Mecredes Miles MD [address] [place] [address] PCP - General Family Medicine 07/24/23 documented as of this encounter
--- OUTSIDE RECORDS SUMMARY | 2024-07-16 13:58 | XMS_ITS | Encounter Summary ---
[place] [address] Care Team Providers Care Instrument Maintenance Supervisor Name Role Phone Mercedes Miles MD Primary Care Provider [phone] Reason for Visit * Reason Onset Date Comments Advice Only 02/22/2024 PDE5 Inhibitor Encounter Details Date Type Department Care Team (Late st Contact Info) Description 02/22/2024 Telephone Cardiology at [address] [phone] Alba Nicolas capacity management specialist Only (PDE5 Inhibitor) Social History Tobacco Use Types Packs/Day Years Used Date Smoking Tobacco: Former Cigarettes Q uit: 1979 Smokeless Tobacco: Former Quit: 1979 Alcohol Use Standard Drinks/Week Comments Not Currently 0 (1 standard drink = 0.6 oz pur e alcohol) [facility] Inpatient Questions Answer Date Recorded [...] on filedocumented in this encounter Care Teams Instrument Maintenance Supervisor Relationship Specialty Start Date End Date Mercedes Miles MD [address] [place] [address] PCP - General Family Medicine 07/24/23 documented as of this encounter
--- OUTSIDE RECORDS SUMMARY | 2024-07-16 13:58 | XMS_ITS | Encounter Summary ---
Author Organization [facility] Address [address] [place] [address] Care Team Providers Care Fibre Optic Cable Splicer Name Role Phone Unavailable Primary Care Provider Unavailabl e Encounter Details Date Type Department Care Team (Late st Contact Info) Description 12/12/2006 Before PRISM Converted Visit (Maple) [facility] - Maple conversion [address] [place] [address] Racheal Sánchez MD [address] [place] [address], [address] [place] [phone] Social History Tobacco Use Types Packs/Day Years Used Date Smoking Tobacco: Never Assessed Sex and Gender Information Value Date Recorded Sex Assigned at Not on file Legal Sex Male 17:19 EST Gender Identity Not on file Sexual Orientation Not on file documented as of this encounter Miscellaneous Notes * Study - Racheal Sánchez - 07/03/20092014 EST [facility] SERVICE DATE: 12/12/2006 OVERNIGHT DIAGNOSTIC [...] night of 12/12/2006 attended by a trained mri technologist. Monitoring channels included: EEG channels C2/A2, [...] Sánchez MD P - rebeca Job ID: [id number] Document ID: [id number] cc: Shiv Henley MD documented in this encounter Plan of Treatment Not on file documented as of this encounter Visit Diagnoses Not on filedocumented in this encounter
--- OUTSIDE RECORDS SUMMARY | 2024-07-16 13:58 | XMS_ITS | Encounter Summary ---
Author Organization [facility] Address [facility] [place] [address] Care Team Providers Care Head End Desizing Machine Operator Name Role Phone AllisonMichelle APRN Primary Care Provider [phone] Reason for Visit * Reason Onset Date Comments Medication Refill 12/27/2021 Encounter Details Date Type Department Care Team (Late st Contact Info) Description 12/27/2021 Refill [place] [address] Zofia Paz PA [facility] [address] History of hemorrhoidectomy Social History Tobacco Use [...] status documented in this encounter Care Teams Head End Desizing Machine Operator Relationship Specialty Start Date End Date Michelle Cooper APRN [address] [place] [address] PCP - General Family Medicine 09/25/20 07/23/23 documented as of this encounter
--- OUTSIDE RECORDS SUMMARY | 2024-07-16 13:58 | XMS_ITS | Encounter Summary ---
[place] [address] Care Team Providers Care Head Rigger Name Role Phone Michelle Cooper Anyi PRITCHETT Primary Care Provider [phone] Encounter Details Date Type Department Care Team (Late st Contact Info) Description 12/27/2021 Telephone [place] [phone] Maddie Camara, RN Social History Tobacco Use [...] pain, prolonged nausea and vomiting, please call ([phone] during daytime and [phone] at night/weekends) and/or go to the ED [...] on filedocumented in this encounter Care Teams Head Rigger Relationship Specialty Start Date End Date Michelle Cooper APRN [address] [place] [address] PCP - General Family Medicine 09/25/20 07/23/23 documented as of this encounter
--- OUTSIDE RECORDS SUMMARY | 2024-07-16 13:58 | XMS_ITS | Encounter Summary ---
[place] [address] Care Team Providers Care Lugger Name Role Phone Mercedes Miles MD Primary Care Provider [phone] Encounter Details Date Type Department Care Team [...] on filedocumented in this encounter Care Teams Lugger Relationship Specialty Start Date End Date Mercedes Miles MD [address] [place] [address] PCP - General Family Medicine 07/24/23 documented as of this encounter
--- OUTSIDE RECORDS SUMMARY | 2024-07-16 13:58 | XMS_ITS | Encounter Summary ---
Author Organization [facility] Address [facility] [place] [address] Care Team Providers Care Belt Tender Name Role Phone Mercedes Miles MD Primary Care Provider [phone] Reason for Visit * Reason Onset Date Comments Medication Refill 10/11/2023 Rosuvastatin Encounter Details Date Type Department Care Team (Late st Contact Info) Description 10/11/2023 Refill Cardiology at [address] [phone] Dustin Kenyon MD [facility] [place] [address] Medication Refill (Rosuvastatin) Social History Tobacco Use [...] documented in this encounter Care Teams Belt Tender Relationship Specialty Start Date End Date Mercedes Miles MD [address] [place] [address] PCP - General Family Medicine 07/24/23 documented as of this encounter
--- OUTSIDE RECORDS SUMMARY | 2024-07-16 13:58 | XMS_ITS | Encounter Summary ---
Author Organization [facility] Address [facility] [address]ra [place] [id number] Care Team Providers Care Grades 1 Through 5 Teacher Name Role Phone Michelle Cooper APRN Primary Care Provider [phone] Reason for Referral * Consultation (Routine) - [...] Akhtar APRN [address] [place] [address] Dustin Kenyon MD [facility] [place] [address] Referral ID Status Reason Start Date Expiration Date V isits Requested Visits Authorized [id number] Closed Consult, Test & Treat 07/10/2023 07/09/2024 1 1 Encounter Details Date Type Department Care Team (Latest Contact Info) Description 07/10/2023 Transcribe Orders eDH Incoming Referrals [phone] Michelle Cooper APRN [address] [place], [place] [id number] Exertional chest pain Social History Tobacco Use [...] unspecified documented in this encounter Care Teams Grades 1 Through 5 Teacher Relationship Specialty Start Date End Date Michelle Cooper APRN [address] [place] [address] PCP - General Family Medicine 09/25/20 07/23/23 documented as of this encounter
--- OUTSIDE RECORDS SUMMARY | 2024-07-16 13:58 | XMS_ITS | Encounter Summary ---
Author Organization [facility] Address [address] [place] [address] Care Team Providers Care Energy Risk Management Analyst Name Role Phone Unavailable Primary Care Provider Unavailabl e Encounter Details Date Type Department Care Team (Late st Contact Info) Description 01/30/2007 Results Only [facility] - Maple conversion [address] [place] [address] Unknown, Provider, MD Social History Tobacco Use Types Packs/Day Years [...] Globulin 22.2 13 - 71 nmol/L [facility] Testosterone, Total 246 241 - 827 ng/dL [facility] Testosterone, Free 5.9 5.0 - 24.0 ng/dl [facility] Comment: Test not recommended in patients with plasma protein abnormalities. 01/30/2007 7:32 EDT 01/30/2007 22:36 EDT us Provider Unknown CHEMISTRY & BLOOD GAS ORDERA BLES Final Result [facility] [address] [place] [address] documented in this encounter Visit Diagnoses Not on filedocumented in this encounter
--- OUTSIDE RECORDS SUMMARY | 2024-07-16 13:58 | XMS_ITS | Encounter Summary ---
Author Organization [facility] [place] [address] Care Team Providers Care Prep Room Supervisor Name Role Phone Mercedes Miles MD Primary Care Provider [phone] Encounter Details Date Type Department Care Team (Late st Contact Info) Description 10/04/2023 Telephone Cardiology at [address] [phone] Dustin Kenyon MD [facility] [place] [address] Social History Tobacco Use Types Packs/Day Years [...] EDT) Creatinine 0.71(L) 0.80 - 1.50 mg/dL [facility] Est Glomerular Filtration Rate 100 >=60 mL/min/1. 73 m?? [facility] Comment: This patient's estimated [...] [facility] Co de Phone Number [facility] [place] [address] documented in this encounter Visit Diagnoses Diagnosis Hypertension, unspecified type documented in this encounter Care Teams Prep Room Supervisor Relationship Specialty Start Date End Date Mercedes Miles MD [address] [place] [address] PCP - General Family Medicine 07/24/23 documented as of this encounter
--- OUTSIDE RECORDS SUMMARY | 2024-07-16 13:59 | XMS_ITS | Encounter Summary ---
Author Organization [facility] Address [facility] [place] [address] Care Team Providers Care Assistant Womens Volleyball Coach Name Role Phone Michelle Cooper Anyi PRITCHETT Primary Care Provider [phone] Encounter Details Date Type Department Care Team (Late st Contact Info) Description 11/01/2021 7:35 AM EST [place]est[place] [id number] Waleska Lopez MD [facility] [place] [address] Anesthesia Record Procedure Summary Procedure Name Responsible [...] 2.78) performed by Taj Mccullough MD at [facility] MAIN OR ??? PRO COLONOSCOPY, REMV LESN, SNARE N/A 04/05/2021 COLONOSCOPY, POLYPECTOMY, REMOVAL LESION BY SNARE (WRVU 4.67) performed by Marilynn Mondragon MD at [facility] ENDOSCOPY ? ? PRO INJECTION ANES AGENT &/ STEROID INTERCOSTAL NERVE EA ADDL LEVEL Right 11/25/2020 NERVE BLOCK, INTERCOSTAL NERVE, MULTIPLE (WRVU 1.68) performed by Taj Mccullough MD at [facility] OR ??? PRO THYMECTOMY, RADICAL MEDIAST DISSSEC Right 11/25/2020 @ROBOTIC THYMECTOMY W/ RAD. MEDIASTINAL DISSECTION (WRVU 23.48) performed by Taj Mccullough MD at [facility] MAIN OR Social History Tobacco Use ??? 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
--- OUTSIDE RECORDS SUMMARY | 2024-07-16 13:59 | XMS_ITS | Encounter Summary ---
Author Organization [facility] [place] [address] Care Team Providers Care Condenser Setter Name Role Phone AllisonMichelle serrano Anyi PRITCHETT Primary Care Provider [phone] Encounter Details Date Type Department Care Team (Late st Contact Info) Description 11/09/2020 [place] [phone] Zoya Coleman Social History Tobacco Use Types Packs/Day [...] Ordering provider: Dr. Taj Mccullough Testing Facility: [facility] testing site [place], [place] Date of Testin/28 Time of Testing: [...] called and will not be going to [facility] for pre-op COVID testing-they can't do timely * Telephone Encounter - Zoya Coleman - 11/09/2020 12:16 PM EDT Telephone call placed/received to schedule covid 19 testing with patient. Ordering provider: Dr. Taj Mccullough Testing Facility: [facility] Date of Testin/28 Time of Testing: TBD Symptoms: No Is this the first test for Covid 19 No, Summer 2019, Neg, [facility] If no, please list date of previous test, result, and type of test (Molecular, Antigen, Antibody orunknown): Resides in congregate care setting No Employee or Household Member of Employee No Healthcare Worker No documented in this encounter Plan of Treatment Not on file documented as of this encounter Visit Diagnoses Diagnosis COVID-19 ruled out documented in this encounter Care Teams Condenser Setter Relationship Specialty Start Date End Date Michelle Cooper APRN [address] [place] [address] PCP - General Family Medicine 09/25/20 07/23/23 documented as of this encounter
--- OUTSIDE RECORDS SUMMARY | 2024-07-16 13:59 | XMS_ITS | Encounter Summary ---
[place] [address] Care Team Providers Care Instrument Designer Name Role Phone Michelle Cooper APRN Primary Care Provider [phone] Encounter Details Date Type Department Care Team (Late st Contact Info) Description 12/01/2020 Telephone [place] [address] Yuridia Bass RN Social History Tobacco Use [...] RTC on 12/21/2020 CXR 12/21/2020 at receptionist clerk area 3L at 12:[address] Mccullough 12/21/2020 at receptionist clerk area 3K at 1:15 pm Tomas Elliott is aware of appointments and know to call with any questions or concerns. documented in this encounter Plan of Treatment Not on file documented as of this encounter Visit Diagnoses Not on filedocumented in this encounter Care Teams Instrument Designer Relationship Specialty Start Date End Date Michelle Cooper APRN [address] [place] [address] PCP - General Family Medicine 09/25/20 07/23/23 documented as of this encounter
--- OUTSIDE RECORDS SUMMARY | 2024-07-16 13:59 | XMS_ITS | Encounter Summary ---
Author Organization [facility] Address [facility] [place] [address] Care Team Providers Care Secondary School Teacher Name Role Phone Michelle Cooper CYLINDER BATCHER Primary Care Provider [phone] Reason for Visit * Reason Onset Date Comments Medication Refill 11/20/2020 Spiriva Encounter Details Date Type Department Care Team (Late st Contact Info) Description 11/20/2020 [place] [address] Tomas Quan MD [facility] [place] [address] Extrinsic asthma, unspecified asthma severity, unspecified whether [...] Primary documented in this encounter Care Teams Secondary School Teacher Relationship Specialty Start Date End Date Michelle Cooper APRN [address] [place] [address] PCP - General Family Medicine 09/25/20 07/23/23 documented as of this encounter
--- OUTSIDE RECORDS SUMMARY | 2024-07-16 13:59 | XMS_ITS | Encounter Summary ---
Author Organization [facility] [place] [address] Care Team Providers Care Head Transfer Clerk Name Role Phone Michelle Cooper APRN Primary Care Provider [phone] Reason for Referral * Diagnostic Test (Routine) - Closed Specialty Diagnoses / Procedures Referred By Contac t Referred To Contact Radiology Diagnoses Mediastinal mass Procedures CT Chest w Contrast Taj Mccullough MD [facility] [place] [address] [facility] [place] [address] Referral ID Status Reason Start Date Expiration Date V isits Requested Visits Authorized [id number] Closed Specialty Service Requested 12/21/2020 06/22/2022 1 1 Reason for Visit * Diagnostic Test (Routine) - Closed Specialty Diagnoses / Procedures Referred By Contac t Referred To Contact Radiology Diagnoses Mediastinal mass Procedures CT Chest w Contrast Taj Mccullough MD [facility] [place] [address] [facility] [place] [address] Referral ID Status Reason Start Date Expiration Date V isits Requested Visits Authorized [id number] Closed Specialty Service Requested 12/21/2020 06/22/2022 1 1 Encounter Details Date Type Department Care Team (Latest Contact Info) Description 07/19/2021 7:12 AM EST - 07/19/2021 11:59 PM EST Hospital Encounter CT Scan at [facility] [place] [address] Taj Mccullough MD [facility] DR [place] [address] Mediastinal mass Discharge Disposition: Home Social History [...] who have questions please contact the health lawn care specialist that requested your imaging first. ? Electronically signed by: Erin Kessler MD, [facility] ([phone]), at 07/19/2021 10:39 AM Narrative 07/19/2021 10:39 [...] patients who have questions please contactthe health lawn care specialist that requested your imaging first. Electronically signed by: Erin Kessler MD, [facility] ([phone]), at 07/19/2021 10:39 AM Taj Mccullough MD [...] mLs documented in this encounter Care Teams Head Transfer Clerk Relationship Specialty Start Date End Date Michelle Cooper APRN [address] [place] [address] PCP - General Family Medicine 09/25/20 07/23/23 documented as of this encounter
--- OUTSIDE RECORDS SUMMARY | 2024-07-16 13:59 | XMS_ITS | Encounter Summary ---
Author Organization [facility] Address [facility] [address] Care Team Providers Care Hollow Handle Knife Assembler Name Role Phone Allison Michelle Anyi PRITCHETT Primary Care Provider [phone] Encounter Details Date Type Department Care Team (Late st Contact Info) Description 04/05/2021 4:00 PM EDT - 04/05/2021 5:00 PM EDT [place] [address] Marilynn Mondragon MD [facility] [place] [address] COLONOSCOPY, POLYPECTOMY, REMOVAL LESION BY SNARE (WRVU [...] occurs, please contact your Doctor. Please call [phone] before 8pm Mon-Fri with problems, questions or concerns. If you call after 8pm or on weekends, call the Hospital at [phone] and ask to speak to the Head Insulation Board Saw Operator absence management consultant and the vacuum drum drier operator will contact that person for you. When should you call for help? Call [phone] anytime you think you may need emergency [...] any problems. Where can you learn more? [facility] View your After Visit Summary and more online at [email or web address] If you would like to provide feedback [...] cost to you. Content Version: 12.2 ?? [id number] [employer]. Care instructions adapted under license by [facility]. If you have questions about a medical condition or this instruction, always ask your healthcare professional. [employer] disclaims any warranty or liability for your [...] 04/05/2021 5:02 PM EDT Colonoscopy, Andres Ewing ([id number]) 04/05/2021 4:20 PM EDT rectal bleeding COLONOSCOPY Routine 04/05/2021 4:07 PM EDT documented in this encounter Results * Surgical Pathology Report (04/05/2021 5:02 PM EDT) Final Diagnosis [id number] ? Location: 4T; EA09; A The signing [...] MD Verified: ??04/12/2021 10:45 ??Pathologist Performed at: ??-[facility] Dept. of Pathology, [place], [place] SPECIMEN(S) SUBMITTED A - Ascending colon [...] labeled B1. ??MLL 04/12/2021 10:[address] [facility] GI Biopsy 04/05/2021 5:02 PM EDT 04/05/2021 5:02 PM EDT GI Biopsy 04/05/2021 5:02 PM EDT 04/05/2021 5:02 PM EDT Marilynn Mondragon MD PATHOLOGY/CYTOLOGY O DEAN Performing Organization Address [facility] [place] [address] * Specimen to Pathology (04/05/2021 5:02 PM EDT) AP Specimen 04/05/2021 5:02 PM EDT 04/05/2021 5:[address] [facility] - 04/05/2021 5:02 PM EDT Specimen requisition ordered. ??Separate Pathology report to follow Marilynn Mondragon MD PATHOLOGY/CYTOLOGY O DEAN Performing Organization Address [facility] [place] [address] * Specimen to Pathology (04/05/2021 5:02 PM EDT) AP Specimen 04/05/2021 5:02 PM EDT 04/05/2021 5:[address] [facility] - 04/05/2021 5:02 PM EDT Specimen requisition ordered. ??Separate Pathology report to follow Marilynn Mondragon MD PATHOLOGY/CYTOLOGY O DEAN Performing Organization Address [facility] [place] [address] * COLONOSCOPY (04/05/2021 4:07 PM EDT) COLONOSCOPY [facility] Endoscopy ___ Procedure Date: 04/05/2021 4:07 PM ? Patient Name: Tomas Elliott ? Date of : 1955 ? Age: 65 ? Order #: [id number] ? Instrument Name: [id number] ? ___ Procedure: ? Colonoscopy Indications: ? [...] preparation was ? evaluated using the BBPS ([place] ? Bowel Preparation Scale) with scores ? [...] RN) documented in this encounter Care Teams Hollow Handle Knife Assembler Relationship Specialty Start Date End Date Michelle Cooper APRN [address] [place] [address] PCP - General Family Medicine 09/25/20 07/23/23 documented as of this encounter
--- OUTSIDE RECORDS SUMMARY | 2024-07-16 13:59 | XMS_ITS | Encounter Summary ---
Author Organization [facility] Address [facility] [place] [address] Care Team Providers Care Manager Primary Care Name Role Phone Allison, Michelle Anyi PRITCHETT Primary Care Provider [phone] Encounter Details Date Type Department Care Team (Latest Contact Info) Description 04/05/2021 2:16 PM EDT - 04/05/2021 5:58 PM EDT Hospital En[place] [address] Marilynn Mondragon MD [facility] [place] [address] Discharge Disposition: Home Social History Tobacco Use [...] occurs, please contact your Doctor. Please call [phone] before 8pm Mon-Fri with problems, questions or concerns. If you call after 8pm or on weekends, call the Hospital at [phone] and ask to speak to the Manager Business Information executive communications manager and the multiple knife edge trimmer operator will contact that person for you. [...] any problems. Where can you learn more? [facility] View your After Visit Summary and more online at [email or web address] If you would like to provide [...] cost to you. Content Version: 12.2 ?? [id number] [facility], [employer]. Care instructions adapted under license by [facility]. If you have questions about a medical condition or this instruction, always ask your healthcare professional. [employer], [employer] disclaims any warranty or liability for your [...] 04/05/2021 5:02 PM EDT Colonoscopy, Andres Ewing ([id number]) 04/05/2021 4:20 PM EDT rectal bleeding COLONOSCOPY Routine 04/05/2021 4:07 PM EDT documented in this encounter Results * Surgical Pathology Report (04/05/2021 5:02 PM EDT) Final Diagnosis [id number] ? Location: 4T; EA09; A The signing [...] MD Verified: ??04/12/2021 10:45 ??Pathologist Performed at: ??-[facility] Dept. of Pathology, [place], [place] SPECIMEN(S) SUBMITTED A - Ascending colon [...] labeled B1. ??MLL 04/12/2021 10:[address] [facility] GI Biopsy 04/05/2021 5:02 PM EDT 04/05/2021 5:02 PM EDT GI Biopsy 04/05/2021 5:02 PM EDT 04/05/2021 5:02 PM EDT Marilynn Mondragon MD PATHOLOGY/CYTOLOGY O DEAN Performing Organization Address City/[facility]/[place] [address] * Specimen to Pathology (04/05/2021 5:02 PM EDT) AP Specimen 04/05/2021 5:02 PM EDT 04/05/2021 5:[address] [facility] - 04/05/2021 5:02 PM EDT Specimen requisition ordered. ??Separate Pathology report to follow Marilynn Mondragon MD PATHOLOGY/CYTOLOGY O DEAN Performing Organization Address [facility] [place] [address] * Specimen to Pathology (04/05/2021 5:02 PM EDT) AP Specimen 04/05/2021 5:02 PM EDT 04/05/2021 5:[address] [facility] - 04/05/2021 5:02 PM EDT Specimen requisition ordered. ??Separate Pathology report to follow Marilynn Mondragon MD PATHOLOGY/CYTOLOGY O DEAN Performing Organization Address [facility] [place] [address] * COLONOSCOPY (04/05/2021 4:07 PM EDT) COLONOSCOPY [facility] Endoscopy ___ Procedure Date: 04/05/2021 4:07 PM ? Patient Name: Tomas Elliott ? Date of : 1955 ? Age: 65 ? Order #: [id number] ? Instrument Name: [id number] ? ___ Procedure: ? Colonoscopy Indications: ? [...] preparation was ? evaluated using the BBPS ([place] ? Bowel Preparation Scale) with scores ? [...] RN) documented in this encounter Care Teams Manager Primary Care Relationship Specialty Start Date End Date Michelle Cooper APRN [address] [place] [address] PCP - General Family Medicine 09/25/20 07/23/23 documented as of this encounter
--- OUTSIDE RECORDS SUMMARY | 2024-07-16 13:59 | XMS_ITS | Encounter Summary ---
[place] [address] Care Team Providers Care Crushed Stone Grader Name Role Phone Leigha Cooperily Anyi PRITCHETT Primary Care Provider [phone] Reason for Referral * Diagnostic Test (Routine) - Closed Specialty Diagnoses / Procedures Referred By Contsai t Referred To Contact Radiology Diagnoses Mediastinal mass Procedures CT Chest w Contrast Taj Mccullough MD [facility] [place] [address] [facility] [place] [address] Referral ID Status Reason Start Date Expiration Date V isits Requested Visits Authorized [id number] Closed Specialty Service Requested 12/21/2020 06/22/2022 1 1 Reason for Visit * Reason Comments Follow-up Encounter Details Date Type Department Care Team (Late st Contact Info) Description 12/21/2020 1:30 PM EDT Office [place] [address] Taj Mccullough MD [facility] [place] [address] Mediastinal mass; Lipoma, unspecified site [...] Outpatient Follow Up Note Taj Mccullough MD [place], [place] [address] FAX: Chief complaint: Follow up robotic thymectomy [...] or concerns CYNTHIA Morataya 12/21/20 Thoracic Surgery [facility] * Taj Mccullough MD - 12/21/2020 1:30 [...] have questions please contact the health care process manager that requested your imaging first. ? Electronically signed by: Erin Kessler MD, [facility] ([phone]), at 07/19/2021 10:39 AM Narrative 07/19/2021 10:39 [...] who have questions please contactthe health care process manager that requested your imaging first. Taj Mccullough MD IMG CT ORDERABLE S * Creatinine (07/19/2021 7:02 AM EST) Creatinine 0.88 0.80 - 1.50 mg/dL [facility] Est Glomerular Filtration Rate 90 >=60 mL/min/1. 73 m?? [facility] Comment: This patient? s [...] Lab Taj Mccullough MD CHEMISTRY ORDERA BLES [facility] [place] [address] documented in this encounter Visit Diagnoses Diagnosis Mediastinal mass Swelling, mass, or lump in chest Lipoma, unspecified site Mediastinal mass Swelling, mass, or lump in chest documented in this encounter Care Teams Crushed Stone Grader Relationship Specialty Start Date End Date Michelle Cooper APRN [address] [place] [address] PCP - General Family Medicine 09/25/20 07/23/23 documented as of this encounter
--- OUTSIDE RECORDS SUMMARY | 2024-07-16 13:59 | XMS_ITS | Encounter Summary ---
[place] [address] Care Team Providers Care Clinical Implementation Specialist Name Role Phone Michelle Cooper APRN Primary Care Provider [phone] Encounter Details Date Type Department Care Team (Latest Contact Info) Description 07/19/2021 7:15 AM EST Laboratory Appointment Lab [address] [place] [address] Mediastinal mass Social History Tobacco [...] CHEMISTRY ORDERA BLES [facility] [place] [address] documented in this encounter Visit Diagnoses Diagnosis Mediastinal mass Swelling, mass, or lump in chest documented in this encounter Care Teams Clinical Implementation Specialist Relationship Specialty Start Date End Date Michelle Cooper APRN [address] [place] [address] PCP - General Family Medicine 09/25/20 07/23/23 documented as of this encounter
--- OUTSIDE RECORDS SUMMARY | 2024-07-16 13:59 | XMS_ITS | Encounter Summary ---
[place] [address] Care Team Providers Care Fish Skinning Machine Feeder Name Role Phone Michelle Cooper APRN Primary Care Provider [phone] Reason for Visit * Reason Onset Date Comments Other 12/10/2020 f/u to Spiriva R espimat Encounter Details Date Type Department Care Team (Late st Contact Info) Description 12/10/2020 [place] [address] Bea Lee RN Other (f/u to Spiriva [...] he was informed as a resident of [place] he can get acheaper rate than through mail order Part D insurance. Pts plan is to go to the pharmacy today and picking machine operator the Spiriva. I have requested that he send us amessage back if he does use it and let us know how things are going after a couple days. Pt agrees to this plan and will update us as agreed. Bea Lee RN Department of Pulmonary 5C, [facility] / Pager: [phone] documented in this encounter Plan of Treatment Not on file documented as of this encounter Visit Diagnoses Not on filedocumented in this encounter Care Teams Fish Skinning Machine Feeder Relationship Specialty Start Date End Date Michelle Cooper APRN [address] [place] [address] PCP - General Family Medicine 09/25/20 07/23/23 documented as of this encounter
--- OUTSIDE RECORDS SUMMARY | 2024-07-16 13:59 | XMS_ITS | Encounter Summary ---
[place] [address] Care Team Providers Care Traffic Operations Manager Name Role Phone Michelle Cooper APRN Primary Care Provider [phone] Reason for Visit * Reason Onset Date Comments Post Procedure Call 11/30/2020 Encounter Details Date Type Department Care Team (Late st Contact Info) Description 11/30/2020 Telephone [place] [address] Yuridia Bass, RN Post Procedure Call Social [...] Plan: RTC on 12/21/2020 CXR 12/21/2020 at reception manager area 3L at 12:[address] Mccullough 12/21/2020 at reception manager area 3K at 1:15 pm Tomas Elliott is NOT aware of appointments and know to call with any questions or concerns. documented in this encounter Plan of Treatment Not on file documented as of this encounter Visit Diagnoses Not on filedocumented in this encounter Care Teams Traffic Operations Manager Relationship Specialty Start Date End Date Michelle Cooper APRN [address] [place] [address] PCP - General Family Medicine 09/25/20 07/23/23 documented as of this encounter
--- OUTSIDE RECORDS SUMMARY | 2024-07-16 13:59 | XMS_ITS | Encounter Summary ---
Author [facility] [place] [address] Care Team Providers Care Classroom Paraprofessional Name Role Phone Michelle Cooper APRN Primary Care Provider [phone] Reason for Visit * Reason Onset Date Comments Other 01/12/2021 Regarding Spiriv a Encounter Details Date Type Department Care Team (Late st Contact Info) Description 01/12/2021 [place] [phone] Bea Lee RN Other (Regarding Spiriva) Social [...] RN Department of Pulmonary 5C, [facility] / Pager: [phone] documented in this encounter Plan of Treatment Not on file documented as of this encounter Visit Diagnoses Not on filedocumented in this encounter Care Teams Classroom Paraprofessional Relationship Specialty Start Date End Date Michelle Cooper, YARELY [address] [place] [address] PCP - General Family Medicine 09/25/20 07/23/23 documented as of this encounter
--- OUTSIDE RECORDS SUMMARY | 2024-07-16 13:59 | XMS_ITS | Encounter Summary ---
Author Organization [facility] Address [facility] [place] [address] Care Team Providers Care Transporter Driver Name Role Phone Michelle Cooper Anyi PRITCHETT Primary Care Provider [phone] Reason for Visit * Auth/Cert Specialty Diagnoses / Procedures Referred By Jhonny t Referred To Contact Diagnoses Mediastinal mass anterior mediastinal mass Procedures PRO THYMECTOMY, RADICAL MEDIAST DISSSEC PRO BRONCHOSCOPY, DIAGNOSTIC @ROBOTIC THYMECTOMY W/ RAD. MEDIASTINAL DISSECTION (WRVU 23.48) BRONCHOSCOPY, DIAGNOSTIC (WRVU 2.78) MODIFIER ROBOT,DAVINCI XI Referral ID Status Reason Start Date Expiration Date Visits Re quested Visits Authorized [id number] 1 1 Encounter Details Date Type Department Care Team (Latest Contact Info) Description 11/25/2020 9:55 AM EDT - 11/26/2020 1:30 PM EDT Hospital Encounter [address] [place] [address] Taj Hopper MD [facility] [place] [address] Mediastinal mass; Mediastinal mass Discharge Disposition: Home [...] mass Added automatically from request for surgery [id number] Resolved Hospital Problems No resolved problems to [...] Hospital Course: Tomas Elliott was admitted to [facility] on 11/25/2020 vi[facility] Same Day Program. [...] a nurse in the Thoracic Clinic at [phone]. After hours or on weekends or holidays please call: [phone] and ask to speak to the Thoracic [...] the Thoracic Clinic or the Thoracic Surgeon electronic warfare specialist after hours. Please take over the counter [...] Expires XR Chest PA & Lateral (Generic) [[id number] 17235 Custom] 12/10/2020 11/26/2021 Process Instructions: Scheduling Instructions: Questions: Where will study be performed?: [facility] Radiology Portable exam?: Reason for exam and clinical history: Anterior mediastinal mass s/p Thymectomy Clinical information / katz questions: PTX, Effusion, Comparison Stat read required?: Date of injury if applicable: Requested Time: Provider Contact Information: Primary Care Provider: Michelle Cooper APRN [phone] Discharge References/Attachments: Discharge References/Attachments None For questions regarding this document or issues relating to this hospitalization on the Thoracic Surgery Service, please contact Dr. Hopper's office at . Signed: CYNTHIA Morataya 11/26/2020 CC: PCP: Michelle Cooper APRN Referring: Taj Hopper Md [facility] [place] [address] documented in this encounter Discharge Instructions * [...] a nurse in the Thoracic Clinic at [phone]. After hours or on weekends or holidays please call: [phone] and ask to speak to the Thoracic [...] the Thoracic Clinic or the Thoracic Surgeon electronic warfare specialist after hours. Please take over the counter [...] CYNTHIA Morataya 11/25/2020 Thoracic Surgery Service Pager [phone] documented in this encounter Miscellaneous Notes * [...] file: n/a Primary care provider on file: Mcihelle Cooper, METAL MINER [phone] Advance Directive on file and Code Status: <no information>, Attempt Cardiopulmonary Resuscitation - Inpatient Patient???s Functional Status: Independent Living Situation: home [address] [place] [address] Supports: Friend Assessment: Patient with no apparent RNCM/SW needs at this time. No housing, transportation, insurance, resources concerns identified at this time. Supports in place to achieve a safe post-hospital transition. No identified barriers to accessing necessary care and/or follow-up after discharge. Plan: Patient to d/c to home via car/friend when medically ready. quality assurance practice manager/Solderer Torch will continue to follow patient???s progress and remain available if situation changes for coordination of care, psychosocial support and/or discharge planningSafia oMrelos RN (Jonas) RN/AMINTA - Cellphone: [phone] Pager: [phone] Covering Service RN/CM * Plan of Care [...] Operative Note Patient Name: Tomas Elliott : [id number] MR#: [id number] Case Date: 11/25/2020 Surgeon: Surgeon(s) and Role: [...] TO PATHOLOGY Mediastinal fat--FROZEN, ?malignancy OR 11 [address] anterior mediastinal mass mediastinal fat--FROZEN, ?malignancy excision YES, Please perform frozen section No 11/25/2020 1:51 PM Time specimen removed from patient: 1:50 PM Number of tissue samples (in container) 1 Biospecimen to store? No SPECIMEN TO PATHOLOGY Thymus and mediastinal fat OR 11 61470 anterior mediastinal mass thymus and mediastinal fat excision No 11/25/2020 2:05 PM Time specimen removed from patient: 2:05 PM Number of tissue samples (in container) 1 Biospecimen to store? No Fluids: 1.5L PRBCs: none (See Anesthesia Record/Report for Other Blood Products) Urine Output: 200 mL Drains: 1. 19 Hungarian mauro drain left pleural space 2. 28 Hungarian chest tube right pleural space Disposition: awakened [...] MD - 11/25/2020 12:02 PM EDT [facility] Operative Note Patient Name: Tomas Elliott : [id number] MR#: [id number] Case Date: 11/25/2020 Surgeon: Surgeon(s) and Role: [...] TO PATHOLOGY Mediastinal fat--FROZEN, ?malignancy OR 11 [address]391 anterior mediastinal mass mediastinal fat--FROZEN, ?malignancy excision YES, Please perform frozen section No 11/25/2020 1:51 PM Time specimen removed from patient: 1:50 PM Number of tissue samples (in container) 1 Biospecimen to store? No SPECIMEN TO PATHOLOGY Thymus and mediastinal fat OR 11 17851 anterior mediastinal mass thymus and mediastinal fat excision No 11/25/2020 2:05 PM Time specimen removed from patient: 2:05 PM Number of tissue samples (in container) 1 Biospecimen to store? No Drains: 28 Hungarian chest tube, right; 19 Hungarian Mauro drain right chest, across mediastinum into [...] entrance port, and a 12 mm laparoscopic judicial assistant port was placed low on the [...] for hemostasis, and then manuallydirected a 19 Hungarian Mauro drain across the mediastinum through the rent in the left mediastinal pleura and into the left hemithorax. A second 28 Hungarian chest tube was placed through the a different robotic port port up to the apex of the right hemithorax. The robotic instruments were then removed and the robot was undocked. The judicial assistant port incision was extended slightly to [...] &/ Steroid Intercostal Nerve Ea Addl Level (12346) 11/25/2020 11:33 AM EDT Mediastinal mass MODIFIER ROBOTAMY XI 11/25/2020 11:33 AM EDT Mediastinal mass Bronchoscopy, Diagnostic (57859) 11/25/2020 11:33 AM EDT Mediastinal mass Thymectomy, Radical Mediast Disssec (57234) 11/25/2020 11:33 AM EDT Mediastinal mass POCT [...] who have questions please contact the health medicare biller that requested your imaging first. ? Narrative [...] patients who have questions please contactthe health medicare biller that requested your imaging first. Taj Hopper [...] PM EDT 11/25/2020 2:05 PM EDT Narrative [facility] - 11/25/2020 2:05 PM EDT Specimen requisition ordered. ??Separate Pathology report to follow Taj Hopper MD PATHOLOGY/CYTOLO GY ORDERABLES [facility] [place] [address] * Surgical Pathology Report (11/25/2020 1:51 PM EDT) Final Diagnosis [id number] ? [facility]; B The signing pathologist has (i) examined [...] Verified: ??12/04/2020 17:02 ??Pathologist Performed at: ??-[facility] Dept. of Pathology, [place], [place] DISCUSSION Sections show a multilobular proliferation [...] specimen is inked in black Sections/Processing : Can Sorter sections in 11 cassettes as follows: ?B1: ??Detached fragment entirely submitted ?B2-B11: ??Can Sorter sections of the multilobulated tissue, possibly thymus ??aemr ?Frozen Section FROZEN SECTION DIAGNOSIS AFS1 - Mediastinal fat, ?? for frozen section: - Wispy fibrous tissue. ?? There is no evidence of malignancy. . FROZEN SECTION DIAGNOSIS 11/25/20 14:17 /jrp Electronically signed by: ??MD Cathy, Atul Angel Verified: ??11/25/2020 ?Pathologist Performed at: ??-[facility] Dept. of Pathology, [place], [place] This intraoperative consultation should be interpreted as a preliminary diagnosis pending review of the entire specimen and special studies, if any. 12/04/2020 5:02 PM EDT [facility] THYMUS GLAND STRUCTURE / Unknown 11/25/2020 1:51 PM EDT 11/25/2020 1:51 PM EDT THYMUS GLAND STRUCTURE / Unknown 11/25/2020 1:51 PM EDT 11/25/2020 1:51 PM EDT Taj Hopper MD PATHOLOGY/CYTOLO GY ORDERABLES Performing Organization Address [facility] Co de Phone Number [facility] [place] [address] * Specimen to Pathology (11/25/2020 1:51 PM EDT) AP Specimen 11/25/2020 1:51 PM EDT 11/25/2020 1:51 PM EDT Narrative [facility] - 11/25/2020 1:51 PM EDT Specimen requisition ordered. ??Separate Pathology report to follow Taj Hopper MD PATHOLOGY/CYTOLO GY ORDERABLES Performing Organization Address [facility] de Phone Number [facility] [place] [address] * (ABNORMAL) BLOOD GAS 2 ARTERIAL (11/25/2020 12:26 PM EDT) pH, Arterial 7.39 7.35 - 7.45 [facility] PCO2, Arterial 46(H) 35 - 45 mmHg [facility] PO2, Arterial 76(L) 85 - 104 mmHg [facility] Bicarbonate, Arterial 26.9(H) 20.0 - 26.0 mmol/L [facility] Base Excess, Arterial 1.9 -3.0 - 3.0 mmol/L [facility] Hgb Blood Gas 13.2(L) 13.7 - 16.5 gm/dL [facility] Oxyhemoglobin, Arterial 94.2 94.0 - 97.0 % [facility] Carboxyhemoglob in, Arterial 0.6 % [facility] Comment: Nonsmokers: 0.5-1.5% COHB Smokers: Variable, but usually less than 10% Toxic: 20-30% COHB Lethal: Greater than 60% COHB Methemoglobin, Arterial 0.3 <=1.5 % [facility] Na Whole Blood 134(L) 135 - 145 mmol/L [facility] K Whole Blood 3.8 3.5 - 5.0 mmol/L [facility] Comment: Please note: Patients with WBC >100,000 may have falsely elevated Potassium levels. Contact the Clinical Chemistry Laboratory if there are any questions. ICa Whole Blood 1.13(L) 1.15 - 1.33 mmol/L [facility] Comment: Note: ??Total bilirubin higher than 20 mg/dL may lead to falsely low ionized calcium. CL Whole Blood 103 98 - 107 mmol/L [facility] Gluc Whole Bld 131 65 - 199 mg/dL [facility] Comment:Diabetes: >=200 mg/d L plus symptoms. Lactate WB 1.7 0.5 - 2.2 mmol/L [facility] FIO2 Art 51 % [facility] PF Ratio Art 149 [facility] Blood specimen (specimen) 11/25/2020 12:26 PM EDT 11/25/2020 12:26 PM EDT Taj Hopper MD POINT OF CARE TE ST ORDERABLES Performing Organization Address City/[facility]/ZIP Co de Phone Number [facility] [place] [address] * POCT Glucose (11/25/2020 11:10 AM EDT) Glucose, POC 103 65 - 199 mg/dL [facility] Comment: Supplemental ranges: <140 mg/dL before meals <180 mg/dL all other times of the day Blood specimen (specimen) 11/25/2020 11:10 AM EDT 11/25/2020 11:10 AM EDT Taj Hopper MD POINT OF CARE TE ST ORDERABLES [facility] [place] [address] documented in this encounter Visit Diagnoses Diagnosis [...] subcutaneous injection 5,000 Units 5,000 Units, Subcutaneous, PRINCIPAL NETWORK ARCHITECT TO O.R., 1 dose, On Mon11/25/20 at [...] 11/26/20 at 0144, Recovery (Recovery-Hospital Unit) [facility] 11/25/2020 3:33 PM EDT 1,000 mLs 100 [...] 100 mL infusion (COMPLETED) 2 g, Intravenous, PRINCIPAL NETWORK ARCHITECT TO O.R., 1 dose, On Mon11/25/20 at [...] injection 5,000 Units (COMPLETED) 5,000 Units, Subcutaneous, PRINCIPAL NETWORK ARCHITECT TO O.R., 1 dose, On Mon11/25/20 at [...] RN) documented in this encounter Care Teams Transporter Driver Relationship Specialty Start Date End Date Michelle Cooper APRN [address] [place] [address] PCP - General Family Medicine 09/25/20 07/23/23 documented as of this encounter
--- OUTSIDE RECORDS SUMMARY | 2024-07-16 13:59 | XMS_ITS | Encounter Summary ---
[place] [address] Care Team Providers Care Commodities Manager Name Role Phone Michelle Cooper APRN Primary Care Provider [phone] Encounter Details Date Type Department Care Team (Late st Contact Info) Description 11/03/2020 Orders [place] [id number] Yuridia Bass, RN Mediastinal mass Social History [...] chest documented in this encounter Care Teams Commodities Manager Relationship Specialty Start Date End Date Michelle Cooper APRN [address] [place] [address] PCP - General Family Medicine 09/25/20 07/23/23 documented as of this encounter
--- OUTSIDE RECORDS SUMMARY | 2024-07-16 13:59 | XMS_ITS | Encounter Summary ---
Author Organization [facility] [place] [address] Care Team Providers Care Mason Apprentice Name Role Phone Allison Michelle Anyi PRITCHETT Primary Care Provider [phone] Encounter Details Date Type Department Care Team (Latest Contact Info) Description 12/21/2021 12:00 PM EDT - 12/21/2021 4:08 PM EDT Hospital Encounter [place] [address] Angelita Wright MD [facility] [place] [address] Discharge Disposition: Home Social History Tobacco Use [...] 15 minutes 4X/day. Pain medications Please take kzqj-ggt-iislwgb pain medications for post-operative discomfort.(Please continue to [...] Center 01/17/2022 11:30 AM Angelita Wright MD [facility] SURG [facility] Divison of Colon and Rectal Surgery, [place] [address] documented in this encounter Medications at Time [...] escorted out of department via wheelchair with ENGINEER STEAM. documented in this encounter Miscellaneous Notes * Op Note - Angelita Wright MD - 12/21/2021 1:23 PM EDT [facility] Operative Note Patient Name: Tomas Elliott : [id number] MR#: [id number] Case Date: 12/21/2021 Surgeon: Surgeon(s) and Role: [...] 12/21/2021 1:50 PM EDT Hemorrhoidectomy, Int/Ext, Complx ([id number]) 12/21/2021 12:56 PM EDT hemorroids POCT GLUCOSE Routine 12/21/2021 12:15 PM EDT documented in this encounter Results * Specimen to Pathology (12/21/2021 2:04 PM EDT) AP Specimen 12/21/2021 2:04 PM EDT 12/21/2021 2:04 PM EDT Narrative [facility] - 12/21/2021 2:04 PM EDT Specimen requisition ordered. ??Separate Pathology report to follow Angelita Wright MD PATHOLOGY/CYTOLOGY O RDERABLES [facility] [place] [address] * Surgical Pathology Report (12/21/2021 1:50 PM EDT) Final Diagnosis [id number] ? Location: [facility]; [facility]; A The signing pathologist has (i) examined the relevant preparation(s) for the specimen(s) and (ii) rendered or confirmed the diagnosis(es). . ?Surgical Pathology DIAGNOSIS A - Hemorrhoids - perm, excision: Squamous ??and rectal glandular ??junction epithelium with marked subepithelial vascular proliferation and congestion, consistent with ?hemorrhoid. Electronically signed by: ?Naz Membreno MD Verified: ??01/03/2022 17:45 ??Pathologist Performed at: ??-[facility] Dept. of Pathology, [place], [place] SPECIMEN(S) SUBMITTED A - Hemorrhoids - perm, excision (2) CLINICAL INFORMATION Hemorrhoids SPECIMEN PROCESSING A - Labeled/Fixative: Hemorrhoids, fresh. Quantity/Size: ??Two, 3.5 x 1.7 x 1.7 cm; 1.3 x 1.2 x 0.7 cm. Tissue Description: Intact, polypoid portions of pink-red mucosa with underlying, congested vasculature. Sections/Processi ng: Serially sectioned. Cutting Table Operator First sections in 1 cassette labeled A1. ??njrs 01/03/2022 5:45 PM EDT [facility] ANAL STRUCTURE / Unknown 12/21/2021 1:50 PM EDT 12/21/2021 1:50 PM EDT Angelita Wright MD PATHOLOGY/CYTOLOGY O RDERAALEX [facility] [place] [address] * POCT Glucose (12/21/2021 12:15 PM EDT) Glucose, POC 99 65 - 199 mg/dL [facility] Comment: Supplemental ranges: <140 mg/dL before meals <180 mg/dL all other times of the day Blood 12/21/2021 12:1 5 PM EDT 12/21/2021 12:15 PM EDT Angelita Wright MD POINT OF CARE TEST O RDERABLES [facility] [place] [address] documented in this encounter Visit Diagnoses Not [...] Routine 1423 (Given - Provid er: Izabel Floerz RN)1518 (Given - Provider: Izabel Florez RN) [...] Routine documented in this encounter Care Teams Mason Apprentice Relationship Specialty Start Date End Date Michelle Cooper APRN [address] [place] [address] PCP - General Family Medicine 09/25/20 07/23/23 documented as of this encounter
--- OUTSIDE RECORDS SUMMARY | 2024-07-16 13:59 | XMS_ITS | Encounter Summary ---
[place] [address] Care Team Providers Care Warper Tender Name Role Phone Johny Cooper APRN Primary Care Provider Reason for Referral * - Closed Specialty Diagnoses / Procedures Referred By Sofieac t Referred To Contact Diagnoses Former smoker Procedures US AAA Screening Johny Cooper APRN [address] [place] [address] [facility] [place] [address] Referral ID Status Reason Start Date Expiration Date Visits Re quested Visits Authorized [id number] Closed 12/09/2020 12/09/2021 1 1 Reason for Visit * - Closed Specialty Diagnoses / Procedures Referred By Jhonny baer Referred To Contact Diagnoses Former smoker Procedures US AAA Screening Johny Cooper APRN [address] [place] [address] [facility] [place] [address] Referral ID Status Reason Start Date Expiration Date Visits Re quested Visits Authorized [id number] Closed 12/09/2020 12/09/2021 1 1 Encounter Details Date Type Department Care Team (Latest Contact Info) Description 12/21/2020 3:00 PM EDT - 12/21/2020 11:59 PM EDT Hospital [place] [address] Johny Cooper APRN [address] [place] [address] Former smoker Discharge Disposition: Home Social History [...] have questions please contact the health career developer that requested your imaging first. ?Charli Frank, Staff Physician Electronically Signed Final Report ?? 12/21/2020 03:39 pm Narrative 12/21/2020 3:39 PM EDT Aorta ? (Signed Final 12/21/2020 03:39 pm) PATIENT INFO: ID #: ? [id number] ?: ??[birth year] (64 yrs)(M) Name: ? TOMAS ELLIOTT ? Visit Date: 12/21/2020 03:09 pm PERFORMED BY: Performed By: ? Bea Berkowitz RDMS Attending: ?Charli Frank MD Referred By: ?JOHNY ALEGRENO Location: ? [place] SERVICE(S) PROVIDED: UAORTA - AAA Screening - [id number] INDICATIONS: FORMER SMOKER; AAA SCREENING ------ AORTA: [...] 12/21/2020 03:39 pm) PATIENT INFO: ID #: [id number] : [birth year] (64 yrs)(M) Name: TOMAS ELLIOTT Visit Date: 12/21/2020 03:09 pm PERFORMED BY: Performed By: Bea Berkowitz RDMS Attending: Charli Frank MD Referred By: JOHNY COOPER Location: [place] SERVICE(S) PROVIDED: UAORTA - AAA Screening - [id number] INDICATIONS: FORMER SMOKER; AAA SCREENING ------ AORTA: [...] have questions please contact the health career developer that requested your imaging first. Charli Frank, Staff Physician Electronically Signed Final Report 12/21/2020 03:39 pm Johny Cooper RESEARCH AND EVALUATION MANAGER IMG US GEN ORDERABLE S documented in this encounter Visit Diagnoses Diagnosis Former smoker Personal history of tobacco use, presenting hazards to health documented in this encounter Care Teams Warper Tender Relationship Specialty Start Date End Date Johny Cooper APRN [address] [place] [address] PCP - General Family Medicine 09/25/20 07/23/23 documented as of this encounter
--- OUTSIDE RECORDS SUMMARY | 2024-07-16 13:59 | XMS_ITS | Encounter Summary ---
Author Organization [facility] Address [facility] [place] [address] Care Team Providers Care Nurse Companion Name Role Phone Michelle Cooper APRN Primary Care Provider Encounter Details Date Type Department Care Team (Late st Contact Info) Description 12/01/2020 Notes [place] [id number] Mona Bear Social History Tobacco Use Types [...] on filedocumented in this encounter Care Teams Nurse Companion Relationship Specialty Start Date End Date Michelle Cooper APRN [address] [place], [place] [address] PCP - General Family Medicine 09/25/20 07/23/23 documented as of this encounter
--- OUTSIDE RECORDS SUMMARY | 2024-07-16 13:59 | XMS_ITS | Encounter Summary ---
Author Organization [facility] [place] [address] Care Team Providers Care Data Integration Analyst Name Role Phone Leigha Cooperily Anyi PRITCHETT Primary Care Provider [phone] Reason for Visit * Reason Onset Date Comments Other 12/01/2020 Regarding Spiriv a Encounter Details Date Type Department Care Team (Late st Contact Info) Description 12/01/2020 [place] [address] Bea Lee RN Other (Regarding Spiriva) Social [...] with Pt when I hear back from [facility]. Bea Lee RN Department of Pulmonary 5C, [facility] / Pager: [phone] documented in this encounter Plan of Treatment Not on file documented as of this encounter Visit Diagnoses Not on filedocumented in this encounter Care Teams Data Integration Analyst Relationship Specialty Start Date End Date Michelle Cooper APRN [address] [place] [address] PCP - General Family Medicine 09/25/20 07/23/23 documented as of this encounter
--- OUTSIDE RECORDS SUMMARY | 2024-07-16 13:59 | XMS_ITS | Encounter Summary ---
[place] [address] Care Team Providers Care Answerer Name Role Phone Michelle Cooper APRN Primary Care Provider [phone] Reason for Visit * Reason Onset Date Comments Medication Refill 12/22/2020 Encounter Details Date Type Department Care Team (Late st Contact Info) Description 12/22/2020 Refill [place] [address] Yuridia Bass, RN Social History Tobacco Use [...] on filedocumented in this encounter Care Teams Answerer Relationship Specialty Start Date End Date Michelle Cooper APRN [address] [place] [address] PCP - General Family Medicine 09/25/20 07/23/23 documented as of this encounter
--- OUTSIDE RECORDS SUMMARY | 2024-07-16 13:59 | XMS_ITS | Encounter Summary ---
Author Organization [facility] Address [facility] [place] [address] Care Team Providers Care Overlock Collar Setter Name Role Phone Allison Michelle De Santiago APRN Primary Care Provider [phone] Reason for Visit * Auth/Cert Specialty Diagnoses / Procedures Referred By Jhonny baer Referred To Contact Diagnoses Mediastinal mass anterior mediastinal mass Procedures PRO THYMECTOMY, RADICAL MEDIAST DISSSEC PRO BRONCHOSCOPY, DIAGNOSTIC @ROBOTIC THYMECTOMY W/ RAD. MEDIASTINAL DISSECTION (WRVU 23.48) BRONCHOSCOPY, DIAGNOSTIC (WRVU 2.78) MODIFIER ROBOT,DAVINCI XI Referral ID Status Reason Start Date Expiration Date Visits Re quested Visits Authorized [id number] 1 1 Encounter Details Date Type Department Care Team (Late st Contact Info) Description 11/25/2020 12:00 PM EDT - 11/25/2020 2:58 PM EDT Surgery [place] [id number] Taj Hopper MD [facility] [place] [address] @ROBOTIC THYMECTOMY W/ RAD. MEDIASTINAL DISSECTION (WRVU [...] mass Added automatically from request for surgery [id number] Resolved Hospital Problems No resolved problems to [...] Hospital Course: Tomas Elliott was admitted to [facility] on 11[facility]25[facility]2020 [facility]. He [...] a nurse in the Thoracic Clinic at [phone]. After hours or on weekends or holidays please call: [phone] and ask to speak to the Thoracic [...] the Thoracic Clinic or the Thoracic Surgeon concrete floater after hours. Please take over the counter [...] Expires XR Chest PA & Lateral (Generic) [[id number] Custom] 12/10/2020 11/26/2021 Process Instructions: Scheduling Instructions: Questions: Where will study be performed?: [facility] Radiology Portable exam?: Reason for exam and clinical history: Anterior mediastinal mass s/p Thymectomy Clinical information / katz questions: PTX, Effusion, Comparison Stat read required?: Date of injury if applicable: Requested Time: Provider Contact Information: Primary Care Provider: Michelle Cooper APRN [phone] Discharge References/Attachments: Discharge References/Attachments None For questions regarding this document or issues relating to this hospitalization on the Thoracic Surgery Service, please contact Dr. Hopper's office at . Signed: CYNTHIA Morataya 11/26/2020 CC: PCP: Michelle Cooper APRN Referring: Taj Hopper Md [facility] [place] [address] documented in this encounter Discharge Instructions * [...] a nurse in the Thoracic Clinic at [phone]. After hours or on weekends or holidays please call: [phone] and ask to speak to the Thoracic [...] the Thoracic Clinic or the Thoracic Surgeon concrete floater after hours. Please take over the counter [...] 410B from PACU at 17:30. Attached to Kopo Kopoo. VSS on RA. Afebrile. A&Ox4. Reporting 7/10 [...] CYNTHIA Morataya 11/25/2020 Thoracic Surgery Service Pager [phone] documented in this encounter Miscellaneous Notes * [...] Primary care provider on file: Michelle Cooper, KAIAKO KURA KAUPAPA MAORI [phone] Advance Directive on file and Code Status: <no information>, Attempt Cardiopulmonary Resuscitation - Inpatient Patient???s Functional Status: Independent Living Situation: home [address] [place] [address] Supports: Friend Assessment: Patient with no apparent RNCM/SW needs at this time. No housing, transportation, insurance, resources concerns identified at this time. Supports in place to achieve a safe post-hospital transition. No identified barriers to accessing necessary care and/or follow-up after discharge. Plan: Patient to d/c to home via car/friend when medically ready. furniture removalist's assistant/Billing And Accounting Staff Assistant will continue to follow patient???s progress and remain available if situation changes for coordination of care, psychosocial support and/or discharge planningSafia Morelos RN (Jonas) RN/CM - Cellphone: [phone] Pager: [phone] Covering Service RN/CM * Plan of Care [...] Operative Note Patient Name: Tomas Elliott : [id number] MR#: [id number] Case Date: 11/25/2020 Surgeon: Surgeon(s) and Role: [...] Urine Output: 200 mL Drains: 1. 19 Austrian mauro drain left pleural space 2. 28 Austrian chest tube right pleural space Disposition: awakened from anesthesia, extubated and taken to the recovery room in a stable condition, having suffered no apparent untoward event. Condition: doing well without problems (Please see the Surgical Encounter Summary for any Implant and Specimen details pertinent to this patient.) Infection Bundle used? No * Op Note - Taj Hopper MD - 11/25/2020 12:02 PM EDT [facility] Operative Note Patient Name: Tomas Ellitot : [id number] MR#: [id number] Case Date: 11/25/2020 Surgeon: Surgeon(s) and Role: [...] PATHOLOGY Thymus and mediastinal fat OR 11 [address]1104 anterior mediastinal mass thymus and mediastinal fat excision No 11/25/2020 2:05 PM Time specimen removed from patient: 2:05 PM Number of tissue samples (in container) 1 Biospecimen to store? No Drains: 28 Austrian chest tube, right; 19 Austrian Mauro drain right chest, across mediastinum into [...] entrance port, and a 12 mm laparoscopic phlebotomist lab assistant port was placed low on the [...] for hemostasis, and then manuallydirected a 19 Austrian Mauro drain across the mediastinum through the rent in the left mediastinal pleura and into the left hemithorax. A second 28 Austrian chest tube was placed through the a different robotic port port up to the apex of the right hemithorax. The robotic instruments were then removed and the robot was undocked. The phlebotomist lab assistant port incision was extended slightly to [...] &/ Steroid Intercostal Nerve Ea Addl Level (89649) 11/25/2020 11:33 AM EDT Mediastinal mass MODIFIER ROBOTAMY XI 11/25/2020 11:33 AM EDT Mediastinal mass Bronchoscopy, Diagnostic (03920) 11/25/2020 11:33 AM EDT Mediastinal mass Thymectomy, Radical Mediast Disssec (05937) 11/25/2020 11:33 AM EDT Mediastinal mass POCT [...] have questions please contact the health career placement services counselor that requested your imaging first. ? Narrative [...] who have questions please contactthe health career placement services counselor that requested your imaging first. Taj Hopper [...] PM EDT 11/25/2020 2:05 PM EDT Narrative [facility] - 11/25/2020 2:05 PM EDT Specimen requisition ordered. ??Separate Pathology report to follow Taj Hopper MD PATHOLOGY/CYTOLO GY ORDERABLES Performing Organization Address City/State/[facility] Co de Phone Number [facility] [place] [address] * Surgical Pathology Report (11/25/2020 1:51 PM EDT) Final Diagnosis [id number] ? Location: [facility]; [facility]; The signing pathologist has (i) examined the [...] MD Verified: ??12/04/2020 17:02 ??Pathologist Performed at: ??-[facility] Dept. of Pathology, [place], [place] DISCUSSION Sections show a multilobular proliferation [...] specimen is inked in black Sections/Processing : County Sheriff sections in 11 cassettes as follows: ?B1: ??Detached fragment entirely submitted ?B2-B11: ??County Sheriff sections of the multilobulated tissue, possibly thymus ??aemr ?Frozen Section FROZEN SECTION DIAGNOSIS AFS1 - Mediastinal fat, ?? for frozen section: - Wispy fibrous tissue. ?? There is no evidence of malignancy. . FROZEN SECTION DIAGNOSIS 11/25/20 14:17 /bleen Electronically signed by: ??MD Cathy, Atul Angel Verified: ??11/25/2020 ?Pathologist Performed at: ??-[facility] Dept. of Pathology, [place], [place] This intraoperative consultation should be interpreted as a preliminary diagnosis pending review of the entire specimen and special studies, if any. 12/04/2020 5:02 PM EDT [facility] THYMUS GLAND STRUCTURE / Unknown 11/25/2020 1:51 PM EDT 11/25/2020 1:51 PM EDT THYMUS GLAND STRUCTURE / Unknown 11/25/2020 1:51 PM EDT 11/25/2020 1:51 PM EDT Taj Hopper MD PATHOLOGY/CYTOLO GY ORDERABLES Performing Organization Address [facility] Co de Phone Number [facility] [place] [address] * Specimen to Pathology (11/25/2020 1:51 PM EDT) AP Specimen 11/25/2020 1:51 PM EDT 11/25/2020 1:51 PM EDT Narrative [facility] - 11/25/2020 1:51 PM EDT Specimen requisition ordered. ??Separate Pathology report to follow Taj Hopper MD PATHOLOGY/CYTOLO GY ORDERABLES Performing Organization Address [facility] Co de Phone Number [facility] [place] [address] * (ABNORMAL) BLOOD GAS 2 ARTERIAL (11/25/2020 12:26 PM EDT) pH, Arterial 7.39 7.35 - 7.45 [facility] PCO2, Arterial 46(H) 35 - 45 mmHg [facility] PO2, Arterial 76(L) 85 - 104 mmHg [facility] Bicarbonate, Arterial 26.9(H) 20.0 - 26.0 mmol/L [facility] Base Excess, Arterial 1.9 -3.0 - 3.0 mmol/L [facility] Hgb Blood Gas 13.2(L) 13.7 - 16.5 gm/dL [facility] Oxyhemoglobin, Arterial 94.2 94.0 - 97.0 % [facility] Carboxyhemoglob in, Arterial 0.6 % [facility] Comment: Nonsmokers: 0.5-1.5% COHB Smokers: Variable, but usually less than 10% Toxic: 20-30% COHB Lethal: Greater than 60% COHB Methemoglobin, Arterial 0.3 <=1.5 % [facility] Na Whole Blood 134(L) 135 - 145 mmol/L [facility] K Whole Blood 3.8 3.5 - 5.0 mmol/L [facility] Comment: Please note: Patients with WBC >100,000 may have falsely elevated Potassium levels. Contact the Clinical Chemistry Laboratory if there are any questions. ICa Whole Blood 1.13(L) 1.15 - 1.33 mmol/L [facility] Comment: Note: ??Total bilirubin higher than 20 mg/dL may lead to falsely low ionized calcium. CL Whole Blood 103 98 - 107 mmol/L [facility] Gluc Whole Bld 131 65 - 199 mg/dL [facility] Comment:Diabetes: >=200 mg/d L plus symptoms. Lactate WB 1.7 0.5 - 2.2 mmol/L [facility] FIO2 Art 51 % [facility] PF Ratio Art 149 [facility] Blood specimen (specimen) 11/25/2020 12:26 PM EDT 11/25/2020 12:26 PM EDT Taj Hopper MD POINT OF CARE TE ST ORDERABLES Performing Organization Address City/[facility] Co de Phone Number [facility] [place] [address] * POCT Glucose (11/25/2020 11:10 AM EDT) Glucose, POC 103 65 - 199 mg/dL [facility] Comment: Supplemental ranges: <140 mg/dL before meals <180 mg/dL all other times of the day Blood specimen (specimen) 11/25/2020 11:10 AM EDT 11/25/2020 11:10 AM EDT Taj Hopper MD POINT OF CARE TE ST [place] [address] documented in this encounter Visit Diagnoses Diagnosis [...] 100 mL infusion (COMPLETED) 2 g, Intravenous, PETROLEUM BLENDING PLANT OPERATOR TO O.R., 1 dose, On Mon11/25/20 at 1115, Administer over 30 Minutes, Intra-Operative (Intra-Procedure), Indication for (Active or Suspected): Prophylaxis 1153 (Given - Provider: Shaina Marie) docusate sodium (Colace) capsule 100 mg 100 mg, Oral, 3 TIMES DAILY, First dose on Mon11/25/20 at 2100, Until Discontinued, Routine 2137 (Given - Provider: Bea aJy, JAYDEN) 0919 (Given - Provider: Bea Dawkins, JAYDEN) heparin (porcine) (5,000 units/1 mL) subcutaneous injection 5,000 Units (COMPLETED) 5,000 Units, Subcutaneous, PETROLEUM BLENDING PLANT OPERATOR TO O.R., 1 dose, On Mon11/25/20 at [...] RN) documented in this encounter Care Teams Overlock Collar Setter Relationship Specialty Start Date End Date Michelle Cooper APRN [address] [place] [address] PCP - General Family Medicine 09/25/20 07/23/23 documented as of this encounter
--- OUTSIDE RECORDS SUMMARY | 2024-07-16 13:59 | XMS_ITS | Encounter Summary ---
Author Organization [facility] [place] [address] Care Team Providers Care Back Joiner Name Role Phone Michelle Cooper APRN Primary Care Provider [phone] Encounter Details Date Type Department Care Team (Late st Contact Info) Description 12/11/2020 Telephone [place] [phone] Rosario Shafer, RN Social History Tobacco Use [...] RTC on 12/21/2020 CXR 12/21/2020 at medical reception specialist area 3L at 12:[address] Mccullough 12/21/2020 at medical reception specialist area 3K at 1:15 pm ?? Tomas Elliott is aware of appointments and know to call with any questions or concerns. documented in this encounter Plan of Treatment Not on file documented as of this encounter Visit Diagnoses Not on filedocumented in this encounter Care Teams Back Joiner Relationship Specialty Start Date End Date Michelle Cooper APRN [address] [place] [address] PCP - General Family Medicine 09/25/20 07/23/23 documented as of this encounter
--- OUTSIDE RECORDS SUMMARY | 2024-07-16 13:59 | XMS_ITS | Encounter Summary ---
Author Organization [facility] [place] [address] Care Team Providers Care Implementation Manager Name Role Phone Allison, Michelle Anyi PRITCHETT Primary Care Provider [phone] Encounter Details Date Type Department Care Team (Late st Contact Info) Description 12/25/2021 Telephone [place] [phone] Kamlesh Shultz MD [facility] [place] [address] Social History Tobacco Use Types Packs/Day Years [...] tablets of 5mg oxycodone to his pharmacy ([facility] in [place], [place]). I advised him that his pain [...] on filedocumented in this encounter Care Teams Implementation Manager Relationship Specialty Start Date End Date Michelle Cooper APRN [address] [place] [address] PCP - General Family Medicine 09/25/20 07/23/23 documented as of this encounter
--- OUTSIDE RECORDS SUMMARY | 2024-07-16 13:59 | XMS_ITS | Encounter Summary ---
Author Organization [facility] Address [facility] [place] [address] Care Team Providers Care Sewing Supervisor Name Role Phone Michelle Cooper APRN Primary Care Provider [phone] Reason for Visit * Reason Comments Establish Care * Consultation (Routine) - Closed Specialty Diagnoses / Procedures Referred By Contsai t Referred To Contact Colon and Rectal Surgery / General Surgery Diagnoses Hemorrhoids Michelle Cooper APRN [address] [place] [address] [facility] Gen [place] [address] [place] [address] Referral ID Status Reason Start Date Expiration Date Visits Re quested Visits Authorized [id number] Closed 07/27/2021 07/27/2022 1 1 Encounter Details Date Type Department Care Team (Late st Contact Info) Description 10/04/2021 10:00 AM EST Office [place] [address] Angelita Wright MD [facility] [address] Rectal bleeding; Prolapsed internal hemorrhoids, [...] Division of Colon and Rectal Surgery ~ [facility] PCP Michelle Cooper APRN. Gastroenterology: Marilynn [...] 2.78) performed by Taj Mccullough MD at [facility] MAIN OR ??? PRO COLONOSCOPY, REMV LESN, SNARE N/A 04/05/2021 COLONOSCOPY, POLYPECTOMY, REMOVAL LESION BY SNARE (WRVU 4.67) performed by Marilynn Mondragon MD at [facility] ENDOSCOPY ? ? PRO INJECTION ANES AGENT &/ STEROID INTERCOSTAL NERVE EA ADDL LEVEL Right 11/25/2020 NERVE BLOCK, INTERCOSTAL NERVE, MULTIPLE (WRVU 1.68) [facility] ??? PRO THYMECTOMY, RADICAL MEDIAST DISSSEC Right 11/25/2020 @ROBOTIC THYMECTOMY W/ RAD. MEDIASTINAL DISSECTION (WRVU 23.48) performed by Taj Mccullough MD at [facility] MAIN OR Allergies: Adhesive Medications: reviewed in [...] mg Oral Q12H PRN Jostin Rosales PA Social history: reports that he [...] Chief, Division of Colon and Rectal Surgery [facility] Pager [phone] Angelita [place] MD, MS, FACS, FASCRS Chief, Div. of Colon and Rectal Surgery [facility] Pager [phone] documented in this encounter Plan of Treatment [...] (pediatric) documented in this encounter Care Teams Sewing Supervisor Relationship Specialty Start Date End Date Michelle Cooper APRN [address] [place] [address] PCP - General Family Medicine 09/25/20 07/23/23 documented as of this encounter
--- OUTSIDE RECORDS SUMMARY | 2024-07-16 13:59 | XMS_ITS | Encounter Summary ---
Author Organization [facility] Address [facility] [place] [address] Care Team Providers Care Inspector Process Name Role Phone Michelle Cooper APRN Primary Care Provider [phone] Reason for Visit * Reason Comments Follow-up Encounter Details Date Type Department Care Team (Late st Contact Info) Description 07/19/2021 9:15 AM EST Office [place] [address] Taj Mccullough MD [facility] [place] [address] History of thymectomy Social History Tobacco Use [...] thymectomy documented in this encounter Care Teams Inspector Process Relationship Specialty Start Date End Date Michelle Cooper APRN [address] [place] [address] PCP - General Family Medicine 09/25/20 07/23/23 documented as of this encounter
--- OUTSIDE RECORDS SUMMARY | 2024-07-16 13:59 | XMS_ITS | Encounter Summary ---
Author Organization [facility] [place] [address] Care Team Providers Care Chef Instructor Name Role Phone Michelle Cooper APRN Primary Care Provider [phone] Reason for Visit * Auth/Cert Specialty Diagnoses / Procedures Referred By Jhonny t Referred To Contact Diagnoses Mediastinal mass anterior mediastinal mass Procedures PRO THYMECTOMY, RADICAL MEDIAST DISSSEC PRO BRONCHOSCOPY, DIAGNOSTIC @ROBOTIC THYMECTOMY W/ RAD. MEDIASTINAL DISSECTION (WRVU 23.48) BRONCHOSCOPY, DIAGNOSTIC (WRVU 2.78) MODIFIER ROBOT,DAVINCI XI Referral ID Status Reason Start Date Expiration Date Visits Re quested Visits Authorized [id number] 1 1 Encounter Details Date Type Department Care Team (Late st Contact Info) Description 11/25/2020 11:34 AM EDT Anesthesia Event [place] [address] Surya Casillas MD [facility] [place] [address] Gabbie De Paz MD [facility] [place] [address] Anesthesia Record Procedure Summary Procedure Name Responsible Anesthesiologist Anesthesia Start Time Anesthesia Stop Time @ROBOTIC THYMECTOMY W/ RAD. MEDIASTINAL DISSECTION (WRVU 23.48) (Right: Chest) Surya Csaillas MD 11/25/20 1134 11/25/20 1454 Events Date [...] 1116; median cubital vein (antecubital fossa), left; nffg-pzp-mdsjoy catheter system; Anatomical Landmarks; 20 gauge; JAYDEN Celis; distraction; 0; Unable to flush; catheter/device intact, site care per policy/procedure, removed per policy/procedure; 11/26/20; 0534 11/25/20 1116 by Michelle Gayle RN 11/26/20 0534 by Serena, Liana M, TIMBER SIZER OPERATOR ETT Mask Ventilation: Ea sy (1); ETT [...] Procedure Summary Date: 11/25/20 Room / Location: [facility] OR [facility] MAIN OR Anesthesia Start: 1134 Anesthesia Stop: [...] All Anesthesia Providers: Anesthesiologist: Surya Casillas MD Tent Assembler: Shaina Marie MD Vitals Value Taken Time BP 121/68 11/25/20 1700 Temp 36.4 ??C (97.5 ??F) 11/25/20 1445 Pulse 70 11/25/20 1600 Resp 15 11/25/20 1600 SpO2 97 % 11/25/20 1713 Pain Level 5 11/25/20 1600 Vitals shown include unvalidated device data. Patient Location: PACU/[facility] Level of Consciousness: Awake and Alert Pain [...] mass Added automatically from request for surgery [id number] ??? Penile fracture No past medical history [...] 5% 100 mL infusion 2 g, Intravenous, GUM DIPPER TO O.R., 1 dose, On Mon11/25/20 at [...] mg documented in this encounter Care Teams Chef Instructor Relationship Specialty Start Date End Date Michelle Cooper APRN [address] [place] [address] PCP - General Family Medicine 09/25/20 07/23/23 documented as of this encounter
--- OUTSIDE RECORDS SUMMARY | 2024-07-16 13:59 | XMS_ITS | Encounter Summary ---
Author Organization [facility] Address [facility] [place] [address] Care Team Providers Care Vocal Artist Name Role Phone Michelle Cooper APRN Primary Care Provider [phone] Encounter Details Date Type Department Care Team (Latest Contact Info) Description 12/21/2020 12:16 PM EDT - 12/21/2020 2:59 PM EDT Hospital Encounter XRay at [address] [place] [address] Mediastinal mass Discharge Disposition: Home Social History [...] questions please contact the health home care assistant that requested your imaging first. ? Narrative [...] patients who have questions please contactthe health home care assistant that requested your imaging first. Taj Mccullough MD IMG DX ORDERABLE S documented in this encounter Visit Diagnoses Diagnosis Mediastinal mass Swelling, mass, or lump in chest documented in this encounter Care Teams Vocal Artist Relationship Specialty Start Date End Date Michelle Cooper APRN [address] [place] [address] PCP - General Family Medicine 09/25/20 07/23/23 documented as of this encounter
--- OUTSIDE RECORDS SUMMARY | 2024-07-16 13:59 | XMS_ITS | Encounter Summary ---
Author Organization [facility] [place] [address] Care Team Providers Care Data Mining Analyst Name Role Phone Michelle Cooper APRN Primary Care Provider [phone] Encounter Details Date Type Department Care Team (Late st Contact Info) Description 12/16/2020 Notes Only Care [place] [phone] Mona Bear Social History Tobacco Use Types [...] filedocumented in this encounter Care Teams Data Mining Analyst Relationship Specialty Start Date End Date Michelle Cooper APRN [address] [place] [address] PCP - General Family Medicine 09/25/20 07/23/23 documented as of this encounter
--- OUTSIDE RECORDS SUMMARY | 2024-07-16 13:59 | XMS_ITS | Encounter Summary ---
[place] [address] Care Team Providers Care Outpatient Case Manager Name Role Phone Michelle Cooper APRN Primary Care Provider [phone] Encounter Details Date Type Department Care Team (Late st Contact Info) Description 03/25/2021 Telephone [place] [phone] Alba Carvajal Social History Tobacco Use Types [...] - 03/25/2021 9:13 AM EDT Tomas Elliott [id number] Diagnosis/Indication: rectal bleeding 1. Have you ever had a/an Colonoscopy before? Yes: Date 4 years at [facility] If yes, did you have any [...] to patient: You must have a responsible republican who will drive you to your procedure, [...] on filedocumented in this encounter Care Teams Outpatient Case Manager Relationship Specialty Start Date End Date Michelle Cooper APRN [address] [place] [address] PCP - General Family Medicine 09/25/20 07/23/23 documented as of this encounter
--- OUTSIDE RECORDS SUMMARY | 2024-07-16 13:59 | XMS_ITS | Encounter Summary ---
[place] [address] Care Team Providers Care Medical Imaging Specialist Name Role Phone Michelle Cooper APRN Primary Care Provider Encounter Details Date Type Department Care Team (Late st Contact Info) Description 12/22/2020 Orders Only [place] [phone] Yuridia Bass, RN Social History Tobacco Use [...] on filedocumented in this encounter Care Teams Medical Imaging Specialist Relationship Specialty Start Date End Date Michelle Cooper APRN [address] [place] [address] PCP - General Family Medicine 09/25/20 07/23/23 documented as of this encounter
--- OUTSIDE RECORDS SUMMARY | 2024-07-16 13:59 | XMS_ITS | Encounter Summary ---
[facility] Organization [facility] [place] [address] Care Team Providers Care Stem Shaper Name Role Phone Michelle Cooper APRN Primary Care Provider [phone] Reason for Visit * Reason Onset Date Comments Other 07/20/2021 Pt requesting ap mnt clarification Encounter Details Date Type Department Care Team (Late st Contact Info) Description 07/20/2021 [place] [phone] Bea Lee RN Other (Pt requesting apmnt [...] Bea Lee RN Department of Pulmonary 5C, [facility] / Pager: [phone] documented in this encounter Plan of Treatment Not on file documented as of this encounter Visit Diagnoses Not on filedocumented in this encounter Care Teams Stem Shaper Relationship Specialty Start Date End Date Michelle Cooper APRN [address] [place] [address] PCP - General Family Medicine 09/25/20 07/23/23 documented as of this encounter
--- OUTSIDE RECORDS SUMMARY | 2024-07-16 13:59 | XMS_ITS | Encounter Summary ---
Author Organization [facility] [address] Care Team Providers Care Cash Manager Name Role Phone Michelle Cooper APRN Primary Care Provider Encounter Details Date Type Department Care Team (Late st Contact Info) Description 01/14/2021 Notes [place] [phone] Mona Bear Social History Tobacco Use Types [...] pharmacy receipt for his Spiriva Respimat to [facility]. This is so that the programmay see his out of pocket expense and appeal his previous denial. documented in this encounter Plan of Treatment Not on file documented as of this encounter Visit Diagnoses Not on filedocumented in this encounter Care Teams Cash Manager Relationship Specialty Start Date End Date Michelle Cooper APRN [address] [place] [address] PCP - General Family Medicine 09/25/20 07/23/23 documented as of this encounter
--- OUTSIDE RECORDS SUMMARY | 2024-07-16 13:59 | XMS_ITS | Encounter Summary ---
Author Organization Replaced By [facility] Address [facility] [place] [address] Care Team Providers Care Gaming Host Name Role Phone Michelle Cooper YARELY Primary Care Provider [phone] Encounter Details Date Type Department Care Team (Late st Contact Info) Description 12/21/2021 12:56 PM EDT Anesthesia Event [place] [phone] Onesimo Melendez MD [facility] [address] [place] [address] Noel Abarca MD [facility] [address] [place] [address] Anesthesia Record Procedure Summary Procedure Name Responsible [...] 1244; metacarpal vein (top of hand), left; [id number] catheter system; Anatomical Landmarks; US Not Used; 20 gauge; [place] CARPENTER; distraction, intradermal injection; 0; 12/21/21; 1554 12/21/21 1244 by Michelle Gayle RN 12/21/21 1554 by Izabel Florez RN ETT Mask Ventilation: Adjunct (2); ETT Type: Cuffed; ETT Size: 8 mm; Mac Blade: 4; Attempts: 1; Laryngoscopy Grade: 1; ETT Placement Verified By: Auscultation, Capnometry; Secured at Teeth: 24 cm; Inserted by: [facility]; Removal Date: 12/21/21; Removal Time: [...] Procedure Summary Date: 12/21/21 Room / Location: [address] MAIN OR Anesthesia Start: 1256 Anesthesia Stop: 1414 Procedure: HEMORRHOIDECTOMY, INTERNAL & EXTERNAL, COMPLEX (WRVU 6.73) (N/A Anus) Diagnosis: (hemorroids) Surgeons: Angelita Wright MD Responsible Provider: Onesimo Melendez MD Anesthesia Type: general ASA Status: 3 All Anesthesia Providers: Anesthesiologist: Onesimo Melendez MD; Lizet Washburn MD TUMBLER PLATER: Savage Marshall CRNA Vitals Value Taken Time BP 129/62 12/21/21 1430 Temp Pulse Resp 18 12/21/21 1430 SpO2 98 % 12/21/21 1438 Pain Level 10 12/21/21 1423 Vitals shown include unvalidated device data. Patient Location: PACU/[facility] Level of Consciousness: Awake and Alert [...] 1.68) performed [facility] ??? PRO THYMECTOMY, RADICAL MEDIAST DISSSEC [...] with patient and spouse. Plan discussed with TUMBLER PLATER. Anesthesia Screening documented in this encounter Plan [...] mg documented in this encounter Care Teams Gaming Host Relationship Specialty Start Date End Date Michelle Cooper APRN [address] [place], [place] [address] PCP - General Family Medicine 09/25/20 07/23/23 documented as of this encounter
--- OUTSIDE RECORDS SUMMARY | 2024-07-16 13:59 | XMS_ITS | Encounter Summary ---
Author Organization [facility] Address [facility] [place] [address] Care Team Providers Care Furniture Technician Name Role Phone Allison Michelle Anyi PRITCHETT Primary Care Provider [phone] Encounter Details Date Type Department Care Team (Late st Contact Info) Description 12/21/2021 1:00 PM EDT - 12/21/2021 2:54 PM EDT Surgery [place] [phone] Angelita Wright MD [facility] [place] [address] HEMORRHOIDECTOMY, INTERNAL & EXTERNAL, COMPLEX (WRVU 6.73) [...] 15 minutes 4X/day. Pain medications Please take bhdx-vwh-demdmle pain medications for post-operative discomfort.(Please continue to [...] Center 01/17/2022 11:30 AM Angelita Wright MD [facility] SURG [facility] Divison of Colon and Rectal Surgery, [place] [address] documented in this encounter Medications at Time [...] escorted out of department via wheelchair with LEARNING SUPPORT SPECIALIST. documented in this encounter Miscellaneous Notes * Op Note - Angelita Wright MD - 12/21/2021 1:23 PM EDT [facility] Operative Note Patient Name: Tomas Elliott : [id number] MR#: [id number] Case Date: 12/21/2021 Surgeon: Surgeon(s) and Role: [...] 12/21/2021 1:50 PM EDT Hemorrhoidectomy, Int/Ext, Complx ([id number]) 12/21/2021 12:56 PM EDT hemorroids POCT GLUCOSE Routine 12/21/2021 12:15 PM EDT documented in this encounter Results * Specimen to Pathology (12/21/2021 2:04 PM EDT) AP Specimen 12/21/2021 2:04 PM EDT 12/21/2021 2:04 PM EDT Narrative [facility] - 12/21/2021 2:04 PM EDT Specimen requisition ordered. ??Separate Pathology report to follow Angelita Wright MD PATHOLOGY/CYTOLOGY O RDERABLES [facility] [place] [address] * Surgical Pathology Report (12/21/2021 1:50 PM EDT) Final Diagnosis [id number] ? Location: SD; SD40; A The signing pathologist has (i) examined the relevant preparation(s) for the specimen(s) and (ii) rendered or confirmed the diagnosis(es). . ?Surgical Pathology DIAGNOSIS A - Hemorrhoids - perm, excision: Squamous ??and rectal glandular ??junction epithelium with marked subepithelial vascular proliferation and congestion, consistent with ?hemorrhoid. Electronically signed by: ?Naz Membreno MD Verified: ??01/03/2022 17:45 ??Pathologist Performed at: ??-[facility] Dept. of Pathology, [place], [place] SPECIMEN(S) SUBMITTED A - Hemorrhoids - perm, excision (2) CLINICAL INFORMATION Hemorrhoids SPECIMEN PROCESSING A - Labeled/Fixative: Hemorrhoids, fresh. Quantity/Size: ??Two, 3.5 x 1.7 x 1.7 cm; 1.3 x 1.2 x 0.7 cm. Tissue Description: Intact, polypoid portions of pink-red mucosa with underlying, congested vasculature. Sections/Processi ng: Serially sectioned. Harp Maker sections in 1 cassette labeled A1. ??njrs 01/03/2022 5:45 PM EDT [facility] ANAL STRUCTURE / Unknown 12/21/2021 1:50 PM EDT 12/21/2021 1:50 PM EDT Angelita Wright MD PATHOLOGY/CYTOLOGY O RDERABLES [facility] [place] [address] * POCT Glucose (12/21/2021 12:15 PM EDT) Pathologist [facility] Glucose, POC 99 65 - 199 mg/dL [facility] Comment: Supplemental ranges: <140 mg/dL before meals <180 mg/dL all other times of the day Blood 12/21/2021 12:1 5 PM EDT 12/21/2021 12:15 PM EDT Angelita Wright MD POINT OF CARE TEST O RDERABLES [facility] [place] [address] documented in this encounter Visit Diagnoses Not [...] Routine documented in this encounter Care Teams Furniture Technician Relationship Specialty Start Date End Date Michelle Cooper APRN [address] [place] [address] PCP - General Family Medicine 09/25/20 07/23/23 documented as of this encounter
--- OUTSIDE RECORDS SUMMARY | 2024-07-16 13:59 | XMS_ITS | Encounter Summary ---
[place] [address] Care Team Providers Care Reconsignment Clerk Name Role Phone Michelle Cooper APRN Primary Care Provider Encounter Details Date Type Department Care Team (Late st Contact Info) Description 11/01/2021 9:00 AM EST TH Visit (TeleHealth) [place] [address] Social History Tobacco Use Types [...] on filedocumented in this encounter Care Teams Reconsignment Clerk Relationship Specialty Start Date End Date Michelle Cooper APRN [address] [place] [address] PCP - General Family Medicine 09/25/20 07/23/23 documented as of this encounter
--- OUTSIDE RECORDS SUMMARY | 2024-07-16 14:00 | XMS_ITS | Encounter Summary ---
[place] [address] Care Team Providers Care Prop And Scenery Maker Name Role Phone Michelle Cooper APRN Primary Care Provider Reason for Referral * Diagnostic Test (Routine) - Closed Specialty Diagnoses / Procedures Referred By Contac t Referred To Contact Radiology Diagnoses Chest pain, unspecified type Procedures NM Exercise Stress CT Component Michelle Cooper APRN [address] [place] [address] [place] [address] Referral ID Status Reason Start Date Expiration Date V isits Requested Visits Authorized [id number] Closed Specialty Service Requested 09/25/2020 03/25/2022 1 1 Reason for Visit * Diagnostic Test (Routine) - Closed Specialty Diagnoses / Procedures Referred By Contac t Referred To Contact Radiology Diagnoses Chest pain, unspecified type Procedures NM Exercise Stress CT Component Michelle Cooper APRN [address] [place] [address] [place] [address] Referral ID Status Reason Start Date Expiration Date V isits Requested Visits Authorized [id number] Closed Specialty Service Requested 09/25/2020 03/25/2022 1 1 Encounter Details Date Type Department Care Team (Latest Contact Info) Description 10/09/2020 9:21 AM EST - 10/09/2020 11:59 PM EST Hospital Encounter [place] [address] Michelle Cooper APRN [address] [place] [address] Chest pain, unspecified type Discharge Disposition: Home [...] been reported to the team at the [facility]. Thank you for letting us participate in [...] hasbeen reported to the team at the [facility]. Thank you for letting us participate in the care of this patient. Forquestions regarding this report, please contact the number below. Michelle Cooper APRN IMG [place] ORDERABLES documented in this encounter Visit Diagnoses Diagnosis Chest pain, unspecified type documented in this encounter Care Teams Prop And Scenery Maker Relationship Specialty Start Date End Date Michelle Cooper APRN [address] [place] [address] PCP - General Family Medicine 09/25/20 07/23/23 documented as of this encounter
--- OUTSIDE RECORDS SUMMARY | 2024-07-16 14:00 | XMS_ITS | Encounter Summary ---
[place] [address] Care Team Providers Care Barber Instructor Name Role Phone Michelle Cooper APRN Primary Care Provider Encounter Details Date Type Department Care Team (Latest Contact Info) Description 09/25/2020 10:44 AM EST - 09/25/2020 11:59 PM EST Hospital Encounter [place] [address] Michelle Cooper APRN [address] [place], [place] [address] Chest pain, unspecified type Discharge Disposition: Home [...] type documented in this encounter Care Teams Barber Instructor Relationship Specialty Start Date End Date Michelle Cooper APRN [address] [place] [address] PCP - General Family Medicine 09/25/20 07/23/23 documented as of this encounter
--- OUTSIDE RECORDS SUMMARY | 2024-07-16 14:00 | XMS_ITS | Encounter Summary ---
[place] [address] Care Team Providers Care Peoplesoft Consultant Name Role Phone Michelle Cooper APRN Primary Care Provider [phone] Encounter Details Date Type Department Care Team (Latest Contact Info) Description 10/27/2020 12:30 PM EST Laboratory Appointment Lab [address] [place] [address] Mediastinal mass; Fatigue, unspecified type; [...] 2:55 PM EST) Neutrophil % 58.5 % [facility] Neutrophil Absolute 4.22 1.70 - 6.10 x10(3)/[facility] Lymph % 27.4 % [facility] Lymphocytes Abs 2.0 0.9 - 3.2 x10(3)/[facility] Monocyte % 9.8 % [facility] Monocyte Abs 0.7 0.3 - 0.9 x10(3)/[facility] Eos % 3.2 % [facility] Eosinophils Abs 0.2 0.0 - 0.4 x10(3)/[facility] Basophil % 0.7 % [facility] Baso Absolute 0.0 0.0 - 0.1 x10(3)/[facility] Immature Gran % 0.40 % [facility] Comment: Immature granulocytes(IG's)percentage and absolute count will include metamyelocytes, myelocytes, and promyelocytes. Blood smears from CBCs yielding IG's will be scanned manually for concordance. If this scan disagrees with the automated IG or if promyelocytes are noted, a manual differential will be performed. Immature Gran Absolute 0.03 0.00 - 0.04 x10(3)/[facility] Blood specimen (specimen) 10/27/2020 2:55 PM EST 10/27/2020 3:07 PM EST Narrative Resulting Agency Comment Spec In Lab Eleuterio Silva MD HEMATOLOGY ORDERABLE S [facility] [place] [address] * (ABNORMAL) Hemogram (10/27/2020 2:55 PM EST) White Blood Cell 7.2 4.0 - 9.5 x10(3)/ L [facility] Red Blood Cell 3.99(L) 4.58 - 5.54 x10(6)/mc L [facility] Hemoglobin 13.2(L) 13.7 - 16.5 gm/dL [facility] Hematocrit 38.7(L) 40.5 - 48.5 % [facility] Mean Cell Volume 97.0(H) 82.9 - 93.1 fL [facility] Mean Cell Hemoglobin 33.1(H) 27.5 - 32.1 pg [facility] Mean Cell Hemoglobin Concentration 34.1 32.0 - 35.7 gm/dL [facility] Platelet 204 145 - 357 x10(3)/[facility] LABORATORY RDW Standard Deviation 43.3 36.0 - 45.0 [facility] RDW coefficient of variation 12.1 11.4 - 13.8 % [facility] Mean Platelet Volume 9.4 7.6 - 12.9 [facility]ATORY NRBC% auto 0.0 % [facility] NRBC Absolute 0.000 0.000 - 0.000 x10(3)/[facility] Blood specimen (specimen) 10/27/2020 2:55 PM EST 10/27/2020 3:07 PM EST Narrative Resulting Agency Comment Spec In Lab Eleuterio Silva MD HEMATOLOGY ORDERABLE S [facility] [place] [address] * Lactate Dehydrogenase (10/27/2020 2:55 PM EST) Lactate Dehydrogenase 173 110 - 220 unit/L [facility] Blood specimen (specimen) 10/27/2020 2:55 PM EST 10/27/2020 3:07 PM EST Narrative Resulting Agency Comment Spec In Lab Tomas Quan MD CHEMISTRY ORDERABLES [facility] [place] [address] * Beta HCG, quantitative (10/27/2020 2:55 PM EST) Beta Human Chorionic Gonadotropin, Quantitative <1 0 - 2 mlU/ML [facility] Comment: REFERENCE RANGES NON- FEMALE: [...] - 56,451 ?17 weeks ? 8,175 - 64,868 ?18 weeks ? 8,099 - 54,176 Blood specimen (specimen) 10/27/2020 2:55 PM EST 10/27/2020 3:07 PM EST Narrative Resulting Agency Comment Spec In Lab Tomas Quan MD CHEMISTRY ORDERABLES [facility] [place] [address] * AFP tumor marker (10/27/2020 2:55 PM EST) Alpha Fetoprotein 1.9 <=8.3 ng/mL [facility] Blood specimen (specimen) 10/27/2020 2:55 PM EST 10/27/2020 3:07 PM EST Narrative Resulting Agency Comment Spec In Lab Tomas Quan MD CHEMISTRY ORDERABLES Performing Organization Address City/[facility] Co de Phone Number [facility] [place] [address] * TSH (10/27/2020 2:55 PM EST) Thyroid Stimulating Hormone 1.77 0.27 - 4.20 mcIU/mL [facility] Blood specimen (specimen) 10/27/2020 2:55 PM EST 10/27/2020 3:07 PM EST Narrative Resulting Agency Comment Spec In Lab Tomas Quan MD CHEMISTRY ORDERABLES Performing Organization Address [facility] de Phone Number [facility] [place] [address] * (ABNORMAL) Creatinine (10/27/2020 12:47 PM EST) Creatinine 0.79(L) 0.80 - 1.50 mg/dL [facility] Est Glomerular Filtration Rate 94 >=60 mL/min/1. 73 m?? [facility] Comment: This patient? s estimated [...] In Lab Michelle Cooper APRN CHEMISTRY ORDERABLES [facility] [place] [address] documented in this encounter Visit Diagnoses Diagnosis Mediastinal mass Swelling, mass, or lump in chest Fatigue, unspecified type Palpitations documented in this encounter Care Teams Peoplesoft Consultant Relationship Specialty Start Date End Date Michelle Cooper, JUNIOR WEB DEVELOPER [address] [place] [address] PCP - General Family Medicine 09/25/20 07/23/23 documented as of this encounter
--- OUTSIDE RECORDS SUMMARY | 2024-07-16 14:00 | XMS_ITS | Encounter Summary ---
Author Organization [facility] Address [facility] [place] [address] Care Team Providers Care Orthopedic Shoe Fitter Name Role Phone Unknown Primary Care Provider Unavailabl e Encounter Details Date Type Department Care Team (Late st Contact Info) Description 09/11/2018 Ancillary Procedure Radiology Library [place] [facility] [place] [address] Tomas Quan MD [facility] [place] [address] Social History Tobacco Use Types Packs/Day Years [...] GI Study (09/11/2018 12:00 AM EST) Narrative RAD - 10/21/2020 1:59 PM EST This exam is auto-finalizing. It's purpose is for storage only. Tomas Quan MD IMG FILM LIBRARY ORD ERABLES [place], [place] documented in this encounter Visit Diagnoses Not on filedocumented in this encounter Care Teams Orthopedic Shoe Fitter Relationship Specialty Start Date End Date Unknown None PCP - General 11/24/16 09/24/20 documented as of this encounter
--- OUTSIDE RECORDS SUMMARY | 2024-07-16 14:00 | XMS_ITS | Encounter Summary ---
Author Organization [facility] [place] [address] Care Team Providers Care Stripper Soft Plastic Name Role Phone Michelle Cooper APRN Primary Care Provider [phone] Reason for Referral * Consultation (Routine) - Closed Specialty Diagnoses / Procedures Referred By Contac t Referred To Contact Thoracic Surgery Diagnoses SOB (shortness of breath) Fatigue, unspecified type Mediastinal mass Eleuterio Silva MD [facility] [place] [address] [facility] Thoracic Surg [address] [place] [phone] Referral ID Status Reason Start Date Expiration Date V isits Requested Visits Authorized [id number] Closed Consult, Test & Treat 10/27/2020 10/27/2021 1 1 Reason for Visit * Consultation (Routine) - Closed Specialty Diagnoses / Procedures Referred By Contac t Referred To Contact Pulmonology Diagnoses Allergic Asthma,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) Chest Pain, Pleuritic (R07.89) Procedures Allergic Asthma,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) Chest Pain, Pleuritic (R07.89) Michelle Cooper APRN [address] [place] [address] [facility] Pulmonology [address] [place] [phone] Referral ID Status Reason Start Date Expiration Date V isits Requested Visits Authorized [id number] Closed Consult, Test & Treat PCP Updated and/or Approved 07/20/2020 07/20/2021 1 1 Encounter Details Date Type Department Care Team (Late st Contact Info) Description 10/27/2020 1:30 PM EST Office Visit [place] [address] Tomas Quan MD [facility] [place] [address] Eleuterio Silva MD [facility] [place] [address] Mediastinal mass (Primary Dx); SOB (shortness of [...] from the original note were not included. [facility] Section of Pulmonary and Critical Care Medicine Outpatient Consultation Date of Encounter: 10/27/2020 Referring Provider: Michelle Cooper APRN [address] [address] PCP: Michelle Cooper APRN Reason for Evaluation: Michelle Cooper APRN referred Mr. Tomas Elliott to me to the [facility] to evaluate and manage chronic cough and dyspnea. I independently interviewed and examined the patient in the office and have reviewed available records. This was a [id number] office visit. At the time of this encounter Mr. Elliott was physically in [place]. History of Present Illness: 64 year old [...] in the past. He works at a [employer]) for 20 years. He used to also [...] 4.27L (105%) FEV1 2.5L (80%) Ratio 0.59 [id number] 1.43L/s (57%) Evidence of mild obstructive ventilatory [...] Stimulating Hormone 1.77 0.27 - 4.20 mcIU/mL [facility] Blood specimen (specimen) 10/27/2020 2:55 PM EST 10/27/2020 3:07 PM EST Narrative Resulting Agency Comment Spec In Lab Tomas Quan MD CHEMISTRY ORDERABLES Performing Organization Address [facility] Co de Phone Number [facility] [place] [address] * AFP tumor marker (10/27/2020 2:55 PM EST) Alpha Fetoprotein 1.9 <=8.3 ng/mL [facility] Blood specimen (specimen) 10/27/2020 2:55 PM EST 10/27/2020 3:07 PM EST Narrative Resulting Agency Comment Spec In Lab Tomas Quan MD CHEMISTRY ORDERABLES Performing Organization Address [facility] de Phone Number [facility] [place] [address] * Beta HCG, quantitative (10/27/2020 2:55 PM EST) Beta Human Chorionic Gonadotropin, Quantitative <1 0 - 2 mlU/ML [facility] Comment: REFERENCE RANGES NON- FEMALE: [...] Quan MD CHEMISTRY ORDERABLES Performing Organization Address City/[facility] Co de Phone Number [facility] [place] [address] * Lactate Dehydrogenase (10/27/2020 2:55 PM EST) Lactate Dehydrogenase 173 110 - 220 unit/L [facility] Blood specimen (specimen) 10/27/2020 2:55 PM EST 10/27/2020 3:07 PM EST Narrative Resulting Agency Comment Spec In Lab Tomas Quan MD CHEMISTRY ORDERABLES Performing Organization Address [facility] de Phone Number [facility] [place] [address] documented in this encounter Visit Diagnoses Diagnosis Mediastinal mass- Primary Swelling, mass, or lump in chest SOB (shortness of breath) Shortness of breath Fatigue, unspecified type Chronic obstructive pulmonary disease, unspecified COPD type Palpitations documented in this encounter Care Teams Stripper Soft Plastic Relationship Specialty Start Date End Date Michelle Cooper APRN [address] [place] [address] PCP - General Family Medicine 09/25/20 07/23/23 documented as of this encounter
--- OUTSIDE RECORDS SUMMARY | 2024-07-16 14:00 | XMS_ITS | Encounter Summary ---
[place] [address] Care Team Providers Care Roper Operator Name Role Phone Michelle Cooper APRN Primary Care Provider Reason for Referral * Diagnostic Test (Routine) - Closed Specialty Diagnoses / Procedures Referred By Contac t Referred To Contact Radiology Diagnoses Chest pain, unspecified type Procedures NM Exercise Stress and Rest Myocardial Perfusion Michelle Cooper APRN [address] [place] [address] [place] [address] Referral ID Status Reason Start Date Expiration Date V isits Requested Visits Authorized [id number] Closed Specialty Service Requested 09/25/2020 03/25/2022 1 1 Reason for Visit * Diagnostic Test (Routine) - Closed Specialty Diagnoses / Procedures Referred By Contac t Referred To Contact Radiology Diagnoses Chest pain, unspecified type Procedures NM Exercise Stress and Rest Myocardial Perfusion Michelle Cooper APRN [address] [place] [address] [place] [address] Referral ID Status Reason Start Date Expiration Date V isits Requested Visits Authorized [id number] Closed Specialty Service Requested 09/25/2020 03/25/2022 1 1 Encounter Details Date Type Department Care Team (Latest Contact Info) Description 10/09/2020 9:19 AM EST Hospital En[place] [address] Michelle Cooper APRN [address] [place] [address] Chest pain, unspecified type Discharge Disposition: Home [...] been reported to the team at the [facility]. Thank you for letting us participate in the care of this patient. For questions regarding this report, please contact the number below. ? Electronically signed by: Chris Doty MD, [facility] ([phone]), at 10/09/2020 2:41 PM Narrative 10/09/2020 2:41 [...] hasbeen reported to the team at the [facility]. Thank you for letting us participate in the care of this patient. Forquestions regarding this report, please contact the number below. Electronically signed by: Chris Doty MD, [facility]([phone]), at 10/09/2020 2:41 PM Michelle Cooper APRN [...] mCi documented in this encounter Care Teams Roper Operator Relationship Specialty Start Date End Date Michelle Cooper APRN [address] [place] [address] PCP - General Family Medicine 09/25/20 07/23/23 documented as of this encounter
--- OUTSIDE RECORDS SUMMARY | 2024-07-16 14:00 | XMS_ITS | Encounter Summary ---
[place] [address] Care Team Providers Care Catalogue Librarian Name Role Phone Unknown Primary Care Provider Unavailabl e Encounter Details Date Type Department Care Team (Late st Contact Info) Description 08/06/2020 [place] [phone] Bea Benjamin Social History Tobacco Use Types Packs/Day Years Used Date Smoking Tobacco: Former Sex and Gender Information Value Date Recorded Sex Assigned at Not on file Gender Identity Not on file Sexual Orientation Not on file documented as of this encounter Plan of Treatment Not on file documented as of this encounter Visit Diagnoses Not on filedocumented in this encounter Care Teams Catalogue Librarian Relationship Specialty Start Date End Date Unknown None PCP - General 11/24/16 09/24/20 documented as of this encounter
--- OUTSIDE RECORDS SUMMARY | 2024-07-16 14:00 | XMS_ITS | Encounter Summary ---
[place] [address] Care Team Providers Care Sequins Stringer Name Role Phone Michelle Cooper APRN Primary Care Provider [phone] Reason for Visit * Diagnostic Test (Routine) - Closed Specialty Diagnoses / Procedures Referred By Contac t Referred To Contact Radiology Diagnoses Chest pain, unspecified type Procedures NM Exercise Stress and Rest Myocardial Perfusion Michelle Cooper APRN [address] [place] [address] [place] [address] Referral ID Status Reason Start Date Expiration Date V isits Requested Visits Authorized [id number] Closed Specialty Service Requested 09/25/2020 03/25/2022 1 1 Encounter Details Date Type Department Care Team (Latest Contact Info) Description 10/09/2020 9:21 AM EST - 10/09/2020 11:59 PM [facility] Hospital [place] [address] Michelle Cooper APRN [address] [place], [place] [id number] Discharge Disposition: Home Social History Tobacco Use [...] mCi documented in this encounter Care Teams Sequins Stringer Relationship Specialty Start Date End Date Michelle Cooper APRN [address] [place] [address] PCP - General Family Medicine 09/25/20 07/23/23 documented as of this encounter
--- OUTSIDE RECORDS SUMMARY | 2024-07-16 14:00 | XMS_ITS | Encounter Summary ---
Author Organization [facility] Address [facility] [place] [address] Care Team Providers Care Bar Welder Name Role Phone Unknown Primary Care Provider Unavailabl e Encounter Details Date Type Department Care Team (Late st Contact Info) Description 10/10/2018 Ancillary Procedure Radiology Library at [facility] [place] [address] Tomas Quan MD [facility] [place] [address] Social History Tobacco Use Types Packs/Day Years [...] DX Chest (10/10/2018 12:00 AM EST) Narrative [facility] - 10/21/2020 1:57 PM EST This exam is auto-finalizing. It's purpose is for storage only. Tomas Quan MD IMG FILM LIBRARY ORD ERABLES [place], [place] documented in this encounter Visit Diagnoses Not on filedocumented in this encounter Care Teams Bar Welder Relationship Specialty Start Date End Date Unknown None PCP - General 11/24/16 09/24/20 documented as of this encounter
--- OUTSIDE RECORDS SUMMARY | 2024-07-16 14:00 | XMS_ITS | Encounter Summary ---
[place] [address] Care Team Providers Care Driver License Technician Name Role Phone Tyron Wilcox MD Primary Care Provider [phone] Encounter Details Date Type Department Care Team (Late st Contact Info) Description 04/10/2013 1:08 PM EDT - 04/10/2013 11:59 PM EDT Hospital En[place] [address] Penile trauma Social History Tobacco Use Types [...] 04/10/2013 02:25 pm) Patient Info ID: ? [id number] ? : [birth year] (57 yrs) Name: ? [...] Final 04/10/2013 02:25 pm) Patient Info ID: [id number] : [birth year] (57 yrs) Name: JAVON ELLIOTT Visit Date: 04/10/2013 01:46 pm Performed By Performed By: Soniya Bearden RDMS Attending: Chapin Day MD. Referred By: MANDEEP SCALES MD Service(s) Provided [facility] - Generic Ultrasound Procedure Indications History [...] Signed Final Report 04/10/2013 02:25 pm Alba Liu MD IMG US PELVIC O RDERABLES documented in this encounter Visit Diagnoses Diagnosis Penile trauma Other injury of external genitals documented in this encounter Care Teams Driver License Technician Relationship Specialty Start Date End Date Tyron Wilcox MD PCP - General 04/10/13 11/23/16 documented as of this encounter
--- OUTSIDE RECORDS SUMMARY | 2024-07-16 14:00 | XMS_ITS | Encounter Summary ---
[place] [address] Care Team Providers Care Circulation Tender Name Role Phone Michelle Cooper APRN Primary Care Provider Reason for Referral * Diagnostic Test (Routine) - Closed Specialty Diagnoses / Procedures Referred By Sofieac t Referred To Contact Radiology Diagnoses Chest mass Procedures CT Chest w Contrast Michelle Cooper APRN [address] [place] [address] [facility] [place] [address] Referral ID Status Reason Start Date Expiration Date V isits Requested Visits Authorized [id number] Closed Specialty Service Requested 10/16/2020 04/15/2022 1 1 Reason for Visit * Diagnostic Test (Routine) - Closed Specialty Diagnoses / Procedures Referred By Contac t Referred To Contact Radiology Diagnoses Chest mass Procedures CT Chest w Contrast Michelle Cooper APRN [address] [place] [address] [facility] [place] [address] Referral ID Status Reason Start Date Expiration Date V isits Requested Visits Authorized [id number] Closed Specialty Service Requested 10/16/2020 04/15/2022 1 1 Encounter Details Date Type Department Care Team (Latest Contact Info) Description 10/27/2020 3:44 PM EST - 10/27/2020 11:59 PM EST Hospital [place] [address] Michelle Cooper APRN [address] [place] [address] Chest mass Discharge Disposition: Home Social History [...] signed by: Jennifer Clancy MD, [facility] ([phone]), at 10/27/2020 4:41 PM Narrative 10/27/2020 4:41 [...] perfusion study are either lobulated or several zxzm-si-dofo homogeneous well defined hypodense mediastinal nodules. Centrally [...] perfusion study are either lobulated or several wrro-cr-ukkl homogeneouswell defined hypodense mediastinal nodules. Centrally the [...] signed by: Jennifer Clancy MD, [facility]([phone]), at 10/27/2020 4:41 PM Michelle Cooper APRN [...] mLs documented in this encounter Care Teams Circulation Tender Relationship Specialty Start Date End Date Michelle Cooper, YARELY [address] [place] [address] PCP - General Family Medicine 09/25/20 07/23/23 documented as of this encounter
--- OUTSIDE RECORDS SUMMARY | 2024-07-16 14:00 | XMS_ITS | Encounter Summary ---
Author Organization [facility] Address [facility] [place] [address] Care Team Providers Care Induction Coordination Power Engineer Name Role Phone Unknown Primary Care Provider Unavailabl e Encounter Details Date Type Department Care Team (Late st Contact Info) Description 10/10/2018 12:05 AM EST Ancillary Procedure Radiology Library at [facility] [place] [address] Tomas Quan MD [facility] [place] [address] Social History Tobacco Use Types Packs/Day Years [...] Quan MD G FILM LIBRARY ORD ERABLES [place], [place] documented in this encounter Visit Diagnoses Not on filedocumented in this encounter Care Teams Induction Coordination Power Engineer Relationship Specialty Start Date End Date Unknown None PCP - General 11/24/16 09/24/20 documented as of this encounter
--- OUTSIDE RECORDS SUMMARY | 2024-07-16 14:00 | XMS_ITS | Encounter Summary ---
[place] [address] Care Team Providers Care Metal Refiner Name Role Phone Michelle Cooper APRN Primary Care Provider [phone] Encounter Details Date Type Department Care Team (Late st Contact Info) Description 10/06/2020 Telephone Cardiology at [address] [phone] Pauline Ordoñez RN Social History Tobacco Use [...] on filedocumented in this encounter Care Teams Metal Refiner Relationship Specialty Start Date End Date Michelle Cooper APRN [address] [place] [address] PCP - General Family Medicine 09/25/20 07/23/23 documented as of this encounter
--- OUTSIDE RECORDS SUMMARY | 2024-07-16 14:00 | XMS_ITS | Encounter Summary ---
Author Organization [facility] Address [facility] [place] [address] Care Team Providers Care Employee Benefits Manager Name Role Phone Tyron Wilcox MD Primary Care Provider [phone] Encounter Details Date Type Department Care Team (Late st Contact Info) Description 04/19/2013 Tele[place] [phone] Helder Dawson MD [facility] [place] [address] Social History Tobacco Use Types Packs/Day Years [...] on filedocumented in this encounter Care Teams Employee Benefits Manager Relationship Specialty Start Date End Date Tyron Wilcox MD PCP - General 04/10/13 11/23/16 documented as of this encounter
--- OUTSIDE RECORDS SUMMARY | 2024-07-16 14:00 | XMS_ITS | Encounter Summary ---
[place] [address] Care Team Providers Care Meat Team Lead Name Role Phone Michelle Cooper APRN Primary Care Provider [phone] Encounter Details Date Type Department Care Team (Latest Contact Info) Description 10/27/2020 12:57 PM EST - 10/27/2020 3:43 PM EST Hospital En[place] [address] Extrinsic asthma, unspecified asthma severity, unspecified whether [...] / FVC LLN 64 % COMPAS PFT [id number] Actual Pre-BD 1.43 L/s COMPAS PFT SOI85-79 Pre-BD % of Predicted 57 % COMPAS PFT CNY00-22 Predicted 2.51 L/s COMPAS PFT LLH43-35 Pre-BD Z-Score -1.25 COMPAS PFT Narrative COMPAS [...] persistent documented in this encounter Care Teams Meat Team Lead Relationship Specialty Start Date End Date Michelle Cooper APRN [address] [place] [address] PCP - General Family Medicine 09/25/20 07/23/23 documented as of this encounter
--- OUTSIDE RECORDS SUMMARY | 2024-07-16 14:00 | XMS_ITS | Encounter Summary ---
[place] [address] Care Team Providers Care Entertainment Usher Name Role Phone Michelle Cooper APRN Primary Care Provider [phone] Reason for Visit * Diagnostic Test (Routine) - Closed Specialty Diagnoses / Procedures Referred By Contac t Referred To Contact Radiology Diagnoses Chest pain, unspecified type Procedures NM Exercise Stress and Rest Myocardial Perfusion Michelle Cooper APRN [address] [place] [address] [place] [address] Referral ID Status Reason Start Date Expiration Date V isits Requested Visits Authorized [id number] Closed Specialty Service Requested 09/25/2020 03/25/2022 1 1 Encounter Details Date Type Department Care Team (Latest Contact Info) Description 10/09/2020 9:20 AM EST Hospital Encounter [place] [address] Michelle Cooper APRN [address] [place], [place] [address] Discharge Disposition: Home Social History Tobacco Use [...] been reported to the team at the [facility]. Thank you for letting us participate [...] hasbeen reported to the team at the [facility]. Thank you for letting us participate in the care of this patient. Forquestions regarding this report, please contact the number below. Michelle Cooper STEAM CLEANING MACHINE OPERATOR IMG NM ORDERABLES * NM Exercise Stress [...] been reported to the team at the [facility]. Thank you for letting us participate [...] hasbeen reported to the team at the [facility]. Thank you for letting us participate in the care of this patient. Forquestions regarding this report, please contact the number below. Michelle Cooper STEAM CLEANING MACHINE OPERATOR IMG NM ORDERABLES documented in this encounter Visit Diagnoses Not on filedocumented in this encounter Care Teams Entertainment Usher Relationship Specialty Start Date End Date Michelle Cooper APRN [address] [place] [address] PCP - General Family Medicine 09/25/20 07/23/23 documented as of this encounter
--- OUTSIDE RECORDS SUMMARY | 2024-07-16 14:00 | XMS_ITS | Encounter Summary ---
Author Organization [facility] Address [facility] [place] [address] Care Team Providers Care Supervisor Bindery Name Role Phone Unknown Primary Care Provider Unavailabl e Encounter Details Date Type Department Care Team (Late st Contact Info) Description 08/24/2020 Orders [place] [address] Eleuterio Silva MD [facility] [place] [address] Extrinsic asthma, unspecified asthma severity, unspecified whether [...] / FVC LLN 64 % COMPAS PFT PMD27-69 Actual Pre-BD 1.43 L/s COMPAS PFT [id number] Pre-BD % of Predicted 57 % COMPAS PFT PVK87-75 Predicted 2.51 L/s COMPAS PFT DQK23-08 Pre-BD Z-Score -1.25 COMPAS PFT Narrative COMPAS [...] persistent documented in this encounter Care Teams Supervisor Bindery Relationship Specialty Start Date End Date Unknown None PCP - General 11/24/16 09/24/20 documented as of this encounter
--- OUTSIDE RECORDS SUMMARY | 2024-07-16 14:00 | XMS_ITS | Encounter Summary ---
[place] [address] Care Team Providers Care Brand Recorder Name Role Phone Michelle Cooper APRN Primary Care Provider Encounter Details Date Type Department Care Team (Latest Contact Info) Description 10/09/2020 9:20 AM EST Hospital Encounter Non-[place] [address] Michelle Cooper APRN [address] [place] [address] Chest pain, unspecified type Discharge Disposition: Home [...] type documented in this encounter Care Teams Brand Recorder Relationship Specialty Start Date End Date Michelle Cooper APRN [address] [place] [address] PCP - General Family Medicine 09/25/20 07/23/23 documented as of this encounter
--- OUTSIDE RECORDS SUMMARY | 2024-07-16 14:00 | XMS_ITS | Encounter Summary ---
Author Organization [facility] Address [facility] [place] [address] Care Team Providers Care Sales Professional Name Role Phone Michelle Cooper Anyi PRITCHETT Primary Care Provider [phone] Encounter Details Date Type Department Care Team (Latest Contact Info) Description 10/27/2020 12:07 PM EST - 10/27/2020 12:56 PM [facility] Hospital Encounter XRay at [address] [place] [address] Tomas Quan MD [facility] [place] [address] Extrinsic asthma, unspecified asthma severity, unspecified whether [...] persistent documented in this encounter Care Teams Sales Professional Relationship Specialty Start Date End Date Michelle Cooper APRN [address] [place] [address] PCP - General Family Medicine 09/25/20 07/23/23 documented as of this encounter
--- OUTSIDE RECORDS SUMMARY | 2024-07-16 14:00 | XMS_ITS | Encounter Summary ---
Author Organization [facility] [place] [address] Care Team Providers Care K 12 School Professional Name Role Phone Tyron Wilcox MD Primary Care Provider Encounter Details Date Type Department Care Team (Late st Contact Info) Description 04/12/2013 [place] [phone] Liana Fairbanks MD [facility] UROLOGKatelyn [place] [id number] Social History Tobacco Use Types Packs/Day Years [...] on filedocumented in this encounter Care Teams K 12 School Professional Relationship Specialty Start Date End Date Tyron Wilcox MD PCP - General 04/10/13 11/23/16 documented as of this encounter
--- OUTSIDE RECORDS SUMMARY | 2024-07-16 14:00 | XMS_ITS | Encounter Summary ---
[place] [address] Care Team Providers Care Craps Manager Name Role Phone Michelle Cooper APRN Primary Care Provider Encounter Details Date Type Department Care Team (Late st Contact Info) Description 09/23/2020 External Results Non-[place] [address] None None Social History Tobacco Use Types [...] on filedocumented in this encounter Care Teams Craps Manager Relationship Specialty Start Date End Date Michelle Cooper APRN [address] [place] [address] PCP - General Family Medicine 09/25/20 07/23/23 documented as of this encounter
--- OUTSIDE RECORDS SUMMARY | 2024-07-16 14:00 | XMS_ITS | Encounter Summary ---
[place] [address] Care Team Providers Care Plastic Surgery Nurse Name Role Phone Unknown Primary Care Provider Unavailabl e Encounter Details Date Type Department Care Team (Late st Contact Info) Description 08/10/2020 [place] [address] Bea Benjamin Social History Tobacco Use Types Packs/Day Years Used Date Smoking Tobacco: Former Sex and Gender Information Value Date Recorded Sex Assigned at Not on file Gender Identity Not on file Sexual Orientation Not on file documented as of this encounter Plan of Treatment Not on file documented as of this encounter Visit Diagnoses Not on filedocumented in this encounter Care Teams Plastic Surgery Nurse Relationship Specialty Start Date End Date Unknown None PCP - General 11/24/16 09/24/20 documented as of this encounter
--- OUTSIDE RECORDS SUMMARY | 2024-07-16 14:00 | XMS_ITS | Encounter Summary ---
Author Organization [facility] Address [facility] [place] [address] Care Team Providers Care Plant Clerk Name Role Phone Michelle Cooper APRN Primary Care Provider [phone] Encounter Details Date Type Department Care Team (Late st Contact Info) Description 10/28/2020 Telephone [place] [phone] Eleuterio Silva MD [facility] [place] [address] Social History Tobacco Use Types Packs/Day Years [...] on filedocumented in this encounter Care Teams Plant Clerk Relationship Specialty Start Date End Date Michelle Cooper APRN [address] [place] [address] PCP - General Family Medicine 09/25/20 07/23/23 documented as of this encounter
--- OUTSIDE RECORDS SUMMARY | 2024-07-16 14:00 | XMS_ITS | Encounter Summary ---
Author Organization [facility] Address [facility] [place] [address] Care Team Providers Care Cloud Infrastructure Architect Name Role Phone Tyron Wilcox MD Primary Care Provider [phone] Encounter Details Date Type Department Care Team (Late st Contact Info) Description 04/10/2013 11:30 AM EDT [place] [phone] Alba Liu MD [facility] [place] [address] Penile trauma (Primary Dx) Discharge Disposition: Home [...] swelling he presented to his Urologist at [facility] and per the patient was diagnosed with [...] genitals documented in this encounter Care Teams Cloud Infrastructure Architect Relationship Specialty Start Date End Date Tyron Wilcox MD PCP - General 04/10/13 11/23/16 documented as of this encounter
[2024-07-16 22:15] LABS: PSA, Screening 0.5 ng/mL (<=4.5)
== END 2024-07-16 13:53 | disposition home or self-care (01) ==
LOC: NCHCN 13:52
PROVIDERS: PCP Nurse Practitioner Family; Visit Provider Family Medicine
DX: Z12.5 Encounter for screening for malignant neoplasm of prostate (principal)
CPT/HCPCS: 84153

== ENCOUNTER 2025-06-02 15:06 | Outpatient (REF) | payer MEDICARE, SELFPAY ==
[2025-06-02 16:42] LABS: ALT 30 U/L (16-63); AST 19 U/L (15-37); Albumin 3.5 g/dL (3.4-5.0); Alkaline Phosphatase 79 U/L (46-116); Anion Gap 6.3 mmol/L (3-11); BUN 15 mg/dL (7-18); Bilirubin, Total 0.3 mg/dL (0.2-1.0); CO2 29.7 mmol/L (21.0-32.0); Calcium 8.8 mg/dL (8.5-10.1); Chloride 104 mmol/L (98-107); Estimated GFR 91.88 (mL/min/1.73m2); Glucose 116 mg/dL (74-106); Potassium 4.1 mmol/L (3.5-5.1); Sodium 140 mmol/L (136-145); Total Protein 7.1 g/dL (6.4-8.2)
== END 2025-06-02 15:07 | disposition home or self-care (01) ==
LOC: NCHCN 15:06
PROVIDERS: PCP Nurse Practitioner Family; Visit Provider Family Medicine
DX: E78.5 Hyperlipidemia, unspecified (principal); I10 Essential (primary) hypertension
CPT/HCPCS: 80053